=== PATIENT | male | born 1940 | race Caucasian/White ===

== ENCOUNTER → 2017-06-16 | Outpatient (CLI) | payer MEDICARE ==
[~2017-06-16] MED LIST: CODE-54 PO; OMEP20CA6 PO
--- NOTE | 2017-06-16 17:31 | Diagnostic Imaging Report ---
INDICATION: Cough x1 month. PA and lateral chest obtained at 5:26 p.m. and compared to 12/13/15. FINDINGS: Heart and mediastinal silhouette are normal in appearance. The lungs are clear. There is no pneumothorax or pleural fluid. There is some linear scarring or atelectasis in the right midlung, best seen on the lateral view. IMPRESSION: There is some linear scarring versus atelectasis in right midlung anteriorly, best seen on the lateral view. There is no definitive consolidation or pneumothorax or pleural fluid. Dictated by: Dictated on workstation # [id number]
== END ==
LOC: RAD 16:49
PROVIDERS: ATTEND Family Medicine
DX: R91.8 Other nonspecific abnormal finding of lung field (principal); R05 Cough
CPT/HCPCS: 71020

== ENCOUNTER → 2017-07-14 | Outpatient (CLI) | payer MEDICARE ==
--- NOTE | 2017-07-14 11:10 | Diagnostic Imaging Report ---
PROCEDURE: CT chest without contrast. TECHNIQUE: Multiple contiguous axial images were obtained through the chest without the use of intravenous contrast. INDICATION: Cough and shortness of breath. FINDINGS: The lungs demonstrate no significant consolidation, mass or suspicious nodule. There is very minimal atelectasis or scarring in the lung bases. Calcified granulomas are seen in the left hilum. There are no mediastinal masses or significantly enlarged lymph nodes. No significantly enlarged axillary lymph nodes are seen. The heart size is normal. No pericardial or pleural effusion is seen. The thoracic aorta is normal in caliber. Cholecystectomy clips are seen. The osseous structures demonstrate degenerative changes in the mid thoracic spine. IMPRESSION: There are minimal atelectatic changes or scarring seen in the bases. Dictated by: Dictated on workstation # [id number]
== END ==
LOC: RAD 10:02
PROVIDERS: ATTEND Family Medicine
DX: R91.8 Other nonspecific abnormal finding of lung field (principal)
CPT/HCPCS: 71250

== ENCOUNTER 2017-11-03 15:30 | Outpatient (RCR) | payer MEDICARE ==
[~2017-11-03] VITALS: Ht 172.7 cm; Wt 101.2 kg
[2017-11-03] MEDS ORDERED: PANT40TA3 PO (15:45)
[2017-11-03] MEDS ORDERED: MELO15TA39 PO (15:45)
[2017-11-03 15:48] VITALS: BP 146/76
[2017-11-03 16:10] LABS: BASOPHILS # (AUTO) 0.1 10^3/uL (0.0-0.1); BASOPHILS % (AUTO) 1 % (0-10); EOSINOPHILS # (AUTO) 0.9 10^3/uL (0.0-0.3); EOSINOPHILS % (AUTO) 10 % (0-10); HEMATOCRIT 43 % (40-54); HEMOGLOBIN 15.3 G/DL (13.3-17.7); LYMPHOCYTES # (AUTO) 2.7 X 10^3 (1.0-4.0); LYMPHOCYTES % (AUTO) 30 % (12-44); MEAN CORPUSCULAR HEMOGLOBIN 30 PG (25-34); MEAN CORPUSCULAR HGB CONC 35 G/DL (32-36); MEAN CORPUSCULAR VOLUME 84 FL (80-99); MEAN PLATELET VOLUME 9.7 FL (7.4-10.4); MONOCYTES # (AUTO) 1.1 X 10^3 (0.0-1.0); MONOCYTES % (AUTO) 13 % (0-12); NEUTROPHILS # (AUTO) 4.2 X 10^3 (1.8-7.8); NEUTROPHILS % (AUTO) 47 % (42-75); PLATELET COUNT 418 10^3/uL (130-400); RED BLOOD COUNT 5.17 10^6/uL (4.35-5.85); RED CELL DISTRIBUTION WIDTH 14.1 % (10.0-14.5)
[2017-11-03 16:29] LABS: BUN/CREATININE RATIO 14; CALCIUM 9.1 MG/DL (8.5-10.1); CARBON DIOXIDE 22 MMOL/L (21-32); CHLORIDE 107 MMOL/L (98-107); CREATININE SERUM 0.99 MG/DL (0.60-1.30); GFR ESTIMATED > 60; GLUCOSE 90 MG/DL (70-105); POTASSIUM 4.2 MMOL/L (3.6-5.0); SODIUM 140 MMOL/L (135-145)
[2017-11-03] MEDS ORDERED: RT-ALBUTEROL SULF 2.5 MG/3 ML PRE-MIX VIAL INH ONE (17:15)
[2017-11-06] MEDS ORDERED: HYDR-3812 PO (09:37)
== END 2018-02-01 | disposition home or self-care (01) ==
LOC: PREOP 15:30
PROVIDERS: ATTEND Otolaryngology Otolaryngology/Facial Plastic Surgery
DX: Z01.810 Encounter for preprocedural cardiovascular examination (principal); Z01.812 Encounter for preprocedural laboratory examination; Z11.2 Encounter for screening for other bacterial diseases; J38.3 Other diseases of vocal cords; R06.00 Dyspnea, unspecified; R06.2 Wheezing; R05 Cough
CPT/HCPCS: 36415; 80048; 85025; 87070; 87081; 87205; 93005; 94060; 94726; 94729

== ENCOUNTER 2017-11-06 06:10 | Day surgery (SDC) | payer MEDICARE ==
[~2017-11-06] VITALS: Ht 172.7 cm; Wt 101.2 kg
[~2017-11-06 06:10] MED LIST changes: +MELO15TA39 PO; +PANT40TA3 PO
[2017-11-06 06:20] VITALS: BP 130/74
[2017-11-06] MEDS ORDERED: LACTATED RINGERS 1,000 ML IV PRN (06:36)
[2017-11-06] MEDS ORDERED: FAMOTIDINE 20MG/2ML IV (PEPCID) IV ONE (06:45)
--- NOTE | 2017-11-06 06:46 | Progress Note-Pre Operative ---
Pre-Operative Progress Note H&P Reviewed The H&P was reviewed, patient examined and no changes noted. Date Seen by Provider: Nov 06, 2017 Time Seen by Provider: 06:30 Date H&P Reviewed: Nov 06, 2017 Time H&P Reviewed: 06:30 Pre-Operative Diagnosis: laryngeal Lesion-vocal cord ERIN ALVES MD Nov 06, 2017 6:46 am
[2017-11-06] MEDS ORDERED: LIDOCAINE PF 2% 5 ML (XYLOCAINE) VIAL ONE (06:56)
[2017-11-06] MEDS ORDERED: proPOfol 200 MG/20 ML (DIPRIVAN) VIAL IV ONE (06:56)
[2017-11-06] MEDS ORDERED: SEVOFLURANE (ULTANE) 15 ML INHAL SOLN ONE ×3 (06:56→08:20)
[2017-11-06] MEDS ORDERED: fentaNYL INJECTION 100 MCG/2 ML AMP ONE (06:57)
[2017-11-06] MEDS ORDERED: LIDOCAINE/EPI 1%-1:200,000 (XYLOCAINE) 10 ML VIAL ONE (07:03)
--- NOTE | 2017-11-06 08:14 | Progress Note-Post Operative ---
Post-Operative Progess Note Surgeon (s)/Optical Element Coater (s) Surgeon ERIN ALVES MD [employer] Element [employer] n/a Pre-Operative Diagnosis laryngeal Lesion-vocal cord Post-Operative Diagnosis same Post-Op Procedure Note Date of Procedure: Nov 06, 2017 Name of Procedure Performed: Direct Laryngoscoy with Removal of Right Vocal Cord Lesion Description & Findings Description and Findings: n/a Anesthesia Type get Estimated Blood Loss minimal Packing none. Specimen(s) collected/removed right vocal cord lesion ERIN ALVES MD Nov 06, 2017 8:14 am
[2017-11-06] MEDS ORDERED: ACETAMINOPHEN 325 MG TABLET/CAPLET (TYLENOL) PO PRN (08:15)
[2017-11-06] MEDS ORDERED: HYDROcodone/APAP 5 MG/325 MG (LORTAB) TAB PO PRN (08:15)
[2017-11-06] MEDS ORDERED: PROMETHAZINE INJ 25 MG/ML (PHENERGAN) AMP IV PRN (08:15)
[2017-11-06] MEDS ORDERED: ROCURONIUM 50 MG/5 ML (ZEMURON) VIAL IV ONE (08:20)
[2017-11-06] MEDS ORDERED: ONDANSETRON 4 MG/2 ML (SDV) Z0FRAN ONE (08:20)
[2017-11-06] MEDS ORDERED: NEOSTIGMINE (BLOXIVERZ ) 1 MG/1ML 10 ML VIAL ONE (08:20)
[2017-11-06] MEDS ORDERED: DEXAMETHASONE 10 MG/ML (DECADRON) 1 ML VIAL ONE (08:20)
[2017-11-06] MEDS ORDERED: GLYCOPYRROLATE 0.2 MG/ML (ROBINUL) 2 ML VIAL ONE (08:20)
[2017-11-06 09:05] VITALS: BP 123/64
[2017-11-06 09:35] VITALS: BP 125/61
[2017-11-06] MEDS ORDERED: HYDR-3812 PO ×2 (09:37)
[2017-11-06 10:05] VITALS: BP 132/65
== END 2017-11-06 10:25 | disposition home or self-care (01) ==
LOC: SDC 06:10
PROVIDERS: ATTEND Otolaryngology Otolaryngology/Facial Plastic Surgery
DX: J38.3 Other diseases of vocal cords (principal); K21.9 Gastro-esophageal reflux disease without esophagitis; E66.9 Obesity, unspecified; Z68.33 Body mass index [BMI] 33.0-33.9, adult

== ENCOUNTER 2017-11-06 13:00 | Outpatient (CLI) | payer MEDICARE ==
[~2017-11-06 13:00] MED LIST changes: +HYDR-3812 PO
== END 2017-11-06 13:30 | disposition home or self-care (01) ==
LOC: SLEEP 13:00
PROVIDERS: ATTEND Otolaryngology Otolaryngology/Facial Plastic Surgery
DX: G47.33 Obstructive sleep apnea (adult) (pediatric) (principal); R06.83 Snoring

== ENCOUNTER → 2019-03-04 | Outpatient (CLI) | payer MEDICARE ==
--- NOTE | 2019-03-04 15:44 | Diagnostic Imaging Report ---
INDICATION: Right knee pain. Time of exam 12:08 p.m. FINDINGS: Three views of the right knee were obtained. Joint spaces are fairly well-maintained. There is mild degenerative changes with marginal spurring present in all three compartments. There is spurring of the tibial spines. No fracture, dislocation or effusion is seen. IMPRESSION: Mild degenerative changes. No acute bony abnormality is detected. Dictated by: Dictated on workstation # [id number]
== END ==
LOC: RAD FS 12:03
PROVIDERS: ATTEND Emergency Medicine
DX: S89.91XA Unspecified injury of right lower leg, initial encounter (principal); M17.11 Unilateral primary osteoarthritis, right knee
CPT/HCPCS: 73562

== ENCOUNTER → 2019-03-27 | Outpatient (CLI) | payer MEDICARE ==
--- NOTE | 2019-03-27 17:26 | Diagnostic Imaging Report ---
INDICATION: Cough x 1 month. COMPARISON: 06/16/2017. EXAMINATION: Two views of the chest were obtained. FINDINGS: The lungs are well-aerated. There is concern of developing mass in the right lung base, measuring 2.5 cm, noted on the PA view. Lateral view shows no evidence of pleural effusion or air trapping. Heart is not enlarged. No pulmonary edema. No pneumothorax. No hilar adenopathy. IMPRESSION: Concern is raised of possible developing mass in the right lung base since previous examination. With patient's symptoms, would consider a followup chest x-ray or repeat CT scan. Dictated by: Dictated on workstation # [id number]
[2019-03-27 17:50] LABS: HEMATOCRIT 40 % (40-54); HEMOGLOBIN 13.7 G/DL (13.3-17.7); WHITE BLOOD COUNT 16.2 10^3/uL (4.3-11.0)
[2019-03-27 17:51] LABS: BASOPHILS % (AUTO) 0 % (0-10); EOSINOPHILS # (AUTO) 0.4 10^3/uL (0.0-0.3); EOSINOPHILS % (AUTO) 3 % (0-10); LYMPHOCYTES # (AUTO) 2.1 X 10^3 (1.0-4.0); LYMPHOCYTES % (AUTO) 13 % (12-44); MEAN CORPUSCULAR HEMOGLOBIN 29 PG (25-34); MEAN CORPUSCULAR HGB CONC 34 G/DL (32-36); MEAN CORPUSCULAR VOLUME 86 FL (80-99); MEAN PLATELET VOLUME 9.6 FL (7.4-10.4); MONOCYTES # (AUTO) 1.9 X 10^3 (0.0-1.0); MONOCYTES % (AUTO) 11 % (0-12); NEUTROPHILS # (AUTO) 11.8 X 10^3 (1.8-7.8); NEUTROPHILS % (AUTO) 73 % (42-75); PLATELET COUNT 534 10^3/uL (130-400); RED CELL DISTRIBUTION WIDTH 15.7 % (10.0-14.5)
[2019-03-27 18:05] LABS: ALANINE AMINOTRANSFERASE 31 U/L (0-55); ALBUMIN 3.5 GM/DL (3.2-4.5); ALKALINE PHOSPHATASE 70 U/L (40-136); BILIRUBIN,TOTAL 0.3 MG/DL (0.1-1.0); BUN/CREATININE RATIO 20; CALCIUM 8.8 MG/DL (8.5-10.1); CARBON DIOXIDE 20 MMOL/L (21-32); CHLORIDE 108 MMOL/L (98-107); CREATININE SERUM 0.91 MG/DL (0.60-1.30); GFR ESTIMATED > 60; GLUCOSE 133 MG/DL (70-105); SODIUM 139 MMOL/L (135-145)
[2019-03-27 18:07] LABS: BAND NEUTROPHILS 0 %; BASOPHILS % (MANUAL) 0 %; EOSINOPHILS % (MANUAL) 2 %; LYMPHOCYTES % (MANUAL) 16 %; MONOCYTES % (MANUAL) 8 %; NEUTROPHILS % (MANUAL) 74 %; RBC MORPH NORMAL
== END ==
LOC: RAD 16:31
PROVIDERS: ATTEND Emergency Medicine
DX: R05 Cough (principal); R07.89 Other chest pain
CPT/HCPCS: 36415; 71046; 80053; 84484; 85007; 85027; 86141

== ENCOUNTER → 2019-03-29 | Outpatient (CLI) | payer MEDICARE ==
--- NOTE | 2019-03-29 12:32 | Diagnostic Imaging Report ---
PROCEDURE: CT chest without contrast. TECHNIQUE: Multiple contiguous axial images were obtained through the chest without the use of intravenous contrast. Auto Exposure Controls were utilized during the CT exam to meet ALARA standards for radiation dose reduction. INDICATION: Abnormal chest x-ray demonstrating density in the right base. Study is performed for followup. COMPARISON: Correlation is made with chest radiograph from 03/27/2019. FINDINGS: No axillary lymphadenopathy is seen. Hilar and mediastinal evaluation is limited without intravenous contrast but no significant abnormality is seen. No pericardial or pleural fluid is identified. Parenchymal evaluation does show some airspace consolidation in the medial aspect of the right lower lobe in the infrahilar location, most suggestive of pneumonia. Ill-defined opacity more inferiorly and laterally in the right base is also seen measuring 19 mm. This likely accounts for density noted on recent chest x-ray. This may represent an area of infection as well. There appears to be some mild tree in bud opacities in the right lower lobe. Left lung is clear. Upper abdomen is unremarkable. IMPRESSION: Right lower lobe airspace densities, likely on the basis of an infectious/inflammatory process. A discrete mass is not seen but followup chest CT in short interval after course of therapy is recommended to confirm clearing. Dictated by: Dictated on workstation # [id number]
== END ==
LOC: RAD FS 11:56
PROVIDERS: ATTEND Emergency Medicine
DX: J98.4 Other disorders of lung (principal); R91.8 Other nonspecific abnormal finding of lung field
CPT/HCPCS: 71250

== ENCOUNTER → 2019-04-18 | Outpatient (CLI) | payer MEDICARE ==
--- NOTE | 2019-04-18 11:35 | Diagnostic Imaging Report ---
EXAMINATION: CHEST (PA AND LATERAL) CLINICAL INDICATION: 79-year-old male, followup right lower lobe pneumonia. COMPARISON: March 27, 2019. FINDINGS: Stable overall appearance of the cardiomediastinal silhouette. There is no identified pneumothorax. There is no pleural effusion. The streaky opacities in the right lower lobe appear essentially unchanged since comparison exam. IMPRESSION: 1. Mild streaky opacities in the right lower lobe appear essentially unchanged since comparison exam and may relate to infiltrate and/or atelectasis. Dictated by: Dictated on workstation # [id number]
== END ==
LOC: RAD FS 10:50
PROVIDERS: ATTEND Emergency Medicine
DX: J18.1 Lobar pneumonia, unspecified organism (principal)
CPT/HCPCS: 71046

== ENCOUNTER → 2019-06-02 | Outpatient (CLI) | payer MEDICARE ==
--- NOTE | 2019-06-02 12:24 | Diagnostic Imaging Report ---
PROCEDURE: CT chest without contrast. TECHNIQUE: Multiple contiguous axial images were obtained through the chest without the use of intravenous contrast. Auto Exposure Controls were utilized during the CT exam to meet ALARA standards for radiation dose reduction. INDICATION: Right lower lobe infiltrate and productive cough. Correlation is made with prior CT chest from 03/29/2019. No axillary lymphadenopathy is seen. No definite hilar or mediastinal lymphadenopathy is detected. No pericardial or pleural fluid is identified. The areas of airspace infiltrate in the right lower lobe on prior study have resolved consistent with resolving pneumonia. No new infiltrate is seen. No parenchymal mass or nodule is identified. Upper abdomen is unremarkable. IMPRESSION: Resolution of right lower lobe pneumonia when compared with prior CT from 03/29/2019. Dictated by: Dictated on workstation # [id number]
== END ==
LOC: RAD 10:08
PROVIDERS: ATTEND Emergency Medicine
DX: J18.1 Lobar pneumonia, unspecified organism (principal)
CPT/HCPCS: 71250

== ENCOUNTER 2020-04-06 07:00 | Emergency (ER) | payer MEDICARE ==
[~2020-04-06] VITALS: Ht 175 cm; Wt 95.2 kg
[~2020-04-06 07:00] MED LIST changes: +ACHD5005 PO; -HYDR-3812 PO
--- OUTSIDE RECORDS SUMMARY | 2020-04-06 07:08 | XMS REPORT | CCD ---
Author Author Deon Laureano D.O. Organization BK LAUREANO DO [facility] Address [address] [place] [address] Phone Care Team Providers Care Manpower Development Specialist Manager Name Role Phone Bk Laureano D.O. PP Unavailable CCM Unavailable Summary Purpose Interface Exchange Insurance Providers Payer name Policy type / Coverage type Covered democrat ID Effective Begin Date Effective End Date [employer] MEDIC[place] Medicare Part B [id number] Unknown [facility] [place] Medicare Part B [id number] Un known Family history Father Diagnosis Age At Onset Lung Cancer Unknown Mother Diagnosis Age At Onset Cerebrovascular disease Unknown Hypertension Unknown Social History Social History Element Codes Description Effective Dates Marital status Unknown 12/13/2014 Number of children Unknown 3 12/13/2014 Employment Unknown Currently employed 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 12/13/[address]: 764817 Currently drinks alcohol 12/13 Frequency of drinks SNOMED CT: 937641447 Drinks rarely 015 Allergies, Adverse Reactions, Alerts Substance Reaction Codes Entered Date Inactivated Date Status * NO KNOWN DRUG ALLERGIES Unknown 12/13/2014 No Inactiv e Date Active * NO KNOWN ENVIRONMENTAL ALLERGIES Unknown 12/13/2014 N o Inactive Date Active * NO KNOWN FOOD ALLERGIES Unknown 12/13/2014 No Inactiv e Date Active Problems Condition Codes Effective Dates Condition Status Acute bronchitis, unspecified ICD-9: 490 ICD-10: J20.9 09/23/2017 Active Allergic rhinitis due to pollen ICD-9: 477.9 ICD-10: J30.1 06/16/2017 Active COUGH ICD-9: 786.2 ICD-10: R05 06/16/2017 Active Wheezing ICD-9: 786.07 ICD-10: R06.2 06/16/2017 Active Acute bronchitis, unspecified ICD-9: 466.0 ICD-10: J20.9 03/16/2019 Active Acute recurrent sinusitis, unspecified ICD-9: 461.9 ICD-10: J01.91 01/13/2019 Active Encounter for general adult medical examination withou t abnormal findings ICD-9: V70.9 ICD-10: Z00.00 07/21/2018 Active Gastro-esophageal reflux disease without esophagitis I CD-9: 530.81 ICD-10: K21.9 12/13/2014 Active Personal history of malignant neoplasm of prostate ICD -9: V10.46 ICD-10: Z85.46 12/13/2014 Active Corns and callosities ICD-9: 700 ICD-10: L84 06/16/2017 Active Other seasonal allergic rhinitis ICD-9: 477.9 ICD-10: J30.2 02/19/2017 Active Encounter for screening for cardiovascular disorders I CD-9: V81.0 ICD-10: Z13.6 02/28/2016 Active Unspecified osteoarthritis, unspecified site ICD-9: 71 5.90 ICD-10: M19.90 02/28/2016 Active CHEST PAIN NOS ICD-9: 786.50 12/13/2014 Active GERD ICD-9: 530.81 12/13/2014 Active History of prostate cancer ICD-9: V10.46 12/13/2014 Activ e Knee pain ICD-9: 719.46 12/13/2014 Active Medications Medication Codes Instructions Start Date Stop Date Status Fill Instructions meloxicam 15 mg tablet RxNorm: 184580 1 Tablet(s) Oral QD for pain 03/22/2020 06/19/2020 Active Ventolin HFA 90 mcg/actuation aerosol inhaler RxNorm: 926547 2 Puff(s) Inhalation four times a day 02/14/2020 03/14/2020 Inactive doxycycline hyclate 100 mg capsule RxNorm: 5719652 1 Cap fadi(s) Oral two times a day 02/14/2020 02/21/2020 Inactive prednisone 20 mg tablet RxNorm: 836893 1 Tablet(s) Oral two denise es a day 02/14/2020 02/21/2020 Inactive doxycycline hyclate 100 mg capsule RxNorm: 9138729 1 Cap fadi(s) Oral two times a day 12/02/2019 12/12/2019 Inactive prednisone 20 mg tablet RxNorm: 554229 1 Tablet(s) Oral two denise es a day 12/02/2019 12/09/2019 Inactive Ventolin HFA 90 mcg/actuation aerosol inhaler RxNorm: 375825 2 Puff(s) Inhalation four times a day 12/02/2019 02/13/2020 Inactive meloxicam 15 mg tablet RxNorm: 647401 1 Tablet(s) Oral QD for pain 08/20/2019 02/16/2020 Inactive pantoprazole 40 mg tablet,delayed release RxNorm: 801539 1 TABL ET(S) PO QD 08/09/2019 05/04/2020 Active meloxicam 15 mg tablet RxNorm: 655303 1 Tablet(s) PO QD for pain 08/19/2019 Inactive doxycycline hyclate 100 mg tablet RxNorm: 1859916 1 Tablet(s) PO BI D 03/16/2019 03/25/2019 Inactive prednisone 20 mg tablet RxNorm: 267724 1 Tablet(s) PO BID 03/16/2019 03/22/2019 Inactive cefdinir 300 mg capsule RxNorm: 696562 1 Capsule(s) PO BID 01/14/2001/26/2019 Inactive prednisone 20 mg tablet RxNorm: 928248 1 Tablet(s) PO BID 01/13/2019 01/19/2019 Inactive meloxicam 15 mg tablet RxNorm: 232109 1 Tablet(s) PO QD for pain 01/16/2019 Inactive pantoprazole 40 mg tablet,delayed release RxNorm: 650260 1 Tabl et(s) PO QD 07/21/2018 07/15/2019 Inactive meloxicam 15 mg tablet RxNorm: 680148 1 Tablet(s) PO QD 06/22/2018 Inactive pantoprazole 40 mg tablet,delayed release RxNorm: 448748 1 Tabl et(s) PO QD 06/18/2018 07/20/2018 Inactive pantoprazole 40 mg tablet,delayed release RxNorm: 718558 1 Tabl et(s) PO QD 04/16/2018 06/17/2018 Inactive pantoprazole 40 mg tablet,delayed release RxNorm: 808530 1 Tabl et(s) PO QD 02/04/2018 06/18/2018 Inactive pantoprazole 40 mg tablet,delayed release RxNorm: 060548 1 Tabl et(s) PO QD 09/23/2017 02/04/2018 Inactive prednisone 20 mg tablet RxNorm: 085366 2 Tablet(s) PO QD 09/23/2017 1 11/25/2016 Inactive Singulair 10 mg tablet RxNorm: 606306 1 Tablet(s) PO QHS for co ugh/allergies 07/03/2017 07/20/2018 Inactive loratadine 10 mg tablet RxNorm: 926584 1 Tablet(s) PO QAM for a llergies 02/19/2017 07/20/2018 Inactive omeprazole 20 mg capsule,delayed release RxNorm: 020983 1 Capsu le(s) PO QD 02/19/2017 07/20/2018 Inactive [AttnRPh: Saving shiv ly/adjudicate RxGRP:SG20 RxBIN:[id number] RxPCN: ID#:[id number]] meloxicam 15 mg tablet RxNorm: 043821 1 Tablet(s) PO QD 02/19/2017 Inactive omeprazole 20 mg capsule,delayed release RxNorm: 568689 1 Capsu le(s) PO QD 02/29/2016 02/18/2017 Inactive [AttnRPh: Saving shiv ly/adjudicate RxGRP:SG20 RxBIN:[id number] RxPCN: ID#:[id number]] meloxicam 15 mg tablet RxNorm: 519737 1 Tablet(s) PO QD 02/29/2016 Inactive omeprazole 20 mg capsule,delayed release RxNorm: 161074 1 CAPSULE(S) PO QD DUE FOR ROUTINE APPOINTMENT 02/01/2016 02/28/2016 Inactive [AttnRPh : Saving apply/adjudicate RxGRP:SG20 RxBIN:[id number] RxPCN:HT ID#:[id number]] meloxicam 15 mg tablet RxNorm: 196297 1 Tablet(s) PO QD TABLET( S) PO QD 12/27/2015 01/25/2016 Inactive omeprazole 20 mg capsule,delayed release RxNorm: 480481 1 Capsule(s) PO QD Due for routine appointment 11/28/2015 12/27/2015 Inactive [AttnRPh : Saving apply/adjudicate RxGRP:SG20 RxBIN:[id number] RxPCN:HT ID#:[id number]] meloxicam 15 mg tablet RxNorm: 568673 2 Tablet(s) PO QD 09/26/2015 Inactive omeprazole 20 mg capsule,delayed release RxNorm: 305359 1 Capsu le(s) PO QD 12/13/2014 11/28/2015 Inactive [AttnRPh: Saving shiv ly/adjudicate RxGRP:SG20 RxBIN:[id number] RxPCN: ID#:[id number]] Multivitamin & Mineral Formula oral RxNorm: oral No Start Date Active Nasacort AQ 55 mcg nasal spray aerosol RxNorm: 5251790 1 [place] NASAL QD to each nostril No Start Date Active Breo Ellipta 100 mcg-25 mcg/dose powder for inhalation RxNorm: 1 060060 1 INH QD No Start Date 01/12/2019 Inactive Vitamin C 500 mg tablet RxNorm: 678194 1 Tablet(s) PO QD No Start D ate 12/01/2019 Inactive meloxicam 15 mg tablet RxNorm: 118721 1 Tablet(s) PO QD No Start Da te 02/28/2016 Inactive meloxicam 15 mg tablet RxNorm: 723619 2 Tablet(s) PO QD No Start Da te 09/25/2015 Inactive meloxicam 15 mg tablet RxNorm: 694936 1 Tablet(s) PO QD No Start Da te 07/20/2018 Inactive Medication Administered No Medication Administered data Immunizations No Immunization data Results Observation Observation Code Item Item Code Result Date S vic Location ERYTHROCYTE SEDIMENTATION RATE 71839 Sed Rate 1 mm/hr 07/04/2017 Unknown GFR CALC 6853617 GFR Afr Amr >60 mL/min 07/03/2017 Unknow n GFR CALC 4659837 GFR Non Afr Amr >60 mL/min 07/03/2017 Un known COMPLETE BLOOD COUNT [id number] WBC 9.2 10e9/L 07/03/20 17 Unknown COMPLETE BLOOD COUNT [id number] RBC 4.73 10e12/L 2016 Unknown COMPLETE BLOOD COUNT [id number] HEMOGLOBIN 14.0 g/dL 07/03/20 17 Unknown COMPLETE BLOOD COUNT [id number] HEMATOCRIT 42.3 % 07/03/20 17 Unknown COMPLETE BLOOD COUNT 6661314 MCV 89.4 fL 7 Unknown COMPLETE BLOOD COUNT 2700149 MCH 29.6 pg 7 Unknown COMPLETE BLOOD COUNT 8949571 MCHC 33.1 g/dL 7 Unknown COMPLETE BLOOD COUNT [id number] PLATELET COUNT 375 10e9/L 04/2017 Unknown COMPLETE BLOOD COUNT 1264963 Mean Plt Volume 9.7 fL 04/2017 Unknown COMPLETE BLOOD COUNT 9391743 Neut Auto 61.0 % 7 Unknown COMPLETE BLOOD COUNT 5322734 Lymph Auto 25.8 % 07/03/20 17 Unknown COMPLETE BLOOD COUNT 4489329 Cloud Auto 10.2 % 7 Unknown COMPLETE BLOOD COUNT 4357555 RDW 15.0 % 7 Unknown COMPLETE BLOOD COUNT 7932706 Eos Auto 2.9 % 7 Unknown COMPLETE BLOOD COUNT 1716254 Baso Auto 0.1 % 7 Unknown COMPLETE BLOOD COUNT 4072960 Neutrophil Abs 5.61 10e9/L Unknown COMPLETE BLOOD COUNT 0545784 Lymphocyte Abs 2.37 10e9/L Unknown COMPLETE BLOOD COUNT 5001716 Monocyte Abs 0.94 10e9/L 04/2017 Unknown COMPLETE BLOOD COUNT 2200826 Eosinophil Abs 0.27 10e9/L Unknown COMPLETE BLOOD COUNT 0619007 RDW-SD 48.6 fL 7 Unknown COMPLETE BLOOD COUNT 2758412 Basophil Abs 0.01 10e9/L 04/2017 Unknown COMPREHENSIVE METABOLIC 30720 AST 17 U/L 2016 Unknown COMPREHENSIVE METABOLIC 94700 ALT 18 U/L 2016 Unknown COMPREHENSIVE METABOLIC 19568 BUN 22 mg/dL 2016 Unknown COMPREHENSIVE METABOLIC 81501 ALBUMIN 3.6 g/dL 2016 Unknown COMPREHENSIVE METABOLIC 11207 CHLORIDE 106 mmol/L 07/03 Unknown COMPREHENSIVE METABOLIC 25510 Bili Total 0.3 mg/dL 07/03 Unknown COMPREHENSIVE METABOLIC 47352 ALK PHOS 51 U/L 2016 Unknown COMPREHENSIVE METABOLIC 04684 SODIUM 137 mmol/L 07/03 Unknown COMPREHENSIVE METABOLIC 74698 CREATININE 0.99 mg/dL 04/2017 Unknown COMPREHENSIVE METABOLIC 62933 CALCIUM 8.7 mg/dL 2016 Unknown COMPREHENSIVE METABOLIC 28769 POTASSIUM 4.6 mmol/L 07/03 Unknown COMPREHENSIVE METABOLIC 26012 Total Protein 6.0 g/dL Unknown COMPREHENSIVE METABOLIC 47471 Glucose 105 mg/dL 2016 Unknown COMPREHENSIVE METABOLIC 06374 Bicarbonate 24 mmol/L 04/2017 Unknown COMPREHENSIVE METABOLIC 30658 AGAP 7 mmol/L 2016 Unknown THYROID STIMULATING HORMONE 67012 TSH 1.054 uIU/mL 07/03/2017 Unknown GFR CALC 3607758 GFR Afr Amr >60 mL/min 02/29/2016 Unknow n GFR CALC 4869206 GFR Non Afr Amr >60 mL/min 02/29/2016 Un known PSA EQUIMOLAR VERONICA 60897 PSA Total 0.14 ng/mL 6 Unknown COMPREHENSIVE METABOLIC 42880 AST 18 U/L 2015 Unknown COMPREHENSIVE METABOLIC 43304 ALT 19 U/L 2015 Unknown COMPREHENSIVE METABOLIC 67429 BUN 19 mg/dL 2015 Unknown COMPREHENSIVE METABOLIC 09120 ALBUMIN 4.0 g/dL 2015 Unknown COMPREHENSIVE METABOLIC 29210 CHLORIDE 107 mmol/L 02/28 Unknown COMPREHENSIVE METABOLIC 17989 Bili Total 0.5 mg/dL 02/28 Unknown COMPREHENSIVE METABOLIC 21447 ALK PHOS 52 U/L 2015 Unknown COMPREHENSIVE METABOLIC 90755 SODIUM 135 mmol/L 02/28 Unknown COMPREHENSIVE METABOLIC 42310 CREATININE 0.93 mg/dL 02/2016 Unknown COMPREHENSIVE METABOLIC 60406 CALCIUM 9.1 mg/dL 2015 Unknown COMPREHENSIVE METABOLIC 94515 POTASSIUM 4.5 mmol/L 02/28 Unknown COMPREHENSIVE METABOLIC 97212 Total Protein 6.3 g/dL Unknown COMPREHENSIVE METABOLIC 42243 Glucose 97 mg/dL 2015 Unknown COMPREHENSIVE METABOLIC 27624 Bicarbonate 21 mmol/L 02/2016 Unknown COMPREHENSIVE METABOLIC 46356 AGAP 7 mmol/L 2015 Unknown COMPLETE BLOOD COUNT 7548465 WBC 7.0 10e9/L 02/29/20 16 Unknown COMPLETE BLOOD COUNT 3262191 RBC 4.94 10e12/L 2015 Unknown COMPLETE BLOOD COUNT 7749452 HEMOGLOBIN 14.5 g/dL 02/29/20 16 Unknown COMPLETE BLOOD COUNT 3502258 HEMATOCRIT 43.1 % 02/29/20 16 Unknown COMPLETE BLOOD COUNT 2674490 MCV 87.2 fL 6 Unknown COMPLETE BLOOD COUNT 7622185 MCH 29.4 pg 6 Unknown COMPLETE BLOOD COUNT 9297000 MCHC 33.6 g/dL 6 Unknown COMPLETE BLOOD COUNT 2014982 PLATELET COUNT 339 10e9/L 02/2016 Unknown COMPLETE BLOOD COUNT 8262662 Mean Plt Volume 10.6 fL 02/2016 Unknown COMPLETE BLOOD COUNT 9257301 Neut Auto 52.5 % 6 Unknown COMPLETE BLOOD COUNT 4201209 Lymph Auto 32.7 % 02/29/20 16 Unknown COMPLETE BLOOD COUNT 4135236 Cloud Auto 12.9 % 6 Unknown COMPLETE BLOOD COUNT 6400485 Eos Auto 1.6 % 6 Unknown COMPLETE BLOOD COUNT 9846719 RDW 14.6 % 6 Unknown COMPLETE BLOOD COUNT 3400123 Baso Auto 0.3 % 6 Unknown COMPLETE BLOOD COUNT 9211688 Neutrophil Abs 3.68 10e9/L Unknown COMPLETE BLOOD COUNT 1542417 Lymphoctye Abs 2.29 10e9/L Unknown COMPLETE BLOOD COUNT 1866804 Monocyte Abs 0.90 10e9/L 02/2016 Unknown COMPLETE BLOOD COUNT 2562809 Eosinophil Abs 0.11 10e9/L Unknown COMPLETE BLOOD COUNT 6530855 Basophil Abs 0.02 10e9/L 02/2016 Unknown COMPLETE BLOOD COUNT 9172045 RDW-SD 46.3 fL 6 Unknown LIPID GROUP 98294 Cholesterol 161 mg/dL 02/29/2016 Unkno wn LIPID GROUP 81113 Triglyceride 57 mg/dL 02/29/2016 Unkn own LIPID GROUP 22657 HDL CHOLESTEROL 50 mg/dL 02/29/2016 U nknown LIPID GROUP 85435 Chol/HDL Ratio 3.22 ratio 02/29/2016 U nknown LIPID GROUP 25360 NON-HDL Chol 111 mg/dL 02/29/2016 Unkn own LIPID GROUP 60964 LDL Cholesterol 100 mg/dL 02/29/2016 U nknown Procedures Procedure Codes Date DEXAMETHASONE SODIUM PHOS CPT-4: J1100 12/02/2019 THER/PROPH/DIAG INJ SC/IM CPT-4: 36352 12/02/2019 TRIAMCINOLONE ACET INJ NOS CPT-4: J3301 12/02/2019 THER/PROPH/DIAG INJ SC/IM CPT-4: 25525 03/16/2019 TRIAMCINOLONE ACET INJ NOS CPT-4: J3301 03/16/2019 CEFTRIAXONE SODIUM INJECTION CPT-4: J0696 03/16/2019 THER/PROPH/DIAG INJ SC/IM CPT-4: 36455 03/16/2019 DEXAMETHASONE SODIUM PHOS CPT-4: J1100 03/16/2019 THER/PROPH/DIAG INJ SC/IM CPT-4: 99606 01/13/2019 TRIAMCINOLONE ACET INJ NOS CPT-4: J3301 01/13/2019 PPPS, subseq visit CPT-4: G0439 07/21/2018 PRESCRIP TRANSMIT VIA ERX SY CPT-4: G8553 09/23/2017 ROUTINE VENIPUNCTURE CPT-4: 23364 07/03/2017 ASSAY THYROID STIM HORMONE CPT-4: 35557 07/03/2017 COMPREHEN METABOLIC PANEL CPT-4: 55989 07/03/2017 COMPLETE CBC W/AUTO DIFF WBC CPT-4: 41810 07/03/2017 RBC SED RATE AUTOMATED CPT-4: 44875 07/03/2017 PRESCRIP TRANSMIT VIA ERX SY CPT-4: G8553 07/03/2017 THER/PROPH/DIAG INJ SC/IM CPT-4: 48317 06/16/2017 TRIAMCINOLONE ACET INJ NOS CPT-4: J3301 06/16/2017 PRESCRIP TRANSMIT VIA ERX SY CPT-4: G8553 02/19/2017 ROUTINE VENIPUNCTURE CPT-4: 16585 02/29/2016 COMPREHEN METABOLIC PANEL CPT-4: 01956 02/29/2016 COMPLETE CBC W/AUTO DIFF WBC CPT-4: 90858 02/29/2016 LIPID PANEL CPT-4: 09796 02/29/2016 ASSAY OF PSA TOTAL CPT-4: 58434 02/29/2016 PRESCRIP TRANSMIT VIA ERX SY CPT-4: G8553 02/29/2016 PRESCRIP TRANSMIT VIA ERX SY CPT-4: G8553 12/13/2014 Vital Signs Date Vital 12/02/2019 Blood Pressure 1: 126/62 Code: 8480-6 BMI: 31.3 Code: 68087-5 Heart Rate 1: 76 bpm Height: 5'9" Respiratory Rate: 22 bpm SpO2: 92% Tempera ture: 36.8 (C) / 98.2 (F) Weight: 212 lbs 03/16/2019 Blood Pressure 1: 122/74 Code: 8480-6 Heart Rate 1: 82 bpm Respiratory Rate: 18 bpm SpO2: 95% Temperature: 36.5 (C) / 97.7 (F) We ight: 213 lbs 01/13/2019 Blood Pressure 1: 114/62 Code: 8480-6 BMI: 31.9 Code: 92762-1 Heart Rate 1: 68 bpm Height: 5'9" Respiratory Rate: 20 bpm SpO2: 94% Tempera ture: 36.6 (C) / 97.9 (F) Weight: 216 lbs 07/21/2018 Blood Pressure 1: 136/78 Code: 8480-6 BMI: 32.0 Code: 50932-0 Heart Rate 1: 72 bpm Height: 5'9" Respiratory Rate: 20 bpm SpO2: 95% Tempera ture: 36.5 (C) / 97.7 (F) Weight: 217 lbs 09/23/2017 Blood Pressure 1: 118/68 Code: 8480-6 BMI: 32.6 Code: 88387-7 Heart Rate 1: 76 bpm Height: 5'9" Respiratory Rate: 20 bpm SpO2: 94% Tempera ture: 36.2 (C) / 97.1 (F) Weight: 221 lbs 07/03/2017 Blood Pressure 1: 126/64 Code: 8480-6 Heart Rate 1: 78 bpm Height: Respiratory Rate: 18 bpm SpO2: 97% Temperature: 36.4 (C) / 97.6 (F) We ight: 221 lbs 06/16/2017 Blood Pressure 1: 128/76 Code: 8480-6 BMI: 33.1 Code: 21521-6 Heart Rate 1: 78 bpm Height: 5'9" Respiratory Rate: 20 bpm SpO2: 96% Tempera ture: 36.4 (C) / 97.6 (F) Weight: 224 lbs 02/19/2017 Blood Pressure 1: 126/78 Code: 8480-6 Heart Rate 1: 74 bpm Respiratory Rate: 20 bpm SpO2: 96% Temperature: 36.3 (C) / 97.3 (F) We ight: 224 lbs 02/29/2016 Blood Pressure 1: 124/78 Code: 8480-6 BMI: 33.7 Code: 70854-6 Heart Rate 1: 72 bpm Height: 5'9" Respiratory Rate: 20 bpm SpO2: 96% Tempera ture: 36.2 (C) / 97.2 (F) Weight: 228 lbs 12/13/2014 Blood Pressure 1: 132/78 Code: 8480-6 BMI: 33.1 Code: 51787-3 Heart Rate 1: 72 bpm Height: 5'9" Respiratory Rate: 20 bpm Temperature: 36 .8 (C) / 98.2 (F) Weight: 224 lbs Functional Status No Functional Status data Reason For Visit Reason For Visit Effective Dates Notes cough 02/14/2020 cough 12/02/2019 cough 03/16/2019 nonproductive cough 01/13/2019 well man exam (65+ years) 07/21/2018 follow up 09/23/2017 follow up 07/03/2017 2 week- Patient star brianna on Breo follow up 06/16/2017 postnasal drip 02/19/2017 joint complaint 02/29/2016 needs refill of magallon xicam ~generic 12/13/2014 New Patient Encounters Encounter Performer Location Codes Date ([id number]) OFFICE/OUTPATIENT VISIT EST Diagnosis: Acute bronchitis, unspecified[ICD10: J20.9] Diagnosis: Allergic rhinitis due to pollen[ICD10: J30.1] [facility] 89459 02/14/2020 ([id number]) OFFICE/OUTPATIENT VISIT EST Diagnosis: COUGH[ICD10: R05] Diagnosis: Wheezing[ICD10: R06.2] Bk Hood [facility] CPT-4: 69904 12/02/2019 ([id number]) OFFICE/OUTPATIENT VISIT EST Diagnosis: Cough[ICD10: R05] Diagnosis: Acute bronchitis, unspecified[ICD10: J20.9] Alice LAUREANO [facility] CPT-4: 53185 03/16/2019 ([id number]) OFFICE/OUTPATIENT VISIT EST Diagnosis: Acute recurrent sinusitis, unspecified[ICD10: J01.91] Diagnosis: Allergic rhinitis due to pollen[ICD10: J30.1] Diagnosis: COUGH[ICD10: R05] Bk LAUREANO Liquid5 CPT-4: 39164 01/13/2019 OFFICE/OUTPATIENT VISIT EST Diagnosis: Acute bronchitis, unspecified[ICD10: J20.9] Diagnosis: Gastro-esophageal reflux disease without esophagitis[ICD10: K21.9] Mayra LAUREANO [facility] CPT-4: 15584 09/23/2017 ([id number]) OFFICE/OUTPATIENT VISIT EST Diagnosis: COUGH[ICD10: R05] Diagnosis: Allergic rhinitis due to pollen[ICD10: J30.1] Diagnosis: Personal history of malignant neoplasm of prostate[ICD10: Z85.46] Bk LAUREANO [facility] CPT-4: 82988 07/03/2017 ([id number]) OFFICE/OUTPATIENT VISIT EST Diagnosis: COUGH[ICD10: R05] Diagnosis: Wheezing[ICD10: R06.2] Diagnosis: Allergic rhinitis due to pollen[ICD10: J30.1] Diagnosis: Corns and callosities[ICD10: L84] Bk RODRIGUEZ [facility] CPT-4: 53520 06/16/2017 ([id number]) OFFICE/OUTPATIENT VISIT EST Diagnosis: Other seasonal allergic rhinitis[ICD10: J30.2] Faye MCBRIDELINE Velasquez RODRIGUEZ [facility] CPT-4: 18666 02/19/2017 OFFICE/OUTPATIENT VISIT EST Diagnosis: Gastro-esophageal reflux disease without esophagitis[ICD10: K21.9] Diagnosis: Unspecified osteoarthritis, unspecified site[ICD10: M19.90] Diagnosis: Personal history of malignant neoplasm of prostate[ICD10: Z85.46] Diagnosis: Encounter for screening for cardiovascular disorders[ICD10: Z13.6] Faye MCBRIDELINE Velasquez LAUREANO [facility] CPT-4: 70748 02/29/2016 ([id number]) OFFICE/OUTPATIENT VISIT NEW Diagnosis: CHEST PAIN NOS[ICD9: 786.50] Diagnosis: GERD[ICD9: 530.81] Diagnosis: History of prostate cancer[ICD9: V10.46] Diagnosis: Knee pain[ICD9: 719.46] Bk RODRIGUEZ [facility] CPT-4: 94404 12/13/2014 Plan of Care Planned Activity Notes Codes Status Date Visit Diagnosis Plan: Acute bronchitis, unspecified Di scussion: Doxycycline Continue Proair Notify if worsening or persists ICD-9 : 490 ICD-10 : J20.9 02/14/2020 Visit Diagnosis Plan: Allergic rhinitis due to pollen Discussion: Prednisone ICD-9 : 477.9 ICD-10 : J30.1 02/14/2020 Appointment: Bk Laureano WPtel: [address] [place] [address] TELEMEDICINE 02/14/2020 Patient Education: doxycycline hyclate- [employer] Cou adrienne [phone] https://www.waygum/Infobright/resources/getResource/61/[email or web address] Completed 02/14/2020 Patient Education: prednisone- [employer] Coupon [phone] https://www.waygum/Infobright/resources/getResource/61/245ffw69-1pv7-052z-po Completed 02/14/2020 Visit Diagnosis Plan: Wheezing Discussion: Kenalog/Dex amethasone Prednisone Doxycycline Notify if persists/worsens ICD-9 : 786.07 ICD-10 : R06.2 12/02/2019 Visit Diagnosis Plan: COUGH Discussion: Had CT scan do ne in May 2019 ICD-9 : 786.2 ICD-10 : R05 12/02/2019 Appointment: Bk Laureano WPtel: [address] [place] [address] ACUTE ILLNESS 12/02/2019 Patient Education: doxycycline hyclate- [employer] Cou adrienne [phone] https://www.waygum/SideStepmd/resources/getResource/61/mrgj9s3a-w594-3365-3r Completed 12/02/2019 Patient Education: prednisone- [employer] Coupon [phone] https://www.waygum/SideStepmd/resources/getResource/61/zb41f6nk-h4j3-178y-03 Completed 12/02/2019 Visit Diagnosis Plan: Acute bronchitis, unspecified Di scussion: Rocephin 1 gram administered in clinic along with Dex and kenalog (4&40). Patient tolerated well. He is to start prednisone and doxycycline tomorrow. ICD-9 : 466.0 ICD-10 : J20.9 03/16/2019 Visit Diagnosis Plan: Cough Discussion: moist air advi sed ICD-9 : 786.2 ICD-10 : R05 03/16/2019 [facility] [address] [facility] [facility] 03/16/2019 Patient Education: prednisone- [employer] Coupon [phone] Completed 03/16/2019 Patient Education: doxycycline hyclate- [employer] Coupon [phone] Completed 03/16/2019 Visit Plan: Saline nasal flushes prn. Ty lenol/Motrin prn headache. Notify if persists/symptoms worsening. 01/13/2019 Visit NOS Plan: Plan Notes: Saline nasal flu shes prn. Tyle... 01/13/2019 Visit Diagnosis Plan: Acute recurrent sinusitis, unspe cified Discussion: Cefdinir for 2 weeks plus Prednisone Kenalog 40mg IM today ICD-9 : 461.9 ICD-10 : J01.91 01/13/2019 Visit Diagnosis Plan: COUGH Discussion: Has seen lung specialist recently and had labwork done Notify if persist ICD-9 : 786.2 ICD-10 : R05 01/13/2019 Visit Diagnosis Plan: Allergic rhinitis due to pollen Discussion: Kenalog 40mg IM x1 ICD-9 : 477.9 ICD-10 : J30.1 01/13/2019 Appointment: Bk Laureano WPtel[facility] [facility] 01/13/2019 Patient Education: cefdinir- [employer] Coupon [id number] Completed 01/13/2019 Patient Education: prednisone- [employer] Coupon [phone] Completed 01/13/2019 Visit Diagnosis Plan: Gastro-esophageal reflux disease without esophagitis Discussion: Continue protonix ICD-9 : 530.81 ICD-10 : K21.9 07/21/2018 Visit Diagnosis Plan: Personal history of malignant ne oplasm of prostate Discussion: Follows routinely with Dr. Giron ICD-9 : V10.46 ICD-10 : Z85.46 07/21/2018 Visit Diagnosis Plan: Encounter for gene ral adult medical examination without abnormal findings Discussion: Obtain most recent lab resul ts Defers flu, pneumonia, and shingles shot ICD-9 : V70.9 ICD-10 : Z00.00 07/21/2018 Appointment: Bk Laureano WPtel: [facility] Annual Well Visit 07/21/2018 Patient Education: Patient Medication Summary Completed 07/21/2018 Visit Diagnosis Plan: Gastro-esophageal reflux disease without esophagitis Discussion: because of symptoms of throat trouble and abdominal pain, appears more like GERD, dc omeprazole and start protonix daily. take at night to reduce night time symptoms. follow up in 1-2 months for symptom management. ICD-9 : 530.81 ICD-10 : K21.9 09/23/2017 Visit Diagnosis Plan: Acute bronchitis, unspecified Di scussion: prednisone prescribed to be taken daily for 3 days. call or RTC on friday if no improvement or worsening symptoms. ICD-9 : 490 ICD-10 : J20.9 09/23/2017 Appointment: Mayra Saenz [address] [place] [address] ACUTE ILLNESS 09/23/2017 Patient Education: Patient Medication Summary Completed 09/23/2017 Visit Diagnosis Plan: Allergic rhinitis due to pollen Discussion: Add rosinaulair ICD-9 : 477.9 ICD-10 : J30.1 07/03/2017 Visit Diagnosis Plan: COUGH Discussion: Check CT scan of chest Continue Breo Check CBC, CMP, TSH, ESR now ICD-9 : 786.2 ICD-10 : R05 07/03/2017 Appointment: Bk Laureano WPtel: [id number] FOLLOW UP 07/03/2017 Patient Education: Patient Medication Summary Completed 07/03/2017 Visit Diagnosis Plan: Corns and callosities Discussion : See podiatry ICD-9 : 700 ICD-10 : L84 06/16/2017 Visit Diagnosis Plan: COUGH Discussion: Check CXR now ICD-9 : 786.2 ICD-10 : R05 06/16/2017 Visit Diagnosis Plan: Allergic rhinitis due to pollen Discussion: Kenalog 40mg IM x1 ICD-9 : 477.9 ICD-10 : J30.1 06/16/2017 Visit Diagnosis Plan: Wheezing Discussion: Start Breo 100/25 1 p daily Follow Up: 2 weeks ICD-9 : 786.07 ICD-10 : R06.2 06/16/2017 Appointment: Bk Laureano WPtel: [address] [place], [place] [phone] US WORK IN 06/16/2017 Patient Education: Patient Medication Summary Completed 06/16/2017 Care Plan: CHEST X-RAY 2VW FRONTAL&LATL LOINC : 03518-3 Pending 06/16/2017 Appointment: Helene Garcia WPtel: [facility] US CANCELED 06/09/2017 Visit Diagnosis Plan: Other seasonal allergic rhinitis Discussion: Start claritin as above Can add nasal rinses, flonase, etc if not helping Monitor for signs of sinus infections, ear infections Refills of daily meds given as well per his request ICD-9 : 477.9 ICD-10 : J30.2 02/19/2017 Appointment: Faye Spivey [address] [place], [place] [phone] 02/17 confirmed ~sl ACUTE ILLNESS 02/19/2017 Patient Education: Patient Medication Summary Completed 02/19/2017 Referral: Edmundo Giron WPtel: [facility] Referral Completed 03/11/2016 Visit Plan: Refills given Labs to be upd ated - CBC, CMP, lipids, PSA Needs consult with Urology for routine monitoring Consent to be signed for medical records to see when his last colo was - will update if needed 02/29/2016 Appointment: Faye Spivey [address] [place], [place] [phone] FOLLOW UP 02/29/2016 Patient Education: Patient Medication Summary Completed 02/29/2016 Care Plan: Referral Order SNOMED-CT : [id number] Pending 02/29/2016 Appointment: Faye Spivey [address] [place], [place] [phone] Taking patient to ER ACUTE ILLNESS 12/13/2015 Visit Plan: Check fasting lab and EKG Ad d daily omeprazole If lab and EKG normal and pain persists despite omeprazole then will proceed with stress test Following with ortho on knee pain 12/13/2014 Appointment: Bk Laureano WPtel: [phone] [facility] NEW PATIENT 12/13/2014 Patient Education: Patient Medication Summary Completed 12/13/2014 Patient Education: [facility] - Saving [employer] - 18+ - Dynamic Portal ID Completed 12/13/2014 Referral: Edmundo Giron WPtel: [phone] [id number] Referral Appointment Requested Instructions Comment . Saline nasal flushes prn. Tylenol/Motr in prn headache. Notify if persists/symptoms worsening. . Refills given Labs to be updated - CBC, CMP, lipids, PSA Needs consult with Urology for routine monitoring Consent to be signed for medical records to see when his last colo was - will update if needed . Check fasting lab and EKG Add daily omeprazole If lab and EKG normal and pain persists despite omeprazole then will proceed with stress test Following with ortho on knee pain Medical Equipment No Medical Equipment data Health Concerns Section Health Concerns data not found Goals Section Goals data not found Interventions Section Interventions data not found Health Status Evaluations/Outcomes Section Health Status Evaluations/Outcomes data not found Advance Directives No Advance Directive data
--- OUTSIDE RECORDS SUMMARY | 2020-04-06 07:08 | XMS REPORT | CCD ---
Author Author Deon Laureano D.O. Organization BK LAUREANO DO [facility] Address [address] [place] [address] Phone Care Team Providers Care End Matcher Name Role Phone Bk Laureano D.O. PP Unavailable CCM Unavailable Summary Purpose Interface Exchange Insurance Providers Payer name Policy type / Coverage type Covered constitution party ID Effective Begin Date Effective End Date WPS MEDICARE PART B [place] Medicare Part B [id number] Unknown [facility] Medicare Part B [id number] Un known Family history Father Diagnosis Age At Onset Lung Cancer Unknown Mother Diagnosis Age At Onset Cerebrovascular disease Unknown Hypertension Unknown Social History Social History Element Codes Description Effective Dates Marital status Unknown 12/13/2014 Number of children Unknown 3 12/13/2014 Employment Unknown Currently employed 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 12/13/[address]: 454954 Currently drinks alcohol 12/13 Frequency of drinks SNOMED CT: 647959485 Drinks rarely 015 Allergies, Adverse Reactions, Alerts [...] Start Date Stop Date Status Fill Instructions doxycycline hyclate 100 mg capsule RxNorm: 3985262 1 Cap fadi(s) Oral two times a day 02/14/2020 02/21/2020 Active prednisone 20 mg tablet RxNorm: 551964 1 Tablet(s) Oral two denise es a day 02/14/2020 02/21/2020 Active Ventolin HFA 90 mcg/actuation aerosol inhaler RxNorm: 585654 2 Puff(s) Inhalation four times a day 02/14/2020 03/14/2020 Active doxycycline hyclate 100 mg capsule RxNorm: 1043242 1 Cap fadi(s) Oral two times a day 12/02/2019 12/12/2019 Inactive prednisone 20 mg tablet RxNorm: 998419 1 Tablet(s) Oral two denise es a day 12/02/2019 12/09/2019 Inactive Ventolin HFA 90 mcg/actuation aerosol inhaler RxNorm: 471689 2 Puff(s) Inhalation four times a day 12/02/2019 02/13/2020 Inactive meloxicam 15 mg tablet RxNorm: 885574 1 Tablet(s) Oral QD for pain 08/20/2019 02/16/2020 Active pantoprazole 40 mg tablet,delayed release RxNorm: 241349 1 TABL ET(S) PO QD 08/09/2019 05/04/2020 Active meloxicam 15 mg tablet RxNorm: 194355 1 Tablet(s) PO QD for pain 08/19/2019 Inactive doxycycline hyclate 100 mg tablet RxNorm: 4013728 1 Tablet(s) PO BI D 03/16/2019 03/25/2019 Inactive prednisone 20 mg tablet RxNorm: 886293 1 Tablet(s) PO BID 03/16/2019 03/22/2019 Inactive cefdinir 300 mg capsule RxNorm: 888761 1 Capsule(s) PO BID 01/14/2001/26/2019 Inactive prednisone 20 mg tablet RxNorm: 371176 1 Tablet(s) PO BID 01/13/2019 01/19/2019 Inactive meloxicam 15 mg tablet RxNorm: 484693 1 Tablet(s) PO QD for pain 01/16/2019 Inactive pantoprazole 40 mg tablet,delayed release RxNorm: 544957 1 Tabl et(s) PO QD 07/21/2018 07/15/2019 Inactive meloxicam 15 mg tablet RxNorm: 880380 1 Tablet(s) PO QD 06/22/2018 Inactive pantoprazole 40 mg tablet,delayed release RxNorm: 208226 1 Tabl et(s) PO QD 06/18/2018 07/20/2018 Inactive pantoprazole 40 mg tablet,delayed release RxNorm: 189188 1 Tabl et(s) PO QD 04/16/2018 06/17/2018 Inactive pantoprazole 40 mg tablet,delayed release RxNorm: 683456 1 Tabl et(s) PO QD 02/04/2018 06/18/2018 Inactive pantoprazole 40 mg tablet,delayed release RxNorm: 194753 1 Tabl et(s) PO QD 09/23/2017 02/04/2018 Inactive prednisone 20 mg tablet RxNorm: 628767 2 Tablet(s) PO QD 09/23/2017 1 11/25/2016 Inactive Singulair 10 mg tablet RxNorm: 230342 1 Tablet(s) PO QHS for co ugh/allergies 07/03/2017 07/20/2018 Inactive loratadine 10 mg tablet RxNorm: 575488 1 Tablet(s) PO QAM for a llergies 02/19/2017 07/20/2018 Inactive omeprazole 20 mg capsule,delayed release RxNorm: 208864 1 Capsu le(s) PO QD 02/19/2017 07/20/2018 Inactive [AttnRPh: Saving shiv ly/adjudicate RxGRP:SG20 RxBIN:[id number] RxPCN: ID#:[id number]] meloxicam 15 mg tablet RxNorm: 106861 1 Tablet(s) PO QD 02/19/2017 Inactive omeprazole 20 mg capsule,delayed release RxNorm: 610575 1 Capsu le(s) PO QD 02/29/2016 02/18/2017 Inactive [AttnRPh: Saving shiv ly/adjudicate RxGRP:SG20 RxBIN:[id number] RxPCN: ID#:[id number]] meloxicam 15 mg tablet RxNorm: 349432 1 Tablet(s) PO QD 02/29/2016 Inactive omeprazole 20 mg capsule,delayed release RxNorm: 278853 1 CAPSULE(S) PO QD DUE FOR ROUTINE APPOINTMENT 02/01/2016 02/28/2016 Inactive [AttnRPh : Saving apply/adjudicate RxGRP:SG20 RxBIN:[id number] RxPCN:HT ID#:[id number]] meloxicam 15 mg tablet RxNorm: 092377 1 Tablet(s) PO QD TABLET( S) PO QD 12/27/2015 01/25/2016 Inactive omeprazole 20 mg capsule,delayed release RxNorm: 432708 1 Capsule(s) PO QD Due for routine appointment 11/28/2015 12/27/2015 Inactive [AttnRPh : Saving apply/adjudicate RxGRP:SG20 RxBIN:[id number] RxPCN:HT ID#:[id number]] meloxicam 15 mg tablet RxNorm: 051553 2 Tablet(s) PO QD 09/26/2015 Inactive omeprazole 20 mg capsule,delayed release RxNorm: 138844 1 Capsu le(s) PO QD 12/13/2014 11/28/2015 Inactive [AttnRPh: Saving shiv ly/adjudicate RxGRP:SG20 RxBIN:[id number] RxPCN: ID#:[id number]] Multivitamin & Mineral Formula oral RxNorm: oral No Start Date Active Nasacort AQ 55 mcg nasal spray aerosol RxNorm: 4906639 1 [place] NASAL QD to each nostril No Start Date Active Breo Ellipta 100 mcg-25 mcg/dose powder for inhalation RxNorm: 1 601689 1 INH QD No Start Date 01/12/2019 Inactive Vitamin C 500 mg tablet RxNorm: 588941 1 Tablet(s) PO QD No Start D ate 12/01/2019 Inactive meloxicam 15 mg tablet RxNorm: 756232 1 Tablet(s) PO QD No Start Da te 02/28/2016 Inactive meloxicam 15 mg tablet RxNorm: 512291 2 Tablet(s) PO QD No Start Da te 09/25/2015 Inactive meloxicam 15 mg tablet RxNorm: 913893 1 Tablet(s) PO QD No Start Da te 07/20/2018 Inactive Medication Administered No Medication Administered data Immunizations No Immunization data Results Observation Observation Code Item Item Code Result Date [facility] ERYTHROCYTE SEDIMENTATION RATE 97728 Sed Rate 1 mm/hr 07/04/2017 Unknown GFR CALC [id number] GFR Non Afr Amr >60 mL/min 07/03/2017 Un known GFR CALC [id number] GFR Afr Amr >60 mL/min 07/03/2017 Unknow n COMPLETE BLOOD COUNT [id number] WBC 9.2 10e9/L 07/03/20 17 Unknown COMPLETE BLOOD COUNT [id number] RBC 4.73 10e12/L 2016 Unknown COMPLETE BLOOD COUNT [id number] HEMOGLOBIN 14.0 g/dL 07/03/20 17 Unknown COMPLETE BLOOD COUNT [id number] HEMATOCRIT 42.3 % 07/03/20 17 Unknown COMPLETE BLOOD COUNT [id number] MCV 89.4 fL 7 Unknown COMPLETE BLOOD COUNT 8086714 MCH 29.6 pg 7 Unknown COMPLETE BLOOD COUNT 7400767 MCHC 33.1 g/dL 7 Unknown COMPLETE BLOOD COUNT [id number] PLATELET COUNT 375 10e9/L 04/2017 Unknown COMPLETE BLOOD COUNT [id number] Mean Plt Volume 9.7 fL 04/2017 Unknown COMPLETE BLOOD COUNT 4635005 Neut Auto 61.0 % 7 Unknown COMPLETE BLOOD COUNT 5181006 Lymph Auto 25.8 % 07/03/20 17 Unknown COMPLETE BLOOD COUNT 1219571 Dare Auto 10.2 % 7 Unknown COMPLETE BLOOD COUNT 3149884 RDW 15.0 % 7 Unknown COMPLETE BLOOD COUNT 9624745 Eos Auto 2.9 % 7 Unknown COMPLETE BLOOD COUNT 5595223 Baso Auto 0.1 % 7 Unknown COMPLETE BLOOD COUNT 2198063 Neutrophil Abs 5.61 10e9/L Unknown COMPLETE BLOOD COUNT 6916569 Lymphocyte Abs 2.37 10e9/L Unknown COMPLETE BLOOD COUNT [id number] Monocyte Abs 0.94 10e9/L 04/2017 Unknown COMPLETE BLOOD COUNT 4489376 Eosinophil Abs 0.27 10e9/L Unknown COMPLETE BLOOD COUNT 1582333 RDW-SD 48.6 fL 7 Unknown COMPLETE BLOOD COUNT 2201796 Basophil Abs 0.01 10e9/L 04/2017 Unknown COMPREHENSIVE METABOLIC 14835 AST 17 U/L 2016 Unknown COMPREHENSIVE METABOLIC 91875 ALT 18 U/L 2016 Unknown COMPREHENSIVE METABOLIC 05515 BUN 22 mg/dL 2016 Unknown COMPREHENSIVE METABOLIC 83624 ALBUMIN 3.6 g/dL 2016 Unknown COMPREHENSIVE METABOLIC 74116 CHLORIDE 106 mmol/L 07/03 Unknown COMPREHENSIVE METABOLIC 18035 Bili Total 0.3 mg/dL 07/03 Unknown COMPREHENSIVE METABOLIC 84504 ALK PHOS 51 U/L 2016 Unknown COMPREHENSIVE METABOLIC 00622 SODIUM 137 mmol/L 07/03 Unknown COMPREHENSIVE METABOLIC 24321 CREATININE 0.99 mg/dL 04/2017 Unknown COMPREHENSIVE METABOLIC 14548 CALCIUM 8.7 mg/dL 2016 Unknown COMPREHENSIVE METABOLIC 33611 POTASSIUM 4.6 mmol/L 07/03 Unknown COMPREHENSIVE METABOLIC 83864 Total Protein 6.0 g/dL Unknown COMPREHENSIVE METABOLIC 17616 Glucose 105 mg/dL 2016 Unknown COMPREHENSIVE METABOLIC 27286 Bicarbonate 24 mmol/L 04/2017 Unknown COMPREHENSIVE METABOLIC 30514 AGAP 7 mmol/L 2016 Unknown THYROID STIMULATING HORMONE 90918 TSH 1.054 uIU/mL 07/03/2017 Unknown GFR CALC [id number] GFR Non Afr Amr >60 mL/min 02/29/2016 Un known GFR CALC 2548100 GFR Afr Amr >60 mL/min 02/29/2016 Unknow n PSA EQUIMOLAR VERONICA 46216 PSA Total 0.14 ng/mL 6 Unknown COMPREHENSIVE METABOLIC 96148 AST 18 U/L 2015 Unknown COMPREHENSIVE METABOLIC 37789 ALT 19 U/L 2015 Unknown COMPREHENSIVE METABOLIC 34344 BUN 19 mg/dL 2015 Unknown COMPREHENSIVE METABOLIC 14505 ALBUMIN 4.0 g/dL 2015 Unknown COMPREHENSIVE METABOLIC 36936 CHLORIDE 107 mmol/L 02/28 Unknown COMPREHENSIVE METABOLIC 90652 Bili Total 0.5 mg/dL 02/28 Unknown COMPREHENSIVE METABOLIC 77841 ALK PHOS 52 U/L 2015 Unknown COMPREHENSIVE METABOLIC 22325 SODIUM 135 mmol/L 02/28 Unknown COMPREHENSIVE METABOLIC 25759 CREATININE 0.93 mg/dL 02/2016 Unknown COMPREHENSIVE METABOLIC 51990 CALCIUM 9.1 mg/dL 2015 Unknown COMPREHENSIVE METABOLIC 18849 POTASSIUM 4.5 mmol/L 02/28 Unknown COMPREHENSIVE METABOLIC 68481 Total Protein 6.3 g/dL Unknown COMPREHENSIVE METABOLIC 59856 Glucose 97 mg/dL 2015 Unknown COMPREHENSIVE METABOLIC 47719 Bicarbonate 21 mmol/L 02/2016 Unknown COMPREHENSIVE METABOLIC 59744 AGAP 7 mmol/L 2015 Unknown COMPLETE BLOOD COUNT 1797146 WBC 7.0 10e9/L 02/29/20 16 Unknown COMPLETE BLOOD COUNT [id number] RBC 4.94 10e12/L 2015 Unknown COMPLETE BLOOD COUNT 5611758 HEMOGLOBIN 14.5 g/dL 02/29/20 16 Unknown COMPLETE BLOOD COUNT 2390944 HEMATOCRIT 43.1 % 02/29/20 16 Unknown COMPLETE BLOOD COUNT 5910369 MCV 87.2 fL 6 Unknown COMPLETE BLOOD COUNT 1770521 MCH 29.4 pg 6 Unknown COMPLETE BLOOD COUNT 4600893 MCHC 33.6 g/dL 6 Unknown COMPLETE BLOOD COUNT 8186340 PLATELET COUNT 339 10e9/L 02/2016 Unknown COMPLETE BLOOD COUNT 1883994 Mean Plt Volume 10.6 fL 02/2016 Unknown COMPLETE BLOOD COUNT 6261144 Neut Auto 52.5 % 6 Unknown COMPLETE BLOOD COUNT 8205884 Lymph Auto 32.7 % 02/29/20 16 Unknown COMPLETE BLOOD COUNT 7918093 Dare Auto 12.9 % 6 Unknown COMPLETE BLOOD COUNT 6690311 RDW 14.6 % 6 Unknown COMPLETE BLOOD COUNT 5272205 Eos Auto 1.6 % 6 Unknown COMPLETE BLOOD COUNT 6461458 Baso Auto 0.3 % 6 Unknown COMPLETE BLOOD COUNT 7888588 Neutrophil Abs 3.68 10e9/L Unknown COMPLETE BLOOD COUNT 2256728 Lymphoctye Abs 2.29 10e9/L Unknown COMPLETE BLOOD COUNT 8070889 Monocyte Abs 0.90 10e9/L 02/2016 Unknown COMPLETE BLOOD COUNT 7211769 Eosinophil Abs 0.11 10e9/L Unknown COMPLETE BLOOD COUNT 3550868 RDW-SD 46.3 fL 6 Unknown COMPLETE BLOOD COUNT 3328914 Basophil Abs 0.02 10e9/L 02/2016 Unknown LIPID GROUP 88940 Cholesterol 161 mg/dL 02/29/2016 Unkno wn LIPID GROUP 83275 Triglyceride 57 mg/dL 02/29/2016 Unkn own LIPID GROUP 01486 HDL CHOLESTEROL 50 mg/dL 02/29/2016 U nknown LIPID GROUP 45326 Chol/HDL Ratio 3.22 ratio 02/29/2016 U nknown LIPID GROUP 96557 NON-HDL Chol 111 mg/dL 02/29/2016 Unkn own LIPID GROUP 67954 LDL Cholesterol 100 mg/dL 02/29/2016 U nknown Procedures Procedure Codes Date DEXAMETHASONE SODIUM PHOS CPT-4: J1100 12/02/2019 THER/PROPH/DIAG INJ SC/IM CPT-4: 67526 12/02/2019 TRIAMCINOLONE ACET INJ NOS CPT-4: J3301 12/02/2019 THER/PROPH/DIAG INJ SC/IM CPT-4: 83442 03/16/2019 TRIAMCINOLONE ACET INJ NOS CPT-4: J3301 03/16/2019 CEFTRIAXONE SODIUM INJECTION CPT-4: J0696 03/16/2019 THER/PROPH/DIAG INJ SC/IM CPT-4: 60313 03/16/2019 DEXAMETHASONE SODIUM PHOS CPT-4: J1100 03/16/2019 THER/PROPH/DIAG INJ SC/IM CPT-4: 13592 01/13/2019 TRIAMCINOLONE ACET INJ NOS CPT-4: J3301 01/13/2019 PPPS, subseq visit CPT-4: G0439 07/21/2018 PRESCRIP TRANSMIT VIA ERX SY CPT-4: G8553 09/23/2017 ROUTINE VENIPUNCTURE CPT-4: 74210 07/03/2017 ASSAY THYROID STIM HORMONE CPT-4: 70152 07/03/2017 COMPREHEN METABOLIC PANEL CPT-4: 69728 07/03/2017 COMPLETE CBC W/AUTO DIFF WBC CPT-4: 65811 07/03/2017 RBC SED RATE AUTOMATED CPT-4: 42149 07/03/2017 PRESCRIP TRANSMIT VIA ERX SY CPT-4: G8553 07/03/2017 THER/PROPH/DIAG INJ SC/IM CPT-4: 24503 06/16/2017 TRIAMCINOLONE ACET INJ NOS CPT-4: J3301 06/16/2017 PRESCRIP TRANSMIT VIA ERX SY CPT-4: G8553 02/19/2017 ROUTINE VENIPUNCTURE CPT-4: 62570 02/29/2016 COMPREHEN METABOLIC PANEL CPT-4: 70568 02/29/2016 COMPLETE CBC W/AUTO DIFF WBC CPT-4: 52130 02/29/2016 LIPID PANEL CPT-4: 45410 02/29/2016 ASSAY OF PSA TOTAL CPT-4: 74715 02/29/2016 PRESCRIP TRANSMIT VIA ERX SY CPT-4: G8553 02/29/2016 PRESCRIP TRANSMIT VIA ERX SY CPT-4: G8553 12/13/2014 Vital Signs Date Vital 12/02/2019 Blood Pressure 1: 126/62 Code: 8480-6 BMI: 31.3 Code: 95581-0 Heart Rate 1: 76 bpm Height: 5'9" Respiratory Rate: 22 bpm SpO2: 92% Tempera ture: 36.8 (C) / 98.2 (F) Weight: 212 lbs 03/16/2019 Blood Pressure 1: 122/74 Code: 8480-6 Heart Rate 1: 82 bpm Respiratory Rate: 18 bpm SpO2: 95% Temperature: 36.5 (C) / 97.7 (F) We ight: 213 lbs 01/13/2019 Blood Pressure 1: 114/62 Code: 8480-6 BMI: 31.9 Code: 26563-0 Heart Rate 1: 68 bpm Height: 5'9" Respiratory Rate: 20 bpm SpO2: 94% Tempera ture: 36.6 (C) / 97.9 (F) Weight: 216 lbs 07/21/2018 Blood Pressure 1: 136/78 Code: 8480-6 BMI: 32.0 Code: 38917-7 Heart Rate 1: 72 bpm Height: 5'9" Respiratory Rate: 20 bpm SpO2: 95% Tempera ture: 36.5 (C) / 97.7 (F) Weight: 217 lbs 09/23/2017 Blood Pressure 1: 118/68 Code: 8480-6 BMI: 32.6 Code: 80055-2 Heart Rate 1: 76 bpm Height: 5'9" Respiratory Rate: 20 bpm SpO2: 94% Tempera ture: 36.2 (C) / 97.1 (F) Weight: 221 lbs 07/03/2017 Blood Pressure 1: 126/64 Code: 8480-6 Heart Rate 1: 78 bpm Height: Respiratory Rate: 18 bpm SpO2: 97% Temperature: 36.4 (C) / 97.6 (F) We ight: 221 lbs 06/16/2017 Blood Pressure 1: 128/76 Code: 8480-6 BMI: 33.1 Code: 55817-0 Heart Rate 1: 78 bpm Height: 5'9" Respiratory Rate: 20 bpm SpO2: 96% Tempera ture: 36.4 (C) / 97.6 (F) Weight: 224 lbs 02/19/2017 Blood Pressure 1: 126/78 Code: 8480-6 Heart Rate 1: 74 bpm Respiratory Rate: 20 bpm SpO2: 96% Temperature: 36.3 (C) / 97.3 (F) We ight: 224 lbs 02/29/2016 Blood Pressure 1: 124/78 Code: 8480-6 BMI: 33.7 Code: 10530-8 Heart Rate 1: 72 bpm Height: 5'9" Respiratory Rate: 20 bpm SpO2: 96% Tempera ture: 36.2 (C) / 97.2 (F) Weight: 228 lbs 12/13/2014 Blood Pressure 1: 132/78 Code: 8480-6 BMI: 33.1 Code: 80062-4 Heart Rate 1: 72 bpm Height: 5'9" [...] Patient Encounters Encounter Performer Location Codes Date ([id number]) OFFICE/OUTPATIENT VISIT EST Diagnosis: Acute bronchitis, unspecified[ICD10: J20.9] Diagnosis: Allergic rhinitis due to pollen[ICD10: J30.1] Bk Laureano [facility] CPT-4: 07377 02/14/2020 ([id number]) OFFICE/OUTPATIENT VISIT EST Diagnosis: COUGH[ICD10: R05] Diagnosis: Wheezing[ICD10: R06.2] Bk PUENTES [facility] CPT-4: 79751 12/02/2019 ([id number]) OFFICE/OUTPATIENT VISIT EST Diagnosis: Cough[ICD10: R05] Diagnosis: Acute bronchitis, unspecified[ICD10: J20.9] Alice LAUREANO [facility] CPT-4: 02907 03/16/2019 ([id number]) OFFICE/OUTPATIENT VISIT EST Diagnosis: Acute recurrent sinusitis, unspecified[ICD10: J01.91] Diagnosis: Allergic rhinitis due to pollen[ICD10: J30.1] Diagnosis: COUGH[ICD10: R05] Bk LAUREANO [facility] CPT-4: 21724 01/13/2019 OFFICE/OUTPATIENT VISIT EST Diagnosis: Acute bronchitis, unspecified[ICD10: J20.9] Diagnosis: Gastro-esophageal reflux disease without esophagitis[ICD10: K21.9] Mayra RODRIGUEZ [employer] CPT-4: 05425 09/23/2017 ([id number]) OFFICE/OUTPATIENT VISIT EST Diagnosis: COUGH[ICD10: R05] Diagnosis: Allergic rhinitis due to pollen[ICD10: J30.1] Diagnosis: Personal history of malignant neoplasm of prostate[ICD10: Z85.46] [facility] 45922 07/03/2017 ([id number]) OFFICE/OUTPATIENT VISIT EST Diagnosis: COUGH[ICD10: R05] Diagnosis: Wheezing[ICD10: R06.2] Diagnosis: Allergic rhinitis due to pollen[ICD10: J30.1] Diagnosis: Corns and callosities[ICD10: L84] [facility]: 62324 06/16/2017 ([id number]) OFFICE/OUTPATIENT VISIT EST Diagnosis: Other seasonal allergic rhinitis[ICD10: J30.2] [facility]: 51197 02/19/2017 OFFICE/OUTPATIENT VISIT EST Diagnosis: Gastro-esophageal reflux disease without esophagitis[ICD10: K21.9] Diagnosis: Unspecified osteoarthritis, unspecified site[ICD10: M19.90] Diagnosis: Personal history of malignant neoplasm of prostate[ICD10: Z85.46] Diagnosis: Encounter for screening for cardiovascular disorders[ICD10: Z13.6] [facility]: 99165 02/29/2016 ([id number]) OFFICE/OUTPATIENT VISIT NEW Diagnosis: CHEST PAIN NOS[ICD9: 786.50] Diagnosis: GERD[ICD9: 530.81] Diagnosis: History of prostate cancer[ICD9: V10.46] Diagnosis: Knee pain[ICD9: 719.46] Bk RODRIGUEZ [facility] CPT-4: 12277 12/13/2014 Plan of Care Planned Activity Notes Codes Status Date Visit Diagnosis Plan: Allergic rhinitis due to pollen Discussion: Prednisone ICD-9 : 477.9 ICD-10 : J30.1 02/14/2020 Visit Diagnosis Plan: Acute bronchitis, unspecified Di scussion: Doxycycline Continue Proair Notify if worsening or persists ICD-9 : 490 ICD-10 : J20.9 02/14/2020 Patient Education: doxycycline hyclate- [employer] Cou adrienne [id number] https://www.[employer]aked/resources/getResource/61/37944240-6479-3787-5v Completed 02/14/2020 Patient Education: prednisone- [employer] Coupon [phone] https://www.[employer]/resources/getResource/61/992wpw43-0rb1-996n-fi Completed 02/14/2020 Visit Diagnosis Plan: Wheezing Discussion: Kenalog/Dex amethasone Prednisone Doxycycline Notify if persists/worsens ICD-9 : 786.07 ICD-10 : R06.2 12/02/2019 Visit Diagnosis Plan: COUGH Discussion: Had CT scan do ne in May 2019 ICD-9 : 786.2 ICD-10 : R05 12/02/2019 Appointment: Bk Laureano WPtel: [phone] [facility] ACUTE ILLNESS 12/02/2019 Patient Education: doxycycline hyclate- [employer] Cou adrienne [phone] https://www.[employer]/resources/getResource/61/oejr3m8p-t778-0574-7z Completed 12/02/2019 Patient Education: prednisone- [employer] Coupon [phone] https://www.[employer]/resources/getResource/61/ry44r9lr-n1m8-837y-96 Completed 12/02/2019 Visit Diagnosis Plan: Cough Discussion: moist air advi sed ICD-9 : 786.2 ICD-10 : R05 03/16/2019 Visit Diagnosis Plan: Acute bronchitis, unspecified Di scussion: Rocephin 1 gram administered in clinic along with Dex and kenalog (4&40). Patient tolerated well. He is to start prednisone and doxycycline tomorrow. ICD-9 : 466.0 ICD-10 : J20.9 03/16/2019 Appointment: Alice Peralta [address] [place], [place] [id number] ACUTE ILLNESS 03/16/2019 Patient Education: prednisone- [employer] Coupon [id number] Completed 03/16/2019 Patient Education: doxycycline hyclate- [employer] Coupon [phone] [id number] Completed 03/16/2019 Visit Plan: Saline nasal flushes prn. Ty lenol/Motrin prn headache. Notify if persists/symptoms worsening. 01/13/2019 Visit Diagnosis Plan: Allergic rhinitis due to pollen Discussion: Kenalog 40mg IM x1 ICD-9 : 477.9 ICD-10 : J30.1 01/13/2019 Visit NOS Plan: Plan Notes: Saline nasal flu shes prn. Tyle... 01/13/2019 Visit Diagnosis Plan: Acute recurrent sinusitis, unspe cified Discussion: Cefdinir for 2 weeks plus Prednisone Kenalog 40mg IM today ICD-9 : 461.9 ICD-10 : J01.91 01/13/2019 Visit Diagnosis Plan: COUGH Discussion: Has seen lung specialist recently and had labwork done Notify if persist ICD-9 : 786.2 ICD-10 : R05 01/13/2019 Appointment: Bk Laureano WPtel: [address] [place] [address] ACUTE ILLNESS 01/13/2019 Patient Education: cefdinir- [employer] Coupon [id number] Completed 01/13/2019 Patient Education: prednisone- [employer] Coupon [id number] Completed 01/13/2019 Visit Diagnosis Plan: [facility] without abnormal findings Discussion: Obtain most recent lab resul ts Defers flu, pneumonia, and shingles shot ICD-9 : V70.9 ICD-10 : Z00.00 07/21/2018 Visit Diagnosis Plan: Personal history of malignant ne oplasm of prostate Discussion: Follows routinely with Dr. Giron ICD-9 : V10.46 ICD-10 : Z85.46 07/21/2018 Visit Diagnosis Plan: Gastro-esophageal reflux disease without esophagitis Discussion: Continue protonix ICD-9 : 530.81 ICD-10 : K21.9 07/21/2018 Appointment: Bk Laureano WPtel: [address] [place] [address] Annual Well Visit 07/21/2018 Patient Education: Patient Medication Summary Completed 07/21/2018 Visit Diagnosis Plan: Acute bronchitis, unspecified Di scussion: prednisone prescribed to be taken daily for 3 days. call or RTC on friday if no improvement or worsening symptoms. ICD-9 : 490 ICD-10 : J20.9 09/23/2017 Visit Diagnosis Plan: Gastro-esophageal reflux disease without esophagitis Discussion: because of symptoms of throat trouble and abdominal pain, appears more like GERD, dc omeprazole and start protonix daily. take at night to reduce night time symptoms. follow up in 1-2 months for symptom management. ICD-9 : 530.81 ICD-10 : K21.9 09/23/2017 Appointment: Mayra Saenz [address] [place] [address] ACUTE ILLNESS 09/23/2017 Patient Education: Patient Medication Summary Completed 09/23/2017 Visit Diagnosis Plan: COUGH Discussion: Check CT scan of chest Continue Breo Check CBC, CMP, TSH, ESR now ICD-9 : 786.2 ICD-10 : R05 07/03/2017 Visit Diagnosis Plan: Allergic rhinitis due to pollen Discussion: Add rosinaulair ICD-9 : 477.9 ICD-10 : J30.1 07/03/2017 Appointment: Bk Laureano WPtel: [address] [place] [address] FOLLOW UP 07/03/2017 Patient Education: Patient Medication Summary Completed 07/03/2017 Visit Diagnosis Plan: Wheezing Discussion: Start Breo 100/25 1 p daily Follow Up: 2 weeks ICD-9 : 786.07 ICD-10 : R06.2 06/16/2017 Visit Diagnosis Plan: Allergic rhinitis due to pollen Discussion: Kenalog 40mg IM x1 ICD-9 : 477.9 ICD-10 : J30.1 06/16/2017 Visit Diagnosis Plan: Corns and callosities Discussion : See podiatry ICD-9 : 700 ICD-10 : L84 06/16/2017 Visit Diagnosis Plan: COUGH Discussion: Check CXR now ICD-9 : 786.2 ICD-10 : R05 06/16/2017 Appointment: Bk Laureano WPtel: [address] [place], [place] [phone] WORK IN 06/16/2017 Patient Education: Patient Medication Summary Completed 06/16/2017 Care Plan: CHEST X-RAY 2VW FRONTAL&LATL LOINC : 36355-1 Pending 06/16/2017 Appointment: Helene Garcia WPtel: [address] [place], [place] [phone] CANCELED 06/09/2017 Visit Diagnosis Plan: Other seasonal allergic rhinitis Discussion: Start claritin as above Can add nasal rinses, flonase, etc if not helping Monitor for signs of sinus infections, ear infections Refills of daily meds given as well per his request ICD-9 : 477.9 ICD-10 : J30.2 02/19/2017 Appointment: Faye Spivey [address] [place], [place] [phone] 02/17 confirmed ~sl ACUTE ILLNESS 02/19/2017 Patient Education: Patient Medication Summary Completed 02/19/2017 Referral: Edmundo Giron WPtel: [address] [place] [address] Referral Completed 03/11/2016 Visit Plan: Refills given Labs to be upd ated - CBC, CMP, lipids, PSA Needs consult with Urology for routine monitoring Consent to be signed for medical records to see when his last colo was - will update if needed 02/29/2016 Appointment: Faye Spivey [address] [place], [place] [phone] FOLLOW UP 02/29/2016 Patient Education: Patient Medication Summary Completed 02/29/2016 Care Plan: Referral Order SNOMED-CT : 30 [id number] Pending 02/29/2016 Appointment: Faye Spivey [address] [place], [place] [phone] Taking patient to ER ACUTE ILLNESS 12/13/2015 Visit Plan: Check fasting lab and EKG Ad d daily omeprazole If lab and EKG normal and pain persists despite omeprazole then will proceed with stress test Following with ortho on knee pain 12/13/2014 Appointment: Bk Laureano WPtel: [address] [place], [place] [phone] NEW PATIENT 12/13/2014 Patient Education: Patient Medication Summary Completed 12/13/2014 [facility] Education: [facility] Saving AutoInj - 18+ - Dynamic Portal ID Completed 12/13/2014 Referral: Edmundo Giron WPtel: [id number] [id number] [place] Referral Appointment Requested Instructions Comment . Saline [...]
--- OUTSIDE RECORDS SUMMARY | 2020-04-06 07:08 | XMS REPORT | CCD ---
Author Author Deon Laureano D.O. 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 PP Unavailable CCM Unavailable Summary Purpose Interface Exchange Insurance Providers Payer name Policy type / Coverage type Covered democrat ID Effective Begin Date Effective End Date WPS MEDICARE PART B [place] Medicare Part B [id number] Unknown [facility] Medicare Part B [id number] Un known Family history Father Diagnosis Age At Onset Lung Cancer Unknown Mother Diagnosis Age At Onset Cerebrovascular disease Unknown Hypertension Unknown Social History Social History Element Codes Description Effective Dates Marital status Unknown 12/13/2014 Number of children Unknown 3 12/13/2014 Employment Unknown Currently employed 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 12/13/[address]: 815911 Currently drinks alcohol 12/13 Frequency of drinks SNOMED CT: 750649962 Drinks rarely 015 Allergies, Adverse Reactions, Alerts [...] Instructions doxycycline hyclate 100 mg capsule RxNorm: 3017846 1 Cap fadi(s) Oral two times a day 02/14/2020 02/21/2020 Active prednisone 20 mg tablet RxNorm: 805463 1 Tablet(s) Oral two denise es a day 02/14/2020 02/21/2020 Active Ventolin HFA 90 mcg/actuation aerosol inhaler RxNorm: 620637 2 Puff(s) Inhalation four times a day 02/14/2020 03/14/2020 Active doxycycline hyclate 100 mg capsule RxNorm: 9760658 1 Cap fadi(s) Oral two times a day 12/02/2019 12/12/2019 Inactive prednisone 20 mg tablet RxNorm: 577784 1 Tablet(s) Oral two denise es a day 12/02/2019 12/09/2019 Inactive Ventolin HFA 90 mcg/actuation aerosol inhaler RxNorm: 127866 2 Puff(s) Inhalation four times a day 12/02/2019 02/13/2020 Inactive meloxicam 15 mg tablet RxNorm: 516673 1 Tablet(s) Oral QD for pain 08/20/2019 02/16/2020 Active pantoprazole 40 mg tablet,delayed release RxNorm: 496157 1 TABL ET(S) PO QD 08/09/2019 05/04/2020 Active meloxicam 15 mg tablet RxNorm: 341341 1 Tablet(s) PO QD for pain 08/19/2019 Inactive doxycycline hyclate 100 mg tablet RxNorm: 5759584 1 Tablet(s) PO BI D 03/16/2019 03/25/2019 Inactive prednisone 20 mg tablet RxNorm: 516818 1 Tablet(s) PO BID 03/16/2019 03/22/2019 Inactive cefdinir 300 mg capsule RxNorm: 623581 1 Capsule(s) PO BID 01/14/2001/26/2019 Inactive prednisone 20 mg tablet RxNorm: 594111 1 Tablet(s) PO BID 01/13/2019 01/19/2019 Inactive meloxicam 15 mg tablet RxNorm: 438969 1 Tablet(s) PO QD for pain 01/16/2019 Inactive pantoprazole 40 mg tablet,delayed release RxNorm: 285633 1 Tabl et(s) PO QD 07/21/2018 07/15/2019 Inactive meloxicam 15 mg tablet RxNorm: 374256 1 Tablet(s) PO QD 06/22/2018 Inactive pantoprazole 40 mg tablet,delayed release RxNorm: 000681 1 Tabl et(s) PO QD 06/18/2018 07/20/2018 Inactive pantoprazole 40 mg tablet,delayed release RxNorm: 040027 1 Tabl et(s) PO QD 04/16/2018 06/17/2018 Inactive pantoprazole 40 mg tablet,delayed release RxNorm: 795254 1 Tabl et(s) PO QD 02/04/2018 06/18/2018 Inactive pantoprazole 40 mg tablet,delayed release RxNorm: 291924 1 Tabl et(s) PO QD 09/23/2017 02/04/2018 Inactive prednisone 20 mg tablet RxNorm: 401348 2 Tablet(s) PO QD 09/23/2017 1 11/25/2016 Inactive Singulair 10 mg tablet RxNorm: 342970 1 Tablet(s) PO QHS for co ugh/allergies 07/03/2017 07/20/2018 Inactive loratadine 10 mg tablet RxNorm: 793539 1 Tablet(s) PO QAM for a llergies 02/19/2017 07/20/2018 Inactive omeprazole 20 mg capsule,delayed release RxNorm: 654881 1 Capsu le(s) PO QD 02/19/2017 07/20/2018 Inactive [AttnRPh: Saving shiv ly/adjudicate RxGRP:SG20 RxBIN:[id number] RxPCN: ID#:[id number]] meloxicam 15 mg tablet RxNorm: 558041 1 Tablet(s) PO QD 02/19/2017 Inactive omeprazole 20 mg capsule,delayed release RxNorm: 466750 1 Capsu le(s) PO QD 02/29/2016 02/18/2017 Inactive [AttnRPh: Saving shiv ly/adjudicate RxGRP:SG20 RxBIN:[id number] RxPCN: ID#:[id number]] meloxicam 15 mg tablet RxNorm: 111641 1 Tablet(s) PO QD 02/29/2016 Inactive omeprazole 20 mg capsule,delayed release RxNorm: 552452 1 CAPSULE(S) PO QD DUE FOR ROUTINE APPOINTMENT 02/01/2016 02/28/2016 Inactive [AttnRPh : Saving apply/adjudicate RxGRP:SG20 RxBIN:[id number] RxPCN:HT ID#:[id number]] meloxicam 15 mg tablet RxNorm: 133999 1 Tablet(s) PO QD TABLET( S) PO QD 12/27/2015 01/25/2016 Inactive omeprazole 20 mg capsule,delayed release RxNorm: 858141 1 Capsule(s) PO QD Due for routine appointment 11/28/2015 12/27/2015 Inactive [AttnRPh : Saving apply/adjudicate RxGRP:SG20 RxBIN:[id number] RxPCN:HT ID#:[id number]] meloxicam 15 mg tablet RxNorm: 692121 2 Tablet(s) PO QD 09/26/2015 Inactive omeprazole 20 mg capsule,delayed release RxNorm: 773845 1 Capsu le(s) PO QD 12/13/2014 11/28/2015 Inactive [AttnRPh: Saving shiv ly/adjudicate RxGRP:SG20 RxBIN:[id number] RxPCN: ID#:[id number]] Multivitamin & Mineral Formula oral RxNorm: oral No Start Date Active Nasacort AQ 55 mcg nasal spray aerosol RxNorm: 9550627 1 [place] NASAL QD to each nostril No Start Date Active Breo Ellipta 100 mcg-25 mcg/dose powder for inhalation RxNorm: 1 426880 1 INH QD No Start Date 01/12/2019 Inactive Vitamin C 500 mg tablet RxNorm: 813885 1 Tablet(s) PO QD No Start D ate 12/01/2019 Inactive meloxicam 15 mg tablet RxNorm: 815513 1 Tablet(s) PO QD No Start Da te 02/28/2016 Inactive meloxicam 15 mg tablet RxNorm: 448092 2 Tablet(s) PO QD No Start Da te 09/25/2015 Inactive meloxicam 15 mg tablet RxNorm: 021274 1 Tablet(s) PO QD No Start Da te 07/20/2018 Inactive Medication Administered No Medication Administered data Immunizations No Immunization data Results Observation Observation Code Item Item Code Result Date S [facility] Location ERYTHROCYTE SEDIMENTATION RATE 12226 Sed Rate 1 mm/hr 07/04/2017 Unknown GFR CALC 2031121 GFR Non Afr Amr >60 mL/min 07/03/2017 Un known GFR CALC [id number] GFR Afr Amr >60 mL/min 07/03/2017 Unknow n COMPLETE BLOOD COUNT [id number] WBC 9.2 10e9/L 07/03/20 17 Unknown COMPLETE BLOOD COUNT 3574026 RBC 4.73 10e12/L 2016 Unknown COMPLETE BLOOD COUNT 5871175 HEMOGLOBIN 14.0 g/dL 07/03/20 17 Unknown COMPLETE BLOOD COUNT [id number] HEMATOCRIT 42.3 % 07/03/20 17 Unknown COMPLETE BLOOD COUNT [id number] MCV 89.4 fL 7 Unknown COMPLETE BLOOD COUNT 2527503 MCH 29.6 pg 7 Unknown COMPLETE BLOOD COUNT 8869379 MCHC 33.1 g/dL 7 Unknown COMPLETE BLOOD COUNT 0591027 PLATELET COUNT 375 10e9/L 04/2017 Unknown COMPLETE BLOOD COUNT [id number] Mean Plt Volume 9.7 fL 04/2017 Unknown COMPLETE BLOOD COUNT 5376703 Neut Auto 61.0 % 7 Unknown COMPLETE BLOOD COUNT 7061184 Lymph Auto 25.8 % 07/03/20 17 Unknown COMPLETE BLOOD COUNT 9303672 [place] Auto 10.2 % 7 Unknown COMPLETE BLOOD COUNT 3823263 RDW 15.0 % 7 Unknown COMPLETE BLOOD COUNT 9609063 Eos Auto 2.9 % 7 Unknown COMPLETE BLOOD COUNT 9207118 Baso Auto 0.1 % 7 Unknown COMPLETE BLOOD COUNT 6040483 Neutrophil Abs 5.61 10e9/L Unknown COMPLETE BLOOD COUNT 3231332 Lymphocyte Abs 2.37 10e9/L Unknown COMPLETE BLOOD COUNT 8905480 Monocyte Abs 0.94 10e9/L 04/2017 Unknown COMPLETE BLOOD COUNT 8283914 Eosinophil Abs 0.27 10e9/L Unknown COMPLETE BLOOD COUNT 8327626 RDW-SD 48.6 fL 7 Unknown COMPLETE BLOOD COUNT [id number] Basophil Abs 0.01 10e9/L 04/2017 Unknown COMPREHENSIVE METABOLIC 22808 AST 17 U/L 2016 Unknown COMPREHENSIVE METABOLIC 76089 ALT 18 U/L 2016 Unknown COMPREHENSIVE METABOLIC 14634 BUN 22 mg/dL 2016 Unknown COMPREHENSIVE METABOLIC 47641 ALBUMIN 3.6 g/dL 2016 Unknown COMPREHENSIVE METABOLIC 01136 CHLORIDE 106 mmol/L 07/03 Unknown COMPREHENSIVE METABOLIC 83767 Bili Total 0.3 mg/dL 07/03 Unknown COMPREHENSIVE METABOLIC 50392 ALK PHOS 51 U/L 2016 Unknown COMPREHENSIVE METABOLIC 09923 SODIUM 137 mmol/L 07/03 Unknown COMPREHENSIVE METABOLIC 95338 CREATININE 0.99 mg/dL 04/2017 Unknown COMPREHENSIVE METABOLIC 75645 CALCIUM 8.7 mg/dL 2016 Unknown COMPREHENSIVE METABOLIC 13883 POTASSIUM 4.6 mmol/L 07/03 Unknown COMPREHENSIVE METABOLIC 64050 Total Protein 6.0 g/dL Unknown COMPREHENSIVE METABOLIC 07935 Glucose 105 mg/dL 2016 Unknown COMPREHENSIVE METABOLIC 95514 Bicarbonate 24 mmol/L 04/2017 Unknown COMPREHENSIVE METABOLIC 02687 AGAP 7 mmol/L 2016 Unknown THYROID STIMULATING HORMONE 32541 TSH 1.054 uIU/mL 07/03/2017 Unknown GFR CALC 6533301 GFR Non Afr Amr >60 mL/min 02/29/2016 Un known GFR CALC 9197801 GFR Afr Amr >60 mL/min 02/29/2016 Unknow n PSA EQUIMOLAR VERONICA 43162 PSA Total 0.14 ng/mL 6 Unknown COMPREHENSIVE METABOLIC 90855 AST 18 U/L 2015 Unknown COMPREHENSIVE METABOLIC 48933 ALT 19 U/L 2015 Unknown COMPREHENSIVE METABOLIC 84236 BUN 19 mg/dL 2015 Unknown COMPREHENSIVE METABOLIC 78592 ALBUMIN 4.0 g/dL 2015 Unknown COMPREHENSIVE METABOLIC 71877 CHLORIDE 107 mmol/L 02/28 Unknown COMPREHENSIVE METABOLIC 35970 Bili Total 0.5 mg/dL 02/28 Unknown COMPREHENSIVE METABOLIC 16254 ALK PHOS 52 U/L 2015 Unknown COMPREHENSIVE METABOLIC 59315 SODIUM 135 mmol/L 02/28 Unknown COMPREHENSIVE METABOLIC 43267 CREATININE 0.93 mg/dL 02/2016 Unknown COMPREHENSIVE METABOLIC 86246 CALCIUM 9.1 mg/dL 2015 Unknown COMPREHENSIVE METABOLIC 71791 POTASSIUM 4.5 mmol/L 02/28 Unknown COMPREHENSIVE METABOLIC 21245 Total Protein 6.3 g/dL Unknown COMPREHENSIVE METABOLIC 78494 Glucose 97 mg/dL 2015 Unknown COMPREHENSIVE METABOLIC 80329 Bicarbonate 21 mmol/L 02/2016 Unknown COMPREHENSIVE METABOLIC 74940 AGAP 7 mmol/L 2015 Unknown COMPLETE BLOOD COUNT 3481798 WBC 7.0 10e9/L 02/29/20 16 Unknown COMPLETE BLOOD COUNT 2536417 RBC 4.94 10e12/L 2015 Unknown COMPLETE BLOOD COUNT 0442194 HEMOGLOBIN 14.5 g/dL 02/29/20 16 Unknown COMPLETE BLOOD COUNT 9035232 HEMATOCRIT 43.1 % 02/29/20 16 Unknown COMPLETE BLOOD COUNT 2814348 MCV 87.2 fL 6 Unknown COMPLETE BLOOD COUNT 7769097 MCH 29.4 pg 6 Unknown COMPLETE BLOOD COUNT 5450348 MCHC 33.6 g/dL 6 Unknown COMPLETE BLOOD COUNT 3375005 PLATELET COUNT 339 10e9/L 02/2016 Unknown COMPLETE BLOOD COUNT 3030303 Mean Plt Volume 10.6 fL 02/2016 Unknown COMPLETE BLOOD COUNT 8388971 Neut Auto 52.5 % 6 Unknown COMPLETE BLOOD COUNT 3993036 Lymph Auto 32.7 % 02/29/20 16 Unknown COMPLETE BLOOD COUNT 9016586 [place] Auto 12.9 % 6 Unknown COMPLETE BLOOD COUNT 3305867 RDW 14.6 % 6 Unknown COMPLETE BLOOD COUNT 0951234 Eos Auto 1.6 % 6 Unknown COMPLETE BLOOD COUNT 8979245 Baso Auto 0.3 % 6 Unknown COMPLETE BLOOD COUNT 0480560 Neutrophil Abs 3.68 10e9/L Unknown COMPLETE BLOOD COUNT 3056465 Lymphoctye Abs 2.29 10e9/L Unknown COMPLETE BLOOD COUNT 6881467 Monocyte Abs 0.90 10e9/L 02/2016 Unknown COMPLETE BLOOD COUNT 1689537 Eosinophil Abs 0.11 10e9/L Unknown COMPLETE BLOOD COUNT 4975129 RDW-SD 46.3 fL 6 Unknown COMPLETE BLOOD COUNT 6347289 Basophil Abs 0.02 10e9/L 02/2016 Unknown LIPID GROUP 62813 Cholesterol 161 mg/dL 02/29/2016 Unkno wn LIPID GROUP 14070 Triglyceride 57 mg/dL 02/29/2016 Unkn own LIPID GROUP 22686 HDL CHOLESTEROL 50 mg/dL 02/29/2016 U nknown LIPID GROUP 73819 Chol/HDL Ratio 3.22 ratio 02/29/2016 U nknown LIPID GROUP 17522 NON-HDL Chol 111 mg/dL 02/29/2016 Unkn own LIPID GROUP 93934 LDL Cholesterol 100 mg/dL 02/29/2016 U nknown Procedures Procedure Codes Date DEXAMETHASONE SODIUM PHOS CPT-4: J1100 12/02/2019 THER/PROPH/DIAG INJ SC/IM CPT-4: 61977 12/02/2019 TRIAMCINOLONE ACET INJ NOS CPT-4: J3301 12/02/2019 THER/PROPH/DIAG INJ SC/IM CPT-4: 25217 03/16/2019 TRIAMCINOLONE ACET INJ NOS CPT-4: J3301 03/16/2019 CEFTRIAXONE SODIUM INJECTION CPT-4: J0696 03/16/2019 THER/PROPH/DIAG INJ SC/IM CPT-4: 21025 03/16/2019 DEXAMETHASONE SODIUM PHOS CPT-4: J1100 03/16/2019 THER/PROPH/DIAG INJ SC/IM CPT-4: 26392 01/13/2019 TRIAMCINOLONE ACET INJ NOS CPT-4: J3301 01/13/2019 PPPS, subseq visit CPT-4: G0439 07/21/2018 PRESCRIP TRANSMIT VIA ERX SY CPT-4: G8553 09/23/2017 ROUTINE VENIPUNCTURE CPT-4: 57182 07/03/2017 ASSAY THYROID STIM HORMONE CPT-4: 43021 07/03/2017 COMPREHEN METABOLIC PANEL CPT-4: 82651 07/03/2017 COMPLETE CBC W/AUTO DIFF WBC CPT-4: 43513 07/03/2017 RBC SED RATE AUTOMATED CPT-4: 25737 07/03/2017 PRESCRIP TRANSMIT VIA ERX SY CPT-4: G8553 07/03/2017 THER/PROPH/DIAG INJ SC/IM CPT-4: 87273 06/16/2017 TRIAMCINOLONE ACET INJ NOS CPT-4: J3301 06/16/2017 PRESCRIP TRANSMIT VIA ERX SY CPT-4: G8553 02/19/2017 ROUTINE VENIPUNCTURE CPT-4: 66925 02/29/2016 COMPREHEN METABOLIC PANEL CPT-4: 06527 02/29/2016 COMPLETE CBC W/AUTO DIFF WBC CPT-4: 11462 02/29/2016 LIPID PANEL CPT-4: 49226 02/29/2016 ASSAY OF PSA TOTAL CPT-4: 19482 02/29/2016 PRESCRIP TRANSMIT VIA ERX SY CPT-4: G8553 02/29/2016 PRESCRIP TRANSMIT VIA ERX SY CPT-4: G8553 12/13/2014 Vital Signs Date Vital 12/02/2019 Blood Pressure 1: 126/62 Code: 8480-6 BMI: 31.3 Code: 79996-5 Heart Rate 1: 76 bpm Height: 5'9" Respiratory Rate: 22 bpm SpO2: 92% Tempera ture: 36.8 (C) / 98.2 (F) Weight: 212 lbs 03/16/2019 Blood Pressure 1: 122/74 Code: 8480-6 Heart Rate 1: 82 bpm Respiratory Rate: 18 bpm SpO2: 95% Temperature: 36.5 (C) / 97.7 (F) We ight: 213 lbs 01/13/2019 Blood Pressure 1: 114/62 Code: 8480-6 BMI: 31.9 Code: 89391-3 Heart Rate 1: 68 bpm Height: 5'9" Respiratory Rate: 20 bpm SpO2: 94% Tempera ture: 36.6 (C) / 97.9 (F) Weight: 216 lbs 07/21/2018 Blood Pressure 1: 136/78 Code: 8480-6 BMI: 32.0 Code: 59654-2 Heart Rate 1: 72 bpm Height: 5'9" Respiratory Rate: 20 bpm SpO2: 95% Tempera ture: 36.5 (C) / 97.7 (F) Weight: 217 lbs 09/23/2017 Blood Pressure 1: 118/68 Code: 8480-6 BMI: 32.6 Code: 26499-6 Heart Rate 1: 76 bpm Height: 5'9" Respiratory Rate: 20 bpm SpO2: 94% Tempera ture: 36.2 (C) / 97.1 (F) Weight: 221 lbs 07/03/2017 Blood Pressure 1: 126/64 Code: 8480-6 Heart Rate 1: 78 bpm Height: Respiratory Rate: 18 bpm SpO2: 97% Temperature: 36.4 (C) / 97.6 (F) We ight: 221 lbs 06/16/2017 Blood Pressure 1: 128/76 Code: 8480-6 BMI: 33.1 Code: 24945-7 Heart Rate 1: 78 bpm Height: 5'9" Respiratory Rate: 20 bpm SpO2: 96% Tempera ture: 36.4 (C) / 97.6 (F) Weight: 224 lbs 02/19/2017 Blood Pressure 1: 126/78 Code: 8480-6 Heart Rate 1: 74 bpm Respiratory Rate: 20 bpm SpO2: 96% Temperature: 36.3 (C) / 97.3 (F) We ight: 224 lbs 02/29/2016 Blood Pressure 1: 124/78 Code: 8480-6 BMI: 33.7 Code: 24131-6 Heart Rate 1: 72 bpm Height: 5'9" Respiratory Rate: 20 bpm SpO2: 96% Tempera ture: 36.2 (C) / 97.2 (F) Weight: 228 lbs 12/13/2014 Blood Pressure 1: 132/78 Code: 8480-6 BMI: 33.1 Code: 06150-5 Heart Rate 1: 72 bpm Height: 5'9" [...] Patient Encounters Encounter Performer Location Codes Date ([id number]) OFFICE/OUTPATIENT VISIT EST Diagnosis: Acute bronchitis, unspecified[ICD10: J20.9] Diagnosis: Allergic rhinitis due to pollen[ICD10: J30.1] Bk Laureano [facility] CPT-4: 63085 02/14/2020 ([id number]) OFFICE/OUTPATIENT VISIT EST Diagnosis: COUGH[ICD10: R05] Diagnosis: Wheezing[ICD10: R06.2] Bk PUENTES Fancy CPT-4: 33249 12/02/2019 ([id number]) OFFICE/OUTPATIENT VISIT EST Diagnosis: Cough[ICD10: R05] Diagnosis: Acute bronchitis, unspecified[ICD10: J20.9] Alice LAUREANO Fancy CPT-4: 18691 03/16/2019 ([id number]) OFFICE/OUTPATIENT VISIT EST Diagnosis: Acute recurrent sinusitis, unspecified[ICD10: J01.91] Diagnosis: Allergic rhinitis due to pollen[ICD10: J30.1] Diagnosis: COUGH[ICD10: R05] Bk LAUREANO Fancy CPT-4: 49548 01/13/2019 OFFICE/OUTPATIENT VISIT EST Diagnosis: Acute bronchitis, unspecified[ICD10: J20.9] Diagnosis: Gastro-esophageal reflux disease without esophagitis[ICD10: K21.9] [facility] 89595 09/23/2017 ([id number]) OFFICE/OUTPATIENT VISIT EST Diagnosis: COUGH[ICD10: R05] Diagnosis: Allergic rhinitis due to pollen[ICD10: J30.1] Diagnosis: Personal history of malignant neoplasm of prostate[ICD10: Z85.46] [facility]: 22513 07/03/2017 ([id number]) OFFICE/OUTPATIENT VISIT EST Diagnosis: COUGH[ICD10: R05] Diagnosis: Wheezing[ICD10: R06.2] Diagnosis: Allergic rhinitis due to pollen[ICD10: J30.1] Diagnosis: Corns and callosities[ICD10: L84] [facility]: 34458 06/16/2017 ([id number]) OFFICE/OUTPATIENT VISIT EST Diagnosis: Other seasonal allergic rhinitis[ICD10: J30.2] [facility]: 76927 02/19/2017 OFFICE/OUTPATIENT VISIT EST Diagnosis: Gastro-esophageal reflux disease without esophagitis[ICD10: K21.9] Diagnosis: Unspecified osteoarthritis, unspecified site[ICD10: M19.90] Diagnosis: Personal history of malignant neoplasm of prostate[ICD10: Z85.46] Diagnosis: Encounter for screening for cardiovascular disorders[ICD10: Z13.6] Faye MCBRIDELINE Velasquez [facility] CPT-[facility]: 20736 02/29/2016 ([id number]) OFFICE/OUTPATIENT VISIT NEW Diagnosis: CHEST PAIN NOS[ICD9: 786.50] Diagnosis: GERD[ICD9: 530.81] Diagnosis: History of prostate cancer[ICD9: V10.46] Diagnosis: Knee pain[ICD9: 719.46] Bk [facility] CPT-4: 72559 12/13/2014 Plan of Care Planned Activity Notes Codes Status Date Visit Diagnosis Plan: Acute bronchitis, unspecified Di scussion: Doxycycline Continue Proair Notify if worsening or persists ICD-9 : 490 ICD-10 : J20.9 02/14/2020 Visit Diagnosis Plan: Allergic rhinitis due to pollen Discussion: Prednisone ICD-9 : 477.9 ICD-10 : J30.1 02/14/2020 Patient Education: doxycycline hyclate- [employer] Cou adrienne [phone] [email or web address]/resources/getResource/[email or web address] Completed 02/14/2020 Patient Education: prednisone- [employer] Coupon [id number] https://www.[email or web address]/resources/getResource/61/[email or web address] Completed 02/14/2020 Visit Diagnosis Plan: Wheezing Discussion: Kenalog/Dex amethasone Prednisone Doxycycline Notify if persists/worsens ICD-9 : 786.07 ICD-10 : R06.2 12/02/2019 Visit Diagnosis Plan: COUGH Discussion: Had CT scan do ne in May 2019 ICD-9 : 786.2 ICD-10 : R05 12/02/2019 Appointment: Bk aLureano WPtel: [facility] ACUTE ILLNESS 12/02/2019 Patient Education: doxycycline hyclate- [employer] Cou adrienne [phone] https://[email or web address].[email or web address]/resources/getResource/[email or web address] Completed 12/02/2019 Patient Education: prednisone- [employer] Coupon [phone] https://www.[email or web address]/resources/getResource/[email or web address] Completed 12/02/2019 Visit Diagnosis Plan: Acute bronchitis, unspecified Di scussion: Rocephin 1 gram administered in clinic along with Dex and kenalog (4&40). Patient tolerated well. He is to start prednisone and doxycycline tomorrow. ICD-9 : 466.0 ICD-10 : J20.9 03/16/2019 Visit Diagnosis Plan: Cough Discussion: moist air advi sed ICD-9 : 786.2 ICD-10 : R05 03/16/2019 Appointment: Alice Peralta [address] [place], [place] [id number] ACUTE ILLNESS 03/16/2019 Patient Education: prednisone- [employer] Coupon [phone] Completed 03/16/2019 Patient Education: doxycycline hyclate- [employer] Coupon [phone] [id number] Completed 03/16/2019 Visit Plan: Saline nasal [...] : J30.1 01/13/2019 Appointment: Bk Laureano WPtel: [address] [place] [address] ACUTE ILLNESS 01/13/2019 Patient Education: cefdinir- [employer] Coupon [phone] Completed 01/13/2019 Patient Education: prednisone- [employer] Coupon [id number] Completed 01/13/2019 Visit Diagnosis Plan: Personal history of malignant ne oplasm of prostate Discussion: Follows routinely with Dr. Giron ICD-9 : V10.46 ICD-10 : Z85.46 07/21/2018 Visit Diagnosis Plan: Gastro-esophageal reflux disease without esophagitis Discussion: Continue protonix ICD-9 : 530.81 ICD-10 : K21.9 07/21/2018 Visit Diagnosis Plan: Encounter for gene [facility] adult medical examination without abnormal findings Discussion: Obtain most recent lab resul ts Defers flu, pneumonia, and shingles shot ICD-9 : V70.9 ICD-10 : Z00.00 07/21/2018 Appointment: Bk Laureano WPtel: [address] [place] [address] Annual Well Visit 07/21/2018 Patient Education: Patient [...] ICD-10 : J20.9 09/23/2017 Appointment: Mayra Saenz [address] [place] [address] ACUTE ILLNESS 09/23/2017 Patient Education: Patient Medication Summary Completed 09/23/2017 Visit Diagnosis Plan: Allergic rhinitis due to pollen Discussion: Add pelonir ICD-9 : 477.9 ICD-10 : J30.1 07/03/2017 Visit Diagnosis Plan: COUGH Discussion: Check CT scan of chest Continue Breo Check CBC, CMP, TSH, ESR now ICD-9 : 786.2 ICD-10 : R05 07/03/2017 Appointment: Bk Laureano WPtel: [address] [place] [address] FOLLOW UP 07/03/2017 Patient Education: Patient Medication Summary Completed 07/03/2017 Visit Diagnosis Plan: Wheezing Discussion: Start Breo 100/25 1 p daily Follow Up: 2 weeks ICD-9 : 786.07 ICD-10 : R06.2 06/16/2017 Visit Diagnosis Plan: Corns and callosities Discussion : See podiatry ICD-9 : 700 ICD-10 : L84 06/16/2017 Visit Diagnosis Plan: COUGH Discussion: Check CXR now ICD-9 : 786.2 ICD-10 : R05 06/16/2017 Visit Diagnosis Plan: Allergic rhinitis due to pollen Discussion: Kenalog 40mg IM x1 ICD-9 : 477.9 ICD-10 : J30.1 06/16/2017 Appointment: Bk Laureano WPtel: [address] [place], [place] [phone] WORK IN 06/16/2017 Patient Education: Patient Medication Summary Completed 06/16/2017 Care Plan: CHEST X-RAY 2VW FRONTAL&LATL LOINC : 42916-6 Pending 06/16/2017 Appointment: Helene Garcia WPtel: [address] [place], [place] [phone] CANCELED 06/09/2017 Visit Diagnosis Plan: Other seasonal allergic rhinitis Discussion: Start claritin as above Can add nasal rinses, flonase, etc if not helping Monitor for signs of sinus infections, ear infections Refills of daily meds given as well per his request ICD-9 : 477.9 ICD-10 : J30.2 02/19/2017 Appointment: Faye Spivey [address] [place], [place] [phone] 02/17 confirmed ~sl ACUTE ILLNESS 02/19/2017 Patient Education: Patient Medication Summary Completed 02/19/2017 Referral: Edmundo Giron WPtel: [address] [place] [address] Referral Completed 03/11/2016 Visit Plan: Refills given Labs to be upd ated - CBC, CMP, lipids, PSA Needs consult with Urology for routine monitoring Consent to be signed for medical records to see when his last colo was - will update if needed 02/29/2016 Appointment: Faye Spviey [address] [place], [place] [phone] FOLLOW UP 02/29/2016 Patient Education: Patient Medication Summary Completed 02/29/2016 Care Plan: Referral Order SNOMED-CT : [id number] Pending 02/29/2016 Appointment: Faye Spivey [address] [place], [place] [phone] Taking patient to ER ACUTE ILLNESS 12/13/2015 Visit Plan: Check fasting lab and EKG Ad d daily omeprazole If lab and EKG normal and pain persists despite omeprazole then will proceed with stress test Following with ortho on knee pain 12/13/2014 Appointment: Bk Laureano WPtel: [address] [place], [place] [phone] NEW PATIENT 12/13/2014 Patient Education: Patient Medication Summary Completed 12/13/2014 Patient Education: [facility] Saving AutoInj - 18+ - Dynamic Portal ID Completed 12/13/2014 Referral: Edmundo Giron WPtel: [address] [id number] [place] Referral Appointment Requested Instructions Comment . [...]
--- OUTSIDE RECORDS SUMMARY | 2020-04-06 07:09 | XMS REPORT | CCD ---
Author Author Deon Laureano D.O. Organization [facility] Address [address] [place] [address] Phone Care Team Providers Care Powerhouse Oiler Name Role Phone Bk Laureano D.O. PP Unavailable CCM Unavailable Summary Purpose Interface Exchange Insurance Providers Payer name Policy type / Coverage type Covered democrat ID Effective Begin Date Effective End Date WPS MEDICARE PART B [place] Medicare Part B [id number] Unknown [facility] Medicare Part B [id number] Un known Family history Father Diagnosis Age At Onset Lung Cancer Unknown Mother Diagnosis Age At Onset Cerebrovascular disease Unknown Hypertension Unknown Social History Social History Element Codes Description Effective Dates Marital status Unknown 12/13/2014 Number of children Unknown 3 12/13/2014 Employment Unknown Currently employed 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 12/13/[address]: 619561 Currently drinks alcohol 12/13 Frequency of drinks SNOMED CT: 910934907 Drinks rarely 015 Allergies, Adverse Reactions, Alerts [...] Instructions doxycycline hyclate 100 mg capsule RxNorm: 7359379 1 Cap fadi(s) Oral two times a day 02/14/2020 02/21/2020 Active prednisone 20 mg tablet RxNorm: 647292 1 Tablet(s) Oral two denise es a day 02/14/2020 02/21/2020 Active Ventolin HFA 90 mcg/actuation aerosol inhaler RxNorm: 621953 2 Puff(s) Inhalation four times a day 02/14/2020 03/14/2020 Active doxycycline hyclate 100 mg capsule RxNorm: 3097079 1 Cap fadi(s) Oral two times a day 12/02/2019 12/12/2019 Inactive prednisone 20 mg tablet RxNorm: 555612 1 Tablet(s) Oral two denise es a day 12/02/2019 12/09/2019 Inactive Ventolin HFA 90 mcg/actuation aerosol inhaler RxNorm: 666235 2 Puff(s) Inhalation four times a day 12/02/2019 02/13/2020 Inactive meloxicam 15 mg tablet RxNorm: 366827 1 Tablet(s) Oral QD for pain 08/20/2019 02/16/2020 Active pantoprazole 40 mg tablet,delayed release RxNorm: 438306 1 TABL ET(S) PO QD 08/09/2019 05/04/2020 Active meloxicam 15 mg tablet RxNorm: 872798 1 Tablet(s) PO QD for pain 08/19/2019 Inactive doxycycline hyclate 100 mg tablet RxNorm: 8145990 1 Tablet(s) PO BI D 03/16/2019 03/25/2019 Inactive prednisone 20 mg tablet RxNorm: 297494 1 Tablet(s) PO BID 03/16/2019 03/22/2019 Inactive cefdinir 300 mg capsule RxNorm: 009460 1 Capsule(s) PO BID 01/14/2001/26/2019 Inactive prednisone 20 mg tablet RxNorm: 734741 1 Tablet(s) PO BID 01/13/2019 01/19/2019 Inactive meloxicam 15 mg tablet RxNorm: 720420 1 Tablet(s) PO QD for pain 01/16/2019 Inactive pantoprazole 40 mg tablet,delayed release RxNorm: 474343 1 Tabl et(s) PO QD 07/21/2018 07/15/2019 Inactive meloxicam 15 mg tablet RxNorm: 250670 1 Tablet(s) PO QD 06/22/2018 Inactive pantoprazole 40 mg tablet,delayed release RxNorm: 263219 1 Tabl et(s) PO QD 06/18/2018 07/20/2018 Inactive pantoprazole 40 mg tablet,delayed release RxNorm: 622519 1 Tabl et(s) PO QD 04/16/2018 06/17/2018 Inactive pantoprazole 40 mg tablet,delayed release RxNorm: 334701 1 Tabl et(s) PO QD 02/04/2018 06/18/2018 Inactive pantoprazole 40 mg tablet,delayed release RxNorm: 110979 1 Tabl et(s) PO QD 09/23/2017 02/04/2018 Inactive prednisone 20 mg tablet RxNorm: 368142 2 Tablet(s) PO QD 09/23/2017 1 11/25/2016 Inactive Singulair 10 mg tablet RxNorm: 773711 1 Tablet(s) PO QHS for co ugh/allergies 07/03/2017 07/20/2018 Inactive loratadine 10 mg tablet RxNorm: 095719 1 Tablet(s) PO QAM for a llergies 02/19/2017 07/20/2018 Inactive omeprazole 20 mg capsule,delayed release RxNorm: 556797 1 Capsu le(s) PO QD 02/19/2017 07/20/2018 Inactive [AttnRPh: Saving shiv ly/adjudicate RxGRP:SG20 RxBIN:[id number] RxPCN: ID#:[id number]] meloxicam 15 mg tablet RxNorm: 339311 1 Tablet(s) PO QD 02/19/2017 Inactive omeprazole 20 mg capsule,delayed release RxNorm: 598889 1 Capsu le(s) PO QD 02/29/2016 02/18/2017 Inactive [AttnRPh: Saving shiv ly/adjudicate RxGRP:SG20 RxBIN:[id number] RxPCN: ID#:[id number]] meloxicam 15 mg tablet RxNorm: 141608 1 Tablet(s) PO QD 02/29/2016 Inactive omeprazole 20 mg capsule,delayed release RxNorm: 487944 1 CAPSULE(S) PO QD DUE FOR ROUTINE APPOINTMENT 02/01/2016 02/28/2016 Inactive [AttnRPh : Saving apply/adjudicate RxGRP:SG20 RxBIN:[id number] RxPCN:HT ID#:[id number]] meloxicam 15 mg tablet RxNorm: 901960 1 Tablet(s) PO QD TABLET( S) PO QD 12/27/2015 01/25/2016 Inactive omeprazole 20 mg capsule,delayed release RxNorm: 272998 1 Capsule(s) PO QD Due for routine appointment 11/28/2015 12/27/2015 Inactive [AttnRPh : Saving apply/adjudicate RxGRP:SG20 RxBIN:[id number] RxPCN:HT ID#:[id number]] meloxicam 15 mg tablet RxNorm: 150868 2 Tablet(s) PO QD 09/26/2015 Inactive omeprazole 20 mg capsule,delayed release RxNorm: 844899 1 Capsu le(s) PO QD 12/13/2014 11/28/2015 Inactive [AttnRPh: Saving shiv ly/adjudicate RxGRP:SG20 RxBIN:[id number] RxPCN: ID#:[id number]] Multivitamin & Mineral Formula oral RxNorm: oral No Start Date Active Nasacort AQ 55 mcg nasal spray aerosol RxNorm: 6628253 1 [place] NASAL QD to each nostril No Start Date Active Breo Ellipta 100 mcg-25 mcg/dose powder for inhalation RxNorm: 1 880956 1 INH QD No Start Date 01/12/2019 Inactive Vitamin C 500 mg tablet RxNorm: 696222 1 Tablet(s) PO QD No Start D ate 12/01/2019 Inactive meloxicam 15 mg tablet RxNorm: 682460 1 Tablet(s) PO QD No Start Da te 02/28/2016 Inactive meloxicam 15 mg tablet RxNorm: 801502 2 Tablet(s) PO QD No Start Da te 09/25/2015 Inactive meloxicam 15 mg tablet RxNorm: 547796 1 Tablet(s) PO QD No Start Da te 07/20/2018 Inactive Medication Administered No Medication Administered data Immunizations No Immunization data Results Observation Observation Code Item Item Code Result Date S smallpox hospital Location ERYTHROCYTE SEDIMENTATION RATE 33181 Sed Rate 1 mm/hr 07/04/2017 Unknown GFR CALC [id number] GFR Non Afr Amr >60 mL/min 07/03/2017 Un known GFR CALC [id number] GFR Afr Amr >60 mL/min 07/03/2017 Unknow n COMPLETE BLOOD COUNT [id number] WBC 9.2 10e9/L 07/03/20 17 Unknown COMPLETE BLOOD COUNT 0253119 RBC 4.73 10e12/L 2016 Unknown COMPLETE BLOOD COUNT 1080633 HEMOGLOBIN 14.0 g/dL 07/03/20 17 Unknown COMPLETE BLOOD COUNT 0309346 HEMATOCRIT 42.3 % 07/03/20 17 Unknown COMPLETE BLOOD COUNT 0137857 MCV 89.4 fL 7 Unknown COMPLETE BLOOD COUNT 8773141 MCH 29.6 pg 7 Unknown COMPLETE BLOOD COUNT 0020418 MCHC 33.1 g/dL 7 Unknown COMPLETE BLOOD COUNT 9579607 PLATELET COUNT 375 10e9/L 04/2017 Unknown COMPLETE BLOOD COUNT 0179053 Mean Plt Volume 9.7 fL 04/2017 Unknown COMPLETE BLOOD COUNT 3968853 Neut Auto 61.0 % 7 Unknown COMPLETE BLOOD COUNT 3632352 Lymph Auto 25.8 % 07/03/20 17 Unknown COMPLETE BLOOD COUNT 6476244 [place] Auto 10.2 % 7 Unknown COMPLETE BLOOD COUNT 2084561 RDW 15.0 % 7 Unknown COMPLETE BLOOD COUNT 9045266 Eos Auto 2.9 % 7 Unknown COMPLETE BLOOD COUNT 8085208 Baso Auto 0.1 % 7 Unknown COMPLETE BLOOD COUNT 6574226 Neutrophil Abs 5.61 10e9/L Unknown COMPLETE BLOOD COUNT 6735010 Lymphocyte Abs 2.37 10e9/L Unknown COMPLETE BLOOD COUNT 8590864 Monocyte Abs 0.94 10e9/L 04/2017 Unknown COMPLETE BLOOD COUNT 1317529 Eosinophil Abs 0.27 10e9/L Unknown COMPLETE BLOOD COUNT 2023471 RDW-SD 48.6 fL 7 Unknown COMPLETE BLOOD COUNT 8768645 Basophil Abs 0.01 10e9/L 04/2017 Unknown COMPREHENSIVE METABOLIC 40169 AST 17 U/L 2016 Unknown COMPREHENSIVE METABOLIC 71458 ALT 18 U/L 2016 Unknown COMPREHENSIVE METABOLIC 46133 BUN 22 mg/dL 2016 Unknown COMPREHENSIVE METABOLIC 00390 ALBUMIN 3.6 g/dL 2016 Unknown COMPREHENSIVE METABOLIC 15702 CHLORIDE 106 mmol/L 07/03 Unknown COMPREHENSIVE METABOLIC 33197 Bili Total 0.3 mg/dL 07/03 Unknown COMPREHENSIVE METABOLIC 93009 ALK PHOS 51 U/L 2016 Unknown COMPREHENSIVE METABOLIC 40916 SODIUM 137 mmol/L 07/03 Unknown COMPREHENSIVE METABOLIC 81414 CREATININE 0.99 mg/dL 04/2017 Unknown COMPREHENSIVE METABOLIC 78660 CALCIUM 8.7 mg/dL 2016 Unknown COMPREHENSIVE METABOLIC 91488 POTASSIUM 4.6 mmol/L 07/03 Unknown COMPREHENSIVE METABOLIC 14933 Total Protein 6.0 g/dL Unknown COMPREHENSIVE METABOLIC 11975 Glucose 105 mg/dL 2016 Unknown COMPREHENSIVE METABOLIC 14821 Bicarbonate 24 mmol/L 04/2017 Unknown COMPREHENSIVE METABOLIC 47673 AGAP 7 mmol/L 2016 Unknown THYROID STIMULATING HORMONE 54315 TSH 1.054 uIU/mL 07/03/2017 Unknown GFR CALC 6595007 GFR Non Afr Amr >60 mL/min 02/29/2016 Un known GFR CALC 7219852 GFR Afr Amr >60 mL/min 02/29/2016 Unknow n PSA EQUIMOLAR VERONICA 28102 PSA Total 0.14 ng/mL 6 Unknown COMPREHENSIVE METABOLIC 95026 AST 18 U/L 2015 Unknown COMPREHENSIVE METABOLIC 79738 ALT 19 U/L 2015 Unknown COMPREHENSIVE METABOLIC 56966 BUN 19 mg/dL 2015 Unknown COMPREHENSIVE METABOLIC 86819 ALBUMIN 4.0 g/dL 2015 Unknown COMPREHENSIVE METABOLIC 31933 CHLORIDE 107 mmol/L 02/28 Unknown COMPREHENSIVE METABOLIC 50637 Bili Total 0.5 mg/dL 02/28 Unknown COMPREHENSIVE METABOLIC 32322 ALK PHOS 52 U/L 2015 Unknown COMPREHENSIVE METABOLIC 02914 SODIUM 135 mmol/L 02/28 Unknown COMPREHENSIVE METABOLIC 75196 CREATININE 0.93 mg/dL 02/2016 Unknown COMPREHENSIVE METABOLIC 36299 CALCIUM 9.1 mg/dL 2015 Unknown COMPREHENSIVE METABOLIC 90912 POTASSIUM 4.5 mmol/L 02/28 Unknown COMPREHENSIVE METABOLIC 49571 Total Protein 6.3 g/dL Unknown COMPREHENSIVE METABOLIC 05993 Glucose 97 mg/dL 2015 Unknown COMPREHENSIVE METABOLIC 79118 Bicarbonate 21 mmol/L 02/2016 Unknown COMPREHENSIVE METABOLIC 15864 AGAP 7 mmol/L 2015 Unknown COMPLETE BLOOD COUNT 3508585 WBC 7.0 10e9/L 02/29/20 16 Unknown COMPLETE BLOOD COUNT 2351023 RBC 4.94 10e12/L 2015 Unknown COMPLETE BLOOD COUNT 9968015 HEMOGLOBIN 14.5 g/dL 02/29/20 16 Unknown COMPLETE BLOOD COUNT 4418070 HEMATOCRIT 43.1 % 02/29/20 16 Unknown COMPLETE BLOOD COUNT 5497567 MCV 87.2 fL 6 Unknown COMPLETE BLOOD COUNT 4469427 MCH 29.4 pg 6 Unknown COMPLETE BLOOD COUNT 6748896 MCHC 33.6 g/dL 6 Unknown COMPLETE BLOOD COUNT 9189582 PLATELET COUNT 339 10e9/L 02/2016 Unknown COMPLETE BLOOD COUNT 8665657 Mean Plt Volume 10.6 fL 02/2016 Unknown COMPLETE BLOOD COUNT 3400614 Neut Auto 52.5 % 6 Unknown COMPLETE BLOOD COUNT 5607103 Lymph Auto 32.7 % 02/29/20 16 Unknown COMPLETE BLOOD COUNT 3475613 [place] Auto 12.9 % 6 Unknown COMPLETE BLOOD COUNT 1547659 RDW 14.6 % 6 Unknown COMPLETE BLOOD COUNT 9076216 Eos Auto 1.6 % 6 Unknown COMPLETE BLOOD COUNT 7074328 Baso Auto 0.3 % 6 Unknown COMPLETE BLOOD COUNT 7269460 Neutrophil Abs 3.68 10e9/L Unknown COMPLETE BLOOD COUNT 9839631 Lymphoctye Abs 2.29 10e9/L Unknown COMPLETE BLOOD COUNT 6167160 Monocyte Abs 0.90 10e9/L 02/2016 Unknown COMPLETE BLOOD COUNT 5427841 Eosinophil Abs 0.11 10e9/L Unknown COMPLETE BLOOD COUNT 5982867 RDW-SD 46.3 fL 6 Unknown COMPLETE BLOOD COUNT 7307643 Basophil Abs 0.02 10e9/L 02/2016 Unknown LIPID GROUP 15990 Cholesterol 161 mg/dL 02/29/2016 Unkno wn LIPID GROUP 24641 Triglyceride 57 mg/dL 02/29/2016 Unkn own LIPID GROUP 63435 HDL CHOLESTEROL 50 mg/dL 02/29/2016 U nknown LIPID GROUP 51876 Chol/HDL Ratio 3.22 ratio 02/29/2016 U nknown LIPID GROUP 31722 NON-HDL Chol 111 mg/dL 02/29/2016 Unkn own LIPID GROUP 18406 LDL Cholesterol 100 mg/dL 02/29/2016 U nknown Procedures Procedure Codes Date DEXAMETHASONE SODIUM PHOS CPT-4: J1100 12/02/2019 THER/PROPH/DIAG INJ SC/IM CPT-4: 08265 12/02/2019 TRIAMCINOLONE ACET INJ NOS CPT-4: J3301 12/02/2019 THER/PROPH/DIAG INJ SC/IM CPT-4: 49317 03/16/2019 TRIAMCINOLONE ACET INJ NOS CPT-4: J3301 03/16/2019 CEFTRIAXONE SODIUM INJECTION CPT-4: J0696 03/16/2019 THER/PROPH/DIAG INJ SC/IM CPT-4: 14244 03/16/2019 DEXAMETHASONE SODIUM PHOS CPT-4: J1100 03/16/2019 THER/PROPH/DIAG INJ SC/IM CPT-4: 85844 01/13/2019 TRIAMCINOLONE ACET INJ NOS CPT-4: J3301 01/13/2019 PPPS, subseq visit CPT-4: G0439 07/21/2018 PRESCRIP TRANSMIT VIA ERX SY CPT-4: G8553 09/23/2017 ROUTINE VENIPUNCTURE CPT-4: 50836 07/03/2017 ASSAY THYROID STIM HORMONE CPT-4: 16081 07/03/2017 COMPREHEN METABOLIC PANEL CPT-4: 51941 07/03/2017 COMPLETE CBC W/AUTO DIFF WBC CPT-4: 19428 07/03/2017 RBC SED RATE AUTOMATED CPT-4: 13300 07/03/2017 PRESCRIP TRANSMIT VIA ERX SY CPT-4: G8553 07/03/2017 THER/PROPH/DIAG INJ SC/IM CPT-4: 62686 06/16/2017 TRIAMCINOLONE ACET INJ NOS CPT-4: J3301 06/16/2017 PRESCRIP TRANSMIT VIA ERX SY CPT-4: G8553 02/19/2017 ROUTINE VENIPUNCTURE CPT-4: 51163 02/29/2016 COMPREHEN METABOLIC PANEL CPT-4: 51128 02/29/2016 COMPLETE CBC W/AUTO DIFF WBC CPT-4: 64537 02/29/2016 LIPID PANEL CPT-4: 05703 02/29/2016 ASSAY OF PSA TOTAL CPT-4: 83708 02/29/2016 PRESCRIP TRANSMIT VIA ERX SY CPT-4: G8553 02/29/2016 PRESCRIP TRANSMIT VIA ERX SY CPT-4: G8553 12/13/2014 Vital Signs Date Vital 12/02/2019 Blood Pressure 1: 126/62 Code: 8480-6 BMI: 31.3 Code: 70882-0 Heart Rate 1: 76 bpm Height: 5'9" Respiratory Rate: 22 bpm SpO2: 92% Tempera ture: 36.8 (C) / 98.2 (F) Weight: 212 lbs 03/16/2019 Blood Pressure 1: 122/74 Code: 8480-6 Heart Rate 1: 82 bpm Respiratory Rate: 18 bpm SpO2: 95% Temperature: 36.5 (C) / 97.7 (F) We ight: 213 lbs 01/13/2019 Blood Pressure 1: 114/62 Code: 8480-6 BMI: 31.9 Code: 85412-2 Heart Rate 1: 68 bpm Height: 5'9" Respiratory Rate: 20 bpm SpO2: 94% Tempera ture: 36.6 (C) / 97.9 (F) Weight: 216 lbs 07/21/2018 Blood Pressure 1: 136/78 Code: 8480-6 BMI: 32.0 Code: 31869-0 Heart Rate 1: 72 bpm Height: 5'9" Respiratory Rate: 20 bpm SpO2: 95% Tempera ture: 36.5 (C) / 97.7 (F) Weight: 217 lbs 09/23/2017 Blood Pressure 1: 118/68 Code: 8480-6 BMI: 32.6 Code: 94766-3 Heart Rate 1: 76 bpm Height: 5'9" Respiratory Rate: 20 bpm SpO2: 94% Tempera ture: 36.2 (C) / 97.1 (F) Weight: 221 lbs 07/03/2017 Blood Pressure 1: 126/64 Code: 8480-6 Heart Rate 1: 78 bpm Height: Respiratory Rate: 18 bpm SpO2: 97% Temperature: 36.4 (C) / 97.6 (F) We ight: 221 lbs 06/16/2017 Blood Pressure 1: 128/76 Code: 8480-6 BMI: 33.1 Code: 36589-7 Heart Rate 1: 78 bpm Height: 5'9" Respiratory Rate: 20 bpm SpO2: 96% Tempera ture: 36.4 (C) / 97.6 (F) Weight: 224 lbs 02/19/2017 Blood Pressure 1: 126/78 Code: 8480-6 Heart Rate 1: 74 bpm Respiratory Rate: 20 bpm SpO2: 96% Temperature: 36.3 (C) / 97.3 (F) We ight: 224 lbs 02/29/2016 Blood Pressure 1: 124/78 Code: 8480-6 BMI: 33.7 Code: 25235-2 Heart Rate 1: 72 bpm Height: 5'9" Respiratory Rate: 20 bpm SpO2: 96% Tempera ture: 36.2 (C) / 97.2 (F) Weight: 228 lbs 12/13/2014 Blood Pressure 1: 132/78 Code: 8480-6 BMI: 33.1 Code: 50932-1 Heart Rate 1: 72 bpm Height: 5'9" [...] Patient Encounters Encounter Performer Location Codes Date ([id number]) OFFICE/OUTPATIENT VISIT EST Diagnosis: Acute bronchitis, unspecified[ICD10: J20.9] Diagnosis: Allergic rhinitis due to pollen[ICD10: J30.1] Bk Laureano [facility] CPT-4: 97832 02/14/2020 ([id number]) OFFICE/OUTPATIENT VISIT EST Diagnosis: COUGH[ICD10: R05] Diagnosis: Wheezing[ICD10: R06.2] Bk PUENTES [employer] CPT-4: 45795 12/02/2019 ([id number]) OFFICE/OUTPATIENT VISIT EST Diagnosis: Cough[ICD10: R05] Diagnosis: Acute bronchitis, unspecified[ICD10: J20.9] Alice LAUREANO [employer] CPT-4: 52179 03/16/2019 ([id number]) OFFICE/OUTPATIENT VISIT EST Diagnosis: Acute recurrent sinusitis, unspecified[ICD10: J01.91] Diagnosis: Allergic rhinitis due to pollen[ICD10: J30.1] Diagnosis: COUGH[ICD10: R05] Bk LAUREANO [employer] CPT-4: 42526 01/13/2019 OFFICE/OUTPATIENT VISIT EST Diagnosis: Acute bronchitis, unspecified[ICD10: J20.9] Diagnosis: Gastro-esophageal reflux disease without esophagitis[ICD10: K21.9] Mayra [facility] CPT-4: 68601 09/23/2017 ([id number]) OFFICE/OUTPATIENT VISIT EST Diagnosis: COUGH[ICD10: R05] Diagnosis: Allergic rhinitis due to pollen[ICD10: J30.1] Diagnosis: Personal history of malignant neoplasm of prostate[ICD10: Z85.46] Bk [facility] CPT-4: 32764 07/03/2017 ([id number]) OFFICE/OUTPATIENT VISIT EST Diagnosis: COUGH[ICD10: R05] Diagnosis: Wheezing[ICD10: R06.2] Diagnosis: Allergic rhinitis due to pollen[ICD10: J30.1] Diagnosis: Corns and callosities[ICD10: L84] Bk [facility] CPT-4: 45137 06/16/2017 ([id number]) OFFICE/OUTPATIENT VISIT EST Diagnosis: Other seasonal allergic rhinitis[ICD10: J30.2] Faye [facility] CPT-4: 52643 02/19/2017 OFFICE/OUTPATIENT VISIT EST Diagnosis: Gastro-esophageal reflux disease without esophagitis[ICD10: K21.9] Diagnosis: Unspecified osteoarthritis, unspecified site[ICD10: M19.90] Diagnosis: Personal history of malignant neoplasm of prostate[ICD10: Z85.46] Diagnosis: Encounter for screening for cardiovascular disorders[ICD10: Z13.6] Faye MCBRIDELINE Velasquez [facility] CPT-4: 50293 02/29/2016 ([id number]) OFFICE/OUTPATIENT VISIT NEW Diagnosis: CHEST PAIN NOS[ICD9: 786.50] Diagnosis: GERD[ICD9: 530.81] Diagnosis: History of prostate cancer[ICD9: V10.46] Diagnosis: Knee pain[ICD9: 719.46] Bk [facility] CPT-4: 47924 12/13/2014 Plan of Care Planned Activity Notes Codes Status Date Visit Diagnosis Plan: Acute bronchitis, unspecified Di scussion: Doxycycline Continue Proair Notify if worsening or persists ICD-9 : 490 ICD-10 : J20.9 02/14/2020 Visit Diagnosis Plan: Allergic rhinitis due to pollen Discussion: Prednisone ICD-9 : 477.9 ICD-10 : J30.1 02/14/2020 Patient Education: doxycycline hyclate- [employer] Cou adrienne [id number] https://www.[employer]/resources/getResource/61/14248023-3639-0896-4z Completed 02/14/2020 Patient Education: prednisone- [employer] Coupon [id number] https://www.[employer]/resources/getResource/61/382qpz93-2sm9-862h-zy Completed 02/14/2020 Visit Diagnosis Plan: Wheezing Discussion: Kenalog/Dex amethasone Prednisone Doxycycline Notify if persists/worsens ICD-9 : 786.07 ICD-10 : R06.2 12/02/2019 Visit Diagnosis Plan: COUGH Discussion: Had CT scan do ne in May 2019 ICD-9 : 786.2 ICD-10 : R05 12/02/2019 Appointment: Bk Laureano WPtel: [facility]8 [facility] ACUTE ILLNESS 12/02/2019 Patient Education: doxycycline hyclate- [employer] Cou adrienne [id number] https://www.[employer]/resources/getResource/61/aftw3i9w-y122-1242-3z Completed 12/02/2019 Patient Education: prednisone- [employer] Coupon [id number] https://www.[employer]/resources/getResource/61/jm96a9gy-a8y4-505t-70 Completed 12/02/2019 Visit Diagnosis Plan: Acute bronchitis, unspecified Di scussion: Rocephin 1 gram administered in clinic along with Dex and kenalog (4&40). Patient tolerated well. He is to start prednisone and doxycycline tomorrow. ICD-9 : 466.0 ICD-10 : J20.9 03/16/2019 Visit Diagnosis Plan: Cough Discussion: moist air advi sed ICD-9 : 786.2 ICD-10 : R05 03/16/2019 Appointment: Alice Peralta [address] [place], [place] [phone] ACUTE ILLNESS 03/16/2019 Patient Education: prednisone- [employer] Coupon [id number] Completed 03/16/2019 Patient Education: doxycycline hyclate- [employer] Coupon 051537 02 Completed 03/16/2019 Visit Plan: Saline nasal [...] : J30.1 01/13/2019 Appointment: Bk Laureano WPtel: [address] [place] [address] ACUTE ILLNESS 01/13/2019 Patient Education: cefdinir- [employer] Coupon [id number] Completed 01/13/2019 Patient Education: prednisone- [employer] Coupon [id number] Completed 01/13/2019 Visit Diagnosis Plan: Personal history of malignant ne oplasm of prostate Discussion: Follows routinely with Dr. Giron ICD-9 : V10.46 ICD-10 : Z85.46 07/21/2018 Visit Diagnosis Plan: Gastro-esophageal reflux disease without esophagitis Discussion: Continue protonix ICD-9 : 530.81 ICD-10 : K21.9 07/21/2018 Visit Diagnosis Plan: Encounter for [facility] adult medical examination without abnormal findings Discussion: Obtain most recent lab resul ts Defers flu, pneumonia, and shingles shot ICD-9 : V70.9 ICD-10 : Z00.00 07/21/2018 Appointment: Bk Laureano WPtel: [address] [place] [address] Annual Well Visit 07/21/2018 Patient Education: Patient [...] ICD-10 : J20.9 09/23/2017 Appointment: Mayra Saenz [address] [place] [address] ACUTE ILLNESS 09/23/2017 Patient Education: Patient Medication Summary Completed 09/23/2017 Visit Diagnosis Plan: Allergic rhinitis due to pollen Discussion: Add pelonir ICD-9 : 477.9 ICD-10 : J30.1 07/03/2017 Visit Diagnosis Plan: COUGH Discussion: Check CT scan of chest Continue Breo Check CBC, CMP, TSH, ESR now ICD-9 : 786.2 ICD-10 : R05 07/03/2017 Appointment: Bk Laureano WPtel: [address] [place] [address] FOLLOW UP 07/03/2017 Patient Education: Patient Medication [...] : J30.1 06/16/2017 Appointment: Bk Laureano WPtel: [address] [place], [place] [phone] WORK IN 06/16/2017 Patient Education: Patient Medication Summary Completed 06/16/2017 Care Plan: CHEST X-RAY 2VW FRONTAL&LATL LOINC : 15492-0 Pending 06/16/2017 Appointment: Helene Garcia WPtel: [address] [place], [place] [phone] CANCELED 06/09/2017 Visit Diagnosis Plan: Other seasonal allergic rhinitis Discussion: Start claritin as above Can add nasal rinses, flonase, etc if not helping Monitor for signs of sinus infections, ear infections Refills of daily meds given as well per his request ICD-9 : 477.9 ICD-10 : J30.2 02/19/2017 Appointment: Faye Spivey [address] [place], [place] [id number] 02/17 confirmed ~sl ACUTE ILLNESS 02/19/2017 Patient Education: Patient Medication Summary Completed 02/19/2017 Referral: Edmundo Giron WPtel: [address] [place] [address] Referral Completed 03/11/2016 Visit Plan: Refills given Labs to be upd ated - CBC, CMP, lipids, PSA Needs consult with Urology for routine monitoring Consent to be signed for medical records to see when his last colo was - will update if needed 02/29/2016 Appointment: Faye Spivey [address] [place], [place] [phone] FOLLOW UP 02/29/2016 Patient Education: Patient Medication Summary Completed 02/29/2016 Care Plan: Referral Order SNOMED-CT : [phone] [phone] Pending 02/29/2016 Appointment: Faye Spivey [address] [place], [place] [phone] Taking patient to ER ACUTE ILLNESS 12/13/2015 Visit Plan: Check fasting lab and EKG Ad d daily omeprazole If lab and EKG normal and pain persists despite omeprazole then will proceed with stress test Following with ortho on knee pain 12/13/2014 Appointment: Bk Laureano WPtel: [address] [place], [place] [phone] NEW PATIENT 12/13/2014 Patient Education: Patient Medication Summary Completed 12/13/2014 Patient Education: [facility] - Saving Auto[employer]j - 18+ - Dynamic Portal ID Completed 12/13/2014 Referral: Edmundo Giron WPtel: [phone] [id number] [place] Referral Appointment Requested Instructions Comment . [...]
--- OUTSIDE RECORDS SUMMARY | 2020-04-06 07:09 | XMS REPORT | CCD ---
Author Author Deon Laureano D.O. Organization [facility] Address [address] [place] [address] Phone Care Team Providers Care Box Finisher Name Role Phone Bk Laureano D.O. PP Unavailable CCM Unavailable Summary Purpose Interface Exchange Insurance Providers Payer name Policy type / Coverage type Covered democrat ID Effective Begin Date Effective End Date WPS MEDICARE PART B [place] Medicare Part B [id number] Unknown [facility]m [facility] Medicare Part B [id number] Un known Family history Father Diagnosis Age At Onset Lung Cancer Unknown Mother Diagnosis Age At Onset Cerebrovascular disease Unknown Hypertension Unknown Social History Social History Element Codes Description Effective Dates Marital status Unknown 12/13/2014 Number of children Unknown 3 12/13/2014 Employment Unknown Currently employed 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 12/13/[address]: 786202 Currently drinks alcohol 12/13 Frequency of drinks SNOMED CT: 296733656 Drinks rarely 015 Allergies, Adverse Reactions, Alerts Substance Reaction Codes Entered Date Inactivated Date Status * NO KNOWN DRUG ALLERGIES Unknown 12/13/2014 No Inactiv e Date Active * NO KNOWN ENVIRONMENTAL ALLERGIES Unknown 12/13/2014 N o Inactive Date Active * NO KNOWN FOOD ALLERGIES Unknown 12/13/2014 No Inactiv e Date Active Problems Condition Codes Effective Dates Condition Status COUGH ICD-9: 786.2 ICD-10: R05 06/16/2017 Active Wheezing ICD-9: 786.07 ICD-10: R06.2 06/16/2017 Active Acute bronchitis, unspecified ICD-9: 466.0 ICD-10: J20.9 03/16/2019 Active Acute recurrent sinusitis, unspecified ICD-9: 461.9 ICD-10: J01.91 01/13/2019 Active Allergic rhinitis due to pollen ICD-9: 477.9 ICD-10: J30.1 06/16/2017 Active Encounter for general adult medical examination withou t abnormal findings ICD-9: V70.9 ICD-10: Z00.00 07/21/2018 Active Gastro-esophageal reflux disease without esophagitis I CD-9: 530.81 ICD-10: K21.9 12/13/2014 Active Personal history of malignant neoplasm of prostate ICD -9: V10.46 ICD-10: Z85.46 12/13/2014 Active Acute bronchitis, unspecified ICD-9: 490 ICD-10: J20.9 09/23/2017 Active Corns and callosities ICD-9: 700 ICD-10: [...] Instructions doxycycline hyclate 100 mg capsule RxNorm: 0548685 1 Cap fadi(s) Oral two times a day 12/02/2019 12/12/2019 Active prednisone 20 mg tablet RxNorm: 804087 1 Tablet(s) Oral two denise es a day 12/02/2019 12/09/2019 Active Ventolin HFA 90 mcg/actuation aerosol inhaler RxNorm: 826287 2 Puff(s) Inhalation four times a day 12/02/2019 01/01/2020 Active meloxicam 15 mg tablet RxNorm: 245279 1 Tablet(s) Oral QD for pain 08/20/2019 02/16/2020 Active pantoprazole 40 mg tablet,delayed release RxNorm: 152586 1 TABL ET(S) PO QD 08/09/2019 05/04/2020 Active meloxicam 15 mg tablet RxNorm: 452899 1 Tablet(s) PO QD for pain 08/19/2019 Inactive doxycycline hyclate 100 mg tablet RxNorm: 4740419 1 Tablet(s) PO BI D 03/16/2019 03/25/2019 Inactive prednisone 20 mg tablet RxNorm: 581558 1 Tablet(s) PO BID 03/16/2019 03/22/2019 Inactive cefdinir 300 mg capsule RxNorm: 445419 1 Capsule(s) PO BID 01/14/2001/26/2019 Inactive prednisone 20 mg tablet RxNorm: 236637 1 Tablet(s) PO BID 01/13/2019 01/19/2019 Inactive meloxicam 15 mg tablet RxNorm: 679901 1 Tablet(s) PO QD for pain 01/16/2019 Inactive pantoprazole 40 mg tablet,delayed release RxNorm: 479378 1 Tabl et(s) PO QD 07/21/2018 07/15/2019 Inactive meloxicam 15 mg tablet RxNorm: 052605 1 Tablet(s) PO QD 06/22/2018 Inactive pantoprazole 40 mg tablet,delayed release RxNorm: 240978 1 Tabl et(s) PO QD 06/18/2018 07/20/2018 Inactive pantoprazole 40 mg tablet,delayed release RxNorm: 002970 1 Tabl et(s) PO QD 04/16/2018 06/17/2018 Inactive pantoprazole 40 mg tablet,delayed release RxNorm: 743467 1 Tabl et(s) PO QD 02/04/2018 06/18/2018 Inactive pantoprazole 40 mg tablet,delayed release RxNorm: 854379 1 Tabl et(s) PO QD 09/23/2017 02/04/2018 Inactive prednisone 20 mg tablet RxNorm: 817163 2 Tablet(s) PO QD 09/23/2017 1 11/25/2016 Inactive Singulair 10 mg tablet RxNorm: 756906 1 Tablet(s) PO QHS for co ugh/allergies 07/03/2017 07/20/2018 Inactive loratadine 10 mg tablet RxNorm: 325756 1 Tablet(s) PO QAM for a llergies 02/19/2017 07/20/2018 Inactive omeprazole 20 mg capsule,delayed release RxNorm: 495901 1 Capsu le(s) PO QD 02/19/2017 07/20/2018 Inactive [AttnRPh: Saving shiv ly/adjudicate RxGRP:SG20 RxBIN:[id number] RxPCN:HT ID#:[id number]] meloxicam 15 mg tablet RxNorm: 294483 1 Tablet(s) PO QD 02/19/2017 Inactive omeprazole 20 mg capsule,delayed release RxNorm: 145273 1 Capsu le(s) PO QD 02/29/2016 02/18/2017 Inactive [AttnRPh: Saving shiv ly/adjudicate RxGRP:SG20 RxBIN:[id number] RxPCN:HT ID#:[id number]] meloxicam 15 mg tablet RxNorm: 016731 1 Tablet(s) PO QD 02/29/2016 Inactive omeprazole 20 mg capsule,delayed release RxNorm: 167173 1 CAPSULE(S) PO QD DUE FOR ROUTINE APPOINTMENT 02/01/2016 02/28/2016 Inactive [AttnRPh : Saving apply/adjudicate RxGRP:SG20 RxBIN:[id number] RxPCN: ID#:[id number]] meloxicam 15 mg tablet RxNorm: 328095 1 Tablet(s) PO QD TABLET( S) PO QD 12/27/2015 01/25/2016 Inactive omeprazole 20 mg capsule,delayed release RxNorm: 139315 1 Capsule(s) PO QD Due for routine appointment 11/28/2015 12/27/2015 Inactive [AttnRPh : Saving apply/adjudicate RxGRP:SG20 RxBIN:[id number] RxPCN:HT ID#:[id number]] meloxicam 15 mg tablet RxNorm: 990479 2 Tablet(s) PO QD 09/26/2015 Inactive omeprazole 20 mg capsule,delayed release RxNorm: 984799 1 Capsu le(s) PO QD 12/13/2014 11/28/2015 Inactive [AttnRPh: Saving shiv ly/adjudicate RxGRP:SG20 RxBIN:[id number] RxPCN:HT ID#:[id number]] Multivitamin & Mineral Formula oral RxNorm: oral No Start Date Active Nasacort AQ 55 mcg nasal spray aerosol RxNorm: 9362953 1 [place] NASAL QD to each nostril No Start Date Active Breo Ellipta 100 mcg-25 mcg/dose powder for inhalation RxNorm: 1 962353 1 INH QD No Start Date 01/12/2019 Inactive Vitamin C 500 mg tablet RxNorm: 419274 1 Tablet(s) PO QD No Start D ate 12/01/2019 Inactive meloxicam 15 mg tablet RxNorm: 829263 1 Tablet(s) PO QD No Start Da te 02/28/2016 Inactive meloxicam 15 mg tablet RxNorm: 665400 2 Tablet(s) PO QD No Start Da te 09/25/2015 Inactive meloxicam 15 mg tablet RxNorm: 436416 1 Tablet(s) PO QD No Start Da te 07/20/2018 Inactive Medication Administered No Medication Administered data Immunizations No Immunization data Results Observation Observation Code Item Item Code Result Date S vice Location ERYTHROCYTE SEDIMENTATION RATE 71112 Sed Rate 1 mm/hr 07/04/2017 Unknown GFR CALC 6763003 GFR Non Afr Amr >60 mL/min 07/03/2017 Un known GFR CALC 2434811 GFR Afr Amr >60 mL/min 07/03/2017 Unknow n COMPLETE BLOOD COUNT 5346674 WBC 9.2 10e9/L 07/03/20 17 Unknown COMPLETE BLOOD COUNT [id number] RBC 4.73 10e12/L 2016 Unknown COMPLETE BLOOD COUNT 9771878 HEMOGLOBIN 14.0 g/dL 07/03/20 17 Unknown COMPLETE BLOOD COUNT 9154365 HEMATOCRIT 42.3 % 07/03/20 17 Unknown COMPLETE BLOOD COUNT 8924514 MCV 89.4 fL 7 Unknown COMPLETE BLOOD COUNT 4805958 MCH 29.6 pg 7 Unknown COMPLETE BLOOD COUNT 2982263 MCHC 33.1 g/dL 7 Unknown COMPLETE BLOOD COUNT 9593793 PLATELET COUNT 375 10e9/L 04/2017 Unknown COMPLETE BLOOD COUNT 5499827 Mean Plt Volume 9.7 fL 04/2017 Unknown COMPLETE BLOOD COUNT 2209324 Neut Auto 61.0 % 7 Unknown COMPLETE BLOOD COUNT 0931337 Lymph Auto 25.8 % 07/03/20 17 Unknown COMPLETE BLOOD COUNT 9491753 [place] Auto 10.2 % 7 Unknown COMPLETE BLOOD COUNT 0366220 RDW 15.0 % 7 Unknown COMPLETE BLOOD COUNT 8677148 Eos Auto 2.9 % 7 Unknown COMPLETE BLOOD COUNT 7566687 Baso Auto 0.1 % 7 Unknown COMPLETE BLOOD COUNT 0069478 Neutrophil Abs 5.61 10e9/L Unknown COMPLETE BLOOD COUNT 0703113 Lymphocyte Abs 2.37 10e9/L Unknown COMPLETE BLOOD COUNT 5273438 Monocyte Abs 0.94 10e9/L 04/2017 Unknown COMPLETE BLOOD COUNT 0608418 Eosinophil Abs 0.27 10e9/L Unknown COMPLETE BLOOD COUNT 8503267 RDW-SD 48.6 fL 7 Unknown COMPLETE BLOOD COUNT 2560535 Basophil Abs 0.01 10e9/L 04/2017 Unknown COMPREHENSIVE METABOLIC 66736 AST 17 U/L 2016 Unknown COMPREHENSIVE METABOLIC 55497 ALT 18 U/L 2016 Unknown COMPREHENSIVE METABOLIC 14895 BUN 22 mg/dL 2016 Unknown COMPREHENSIVE METABOLIC 03819 ALBUMIN 3.6 g/dL 2016 Unknown COMPREHENSIVE METABOLIC 56129 CHLORIDE 106 mmol/L 07/03 Unknown COMPREHENSIVE METABOLIC 50737 Bili Total 0.3 mg/dL 07/03 Unknown COMPREHENSIVE METABOLIC 11863 ALK PHOS 51 U/L 2016 Unknown COMPREHENSIVE METABOLIC 97881 SODIUM 137 mmol/L 07/03 Unknown COMPREHENSIVE METABOLIC 07667 CREATININE 0.99 mg/dL 04/2017 Unknown COMPREHENSIVE METABOLIC 77177 CALCIUM 8.7 mg/dL 2016 Unknown COMPREHENSIVE METABOLIC 83228 POTASSIUM 4.6 mmol/L 07/03 Unknown COMPREHENSIVE METABOLIC 99448 Total Protein 6.0 g/dL Unknown COMPREHENSIVE METABOLIC 34564 Glucose 105 mg/dL 2016 Unknown COMPREHENSIVE METABOLIC 80951 Bicarbonate 24 mmol/L 04/2017 Unknown COMPREHENSIVE METABOLIC 45086 AGAP 7 mmol/L 2016 Unknown THYROID STIMULATING HORMONE 24261 TSH 1.054 uIU/mL 07/03/2017 Unknown GFR CALC 8237430 GFR Non Afr Amr >60 mL/min 02/29/2016 Un known GFR CALC 9683646 GFR Afr Amr >60 mL/min 02/29/2016 Unknow n PSA EQUIMOLAR VERONICA 33014 PSA Total 0.14 ng/mL 05/05/201 6 Unknown COMPREHENSIVE METABOLIC 26633 AST 18 U/L 2015 Unknown COMPREHENSIVE METABOLIC 43628 ALT 19 U/L 2015 Unknown COMPREHENSIVE METABOLIC 11756 BUN 19 mg/dL 2015 Unknown COMPREHENSIVE METABOLIC 22735 ALBUMIN 4.0 g/dL 2015 Unknown COMPREHENSIVE METABOLIC 92879 CHLORIDE 107 mmol/L 02/28 Unknown COMPREHENSIVE METABOLIC 60459 Bili Total 0.5 mg/dL 02/28 Unknown COMPREHENSIVE METABOLIC 76501 ALK PHOS 52 U/L 2015 Unknown COMPREHENSIVE METABOLIC 63700 SODIUM 135 mmol/L 02/28 Unknown COMPREHENSIVE METABOLIC 03511 CREATININE 0.93 mg/dL 02/2016 Unknown COMPREHENSIVE METABOLIC 24317 CALCIUM 9.1 mg/dL 2015 Unknown COMPREHENSIVE METABOLIC 83695 POTASSIUM 4.5 mmol/L 02/28 Unknown COMPREHENSIVE METABOLIC 25971 Total Protein 6.3 g/dL Unknown COMPREHENSIVE METABOLIC 49858 Glucose 97 mg/dL 2015 Unknown COMPREHENSIVE METABOLIC 96350 Bicarbonate 21 mmol/L 02/2016 Unknown COMPREHENSIVE METABOLIC 46481 AGAP 7 mmol/L 2015 Unknown COMPLETE BLOOD COUNT 8735146 WBC 7.0 10e9/L 02/29/20 16 Unknown COMPLETE BLOOD COUNT 1392410 RBC 4.94 10e12/L 2015 Unknown COMPLETE BLOOD COUNT 8934446 HEMOGLOBIN 14.5 g/dL 02/29/20 16 Unknown COMPLETE BLOOD COUNT 7100282 HEMATOCRIT 43.1 % 02/29/20 16 Unknown COMPLETE BLOOD COUNT 9092600 MCV 87.2 fL 6 Unknown COMPLETE BLOOD COUNT 6150842 MCH 29.4 pg 6 Unknown COMPLETE BLOOD COUNT 8697544 MCHC 33.6 g/dL 6 Unknown COMPLETE BLOOD COUNT 6904390 PLATELET COUNT 339 10e9/L 02/2016 Unknown COMPLETE BLOOD COUNT 3475053 Mean Plt Volume 10.6 fL 02/2016 Unknown COMPLETE BLOOD COUNT 2270296 Neut Auto 52.5 % 6 Unknown COMPLETE BLOOD COUNT 2235386 Lymph Auto 32.7 % 02/29/20 16 Unknown COMPLETE BLOOD COUNT 7040792 [place] Auto 12.9 % 6 Unknown COMPLETE BLOOD COUNT 3838707 RDW 14.6 % 6 Unknown COMPLETE BLOOD COUNT 4147823 Eos Auto 1.6 % 6 Unknown COMPLETE BLOOD COUNT 2548817 Baso Auto 0.3 % 6 Unknown COMPLETE BLOOD COUNT 6830697 Neutrophil Abs 3.68 10e9/L Unknown COMPLETE BLOOD COUNT 1270604 Lymphoctye Abs 2.29 10e9/L Unknown COMPLETE BLOOD COUNT 7045941 Monocyte Abs 0.90 10e9/L 02/2016 Unknown COMPLETE BLOOD COUNT 1892368 Eosinophil Abs 0.11 10e9/L Unknown COMPLETE BLOOD COUNT 8534990 RDW-SD 46.3 fL 6 Unknown COMPLETE BLOOD COUNT 2263979 Basophil Abs 0.02 10e9/L 02/2016 Unknown LIPID GROUP 87020 Cholesterol 161 mg/dL 02/29/2016 Unkno wn LIPID GROUP 46493 Triglyceride 57 mg/dL 02/29/2016 Unkn own LIPID GROUP 55188 HDL CHOLESTEROL 50 mg/dL 02/29/2016 U nknown LIPID GROUP 71680 Chol/HDL Ratio 3.22 ratio 02/29/2016 U nknown LIPID GROUP 92723 NON-HDL Chol 111 mg/dL 02/29/2016 Unkn own LIPID GROUP 15594 LDL Cholesterol 100 mg/dL 02/29/2016 U nknown Procedures Procedure Codes Date DEXAMETHASONE SODIUM PHOS CPT-4: J1100 12/02/2019 THER/PROPH/DIAG INJ SC/IM CPT-4: 44815 12/02/2019 TRIAMCINOLONE ACET INJ NOS CPT-4: J3301 12/02/2019 THER/PROPH/DIAG INJ SC/IM CPT-4: 10979 03/16/2019 TRIAMCINOLONE ACET INJ NOS CPT-4: J3301 03/16/2019 CEFTRIAXONE SODIUM INJECTION CPT-4: J0696 03/16/2019 THER/PROPH/DIAG INJ SC/IM CPT-4: 19556 03/16/2019 DEXAMETHASONE SODIUM PHOS CPT-4: J1100 03/16/2019 THER/PROPH/DIAG INJ SC/IM CPT-4: 34296 01/13/2019 TRIAMCINOLONE ACET INJ NOS CPT-4: J3301 01/13/2019 PPPS, subseq visit CPT-4: G0439 07/21/2018 PRESCRIP TRANSMIT VIA ERX SY CPT-4: G8553 09/23/2017 ROUTINE VENIPUNCTURE CPT-4: 94515 07/03/2017 ASSAY THYROID STIM HORMONE CPT-4: 09179 07/03/2017 COMPREHEN METABOLIC PANEL CPT-4: 38588 07/03/2017 COMPLETE CBC W/AUTO DIFF WBC CPT-4: 22813 07/03/2017 RBC SED RATE AUTOMATED CPT-4: 73029 07/03/2017 PRESCRIP TRANSMIT VIA ERX SY CPT-4: G8553 07/03/2017 THER/PROPH/DIAG INJ SC/IM CPT-4: 88143 06/16/2017 TRIAMCINOLONE ACET INJ NOS CPT-4: J3301 06/16/2017 PRESCRIP TRANSMIT VIA ERX SY CPT-4: G8553 02/19/2017 ROUTINE VENIPUNCTURE CPT-4: 56970 02/29/2016 COMPREHEN METABOLIC PANEL CPT-4: 32357 02/29/2016 COMPLETE CBC W/AUTO DIFF WBC CPT-4: 81454 02/29/2016 LIPID PANEL CPT-4: 87948 02/29/2016 ASSAY OF PSA TOTAL CPT-4: 76468 02/29/2016 PRESCRIP TRANSMIT VIA ERX SY CPT-4: G8553 02/29/2016 PRESCRIP TRANSMIT VIA ERX SY CPT-4: G8553 12/13/2014 Vital Signs Date Vital 12/02/2019 Blood Pressure 1: 126/62 Code: 8480-6 BMI: 31.3 Code: 83037-4 Heart Rate 1: 76 bpm Height: 5'9" Respiratory Rate: 22 bpm SpO2: 92% Tempera ture: 36.8 (C) / 98.2 (F) Weight: 212 lbs 03/16/2019 Blood Pressure 1: 122/74 Code: 8480-6 Heart Rate 1: 82 bpm Respiratory Rate: 18 bpm SpO2: 95% Temperature: 36.5 (C) / 97.7 (F) We ight: 213 lbs 01/13/2019 Blood Pressure 1: 114/62 Code: 8480-6 BMI: 31.9 Code: 94500-2 Heart Rate 1: 68 bpm Height: 5'9" Respiratory Rate: 20 bpm SpO2: 94% Tempera ture: 36.6 (C) / 97.9 (F) Weight: 216 lbs 07/21/2018 Blood Pressure 1: 136/78 Code: 8480-6 BMI: 32.0 Code: 96995-1 Heart Rate 1: 72 bpm Height: 5'9" Respiratory Rate: 20 bpm SpO2: 95% Tempera ture: 36.5 (C) / 97.7 (F) Weight: 217 lbs 09/23/2017 Blood Pressure 1: 118/68 Code: 8480-6 BMI: 32.6 Code: 90760-2 Heart Rate 1: 76 bpm Height: 5'9" Respiratory Rate: 20 bpm SpO2: 94% Tempera ture: 36.2 (C) / 97.1 (F) Weight: 221 lbs 07/03/2017 Blood Pressure 1: 126/64 Code: 8480-6 Heart Rate 1: 78 bpm Height: Respiratory Rate: 18 bpm SpO2: 97% Temperature: 36.4 (C) / 97.6 (F) We ight: 221 lbs 06/16/2017 Blood Pressure 1: 128/76 Code: 8480-6 BMI: 33.1 Code: 43636-7 Heart Rate 1: 78 bpm Height: 5'9" Respiratory Rate: 20 bpm SpO2: 96% Tempera ture: 36.4 (C) / 97.6 (F) Weight: 224 lbs 02/19/2017 Blood Pressure 1: 126/78 Code: 8480-6 Heart Rate 1: 74 bpm Respiratory Rate: 20 bpm SpO2: 96% Temperature: 36.3 (C) / 97.3 (F) We ight: 224 lbs 02/29/2016 Blood Pressure 1: 124/78 Code: 8480-6 BMI: 33.7 Code: 77511-3 Heart Rate 1: 72 bpm Height: 5'9" Respiratory Rate: 20 bpm SpO2: 96% Tempera ture: 36.2 (C) / 97.2 (F) Weight: 228 lbs 12/13/2014 Blood Pressure 1: 132/78 Code: 8480-6 BMI: 33.1 Code: 83703-0 Heart Rate 1: 72 bpm Height: 5'9" Respiratory Rate: 20 bpm Temperature: 36 .8 (C) / 98.2 (F) Weight: 224 lbs Functional Status No Functional Status data Reason For Visit Reason For Visit Effective Dates Notes cough 12/02/2019 cough 03/16/2019 nonproductive cough 01/13/2019 well man exam (65+ years) 07/21/2018 follow up 09/23/2017 follow up 07/03/2017 2 week- Patient star brianna on Breo follow up 06/16/2017 postnasal drip 02/19/2017 joint complaint 02/29/2016 needs refill of magallon xicam ~generic 12/13/2014 New Patient Encounters Encounter Performer Location Codes Date ([id number]) OFFICE/OUTPATIENT VISIT EST Diagnosis: COUGH[ICD10: R05] Diagnosis: Wheezing[ICD10: R06.2] Bk Eng AASHISHJAYCE [facility] CPT-4: 28880 12/02/2019 ([id number]) OFFICE/OUTPATIENT VISIT EST Diagnosis: Cough[ICD10: R05] Diagnosis: Acute bronchitis, unspecified[ICD10: J20.9] [facility] [employer] [facility] CPT-4: 32302 03/16/2019 ([id number]) OFFICE/OUTPATIENT VISIT EST Diagnosis: Acute recurrent sinusitis, unspecified[ICD10: J01.91] Diagnosis: Allergic rhinitis due to pollen[ICD10: J30.1] Diagnosis: COUGH[ICD10: R05] [facility]k [facility] [employer] [facility] [employer] [facility] CPT-4: 46850 01/13/2019 OFFICE/OUTPATIENT VISIT EST Diagnosis: Acute bronchitis, unspecified[ICD10: J20.9] Diagnosis: Gastro-esophageal reflux disease without esophagitis[ICD10: K21.9] Mayra Saenz BK Eng [facility] [facility] [employer] [facility] CPT-4: 24318 09/23/2017 ([id number]) OFFICE/OUTPATIENT VISIT EST Diagnosis: COUGH[ICD10: R05] Diagnosis: Allergic rhinitis due to pollen[ICD10: J30.1] Diagnosis: Personal history of malignant neoplasm of prostate[ICD10: Z85.46] Bk Eng [employer] [facility] [employer] [facility] CPT-4: 43075 07/03/2017 ([id number]) OFFICE/OUTPATIENT VISIT EST Diagnosis: COUGH[ICD10: R05] Diagnosis: Wheezing[ICD10: R06.2] Diagnosis: Allergic rhinitis due to pollen[ICD10: J30.1] Diagnosis: Corns and callosities[ICD10: L84] Bk LAUREANO [employer] [facility] CPT-4: 29881 06/16/2017 ([id number]) OFFICE/OUTPATIENT VISIT EST Diagnosis: Other seasonal allergic rhinitis[ICD10: J30.2] Faye LAUREANO [facility] CPT-4: 64982 02/19/2017 OFFICE/OUTPATIENT VISIT EST Diagnosis: Gastro-esophageal reflux disease without esophagitis[ICD10: K21.9] Diagnosis: Unspecified osteoarthritis, unspecified site[ICD10: M19.90] Diagnosis: Personal history of malignant neoplasm of prostate[ICD10: Z85.46] Diagnosis: Encounter for screening for cardiovascular disorders[ICD10: Z13.6] Faye LAUREANO [employer] [facility] CPT-4: 72033 02/29/2016 ([id number]) OFFICE/OUTPATIENT VISIT NEW Diagnosis: CHEST PAIN NOS[ICD9: 786.50] Diagnosis: GERD[ICD9: 530.81] Diagnosis: History of prostate cancer[ICD9: V10.46] Diagnosis: Knee pain[ICD9: 719.46] Bk [facility]IG[facility]Z [facility] CPT-4: 68763 12/13/2014 Plan of Care Planned Activity Notes Codes Status Date Visit Diagnosis Plan: COUGH Discussion: Had CT scan do ne in May 2019 ICD-9 : 786.2 ICD-10 : R05 12/02/2019 Visit Diagnosis Plan: Wheezing Discussion: Kenalog/Dex amethasone Prednisone Doxycycline Notify if persists/worsens ICD-9 : 786.07 ICD-10 : R06.2 12/02/2019 Patient Education: doxycycline hyclate- [employer] Cou adrienne [id number] [email or web address]samplemd/resources/getResource/61/[email or web address] Completed 12/02/2019 Patient Education: prednisone- [employer] Coupon [phone] https://www.[employer]samplemd/resources/getResource/61/[email or web address] Completed 12/02/2019 Visit Diagnosis Plan: Acute bronchitis, unspecified Di scussion: Rocephin 1 gram administered in clinic along with Dex and kenalog (4&40). Patient tolerated well. He is to start prednisone and doxycycline tomorrow. ICD-9 : 466.0 ICD-10 : J20.9 03/16/2019 Visit Diagnosis Plan: Cough Discussion: moist air advi sed ICD-9 : 786.2 ICD-10 : R05 03/16/2019 [facility] [facility] [facility] 03/16/2019 Patient Education: prednisone- [employer] Coupon [id number] Completed 03/16/2019 Patient Education: doxycycline hyclate- [employer] Coupon [id number] Completed 03/16/2019 Visit Plan: Saline nasal [...] : J30.1 01/13/2019 Appointment: Bk Laureano WPtel: [facility] [facility] 01/13/2019 Patient Education: cefdinir- [employer] Coupon [id number] Completed 01/13/2019 Patient Education: prednisone- [employer] Coupon [id number] Completed 01/13/2019 Visit Diagnosis Plan: Personal history [...] : Z00.00 07/21/2018 Appointment: Bk Laureano WPtel[facility] [phone] [facility] [facility] Well Visit 07/21/2018 Patient Education: Patient [...] ICD-10 : J20.9 09/23/2017 Appointment: Mayra Saenz [address] [place], [place] [address] ACUTE ILLNESS 09/23/2017 Patient Education: Patient Medication Summary Completed 09/23/2017 Visit Diagnosis Plan: Allergic rhinitis due to pollen Discussion: Add pelonir ICD-9 : 477.9 ICD-10 : J30.1 07/03/2017 Visit Diagnosis Plan: COUGH Discussion: Check CT scan of chest Continue Breo Check CBC, CMP, TSH, ESR now ICD-9 : 786.2 ICD-10 : R05 07/03/2017 Appointment: Bk Laureano WPtel[facility] [phone] [facility] FOLLOW UP 07/03/2017 Patient Education: Patient Medication [...] : J30.1 06/16/2017 Appointment: Bk Laureano WPtel: [address] [place], [place] [phone] WORK IN 06/16/2017 Patient Education: Patient Medication Summary Completed 06/16/2017 Care Plan: CHEST X-RAY 2VW FRONTAL&LATL LOINC : 48736-5 Pending 06/16/2017 Appointment: Helene Garcia WPtel: [address] [place], [place] [phone] CANCELED 06/09/2017 Visit Diagnosis Plan: Other seasonal allergic rhinitis Discussion: Start claritin as above Can add nasal rinses, flonase, etc if not helping Monitor for signs of sinus infections, ear infections Refills of daily meds given as well per his request ICD-9 : 477.9 ICD-10 : J30.2 02/19/2017 Appointment: Faye Spivey [address] [place], [place] [phone] 02/17 confirmed ~sl ACUTE ILLNESS 02/19/2017 Patient Education: Patient Medication Summary Completed 02/19/2017 Referral: Edmundo Giron WPtel: [address] [place], [place] [phone] Referral Completed 03/11/2016 Visit Plan: Refills given Labs to be upd ated - CBC, CMP, lipids, PSA Needs consult with Urology for routine monitoring Consent to be signed for medical records to see when his last colo was - will update if needed 02/29/2016 Appointment: Faye Spivey [address] [place], [place] [phone] FOLLOW UP 02/29/2016 Patient Education: Patient Medication Summary Completed 02/29/2016 Care Plan: Referral Order SNOMED-CT : 30 [id number] Pending 02/29/2016 Appointment: Faye Spivey [address] [place], [place] [phone] Taking patient to ER ACUTE ILLNESS 12/13/2015 Visit Plan: Check fasting lab and EKG Ad d daily omeprazole If lab and EKG normal and pain persists despite omeprazole then will proceed with stress test Following with ortho on knee pain 12/13/2014 Appointment: Bk Laureano WPtel: [phone] [facility] NEW PATIENT 12/13/2014 Patient Education: Patient Medication Summary Completed 12/13/2014 Patient Education: [facility] - Saving Auto[employer] - 18+ - Dynamic Portal ID Completed 12/13/2014 Referral: Edmundo Giron WPtel: [phone] Referral Appointment Requested Instructions Comment . Saline [...]
--- OUTSIDE RECORDS SUMMARY | 2020-04-06 07:09 | XMS REPORT | CCD ---
Author Author Deon Laureano D.O. Organization [facility] Address [address] [place] [address] Phone Care Team Providers Care Osteologist Name Role Phone Bk Laureano D.O. PP Unavailable CCM Unavailable Summary Purpose Interface Exchange Insurance Providers Payer name Policy type / Coverage type Covered green party ID Effective Begin Date Effective End Date WPS MEDICARE PART B [place] Medicare Part B [id number] Unknown [facility] Medicare Part B [id number] Un known Family history Father Diagnosis Age At Onset Lung Cancer Unknown Mother Diagnosis Age At Onset Cerebrovascular disease Unknown Hypertension Unknown Social History Social History Element Codes Description Effective Dates Marital status Unknown 12/13/2014 Number of children Unknown 3 12/13/2014 Employment Unknown Currently employed 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 12/13/[address]: 889298 Currently drinks alcohol 12/13 Frequency of drinks SNOMED CT: 645407084 Drinks rarely 015 Allergies, Adverse Reactions, Alerts [...] Instructions doxycycline hyclate 100 mg capsule RxNorm: 3635808 1 Cap fadi(s) Oral two times a day 02/14/2020 02/21/2020 Active prednisone 20 mg tablet RxNorm: 900087 1 Tablet(s) Oral two denise es a day 02/14/2020 02/21/2020 Active Ventolin HFA 90 mcg/actuation aerosol inhaler RxNorm: 616503 2 Puff(s) Inhalation four times a day 02/14/2020 03/14/2020 Active doxycycline hyclate 100 mg capsule RxNorm: 1654948 1 Cap fadi(s) Oral two times a day 12/02/2019 12/12/2019 Inactive prednisone 20 mg tablet RxNorm: 060547 1 Tablet(s) Oral two denise es a day 12/02/2019 12/09/2019 Inactive Ventolin HFA 90 mcg/actuation aerosol inhaler RxNorm: 389657 2 Puff(s) Inhalation four times a day 12/02/2019 02/13/2020 Inactive meloxicam 15 mg tablet RxNorm: 879415 1 Tablet(s) Oral QD for pain 08/20/2019 02/16/2020 Active pantoprazole 40 mg tablet,delayed release RxNorm: 167288 1 TABL ET(S) PO QD 08/09/2019 05/04/2020 Active meloxicam 15 mg tablet RxNorm: 485372 1 Tablet(s) PO QD for pain 08/19/2019 Inactive doxycycline hyclate 100 mg tablet RxNorm: 8348019 1 Tablet(s) PO BI D 03/16/2019 03/25/2019 Inactive prednisone 20 mg tablet RxNorm: 794833 1 Tablet(s) PO BID 03/16/2019 03/22/2019 Inactive cefdinir 300 mg capsule RxNorm: 365126 1 Capsule(s) PO BID 01/14/2001/26/2019 Inactive prednisone 20 mg tablet RxNorm: 919652 1 Tablet(s) PO BID 01/13/2019 01/19/2019 Inactive meloxicam 15 mg tablet RxNorm: 931132 1 Tablet(s) PO QD for pain 01/16/2019 Inactive pantoprazole 40 mg tablet,delayed release RxNorm: 465322 1 Tabl et(s) PO QD 07/21/2018 07/15/2019 Inactive meloxicam 15 mg tablet RxNorm: 437147 1 Tablet(s) PO QD 06/22/2018 Inactive pantoprazole 40 mg tablet,delayed release RxNorm: 942503 1 Tabl et(s) PO QD 06/18/2018 07/20/2018 Inactive pantoprazole 40 mg tablet,delayed release RxNorm: 330600 1 Tabl et(s) PO QD 04/16/2018 06/17/2018 Inactive pantoprazole 40 mg tablet,delayed release RxNorm: 086657 1 Tabl et(s) PO QD 02/04/2018 06/18/2018 Inactive pantoprazole 40 mg tablet,delayed release RxNorm: 818359 1 Tabl et(s) PO QD 09/23/2017 02/04/2018 Inactive prednisone 20 mg tablet RxNorm: 010012 2 Tablet(s) PO QD 09/23/2017 1 11/25/2016 Inactive Singulair 10 mg tablet RxNorm: 979380 1 Tablet(s) PO QHS for co ugh/allergies 07/03/2017 07/20/2018 Inactive loratadine 10 mg tablet RxNorm: 200077 1 Tablet(s) PO QAM for a llergies 02/19/2017 07/20/2018 Inactive omeprazole 20 mg capsule,delayed release RxNorm: 592058 1 Capsu le(s) PO QD 02/19/2017 07/20/2018 Inactive [AttnRPh: Saving shiv ly/adjudicate RxGRP:SG20 RxBIN:[id number] RxPCN: ID#:[id number]] meloxicam 15 mg tablet RxNorm: 881319 1 Tablet(s) PO QD 02/19/2017 Inactive omeprazole 20 mg capsule,delayed release RxNorm: 583194 1 Capsu le(s) PO QD 02/29/2016 02/18/2017 Inactive [AttnRPh: Saving shiv ly/adjudicate RxGRP:SG20 RxBIN:[id number] RxPCN: ID#:[id number]] meloxicam 15 mg tablet RxNorm: 568432 1 Tablet(s) PO QD 02/29/2016 Inactive omeprazole 20 mg capsule,delayed release RxNorm: 795047 1 CAPSULE(S) PO QD DUE FOR ROUTINE APPOINTMENT 02/01/2016 02/28/2016 Inactive [AttnRPh : Saving apply/adjudicate RxGRP:SG20 RxBIN:[id number] RxPCN:HT ID#:[id number]] meloxicam 15 mg tablet RxNorm: 506573 1 Tablet(s) PO QD TABLET( S) PO QD 12/27/2015 01/25/2016 Inactive omeprazole 20 mg capsule,delayed release RxNorm: 505242 1 Capsule(s) PO QD Due for routine appointment 11/28/2015 12/27/2015 Inactive [AttnRPh : Saving apply/adjudicate RxGRP:SG20 RxBIN:[id number] RxPCN:HT ID#:[id number]] meloxicam 15 mg tablet RxNorm: 979345 2 Tablet(s) PO QD 09/26/2015 Inactive omeprazole 20 mg capsule,delayed release RxNorm: 222200 1 Capsu le(s) PO QD 12/13/2014 11/28/2015 Inactive [AttnRPh: Saving shiv ly/adjudicate RxGRP:SG20 RxBIN:[id number] RxPCN: ID#:[id number]] Multivitamin & Mineral Formula oral RxNorm: oral No Start Date Active Nasacort AQ 55 mcg nasal spray aerosol RxNorm: 1875376 1 C[place]una NASAL QD to each nostril No Start Date Active Breo Ellipta 100 mcg-25 mcg/dose powder for inhalation RxNorm: 1 143291 1 INH QD No Start Date 01/12/2019 Inactive Vitamin C 500 mg tablet RxNorm: 228023 1 Tablet(s) PO QD No Start D ate 12/01/2019 Inactive meloxicam 15 mg tablet RxNorm: 739979 1 Tablet(s) PO QD No Start Da te 02/28/2016 Inactive meloxicam 15 mg tablet RxNorm: 706442 2 Tablet(s) PO QD No Start Da te 09/25/2015 Inactive meloxicam 15 mg tablet RxNorm: 739579 1 Tablet(s) PO QD No Start Da te 07/20/2018 Inactive Medication Administered No Medication Administered data Immunizations No Immunization data Results Observation Observation Code Item Item Code Result Date S [facility] Location ERYTHROCYTE SEDIMENTATION RATE 79500 Sed Rate 1 mm/hr 07/04/2017 Unknown GFR CALC 1583944 GFR Non Afr Amr >60 mL/min 07/03/2017 Un known GFR CALC [id number] GFR Afr Amr >60 mL/min 07/03/2017 Unknow n COMPLETE BLOOD COUNT 3074543 WBC 9.2 10e9/L 07/03/20 17 Unknown COMPLETE BLOOD COUNT 5548849 RBC 4.73 10e12/L 2016 Unknown COMPLETE BLOOD COUNT 8888315 HEMOGLOBIN 14.0 g/dL 07/03/20 17 Unknown COMPLETE BLOOD COUNT [id number] HEMATOCRIT 42.3 % 07/03/20 17 Unknown COMPLETE BLOOD COUNT [id number] MCV 89.4 fL 7 Unknown COMPLETE BLOOD COUNT 8187518 MCH 29.6 pg 7 Unknown COMPLETE BLOOD COUNT 9800580 MCHC 33.1 g/dL 7 Unknown COMPLETE BLOOD COUNT [id number] PLATELET COUNT 375 10e9/L 04/2017 Unknown COMPLETE BLOOD COUNT 8550538 Mean Plt Volume 9.7 fL 04/2017 Unknown COMPLETE BLOOD COUNT 4900031 Neut Auto 61.0 % 7 Unknown COMPLETE BLOOD COUNT 0792529 Lymph Auto 25.8 % 07/03/20 17 Unknown COMPLETE BLOOD COUNT 9370066 [place] Auto 10.2 % 7 Unknown COMPLETE BLOOD COUNT 2724025 RDW 15.0 % 7 Unknown COMPLETE BLOOD COUNT 2782720 Eos Auto 2.9 % 7 Unknown COMPLETE BLOOD COUNT 7441922 Baso Auto 0.1 % 7 Unknown COMPLETE BLOOD COUNT 9968007 Neutrophil Abs 5.61 10e9/L Unknown COMPLETE BLOOD COUNT 8293226 Lymphocyte Abs 2.37 10e9/L Unknown COMPLETE BLOOD COUNT [id number] Monocyte Abs 0.94 10e9/L 04/2017 Unknown COMPLETE BLOOD COUNT 2889437 Eosinophil Abs 0.27 10e9/L Unknown COMPLETE BLOOD COUNT 3479749 RDW-SD 48.6 fL 7 Unknown COMPLETE BLOOD COUNT [id number] Basophil Abs 0.01 10e9/L 04/2017 Unknown COMPREHENSIVE METABOLIC 61136 AST 17 U/L 2016 Unknown COMPREHENSIVE METABOLIC 11822 ALT 18 U/L 2016 Unknown COMPREHENSIVE METABOLIC 20072 BUN 22 mg/dL 2016 Unknown COMPREHENSIVE METABOLIC 75637 ALBUMIN 3.6 g/dL 2016 Unknown COMPREHENSIVE METABOLIC 33804 CHLORIDE 106 mmol/L 07/03 Unknown COMPREHENSIVE METABOLIC 33702 Bili Total 0.3 mg/dL 07/03 Unknown COMPREHENSIVE METABOLIC 63515 ALK PHOS 51 U/L 2016 Unknown COMPREHENSIVE METABOLIC 06155 SODIUM 137 mmol/L 07/03 Unknown COMPREHENSIVE METABOLIC 39851 CREATININE 0.99 mg/dL 04/2017 Unknown COMPREHENSIVE METABOLIC 68821 CALCIUM 8.7 mg/dL 2016 Unknown COMPREHENSIVE METABOLIC 07090 POTASSIUM 4.6 mmol/L 07/03 Unknown COMPREHENSIVE METABOLIC 70902 Total Protein 6.0 g/dL Unknown COMPREHENSIVE METABOLIC 31261 Glucose 105 mg/dL 2016 Unknown COMPREHENSIVE METABOLIC 23547 Bicarbonate 24 mmol/L 04/2017 Unknown COMPREHENSIVE METABOLIC 84054 AGAP 7 mmol/L 2016 Unknown THYROID STIMULATING HORMONE 72740 TSH 1.054 uIU/mL 07/03/2017 Unknown GFR CALC 7306597 GFR Non Afr Amr >60 mL/min 02/29/2016 Un known GFR CALC 2566608 GFR Afr Amr >60 mL/min 02/29/2016 Unknow n PSA EQUIMOLAR VERONICA 42617 PSA Total 0.14 ng/mL 6 Unknown COMPREHENSIVE METABOLIC 79816 AST 18 U/L 2015 Unknown COMPREHENSIVE METABOLIC 25929 ALT 19 U/L 2015 Unknown COMPREHENSIVE METABOLIC 37471 BUN 19 mg/dL 2015 Unknown COMPREHENSIVE METABOLIC 26132 ALBUMIN 4.0 g/dL 2015 Unknown COMPREHENSIVE METABOLIC 17747 CHLORIDE 107 mmol/L 02/28 Unknown COMPREHENSIVE METABOLIC 03757 Bili Total 0.5 mg/dL 02/28 Unknown COMPREHENSIVE METABOLIC 79643 ALK PHOS 52 U/L 2015 Unknown COMPREHENSIVE METABOLIC 25378 SODIUM 135 mmol/L 02/28 Unknown COMPREHENSIVE METABOLIC 18718 CREATININE 0.93 mg/dL 02/2016 Unknown COMPREHENSIVE METABOLIC 48178 CALCIUM 9.1 mg/dL 2015 Unknown COMPREHENSIVE METABOLIC 88908 POTASSIUM 4.5 mmol/L 02/28 Unknown COMPREHENSIVE METABOLIC 75937 Total Protein 6.3 g/dL Unknown COMPREHENSIVE METABOLIC 91507 Glucose 97 mg/dL 2015 Unknown COMPREHENSIVE METABOLIC 58925 Bicarbonate 21 mmol/L 02/2016 Unknown COMPREHENSIVE METABOLIC 41822 AGAP 7 mmol/L 2015 Unknown COMPLETE BLOOD COUNT 1921127 WBC 7.0 10e9/L 02/29/20 16 Unknown COMPLETE BLOOD COUNT 2435802 RBC 4.94 10e12/L 2015 Unknown COMPLETE BLOOD COUNT 5046546 HEMOGLOBIN 14.5 g/dL 02/29/20 16 Unknown COMPLETE BLOOD COUNT 5127749 HEMATOCRIT 43.1 % 02/29/20 16 Unknown COMPLETE BLOOD COUNT 2856418 MCV 87.2 fL 6 Unknown COMPLETE BLOOD COUNT 7929588 MCH 29.4 pg 6 Unknown COMPLETE BLOOD COUNT 9065075 MCHC 33.6 g/dL 6 Unknown COMPLETE BLOOD COUNT 0669294 PLATELET COUNT 339 10e9/L 02/2016 Unknown COMPLETE BLOOD COUNT 2408683 Mean Plt Volume 10.6 fL 02/2016 Unknown COMPLETE BLOOD COUNT 6381226 Neut Auto 52.5 % 6 Unknown COMPLETE BLOOD COUNT 5153643 Lymph Auto 32.7 % 02/29/20 16 Unknown COMPLETE BLOOD COUNT 6864453 [place] Auto 12.9 % 6 Unknown COMPLETE BLOOD COUNT 5297556 RDW 14.6 % 6 Unknown COMPLETE BLOOD COUNT 0833436 Eos Auto 1.6 % 6 Unknown COMPLETE BLOOD COUNT 0245306 Baso Auto 0.3 % 6 Unknown COMPLETE BLOOD COUNT 4113007 Neutrophil Abs 3.68 10e9/L Unknown COMPLETE BLOOD COUNT 8091225 Lymphoctye Abs 2.29 10e9/L Unknown COMPLETE BLOOD COUNT 2322812 Monocyte Abs 0.90 10e9/L 02/2016 Unknown COMPLETE BLOOD COUNT 8121626 Eosinophil Abs 0.11 10e9/L Unknown COMPLETE BLOOD COUNT 5272941 RDW-SD 46.3 fL 6 Unknown COMPLETE BLOOD COUNT 2519926 Basophil Abs 0.02 10e9/L 02/2016 Unknown LIPID GROUP 81501 Cholesterol 161 mg/dL 02/29/2016 Unkno wn LIPID GROUP 80236 Triglyceride 57 mg/dL 02/29/2016 Unkn own LIPID GROUP 25814 HDL CHOLESTEROL 50 mg/dL 02/29/2016 U nknown LIPID GROUP 82614 Chol/HDL Ratio 3.22 ratio 02/29/2016 U nknown LIPID GROUP 90230 NON-HDL Chol 111 mg/dL 02/29/2016 Unkn own LIPID GROUP 73288 LDL Cholesterol 100 mg/dL 02/29/2016 U nknown Procedures Procedure Codes Date DEXAMETHASONE SODIUM PHOS CPT-4: J1100 12/02/2019 THER/PROPH/DIAG INJ SC/IM CPT-4: 24902 12/02/2019 TRIAMCINOLONE ACET INJ NOS CPT-4: J3301 12/02/2019 THER/PROPH/DIAG INJ SC/IM CPT-4: 54490 03/16/2019 TRIAMCINOLONE ACET INJ NOS CPT-4: J3301 03/16/2019 CEFTRIAXONE SODIUM INJECTION CPT-4: J0696 03/16/2019 THER/PROPH/DIAG INJ SC/IM CPT-4: 29138 03/16/2019 DEXAMETHASONE SODIUM PHOS CPT-4: J1100 03/16/2019 THER/PROPH/DIAG INJ SC/IM CPT-4: 71073 01/13/2019 TRIAMCINOLONE ACET INJ NOS CPT-4: J3301 01/13/2019 PPPS, subseq visit CPT-4: G0439 07/21/2018 PRESCRIP TRANSMIT VIA ERX SY CPT-4: G8553 09/23/2017 ROUTINE VENIPUNCTURE CPT-4: 95001 07/03/2017 ASSAY THYROID STIM HORMONE CPT-4: 83943 07/03/2017 COMPREHEN METABOLIC PANEL CPT-4: 82629 07/03/2017 COMPLETE CBC W/AUTO DIFF WBC CPT-4: 10838 07/03/2017 RBC SED RATE AUTOMATED CPT-4: 44474 07/03/2017 PRESCRIP TRANSMIT VIA ERX SY CPT-4: G8553 07/03/2017 THER/PROPH/DIAG INJ SC/IM CPT-4: 10255 06/16/2017 TRIAMCINOLONE ACET INJ NOS CPT-4: J3301 06/16/2017 PRESCRIP TRANSMIT VIA ERX SY CPT-4: G8553 02/19/2017 ROUTINE VENIPUNCTURE CPT-4: 91471 02/29/2016 COMPREHEN METABOLIC PANEL CPT-4: 93043 02/29/2016 COMPLETE CBC W/AUTO DIFF WBC CPT-4: 53134 02/29/2016 LIPID PANEL CPT-4: 14914 02/29/2016 ASSAY OF PSA TOTAL CPT-4: 55230 02/29/2016 PRESCRIP TRANSMIT VIA ERX SY CPT-4: G8553 02/29/2016 PRESCRIP TRANSMIT VIA ERX SY CPT-4: G8553 12/13/2014 Vital Signs Date Vital 12/02/2019 Blood Pressure 1: 126/62 Code: 8480-6 BMI: 31.3 Code: 64375-8 Heart Rate 1: 76 bpm Height: 5'9" Respiratory Rate: 22 bpm SpO2: 92% Tempera ture: 36.8 (C) / 98.2 (F) Weight: 212 lbs 03/16/2019 Blood Pressure 1: 122/74 Code: 8480-6 Heart Rate 1: 82 bpm Respiratory Rate: 18 bpm SpO2: 95% Temperature: 36.5 (C) / 97.7 (F) We ight: 213 lbs 01/13/2019 Blood Pressure 1: 114/62 Code: 8480-6 BMI: 31.9 Code: 77774-2 Heart Rate 1: 68 bpm Height: 5'9" Respiratory Rate: 20 bpm SpO2: 94% Tempera ture: 36.6 (C) / 97.9 (F) Weight: 216 lbs 07/21/2018 Blood Pressure 1: 136/78 Code: 8480-6 BMI: 32.0 Code: 64838-8 Heart Rate 1: 72 bpm Height: 5'9" Respiratory Rate: 20 bpm SpO2: 95% Tempera ture: 36.5 (C) / 97.7 (F) Weight: 217 lbs 09/23/2017 Blood Pressure 1: 118/68 Code: 8480-6 BMI: 32.6 Code: 23528-0 Heart Rate 1: 76 bpm Height: 5'9" Respiratory Rate: 20 bpm SpO2: 94% Tempera ture: 36.2 (C) / 97.1 (F) Weight: 221 lbs 07/03/2017 Blood Pressure 1: 126/64 Code: 8480-6 Heart Rate 1: 78 bpm Height: Respiratory Rate: 18 bpm SpO2: 97% Temperature: 36.4 (C) / 97.6 (F) We ight: 221 lbs 06/16/2017 Blood Pressure 1: 128/76 Code: 8480-6 BMI: 33.1 Code: 16353-1 Heart Rate 1: 78 bpm Height: 5'9" Respiratory Rate: 20 bpm SpO2: 96% Tempera ture: 36.4 (C) / 97.6 (F) Weight: 224 lbs 02/19/2017 Blood Pressure 1: 126/78 Code: 8480-6 Heart Rate 1: 74 bpm Respiratory Rate: 20 bpm SpO2: 96% Temperature: 36.3 (C) / 97.3 (F) We ight: 224 lbs 02/29/2016 Blood Pressure 1: 124/78 Code: 8480-6 BMI: 33.7 Code: 88315-8 Heart Rate 1: 72 bpm Height: 5'9" Respiratory Rate: 20 bpm SpO2: 96% Tempera ture: 36.2 (C) / 97.2 (F) Weight: 228 lbs 12/13/2014 Blood Pressure 1: 132/78 Code: 8480-6 BMI: 33.1 Code: 10534-3 Heart Rate 1: 72 bpm Height: 5'9" [...] Patient Encounters Encounter Performer Location Codes Date ([id number]) OFFICE/OUTPATIENT VISIT EST Diagnosis: Acute bronchitis, unspecified[ICD10: J20.9] Diagnosis: Allergic rhinitis due to pollen[ICD10: J30.1] Bk Laureano [facility] CPT-4: 31263 02/14/2020 ([id number]) OFFICE/OUTPATIENT VISIT EST Diagnosis: COUGH[ICD10: R05] Diagnosis: Wheezing[ICD10: R06.2] Bk PUENTES [facility] CPT-4: 65259 12/02/2019 ([id number]) OFFICE/OUTPATIENT VISIT EST Diagnosis: Cough[ICD10: R05] Diagnosis: Acute bronchitis, unspecified[ICD10: J20.9] Alice LAUREANO [facility] CPT-4: 81059 03/16/2019 ([id number]) OFFICE/OUTPATIENT VISIT EST Diagnosis: Acute recurrent sinusitis, unspecified[ICD10: J01.91] Diagnosis: Allergic rhinitis due to pollen[ICD10: J30.1] Diagnosis: COUGH[ICD10: R05] Bk LAUREANO [facility] CPT-4: 51737 01/13/2019 OFFICE/OUTPATIENT VISIT EST Diagnosis: Acute bronchitis, unspecified[ICD10: J20.9] Diagnosis: Gastro-esophageal reflux disease without esophagitis[ICD10: K21.9] [facility] CPT-4: 05766 09/23/2017 ([id number]) OFFICE/OUTPATIENT VISIT EST Diagnosis: COUGH[ICD10: R05] Diagnosis: Allergic rhinitis due to pollen[ICD10: J30.1] Diagnosis: Personal history of malignant neoplasm of prostate[ICD10: Z85.46] [facility] CPT-4: 69774 07/03/2017 ([id number]) OFFICE/OUTPATIENT VISIT EST Diagnosis: COUGH[ICD10: R05] Diagnosis: Wheezing[ICD10: R06.2] Diagnosis: Allergic rhinitis due to pollen[ICD10: J30.1] Diagnosis: Corns and callosities[ICD10: L84] [facility] CPT-4: 96319 06/16/2017 ([id number]) OFFICE/OUTPATIENT VISIT EST Diagnosis: Other seasonal allergic rhinitis[ICD10: J30.2] Faye [facility] CPT-4: 00191 02/19/2017 OFFICE/OUTPATIENT VISIT EST Diagnosis: Gastro-esophageal reflux disease without esophagitis[ICD10: K21.9] Diagnosis: Unspecified osteoarthritis, unspecified site[ICD10: M19.90] Diagnosis: Personal history of malignant neoplasm of prostate[ICD10: Z85.46] Diagnosis: Encounter for screening for cardiovascular disorders[ICD10: Z13.6] Faye MCBRIDELINE Velasquez [facility] CPT-4: 15267 02/29/2016 ([id number]) OFFICE/OUTPATIENT VISIT NEW Diagnosis: CHEST PAIN NOS[ICD9: 786.50] Diagnosis: GERD[ICD9: 530.81] Diagnosis: History of prostate cancer[ICD9: V10.46] Diagnosis: Knee pain[ICD9: 719.46] [facility] CPT-4: 56331 12/13/2014 Plan of Care Planned Activity Notes Codes Status Date Visit Diagnosis Plan: Acute bronchitis, unspecified Di scussion: Doxycycline Continue Proair Notify if worsening or persists ICD-9 : 490 ICD-10 : J20.9 02/14/2020 Visit Diagnosis Plan: Allergic rhinitis due to pollen Discussion: Prednisone ICD-9 : 477.9 ICD-10 : J30.1 02/14/2020 Patient Education: doxycycline hyclate- Opt[employer] Cou adrienne [id number] https://www.[employer]/Viss/resources/getResource/61/[email or web address] Completed 02/14/2020 Patient Education: prednisone- [employer] Coupon [id number] https://www.[employer]/Viss/resources/getResource/61/[email or web address]-vd Completed 02/14/2020 Visit Diagnosis Plan: Wheezing Discussion: Kenalog/Dex amethasone Prednisone Doxycycline Notify if persists/worsens ICD-9 : 786.07 ICD-10 : R06.2 12/02/2019 Visit Diagnosis Plan: COUGH Discussion: Had CT scan do ne in May 2019 ICD-9 : 786.2 ICD-10 : R05 12/02/2019 Appointment: Bk Laureano WPtel: [facility] ACUTE ILLNESS 12/02/2019 Patient Education: doxycycline hyclate- [employer] Cou adrienne [id number] https://www.[employer]/Viss/resources/getResource/61/csuc8h1p-h997-0259-0f Completed 12/02/2019 Patient Education: prednisone- [employer] Coupon [id number] https://www.[employer]/Viss/resources/getResource/61/[email or web address]-[email or web address]-80 Completed 12/02/2019 Visit Diagnosis Plan: Acute bronchitis, unspecified Di scussion: Rocephin 1 gram administered in clinic along with Dex and kenalog (4&40). Patient tolerated well. He is to start prednisone and doxycycline tomorrow. ICD-9 : 466.0 ICD-10 : J20.9 03/16/2019 Visit Diagnosis Plan: Cough Discussion: moist air advi sed ICD-9 : 786.2 ICD-10 : R05 03/16/2019 Appointment: Alice Peralta [address] [place], [place] [id number] ACUTE ILLNESS 03/16/2019 Patient Education: prednisone- [employer] Coupon [id number] Completed 03/16/2019 Patient Education: doxycycline hyclate- [employer] Coupon [id number] 02 Completed 03/16/2019 Visit Plan: Saline nasal [...] : J30.1 01/13/2019 Appointment: Bk Laureano WPtel: [address] [place] [address] ACUTE ILLNESS 01/13/2019 Patient Education: cefdinir- [employer] Coupon [id number] Completed 01/13/2019 Patient Education: prednisone- [employer] Coupon [id number] Completed 01/13/2019 Visit Diagnosis Plan: Personal history of malignant ne oplasm of prostate Discussion: Follows routinely with Dr. Giron ICD-9 : V10.46 ICD-10 : Z85.46 07/21/2018 Visit Diagnosis Plan: Gastro-esophageal reflux disease without esophagitis Discussion: Continue protonix ICD-9 : 530.81 ICD-10 : K21.9 07/21/2018 Visit Diagnosis Plan: Encounter for gene [facility] adult medical examination without abnormal findings Discussion: Obtain most recent lab resul ts Defers flu, pneumonia, and shingles shot ICD-9 : V70.9 ICD-10 : Z00.00 07/21/2018 Appointment: Bk Laureano WPtel: [address] [place] [address] Annual Well Visit 07/21/2018 Patient Education: Patient [...] ICD-10 : J20.9 09/23/2017 Appointment: Mayra Saenz [address] [place] [address] ACUTE ILLNESS 09/23/2017 Patient Education: Patient Medication Summary Completed 09/23/2017 Visit Diagnosis Plan: Allergic rhinitis due to pollen Discussion: Add pelonir ICD-9 : 477.9 ICD-10 : J30.1 07/03/2017 Visit Diagnosis Plan: COUGH Discussion: Check CT scan of chest Continue Breo Check CBC, CMP, TSH, ESR now ICD-9 : 786.2 ICD-10 : R05 07/03/2017 Appointment: Bk Laureano WPtel: [address] [place] [address] FOLLOW UP 07/03/2017 Patient Education: Patient Medication [...] : J30.1 06/16/2017 Appointment: Bk Laureano WPtel: [address] [place], [place] [phone] WORK IN 06/16/2017 Patient Education: Patient Medication Summary Completed 06/16/2017 Care Plan: CHEST X-RAY 2VW FRONTAL&LATL LOINC : 93970-2 Pending 06/16/2017 Appointment: Helene Garcia WPtel: [address] [place], [place] [phone] CANCELED 06/09/2017 Visit Diagnosis Plan: Other seasonal allergic rhinitis Discussion: Start claritin as above Can add nasal rinses, flonase, etc if not helping Monitor for signs of sinus infections, ear infections Refills of daily meds given as well per his request ICD-9 : 477.9 ICD-10 : J30.2 02/19/2017 Appointment: Faye Spivey [address] [place], [place] [phone] 02/17 confirmed ~sl ACUTE ILLNESS 02/19/2017 Patient Education: Patient Medication Summary Completed 02/19/2017 Referral: Edmundo Giron WPtel: [address] [place] [address] Referral Completed 03/11/2016 Visit Plan: Refills given Labs to be upd ated - CBC, CMP, lipids, PSA Needs consult with Urology for routine monitoring Consent to be signed for medical records to see when his last colo was - will update if needed 02/29/2016 Appointment: Faye Spivey [address] [place], [place] [phone] FOLLOW UP 02/29/2016 Patient Education: Patient Medication Summary Completed 02/29/2016 Care Plan: Referral Order SNOMED-CT : [id number] Pending 02/29/2016 Appointment: Faye Spivey [address] [place], [place] [phone] Taking patient to ER ACUTE ILLNESS 12/13/2015 Visit Plan: Check fasting lab and EKG Ad d daily omeprazole If lab and EKG normal and pain persists despite omeprazole then will proceed with stress test Following with ortho on knee pain 12/13/2014 Appointment: Bk Laureano WPtel: [address] [place], [place] [phone] NEW PATIENT 12/13/2014 Patient Education: Patient Medication Summary Completed 12/13/2014 Patient Education: [facility] Saving AutoInj - 18+ - Dynamic Portal ID Completed 12/13/2014 Referral: Edmundo Giron WPtel: [address] [id number] [place] Referral Appointment Requested Instructions Comment . [...]
--- OUTSIDE RECORDS SUMMARY | 2020-04-06 07:09 | XMS REPORT | CCD ---
Author Author Deon Laureano D.O. 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 PP Unavailable CCM Unavailable Summary Purpose Interface Exchange Insurance Providers Payer name Policy type / Coverage type Covered alliance party ID Effective Begin Date Effective End Date WPS MEDICARE PART B [place] Medicare Part B [id number] Unknown [facility] Medicare Part B [id number] Un known Family history Father Diagnosis Age At Onset Lung Cancer Unknown Mother Diagnosis Age At Onset Cerebrovascular disease Unknown Hypertension Unknown Social History Social History Element Codes Description Effective Dates Marital status Unknown 12/13/2014 Number of children Unknown 3 12/13/2014 Employment Unknown Currently employed 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 12/13/[address]: 170630 Currently drinks alcohol 12/13 Frequency of drinks SNOMED CT: 743832421 Drinks rarely 015 Allergies, Adverse Reactions, Alerts [...] Instructions doxycycline hyclate 100 mg capsule RxNorm: 3114696 1 Cap fadi(s) Oral two times a day 12/02/2019 12/12/2019 Active prednisone 20 mg tablet RxNorm: 796152 1 Tablet(s) Oral two denise es a day 12/02/2019 12/09/2019 Active Ventolin HFA 90 mcg/actuation aerosol inhaler RxNorm: 233076 2 Puff(s) Inhalation four times a day 12/02/2019 01/01/2020 Active meloxicam 15 mg tablet RxNorm: 633437 1 Tablet(s) Oral QD for pain 08/20/2019 02/16/2020 Active pantoprazole 40 mg tablet,delayed release RxNorm: 152221 1 TABL ET(S) PO QD 08/09/2019 05/04/2020 Active meloxicam 15 mg tablet RxNorm: 610615 1 Tablet(s) PO QD for pain 08/19/2019 Inactive doxycycline hyclate 100 mg tablet RxNorm: 1763652 1 Tablet(s) PO BI D 03/16/2019 03/25/2019 Inactive prednisone 20 mg tablet RxNorm: 770029 1 Tablet(s) PO BID 03/16/2019 03/22/2019 Inactive cefdinir 300 mg capsule RxNorm: 000991 1 Capsule(s) PO BID 01/14/2001/26/2019 Inactive prednisone 20 mg tablet RxNorm: 513474 1 Tablet(s) PO BID 01/13/2019 01/19/2019 Inactive meloxicam 15 mg tablet RxNorm: 050150 1 Tablet(s) PO QD for pain 01/16/2019 Inactive pantoprazole 40 mg tablet,delayed release RxNorm: 380160 1 Tabl et(s) PO QD 07/21/2018 07/15/2019 Inactive meloxicam 15 mg tablet RxNorm: 809874 1 Tablet(s) PO QD 06/22/2018 Inactive pantoprazole 40 mg tablet,delayed release RxNorm: 932008 1 Tabl et(s) PO QD 06/18/2018 07/20/2018 Inactive pantoprazole 40 mg tablet,delayed release RxNorm: 575618 1 Tabl et(s) PO QD 04/16/2018 06/17/2018 Inactive pantoprazole 40 mg tablet,delayed release RxNorm: 947852 1 Tabl et(s) PO QD 02/04/2018 06/18/2018 Inactive pantoprazole 40 mg tablet,delayed release RxNorm: 870197 1 Tabl et(s) PO QD 09/23/2017 02/04/2018 Inactive prednisone 20 mg tablet RxNorm: 442338 2 Tablet(s) PO QD 09/23/2017 1 11/25/2016 Inactive Singulair 10 mg tablet RxNorm: 924561 1 Tablet(s) PO QHS for co ugh/allergies 07/03/2017 07/20/2018 Inactive loratadine 10 mg tablet RxNorm: 565479 1 Tablet(s) PO QAM for a llergies 02/19/2017 07/20/2018 Inactive omeprazole 20 mg capsule,delayed release RxNorm: 131572 1 Capsu le(s) PO QD 02/19/2017 07/20/2018 Inactive [AttnRPh: Saving shiv ly/adjudicate RxGRP:SG20 RxBIN:[id number] RxPCN:HT ID#:[id number]] meloxicam 15 mg tablet RxNorm: 446255 1 Tablet(s) PO QD 02/19/2017 Inactive omeprazole 20 mg capsule,delayed release RxNorm: 975126 1 Capsu le(s) PO QD 02/29/2016 02/18/2017 Inactive [AttnRPh: Saving shiv ly/adjudicate RxGRP:SG20 RxBIN:[id number] RxPCN:HT ID#:[id number]] meloxicam 15 mg tablet RxNorm: 687248 1 Tablet(s) PO QD 02/29/2016 Inactive omeprazole 20 mg capsule,delayed release RxNorm: 187328 1 CAPSULE(S) PO QD DUE FOR ROUTINE APPOINTMENT 02/01/2016 02/28/2016 Inactive [AttnRPh : Saving apply/adjudicate RxGRP:SG20 RxBIN:[id number] RxPCN: ID#:[id number]] meloxicam 15 mg tablet RxNorm: 269887 1 Tablet(s) PO QD TABLET( S) PO QD 12/27/2015 01/25/2016 Inactive omeprazole 20 mg capsule,delayed release RxNorm: 981476 1 Capsule(s) PO QD Due for routine appointment 11/28/2015 12/27/2015 Inactive [AttnRPh : Saving apply/adjudicate RxGRP:SG20 RxBIN:[id number] RxPCN:HT ID#:[id number]] meloxicam 15 mg tablet RxNorm: 075939 2 Tablet(s) PO QD 09/26/2015 Inactive omeprazole 20 mg capsule,delayed release RxNorm: 894895 1 Capsu le(s) PO QD 12/13/2014 11/28/2015 Inactive [AttnRPh: Saving shiv ly/adjudicate RxGRP:SG20 RxBIN:[id number] RxPCN:HT ID#:[id number]] Multivitamin & Mineral Formula oral RxNorm: oral No Start Date Active Nasacort AQ 55 mcg nasal spray aerosol RxNorm: 7650176 1 [place] NASAL QD to each nostril No Start Date Active Breo Ellipta 100 mcg-25 mcg/dose powder for inhalation RxNorm: 1 797711 1 INH QD No Start Date 01/12/2019 Inactive Vitamin C 500 mg tablet RxNorm: 992017 1 Tablet(s) PO QD No Start D ate 12/01/2019 Inactive meloxicam 15 mg tablet RxNorm: 225140 1 Tablet(s) PO QD No Start Da te 02/28/2016 Inactive meloxicam 15 mg tablet RxNorm: 487700 2 Tablet(s) PO QD No Start Da te 09/25/2015 Inactive meloxicam 15 mg tablet RxNorm: 186216 1 Tablet(s) PO QD No Start Da te 07/20/2018 Inactive Medication Administered No Medication Administered data Immunizations No Immunization data Results Observation Observation Code Item Item Code Result Date S vice Location ERYTHROCYTE SEDIMENTATION RATE 82790 Sed Rate 1 mm/hr 07/04/2017 Unknown GFR CALC 0750020 GFR Non Afr Amr >60 mL/min 07/03/2017 Un known GFR CALC 7662290 GFR Afr Amr >60 mL/min 07/03/2017 Unknow n COMPLETE BLOOD COUNT 2981936 WBC 9.2 10e9/L 07/03/20 17 Unknown COMPLETE BLOOD COUNT 1273902 RBC 4.73 10e12/L 2016 Unknown COMPLETE BLOOD COUNT 5887586 HEMOGLOBIN 14.0 g/dL 07/03/20 17 Unknown COMPLETE BLOOD COUNT 5842368 HEMATOCRIT 42.3 % 07/03/20 17 Unknown COMPLETE BLOOD COUNT 0995986 MCV 89.4 fL 7 Unknown COMPLETE BLOOD COUNT 3642255 MCH 29.6 pg 7 Unknown COMPLETE BLOOD COUNT 2167967 MCHC 33.1 g/dL 7 Unknown COMPLETE BLOOD COUNT 7785547 PLATELET COUNT 375 10e9/L 04/2017 Unknown COMPLETE BLOOD COUNT 5892504 Mean Plt Volume 9.7 fL 04/2017 Unknown COMPLETE BLOOD COUNT 4611298 Neut Auto 61.0 % 7 Unknown COMPLETE BLOOD COUNT 3879733 Lymph Auto 25.8 % 07/03/20 17 Unknown COMPLETE BLOOD COUNT 5337136 [place] Auto 10.2 % 7 Unknown COMPLETE BLOOD COUNT 9490254 RDW 15.0 % 7 Unknown COMPLETE BLOOD COUNT 4456195 Eos Auto 2.9 % 7 Unknown COMPLETE BLOOD COUNT 9951986 Baso Auto 0.1 % 7 Unknown COMPLETE BLOOD COUNT 8498519 Neutrophil Abs 5.61 10e9/L Unknown COMPLETE BLOOD COUNT 2034999 Lymphocyte Abs 2.37 10e9/L Unknown COMPLETE BLOOD COUNT 7699522 Monocyte Abs 0.94 10e9/L 04/2017 Unknown COMPLETE BLOOD COUNT 3567928 Eosinophil Abs 0.27 10e9/L Unknown COMPLETE BLOOD COUNT 9764211 RDW-SD 48.6 fL 7 Unknown COMPLETE BLOOD COUNT 6987974 Basophil Abs 0.01 10e9/L 04/2017 Unknown COMPREHENSIVE METABOLIC 90715 AST 17 U/L 2016 Unknown COMPREHENSIVE METABOLIC 53392 ALT 18 U/L 2016 Unknown COMPREHENSIVE METABOLIC 73163 BUN 22 mg/dL 2016 Unknown COMPREHENSIVE METABOLIC 12840 ALBUMIN 3.6 g/dL 2016 Unknown COMPREHENSIVE METABOLIC 19685 CHLORIDE 106 mmol/L 07/03 Unknown COMPREHENSIVE METABOLIC 19132 Bili Total 0.3 mg/dL 07/03 Unknown COMPREHENSIVE METABOLIC 25666 ALK PHOS 51 U/L 2016 Unknown COMPREHENSIVE METABOLIC 68092 SODIUM 137 mmol/L 07/03 Unknown COMPREHENSIVE METABOLIC 48469 CREATININE 0.99 mg/dL 04/2017 Unknown COMPREHENSIVE METABOLIC 74188 CALCIUM 8.7 mg/dL 2016 Unknown COMPREHENSIVE METABOLIC 51499 POTASSIUM 4.6 mmol/L 07/03 Unknown COMPREHENSIVE METABOLIC 33431 Total Protein 6.0 g/dL Unknown COMPREHENSIVE METABOLIC 77630 Glucose 105 mg/dL 2016 Unknown COMPREHENSIVE METABOLIC 96108 Bicarbonate 24 mmol/L 04/2017 Unknown COMPREHENSIVE METABOLIC 11663 AGAP 7 mmol/L 2016 Unknown THYROID STIMULATING HORMONE 89649 TSH 1.054 uIU/mL 07/03/2017 Unknown GFR CALC 9545818 GFR Non Afr Amr >60 mL/min 02/29/2016 Un known GFR CALC 3290592 GFR Afr Amr >60 mL/min 02/29/2016 Unknow n PSA EQUIMOLAR VERONICA 63446 PSA Total 0.14 ng/mL 05/05/201 6 Unknown COMPREHENSIVE METABOLIC 95667 AST 18 U/L 2015 Unknown COMPREHENSIVE METABOLIC 29863 ALT 19 U/L 2015 Unknown COMPREHENSIVE METABOLIC 16775 BUN 19 mg/dL 2015 Unknown COMPREHENSIVE METABOLIC 37357 ALBUMIN 4.0 g/dL 2015 Unknown COMPREHENSIVE METABOLIC 44458 CHLORIDE 107 mmol/L 02/28 Unknown COMPREHENSIVE METABOLIC 32137 Bili Total 0.5 mg/dL 02/28 Unknown COMPREHENSIVE METABOLIC 83063 ALK PHOS 52 U/L 2015 Unknown COMPREHENSIVE METABOLIC 29387 SODIUM 135 mmol/L 02/28 Unknown COMPREHENSIVE METABOLIC 01068 CREATININE 0.93 mg/dL 02/2016 Unknown COMPREHENSIVE METABOLIC 44767 CALCIUM 9.1 mg/dL 2015 Unknown COMPREHENSIVE METABOLIC 54142 POTASSIUM 4.5 mmol/L 02/28 Unknown COMPREHENSIVE METABOLIC 23266 Total Protein 6.3 g/dL Unknown COMPREHENSIVE METABOLIC 32676 Glucose 97 mg/dL 2015 Unknown COMPREHENSIVE METABOLIC 59636 Bicarbonate 21 mmol/L 02/2016 Unknown COMPREHENSIVE METABOLIC 72475 AGAP 7 mmol/L 2015 Unknown COMPLETE BLOOD COUNT 6857384 WBC 7.0 10e9/L 02/29/20 16 Unknown COMPLETE BLOOD COUNT 1119228 RBC 4.94 10e12/L 2015 Unknown COMPLETE BLOOD COUNT 3567073 HEMOGLOBIN 14.5 g/dL 02/29/20 16 Unknown COMPLETE BLOOD COUNT 3508259 HEMATOCRIT 43.1 % 02/29/20 16 Unknown COMPLETE BLOOD COUNT 1799083 MCV 87.2 fL 6 Unknown COMPLETE BLOOD COUNT 6143972 MCH 29.4 pg 6 Unknown COMPLETE BLOOD COUNT 8910087 MCHC 33.6 g/dL 6 Unknown COMPLETE BLOOD COUNT 2500297 PLATELET COUNT 339 10e9/L 02/2016 Unknown COMPLETE BLOOD COUNT 6601795 Mean Plt Volume 10.6 fL 02/2016 Unknown COMPLETE BLOOD COUNT 0338296 Neut Auto 52.5 % 6 Unknown COMPLETE BLOOD COUNT 4879979 Lymph Auto 32.7 % 02/29/20 16 Unknown COMPLETE BLOOD COUNT 7729742 [place] Auto 12.9 % 6 Unknown COMPLETE BLOOD COUNT 1595726 RDW 14.6 % 6 Unknown COMPLETE BLOOD COUNT 7175616 Eos Auto 1.6 % 6 Unknown COMPLETE BLOOD COUNT 6421005 Baso Auto 0.3 % 6 Unknown COMPLETE BLOOD COUNT 8923756 Neutrophil Abs 3.68 10e9/L Unknown COMPLETE BLOOD COUNT 9412406 Lymphoctye Abs 2.29 10e9/L Unknown COMPLETE BLOOD COUNT 9728288 Monocyte Abs 0.90 10e9/L 02/2016 Unknown COMPLETE BLOOD COUNT 9920204 Eosinophil Abs 0.11 10e9/L Unknown COMPLETE BLOOD COUNT 0822670 RDW-SD 46.3 fL 6 Unknown COMPLETE BLOOD COUNT 7233036 Basophil Abs 0.02 10e9/L 02/2016 Unknown LIPID GROUP 40426 Cholesterol 161 mg/dL 02/29/2016 Unkno wn LIPID GROUP 52054 Triglyceride 57 mg/dL 02/29/2016 Unkn own LIPID GROUP 50942 HDL CHOLESTEROL 50 mg/dL 02/29/2016 U nknown LIPID GROUP 98683 Chol/HDL Ratio 3.22 ratio 02/29/2016 U nknown LIPID GROUP 86669 NON-HDL Chol 111 mg/dL 02/29/2016 Unkn own LIPID GROUP 57491 LDL Cholesterol 100 mg/dL 02/29/2016 U nknown Procedures Procedure Codes Date DEXAMETHASONE SODIUM PHOS CPT-4: J1100 12/02/2019 THER/PROPH/DIAG INJ SC/IM CPT-4: 72189 12/02/2019 TRIAMCINOLONE ACET INJ NOS CPT-4: J3301 12/02/2019 THER/PROPH/DIAG INJ SC/IM CPT-4: 11109 03/16/2019 TRIAMCINOLONE ACET INJ NOS CPT-4: J3301 03/16/2019 CEFTRIAXONE SODIUM INJECTION CPT-4: J0696 03/16/2019 THER/PROPH/DIAG INJ SC/IM CPT-4: 65344 03/16/2019 DEXAMETHASONE SODIUM PHOS CPT-4: J1100 03/16/2019 THER/PROPH/DIAG INJ SC/IM CPT-4: 82393 01/13/2019 TRIAMCINOLONE ACET INJ NOS CPT-4: J3301 01/13/2019 PPPS, subseq visit CPT-4: G0439 07/21/2018 PRESCRIP TRANSMIT VIA ERX SY CPT-4: G8553 09/23/2017 ROUTINE VENIPUNCTURE CPT-4: 74798 07/03/2017 ASSAY THYROID STIM HORMONE CPT-4: 92348 07/03/2017 COMPREHEN METABOLIC PANEL CPT-4: 98743 07/03/2017 COMPLETE CBC W/AUTO DIFF WBC CPT-4: 26142 07/03/2017 RBC SED RATE AUTOMATED CPT-4: 48167 07/03/2017 PRESCRIP TRANSMIT VIA ERX SY CPT-4: G8553 07/03/2017 THER/PROPH/DIAG INJ SC/IM CPT-4: 85142 06/16/2017 TRIAMCINOLONE ACET INJ NOS CPT-4: J3301 06/16/2017 PRESCRIP TRANSMIT VIA ERX SY CPT-4: G8553 02/19/2017 ROUTINE VENIPUNCTURE CPT-4: 28410 02/29/2016 COMPREHEN METABOLIC PANEL CPT-4: 98072 02/29/2016 COMPLETE CBC W/AUTO DIFF WBC CPT-4: 36245 02/29/2016 LIPID PANEL CPT-4: 00799 02/29/2016 ASSAY OF PSA TOTAL CPT-4: 50439 02/29/2016 PRESCRIP TRANSMIT VIA ERX SY CPT-4: G8553 02/29/2016 PRESCRIP TRANSMIT VIA ERX SY CPT-4: G8553 12/13/2014 Vital Signs Date Vital 12/02/2019 Blood Pressure 1: 126/62 Code: 8480-6 BMI: 31.3 Code: 23244-9 Heart Rate 1: 76 bpm Height: 5'9" Respiratory Rate: 22 bpm SpO2: 92% Tempera ture: 36.8 (C) / 98.2 (F) Weight: 212 lbs 03/16/2019 Blood Pressure 1: 122/74 Code: 8480-6 Heart Rate 1: 82 bpm Respiratory Rate: 18 bpm SpO2: 95% Temperature: 36.5 (C) / 97.7 (F) We ight: 213 lbs 01/13/2019 Blood Pressure 1: 114/62 Code: 8480-6 BMI: 31.9 Code: 90660-9 Heart Rate 1: 68 bpm Height: 5'9" Respiratory Rate: 20 bpm SpO2: 94% Tempera ture: 36.6 (C) / 97.9 (F) Weight: 216 lbs 07/21/2018 Blood Pressure 1: 136/78 Code: 8480-6 BMI: 32.0 Code: 34744-4 Heart Rate 1: 72 bpm Height: 5'9" Respiratory Rate: 20 bpm SpO2: 95% Tempera ture: 36.5 (C) / 97.7 (F) Weight: 217 lbs 09/23/2017 Blood Pressure 1: 118/68 Code: 8480-6 BMI: 32.6 Code: 99452-1 Heart Rate 1: 76 bpm Height: 5'9" Respiratory Rate: 20 bpm SpO2: 94% Tempera ture: 36.2 (C) / 97.1 (F) Weight: 221 lbs 07/03/2017 Blood Pressure 1: 126/64 Code: 8480-6 Heart Rate 1: 78 bpm Height: Respiratory Rate: 18 bpm SpO2: 97% Temperature: 36.4 (C) / 97.6 (F) We ight: 221 lbs 06/16/2017 Blood Pressure 1: 128/76 Code: 8480-6 BMI: 33.1 Code: 48915-5 Heart Rate 1: 78 bpm Height: 5'9" Respiratory Rate: 20 bpm SpO2: 96% Tempera ture: 36.4 (C) / 97.6 (F) Weight: 224 lbs 02/19/2017 Blood Pressure 1: 126/78 Code: 8480-6 Heart Rate 1: 74 bpm Respiratory Rate: 20 bpm SpO2: 96% Temperature: 36.3 (C) / 97.3 (F) We ight: 224 lbs 02/29/2016 Blood Pressure 1: 124/78 Code: 8480-6 BMI: 33.7 Code: 95015-8 Heart Rate 1: 72 bpm Height: 5'9" Respiratory Rate: 20 bpm SpO2: 96% Tempera ture: 36.2 (C) / 97.2 (F) Weight: 228 lbs 12/13/2014 Blood Pressure 1: 132/78 Code: 8480-6 BMI: 33.1 Code: 40559-7 Heart Rate 1: 72 bpm Height: 5'9" [...] Patient Encounters Encounter Performer Location Codes Date ([id number]) OFFICE/OUTPATIENT VISIT EST Diagnosis: COUGH[ICD10: R05] Diagnosis: Wheezing[ICD10: R06.2] Bk Eng AASHISHJAYCE PPT [facility] CPT-4: 61530 12/02/2019 ([id number]) OFFICE/OUTPATIENT VISIT EST Diagnosis: Cough[ICD10: R05] Diagnosis: Acute bronchitis, unspecified[ICD10: J20.9] [facility] [employer] [facility] CPT-4: 60187 03/16/2019 ([id number]) OFFICE/OUTPATIENT VISIT EST Diagnosis: Acute recurrent sinusitis, unspecified[ICD10: J01.91] Diagnosis: Allergic rhinitis due to pollen[ICD10: J30.1] Diagnosis: COUGH[ICD10: R05] Bk Eng [employer] [employer] [facility] CPT-4: 81427 01/13/2019 OFFICE/OUTPATIENT VISIT EST Diagnosis: Acute bronchitis, unspecified[ICD10: J20.9] Diagnosis: Gastro-esophageal reflux disease without esophagitis[ICD10: K21.9] Mayra Saenz BK [facility] [employer] [employer] [facility] CPT-4: 49288 09/23/2017 ([id number]) OFFICE/OUTPATIENT VISIT EST Diagnosis: COUGH[ICD10: R05] Diagnosis: Allergic rhinitis due to pollen[ICD10: J30.1] Diagnosis: Personal history of malignant neoplasm of prostate[ICD10: Z85.46] Bk Eng [employer] [facility] CPT-4: 28866 07/03/2017 ([id number]) OFFICE/OUTPATIENT VISIT EST Diagnosis: COUGH[ICD10: R05] Diagnosis: Wheezing[ICD10: R06.2] Diagnosis: Allergic rhinitis due to pollen[ICD10: J30.1] Diagnosis: Corns and callosities[ICD10: L84] Bk LAUREANO [employer] [facility] CPT-4: 19438 06/16/2017 ([id number]) OFFICE/OUTPATIENT VISIT EST Diagnosis: Other seasonal allergic rhinitis[ICD10: J30.2] Faye [facility]ANO [facility] CPT-4: 90054 02/19/2017 OFFICE/OUTPATIENT VISIT EST Diagnosis: Gastro-esophageal reflux disease without esophagitis[ICD10: K21.9] Diagnosis: Unspecified osteoarthritis, unspecified site[ICD10: M19.90] Diagnosis: Personal history of malignant neoplasm of prostate[ICD10: Z85.46] Diagnosis: Encounter for screening for cardiovascular disorders[ICD10: Z13.6] Faye LA[facility]ANO [employer] [facility] CPT-4: 65781 02/29/2016 ([id number]) OFFICE/OUTPATIENT VISIT NEW Diagnosis: CHEST PAIN NOS[ICD9: 786.50] Diagnosis: GERD[ICD9: 530.81] Diagnosis: History of prostate cancer[ICD9: V10.46] Diagnosis: Knee pain[ICD9: 719.46] [facility] 71933 12/13/2014 Plan of Care Planned Activity Notes Codes Status Date Visit Diagnosis Plan: COUGH Discussion: Had CT scan do ne in May 2019 ICD-9 : 786.2 ICD-10 : R05 12/02/2019 Visit Diagnosis Plan: Wheezing Discussion: Kenalog/Dex amethasone Prednisone Doxycycline Notify if persists/worsens ICD-9 : 786.07 ICD-10 : R06.2 12/02/2019 Patient Education: doxycycline hyclate- [employer] Cou adrienne [id number] [email or web address]/[email or web address]/[email or web address] Completed 12/02/2019 Patient Education: prednisone- [employer] Coupon [id number] [email or web address]/[email or web address]/[email or web address] Completed 12/02/2019 Visit Diagnosis Plan: Acute bronchitis, unspecified Di scussion: Rocephin 1 gram administered in clinic along with Dex and kenalog (4&40). Patient tolerated well. He is to start prednisone and doxycycline tomorrow. ICD-9 : 466.0 ICD-10 : J20.9 03/16/2019 Visit Diagnosis Plan: Cough Discussion: moist air advi sed ICD-9 : 786.2 ICD-10 : R05 03/16/2019 [facility] [address] [id number] [facility] 03/16/2019 Patient Education: prednisone- [employer] Coupon [id number] Completed 03/16/2019 Patient Education: doxycycline hyclate- [employer] Coupon 637418 02 Completed 03/16/2019 Visit Plan: Saline nasal [...] : J30.1 01/13/2019 Appointment: Bk Laureano [facility]el[facility] [facility] 01/13/2019 Patient Education: cefdinir- [employer] Coupon [id number] Completed 01/13/2019 Patient Education: prednisone- [employer] Coupon [id number] Completed 01/13/2019 Visit Diagnosis Plan: Personal history [...] Z00.00 07/21/2018 Appointment: Bk Laureano [facility]Ptel[facility] [phone] [facility] [facility] 07/21/2018 Patient Education: [...] ICD-10 : J20.9 09/23/2017 Appointment: Mayra Saenz [address] [place], [place] [id number] ACUTE ILLNESS 09/23/2017 Patient Education: Patient Medication Summary Completed 09/23/2017 Visit Diagnosis Plan: Allergic rhinitis due to pollen Discussion: Add pelonir ICD-9 : 477.9 ICD-10 : J30.1 07/03/2017 Visit Diagnosis Plan: COUGH Discussion: Check CT scan of chest Continue Breo Check CBC, CMP, TSH, ESR now ICD-9 : 786.2 ICD-10 : R05 07/03/2017 Appointment: Bk Laureano WPtel[facility] [phone] [facility] [facility] 07/03/2017 Patient Education: Patient [...] : J30.1 06/16/2017 Appointment: Bk Laureano WPtel: [address] [place], [place] [phone] WORK IN 06/16/2017 Patient Education: Patient Medication Summary Completed 06/16/2017 Care Plan: CHEST X-RAY 2VW FRONTAL&LATL LOINC : 73552-6 Pending 06/16/2017 Appointment: Helene Garcia WPtel: [address] [place], [place] [phone] CANCELED 06/09/2017 Visit Diagnosis Plan: Other seasonal allergic rhinitis Discussion: Start claritin as above Can add nasal rinses, flonase, etc if not helping Monitor for signs of sinus infections, ear infections Refills of daily meds given as well per his request ICD-9 : 477.9 ICD-10 : J30.2 02/19/2017 Appointment: Faye Spivey [address] [place], [place] [phone] 02/17 confirmed ~sl ACUTE ILLNESS 02/19/2017 Patient Education: Patient Medication Summary Completed 02/19/2017 Referral: Edmundo Giron WPtel: [address] [place], [place] [phone] Referral Completed 03/11/2016 Visit Plan: Refills given Labs to be upd ated - CBC, CMP, lipids, PSA Needs consult with Urology for routine monitoring Consent to be signed for medical records to see when his last colo was - will update if needed 02/29/2016 Appointment: Faye Spivey [address] [place], [place] [phone] FOLLOW UP 02/29/2016 Patient Education: Patient Medication Summary Completed 02/29/2016 Care Plan: Referral Order SNOMED-CT : [id number] Pending 02/29/2016 Appointment: Faye Spivey [address] [place], [place] [phone] Taking patient to ER ACUTE ILLNESS 12/13/2015 Visit Plan: Check fasting lab and EKG Ad d daily omeprazole If lab and EKG normal and pain persists despite omeprazole then will proceed with stress test Following with ortho on knee pain 12/13/2014 Appointment: Bk Laureano WPtel: [phone] [facility] NEW PATIENT 12/13/2014 Patient Education: Patient Medication Summary Completed 12/13/2014 Patient Education: [facility] - Saving [employer] - 18+ - Dynamic Portal ID Completed 12/13/2014 Referral: Edmundo Giron WPtel: [phone] Referral Appointment Requested Instructions Comment . [...]
--- OUTSIDE RECORDS SUMMARY | 2020-04-06 07:10 | XMS REPORT | CCD ---
Author Author Deon Laureano D.O. Organization [facility] Address [address] [place] [address] Phone Care Team Providers Care Director Of Education Name Role Phone Bk Laureano D.O. PP Unavailable CCM Unavailable Summary Purpose Interface Exchange Insurance Providers Payer name Policy type / Coverage type Covered green party ID Effective Begin Date Effective End Date WPS MEDICARE PART B [place] Medicare Part B [id number] Unknown [facility] Medicare Part B [id number] Un known Family history Father Diagnosis Age At Onset Lung Cancer Unknown Mother Diagnosis Age At Onset Cerebrovascular disease Unknown Hypertension Unknown Social History Social History Element Codes Description Effective Dates Marital status Unknown 12/13/2014 Number of children Unknown 3 12/13/2014 Employment Unknown Currently employed 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 12/13/[address]: 079669 Currently drinks alcohol 12/13 Frequency of drinks SNOMED CT: 577988132 Drinks rarely 015 Allergies, Adverse Reactions, Alerts [...] Instructions doxycycline hyclate 100 mg capsule RxNorm: 1333759 1 Cap fadi(s) Oral two times a day 12/02/2019 12/12/2019 Active prednisone 20 mg tablet RxNorm: 777028 1 Tablet(s) Oral two denise es a day 12/02/2019 12/09/2019 Active Ventolin HFA 90 mcg/actuation aerosol inhaler RxNorm: 176281 2 Puff(s) Inhalation four times a day 12/02/2019 01/01/2020 Active meloxicam 15 mg tablet RxNorm: 704816 1 Tablet(s) Oral QD for pain 08/20/2019 02/16/2020 Active pantoprazole 40 mg tablet,delayed release RxNorm: 303170 1 TABL ET(S) PO QD 08/09/2019 05/04/2020 Active meloxicam 15 mg tablet RxNorm: 578896 1 Tablet(s) PO QD for pain 08/19/2019 Inactive doxycycline hyclate 100 mg tablet RxNorm: 0288773 1 Tablet(s) PO BI D 03/16/2019 03/25/2019 Inactive prednisone 20 mg tablet RxNorm: 258076 1 Tablet(s) PO BID 03/16/2019 03/22/2019 Inactive cefdinir 300 mg capsule RxNorm: 002752 1 Capsule(s) PO BID 01/14/2001/26/2019 Inactive prednisone 20 mg tablet RxNorm: 385215 1 Tablet(s) PO BID 01/13/2019 01/19/2019 Inactive meloxicam 15 mg tablet RxNorm: 494842 1 Tablet(s) PO QD for pain 01/16/2019 Inactive pantoprazole 40 mg tablet,delayed release RxNorm: 593746 1 Tabl et(s) PO QD 07/21/2018 07/15/2019 Inactive meloxicam 15 mg tablet RxNorm: 202544 1 Tablet(s) PO QD 06/22/2018 Inactive pantoprazole 40 mg tablet,delayed release RxNorm: 575234 1 Tabl et(s) PO QD 06/18/2018 07/20/2018 Inactive pantoprazole 40 mg tablet,delayed release RxNorm: 759926 1 Tabl et(s) PO QD 04/16/2018 06/17/2018 Inactive pantoprazole 40 mg tablet,delayed release RxNorm: 600031 1 Tabl et(s) PO QD 02/04/2018 06/18/2018 Inactive pantoprazole 40 mg tablet,delayed release RxNorm: 284713 1 Tabl et(s) PO QD 09/23/2017 02/04/2018 Inactive prednisone 20 mg tablet RxNorm: 046843 2 Tablet(s) PO QD 09/23/2017 1 11/25/2016 Inactive Singulair 10 mg tablet RxNorm: 819603 1 Tablet(s) PO QHS for co ugh/allergies 07/03/2017 07/20/2018 Inactive loratadine 10 mg tablet RxNorm: 493738 1 Tablet(s) PO QAM for a llergies 02/19/2017 07/20/2018 Inactive omeprazole 20 mg capsule,delayed release RxNorm: 977230 1 Capsu le(s) PO QD 02/19/2017 07/20/2018 Inactive [AttnRPh: Saving shiv ly/adjudicate RxGRP:SG20 RxBIN:[id number] RxPCN:HT ID#:[id number]] meloxicam 15 mg tablet RxNorm: 034258 1 Tablet(s) PO QD 02/19/2017 Inactive omeprazole 20 mg capsule,delayed release RxNorm: 736263 1 Capsu le(s) PO QD 02/29/2016 02/18/2017 Inactive [AttnRPh: Saving shiv ly/adjudicate RxGRP:SG20 RxBIN:[id number] RxPCN:HT ID#:[id number]] meloxicam 15 mg tablet RxNorm: 811899 1 Tablet(s) PO QD 02/29/2016 Inactive omeprazole 20 mg capsule,delayed release RxNorm: 644124 1 CAPSULE(S) PO QD DUE FOR ROUTINE APPOINTMENT 02/01/2016 02/28/2016 Inactive [AttnRPh : Saving apply/adjudicate RxGRP:SG20 RxBIN:[id number] RxPCN: ID#:[id number]] meloxicam 15 mg tablet RxNorm: 361478 1 Tablet(s) PO QD TABLET( S) PO QD 12/27/2015 01/25/2016 Inactive omeprazole 20 mg capsule,delayed release RxNorm: 962628 1 Capsule(s) PO QD Due for routine appointment 11/28/2015 12/27/2015 Inactive [AttnRPh : Saving apply/adjudicate RxGRP:SG20 RxBIN:[id number] RxPCN:HT ID#:[id number]] meloxicam 15 mg tablet RxNorm: 660021 2 Tablet(s) PO QD 09/26/2015 Inactive omeprazole 20 mg capsule,delayed release RxNorm: 008216 1 Capsu le(s) PO QD 12/13/2014 11/28/2015 Inactive [AttnRPh: Saving shiv ly/adjudicate RxGRP:SG20 RxBIN:[id number] RxPCN:HT ID#:[id number]] Multivitamin & Mineral Formula oral RxNorm: oral No Start Date Active Nas[place] AQ 55 mcg nasal spray aerosol RxNorm: 3286389 1 [place] NASAL QD to each nostril No Start Date Active Breo Ellipta 100 mcg-25 mcg/dose powder for inhalation RxNorm: 1 933010 1 INH QD No Start Date 01/12/2019 Inactive Vitamin C 500 mg tablet RxNorm: 551400 1 Tablet(s) PO QD No Start D ate 12/01/2019 Inactive meloxicam 15 mg tablet RxNorm: 882736 1 Tablet(s) PO QD No Start Da te 02/28/2016 Inactive meloxicam 15 mg tablet RxNorm: 034256 2 Tablet(s) PO QD No Start Da te 09/25/2015 Inactive meloxicam 15 mg tablet RxNorm: 681406 1 Tablet(s) PO QD No Start Da te 07/20/2018 Inactive Medication Administered No Medication Administered data Immunizations No Immunization data Results Observation Observation Code Item Item Code Result Date S vice Location ERYTHROCYTE SEDIMENTATION RATE 68935 Sed Rate 1 mm/hr 07/04/2017 Unknown GFR CALC 2713640 GFR Non Afr Amr >60 mL/min 07/03/2017 Un known GFR CALC [id number] GFR Afr Amr >60 mL/min 07/03/2017 Unknow n COMPLETE BLOOD COUNT 4487615 WBC 9.2 10e9/L 07/03/20 17 Unknown COMPLETE BLOOD COUNT 1990088 RBC 4.73 10e12/L 2016 Unknown COMPLETE BLOOD COUNT 8874274 HEMOGLOBIN 14.0 g/dL 07/03/20 17 Unknown COMPLETE BLOOD COUNT 8945062 HEMATOCRIT 42.3 % 07/03/20 17 Unknown COMPLETE BLOOD COUNT 5296147 MCV 89.4 fL 7 Unknown COMPLETE BLOOD COUNT 2153995 MCH 29.6 pg 7 Unknown COMPLETE BLOOD COUNT 0326856 MCHC 33.1 g/dL 7 Unknown COMPLETE BLOOD COUNT 4689378 PLATELET COUNT 375 10e9/L 04/2017 Unknown COMPLETE BLOOD COUNT 9798294 Mean Plt Volume 9.7 fL 04/2017 Unknown COMPLETE BLOOD COUNT 7121037 Neut Auto 61.0 % 7 Unknown COMPLETE BLOOD COUNT 1408087 Lymph Auto 25.8 % 07/03/20 17 Unknown COMPLETE BLOOD COUNT 2996556 [place] Auto 10.2 % 7 Unknown COMPLETE BLOOD COUNT 7086268 RDW 15.0 % 7 Unknown COMPLETE BLOOD COUNT 1893299 Eos Auto 2.9 % 7 Unknown COMPLETE BLOOD COUNT 0226676 Baso Auto 0.1 % 7 Unknown COMPLETE BLOOD COUNT 8908580 Neutrophil Abs 5.61 10e9/L Unknown COMPLETE BLOOD COUNT 0862918 Lymphocyte Abs 2.37 10e9/L Unknown COMPLETE BLOOD COUNT 5746422 Monocyte Abs 0.94 10e9/L 04/2017 Unknown COMPLETE BLOOD COUNT 8307705 Eosinophil Abs 0.27 10e9/L Unknown COMPLETE BLOOD COUNT 6719683 RDW-SD 48.6 fL 7 Unknown COMPLETE BLOOD COUNT 3725409 Basophil Abs 0.01 10e9/L 04/2017 Unknown COMPREHENSIVE METABOLIC 13405 AST 17 U/L 2016 Unknown COMPREHENSIVE METABOLIC 38527 ALT 18 U/L 2016 Unknown COMPREHENSIVE METABOLIC 56905 BUN 22 mg/dL 2016 Unknown COMPREHENSIVE METABOLIC 39135 ALBUMIN 3.6 g/dL 2016 Unknown COMPREHENSIVE METABOLIC 11930 CHLORIDE 106 mmol/L 07/03 Unknown COMPREHENSIVE METABOLIC 46985 Bili Total 0.3 mg/dL 07/03 Unknown COMPREHENSIVE METABOLIC 16851 ALK PHOS 51 U/L 2016 Unknown COMPREHENSIVE METABOLIC 00698 SODIUM 137 mmol/L 07/03 Unknown COMPREHENSIVE METABOLIC 47957 CREATININE 0.99 mg/dL 04/2017 Unknown COMPREHENSIVE METABOLIC 77867 CALCIUM 8.7 mg/dL 2016 Unknown COMPREHENSIVE METABOLIC 13486 POTASSIUM 4.6 mmol/L 07/03 Unknown COMPREHENSIVE METABOLIC 51868 Total Protein 6.0 g/dL Unknown COMPREHENSIVE METABOLIC 85969 Glucose 105 mg/dL 2016 Unknown COMPREHENSIVE METABOLIC 48288 Bicarbonate 24 mmol/L 04/2017 Unknown COMPREHENSIVE METABOLIC 04303 AGAP 7 mmol/L 2016 Unknown THYROID STIMULATING HORMONE 97991 TSH 1.054 uIU/mL 07/03/2017 Unknown GFR CALC 7278901 GFR Non Afr Amr >60 mL/min 02/29/2016 Un known GFR CALC 4855915 GFR Afr Amr >60 mL/min 02/29/2016 Unknow n PSA EQUIMOLAR VERONICA 53624 PSA Total 0.14 ng/mL 05/05/201 6 Unknown COMPREHENSIVE METABOLIC 89026 AST 18 U/L 2015 Unknown COMPREHENSIVE METABOLIC 72952 ALT 19 U/L 2015 Unknown COMPREHENSIVE METABOLIC 74318 BUN 19 mg/dL 2015 Unknown COMPREHENSIVE METABOLIC 23048 ALBUMIN 4.0 g/dL 2015 Unknown COMPREHENSIVE METABOLIC 35524 CHLORIDE 107 mmol/L 02/28 Unknown COMPREHENSIVE METABOLIC 75618 Bili Total 0.5 mg/dL 02/28 Unknown COMPREHENSIVE METABOLIC 76351 ALK PHOS 52 U/L 2015 Unknown COMPREHENSIVE METABOLIC 90189 SODIUM 135 mmol/L 02/28 Unknown COMPREHENSIVE METABOLIC 58843 CREATININE 0.93 mg/dL 02/2016 Unknown COMPREHENSIVE METABOLIC 64419 CALCIUM 9.1 mg/dL 2015 Unknown COMPREHENSIVE METABOLIC 09118 POTASSIUM 4.5 mmol/L 02/28 Unknown COMPREHENSIVE METABOLIC 84282 Total Protein 6.3 g/dL Unknown COMPREHENSIVE METABOLIC 68296 Glucose 97 mg/dL 2015 Unknown COMPREHENSIVE METABOLIC 97419 Bicarbonate 21 mmol/L 02/2016 Unknown COMPREHENSIVE METABOLIC 20908 AGAP 7 mmol/L 2015 Unknown COMPLETE BLOOD COUNT 9612936 WBC 7.0 10e9/L 02/29/20 16 Unknown COMPLETE BLOOD COUNT 3951971 RBC 4.94 10e12/L 2015 Unknown COMPLETE BLOOD COUNT 8473960 HEMOGLOBIN 14.5 g/dL 02/29/20 16 Unknown COMPLETE BLOOD COUNT 2165920 HEMATOCRIT 43.1 % 02/29/20 16 Unknown COMPLETE BLOOD COUNT 8994531 MCV 87.2 fL 6 Unknown COMPLETE BLOOD COUNT 4722376 MCH 29.4 pg 6 Unknown COMPLETE BLOOD COUNT 1161133 MCHC 33.6 g/dL 6 Unknown COMPLETE BLOOD COUNT 0378835 PLATELET COUNT 339 10e9/L 02/2016 Unknown COMPLETE BLOOD COUNT 5347908 Mean Plt Volume 10.6 fL 02/2016 Unknown COMPLETE BLOOD COUNT 2258766 Neut Auto 52.5 % 6 Unknown COMPLETE BLOOD COUNT 8157335 Lymph Auto 32.7 % 02/29/20 16 Unknown COMPLETE BLOOD COUNT 1355027 [place] Auto 12.9 % 6 Unknown COMPLETE BLOOD COUNT 3918610 RDW 14.6 % 6 Unknown COMPLETE BLOOD COUNT 3743188 Eos Auto 1.6 % 6 Unknown COMPLETE BLOOD COUNT 0170607 Baso Auto 0.3 % 6 Unknown COMPLETE BLOOD COUNT 8526569 Neutrophil Abs 3.68 10e9/L Unknown COMPLETE BLOOD COUNT 5558224 Lymphoctye Abs 2.29 10e9/L Unknown COMPLETE BLOOD COUNT 9797001 Monocyte Abs 0.90 10e9/L 02/2016 Unknown COMPLETE BLOOD COUNT 4987867 Eosinophil Abs 0.11 10e9/L Unknown COMPLETE BLOOD COUNT 1279423 RDW-SD 46.3 fL 6 Unknown COMPLETE BLOOD COUNT 4502106 Basophil Abs 0.02 10e9/L 02/2016 Unknown LIPID GROUP 45151 Cholesterol 161 mg/dL 02/29/2016 Unkno wn LIPID GROUP 18310 Triglyceride 57 mg/dL 02/29/2016 Unkn own LIPID GROUP 46684 HDL CHOLESTEROL 50 mg/dL 02/29/2016 U nknown LIPID GROUP 19434 Chol/HDL Ratio 3.22 ratio 02/29/2016 U nknown LIPID GROUP 86131 NON-HDL Chol 111 mg/dL 02/29/2016 Unkn own LIPID GROUP 75463 LDL Cholesterol 100 mg/dL 02/29/2016 U nknown Procedures Procedure Codes Date DEXAMETHASONE SODIUM PHOS CPT-4: J1100 12/02/2019 THER/PROPH/DIAG INJ SC/IM CPT-4: 99207 12/02/2019 TRIAMCINOLONE ACET INJ NOS CPT-4: J3301 12/02/2019 THER/PROPH/DIAG INJ SC/IM CPT-4: 08426 03/16/2019 TRIAMCINOLONE ACET INJ NOS CPT-4: J3301 03/16/2019 CEFTRIAXONE SODIUM INJECTION CPT-4: J0696 03/16/2019 THER/PROPH/DIAG INJ SC/IM CPT-4: 79469 03/16/2019 DEXAMETHASONE SODIUM PHOS CPT-4: J1100 03/16/2019 THER/PROPH/DIAG INJ SC/IM CPT-4: 42571 01/13/2019 TRIAMCINOLONE ACET INJ NOS CPT-4: J3301 01/13/2019 PPPS, subseq visit CPT-4: G0439 07/21/2018 PRESCRIP TRANSMIT VIA ERX SY CPT-4: G8553 09/23/2017 ROUTINE VENIPUNCTURE CPT-4: 99946 07/03/2017 ASSAY THYROID STIM HORMONE CPT-4: 96542 07/03/2017 COMPREHEN METABOLIC PANEL CPT-4: 91348 07/03/2017 COMPLETE CBC W/AUTO DIFF WBC CPT-4: 76678 07/03/2017 RBC SED RATE AUTOMATED CPT-4: 94572 07/03/2017 PRESCRIP TRANSMIT VIA ERX SY CPT-4: G8553 07/03/2017 THER/PROPH/DIAG INJ SC/IM CPT-4: 79710 06/16/2017 TRIAMCINOLONE ACET INJ NOS CPT-4: J3301 06/16/2017 PRESCRIP TRANSMIT VIA ERX SY CPT-4: G8553 02/19/2017 ROUTINE VENIPUNCTURE CPT-4: 82164 02/29/2016 COMPREHEN METABOLIC PANEL CPT-4: 14540 02/29/2016 COMPLETE CBC W/AUTO DIFF WBC CPT-4: 07181 02/29/2016 LIPID PANEL CPT-4: 35162 02/29/2016 ASSAY OF PSA TOTAL CPT-4: 91978 02/29/2016 PRESCRIP TRANSMIT VIA ERX SY CPT-4: G8553 02/29/2016 PRESCRIP TRANSMIT VIA ERX SY CPT-4: G8553 12/13/2014 Vital Signs Date Vital 12/02/2019 Blood Pressure 1: 126/62 Code: 8480-6 BMI: 31.3 Code: 44604-1 Heart Rate 1: 76 bpm Height: 5'9" Respiratory Rate: 22 bpm SpO2: 92% Tempera ture: 36.8 (C) / 98.2 (F) Weight: 212 lbs 03/16/2019 Blood Pressure 1: 122/74 Code: 8480-6 Heart Rate 1: 82 bpm Respiratory Rate: 18 bpm SpO2: 95% Temperature: 36.5 (C) / 97.7 (F) We ight: 213 lbs 01/13/2019 Blood Pressure 1: 114/62 Code: 8480-6 BMI: 31.9 Code: 68955-6 Heart Rate 1: 68 bpm Height: 5'9" Respiratory Rate: 20 bpm SpO2: 94% Tempera ture: 36.6 (C) / 97.9 (F) Weight: 216 lbs 07/21/2018 Blood Pressure 1: 136/78 Code: 8480-6 BMI: 32.0 Code: 90739-5 Heart Rate 1: 72 bpm Height: 5'9" Respiratory Rate: 20 bpm SpO2: 95% Tempera ture: 36.5 (C) / 97.7 (F) Weight: 217 lbs 09/23/2017 Blood Pressure 1: 118/68 Code: 8480-6 BMI: 32.6 Code: 01340-0 Heart Rate 1: 76 bpm Height: 5'9" Respiratory Rate: 20 bpm SpO2: 94% Tempera ture: 36.2 (C) / 97.1 (F) Weight: 221 lbs 07/03/2017 Blood Pressure 1: 126/64 Code: 8480-6 Heart Rate 1: 78 bpm Height: Respiratory Rate: 18 bpm SpO2: 97% Temperature: 36.4 (C) / 97.6 (F) We ight: 221 lbs 06/16/2017 Blood Pressure 1: 128/76 Code: 8480-6 BMI: 33.1 Code: 64717-3 Heart Rate 1: 78 bpm Height: 5'9" Respiratory Rate: 20 bpm SpO2: 96% Tempera ture: 36.4 (C) / 97.6 (F) Weight: 224 lbs 02/19/2017 Blood Pressure 1: 126/78 Code: 8480-6 Heart Rate 1: 74 bpm Respiratory Rate: 20 bpm SpO2: 96% Temperature: 36.3 (C) / 97.3 (F) We ight: 224 lbs 02/29/2016 Blood Pressure 1: 124/78 Code: 8480-6 BMI: 33.7 Code: 74125-6 Heart Rate 1: 72 bpm Height: 5'9" Respiratory Rate: 20 bpm SpO2: 96% Tempera ture: 36.2 (C) / 97.2 (F) Weight: 228 lbs 12/13/2014 Blood Pressure 1: 132/78 Code: 8480-6 BMI: 33.1 Code: 01387-1 Heart Rate 1: 72 bpm Height: 5'9" [...] Patient Encounters Encounter Performer Location Codes Date ([id number]) OFFICE/OUTPATIENT VISIT EST Diagnosis: COUGH[ICD10: R05] Diagnosis: Wheezing[ICD10: R06.2] Bk Eng AASHISHJAYCE Sparrow CPT-4: 28131 12/02/2019 ([id number]) OFFICE/OUTPATIENT VISIT EST Diagnosis: Cough[ICD10: R05] Diagnosis: Acute bronchitis, unspecified[ICD10: J20.9] [facility] CPT-4: 51280 03/16/2019 ([id number]) OFFICE/OUTPATIENT VISIT EST Diagnosis: Acute recurrent sinusitis, unspecified[ICD10: J01.91] Diagnosis: Allergic rhinitis due to pollen[ICD10: J30.1] Diagnosis: COUGH[ICD10: R05] Bk Eng [employer] [facility] CPT-4: 35636 01/13/2019 OFFICE/OUTPATIENT VISIT EST Diagnosis: Acute bronchitis, unspecified[ICD10: J20.9] Diagnosis: Gastro-esophageal reflux disease without esophagitis[ICD10: K21.9] Mayra Saenz BK Eng [employer] [facility] CPT-4: 31643 09/23/2017 ([id number]) OFFICE/OUTPATIENT VISIT EST Diagnosis: COUGH[ICD10: R05] Diagnosis: Allergic rhinitis due to pollen[ICD10: J30.1] Diagnosis: Personal history of malignant neoplasm of prostate[ICD10: Z85.46] Bk Eng [employer] CPT-4: 43378 07/03/2017 ([id number]) OFFICE/OUTPATIENT VISIT EST Diagnosis: COUGH[ICD10: R05] Diagnosis: Wheezing[ICD10: R06.2] Diagnosis: Allergic rhinitis due to pollen[ICD10: J30.1] Diagnosis: Corns and callosities[ICD10: L84] Bk LAUREANO [facility] CPT-4: 41085 06/16/2017 ([id number]) OFFICE/OUTPATIENT VISIT EST Diagnosis: Other seasonal allergic rhinitis[ICD10: J30.2] Faye LAUREANO [facility] CPT-4: 23888 02/19/2017 OFFICE/OUTPATIENT VISIT EST Diagnosis: Gastro-esophageal reflux disease without esophagitis[ICD10: K21.9] Diagnosis: Unspecified osteoarthritis, unspecified site[ICD10: M19.90] Diagnosis: Personal history of malignant neoplasm of prostate[ICD10: Z85.46] Diagnosis: Encounter for screening for cardiovascular disorders[ICD10: Z13.6] Faye LAUREANO [facility] CPT-4: 63730 02/29/2016 ([id number]) OFFICE/OUTPATIENT VISIT NEW Diagnosis: CHEST PAIN NOS[ICD9: 786.50] Diagnosis: GERD[ICD9: 530.81] Diagnosis: History of prostate cancer[ICD9: V10.46] Diagnosis: Knee pain[ICD9: 719.46] Bk RODRIGUEZ [facility] CPT-4: 96408 12/13/2014 Plan of Care Planned Activity Notes Codes Status Date Visit Diagnosis Plan: COUGH Discussion: Had CT scan do ne in May 2019 ICD-9 : 786.2 ICD-10 : R05 12/02/2019 Visit Diagnosis Plan: Wheezing Discussion: Kenalog/Dex amethasone Prednisone Doxycycline Notify if persists/worsens ICD-9 : 786.07 ICD-10 : R06.2 12/02/2019 Patient Education: doxycycline hyclate- [employer] Cou adrienne [id number] [email or web address]://[email or web address]/samplemd/resources/getResource/61/[email or web address]-[email or web address] Completed 12/02/2019 Patient Education: prednisone- [employer] Coupon [id number] https://www.[email or web address]/samplemd/resources/getResource/61/uq57r1wv-[email or web address]-11 Completed 12/02/2019 Visit Diagnosis Plan: Acute bronchitis, unspecified Di scussion: Rocephin 1 gram administered in clinic along with Dex and kenalog (4&40). Patient tolerated well. He is to start prednisone and doxycycline tomorrow. ICD-9 : 466.0 ICD-10 : J20.9 03/16/2019 Visit Diagnosis Plan: Cough Discussion: moist air advi sed ICD-9 : 786.2 ICD-10 : R05 03/16/2019 [facility]ment[facility] [address] [facility] [facility] 03/16/2019 Patient Education: prednisone- [employer] Coupon [id number] Completed 03/16/2019 Patient Education: doxycycline hyclate- [employer] Coupon 509351 02 Completed 03/16/2019 Visit Plan: Saline nasal [...] : J30.1 01/13/2019 Appointment: Bk Laureano WPtel: [facility] [facility] 01/13/2019 Patient Education: cefdinir- [employer] Coupon [id number] Completed 01/13/2019 Patient Education: prednisone- [employer] Coupon [id number] Completed 01/13/2019 Visit Diagnosis Plan: Personal history [...] Z00.00 07/21/2018 Appointment: Bk Laureano WPtel: [phone] [facility] [facility] Well Visit 07/21/2018 Patient Education: Patient [...] ICD-10 : J20.9 09/23/2017 Appointment: Mayra Saenz [address] [place], [place] [id number] ACUTE ILLNESS 09/23/2017 Patient Education: Patient Medication Summary Completed 09/23/2017 Visit Diagnosis Plan: Allergic rhinitis due to pollen Discussion: Add pelonir ICD-9 : 477.9 ICD-10 : J30.1 07/03/2017 Visit Diagnosis Plan: COUGH Discussion: Check CT scan of chest Continue Breo Check CBC, CMP, TSH, ESR now ICD-9 : 786.2 ICD-10 : R05 07/03/2017 Appointment: Bk Laureano WPtel: [phone] [facility] FOLLOW UP 07/03/2017 Patient Education: Patient Medication [...] : J30.1 06/16/2017 Appointment: Bk Laureano WPtel: [address] [place], [place] [phone] WORK IN 06/16/2017 Patient Education: Patient Medication Summary Completed 06/16/2017 Care Plan: CHEST X-RAY 2VW FRONTAL&LATL LOINC : 36427-4 Pending 06/16/2017 Appointment: Helene Garcia WPtel: [address] [place], [place] [phone] CANCELED 06/09/2017 Visit Diagnosis Plan: Other seasonal allergic rhinitis Discussion: Start claritin as above Can add nasal rinses, flonase, etc if not helping Monitor for signs of sinus infections, ear infections Refills of daily meds given as well per his request ICD-9 : 477.9 ICD-10 : J30.2 02/19/2017 Appointment: Faye Spivey [address] [place], [place] [phone] 02/17 confirmed ~sl ACUTE ILLNESS 02/19/2017 Patient Education: Patient Medication Summary Completed 02/19/2017 Referral: Edmundo Giron WPtel: [address] [place], [place] [phone] Referral Completed 03/11/2016 Visit Plan: Refills given Labs to be upd ated - CBC, CMP, lipids, PSA Needs consult with Urology for routine monitoring Consent to be signed for medical records to see when his last colo was - will update if needed 02/29/2016 Appointment: Faye Spivey [address] [place], [place] [phone] FOLLOW UP 02/29/2016 Patient Education: Patient Medication Summary Completed 02/29/2016 Care Plan: Referral Order SNOMED-CT : 30 [id number] Pending 02/29/2016 Appointment: Faye Spivey [address] [place], [place] [phone] Taking patient to ER ACUTE ILLNESS 12/13/2015 Visit Plan: Check fasting lab and EKG Ad d daily omeprazole If lab and EKG normal and pain persists despite omeprazole then will proceed with stress test Following with ortho on knee pain 12/13/2014 Appointment: Bk Laureano WPtel: [phone] [facility] NEW PATIENT 12/13/2014 Patient Education: Patient Medication Summary Completed 12/13/2014 Patient Education: [facility] - Saving AutoInj - 18+ - Dynamic Portal ID Completed 12/13/2014 Referral: Edmundo Giron WPtel: [phone] Referral Appointment Requested Instructions Comment . [...]
--- OUTSIDE RECORDS SUMMARY | 2020-04-06 07:10 | XMS REPORT | CCD ---
Author Author Deon Laureano D.O. Organization [facility]K [facility]UREANO DO [facility] Address [address] [place] [address] Phone Care Team Providers Care Banquet Steward Name Role Phone Bk Laureano D.O. PP Unavailable CCM Unavailable Summary Purpose Interface Exchange Insurance Providers Payer name Policy type / Coverage type Covered alliance party ID Effective Begin Date Effective End Date WPS MEDICARE PART B [place] Medicare Part B [id number] Unknown [facility] Medicare Part B [id number] Un known Family history Father Diagnosis Age At Onset Lung Cancer Unknown Mother Diagnosis Age At Onset Cerebrovascular disease Unknown Hypertension Unknown Social History Social History Element Codes Description Effective Dates Marital status Unknown 12/13/2014 Number of children Unknown 3 12/13/2014 Employment Unknown Currently employed 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 12/13/[address]: 507314 Currently drinks alcohol 12/13 Frequency of drinks SNOMED CT: 260569223 Drinks rarely 015 Allergies, Adverse Reactions, Alerts [...] Instructions doxycycline hyclate 100 mg capsule RxNorm: 8833386 1 Cap fadi(s) Oral two times a day 12/02/2019 12/12/2019 Active prednisone 20 mg tablet RxNorm: 797647 1 Tablet(s) Oral two denise es a day 12/02/2019 12/09/2019 Active Ventolin HFA 90 mcg/actuation aerosol inhaler RxNorm: 994702 2 Puff(s) Inhalation four times a day 12/02/2019 01/01/2020 Active meloxicam 15 mg tablet RxNorm: 093382 1 Tablet(s) Oral QD for pain 08/20/2019 02/16/2020 Active pantoprazole 40 mg tablet,delayed release RxNorm: 095595 1 TABL ET(S) PO QD 08/09/2019 05/04/2020 Active meloxicam 15 mg tablet RxNorm: 256079 1 Tablet(s) PO QD for pain 08/19/2019 Inactive doxycycline hyclate 100 mg tablet RxNorm: 9370764 1 Tablet(s) PO BI D 03/16/2019 03/25/2019 Inactive prednisone 20 mg tablet RxNorm: 048469 1 Tablet(s) PO BID 03/16/2019 03/22/2019 Inactive cefdinir 300 mg capsule RxNorm: 642186 1 Capsule(s) PO BID 01/14/2001/26/2019 Inactive prednisone 20 mg tablet RxNorm: 404714 1 Tablet(s) PO BID 01/13/2019 01/19/2019 Inactive meloxicam 15 mg tablet RxNorm: 424817 1 Tablet(s) PO QD for pain 01/16/2019 Inactive pantoprazole 40 mg tablet,delayed release RxNorm: 609332 1 Tabl et(s) PO QD 07/21/2018 07/15/2019 Inactive meloxicam 15 mg tablet RxNorm: 572993 1 Tablet(s) PO QD 06/22/2018 Inactive pantoprazole 40 mg tablet,delayed release RxNorm: 608375 1 Tabl et(s) PO QD 06/18/2018 07/20/2018 Inactive pantoprazole 40 mg tablet,delayed release RxNorm: 785740 1 Tabl et(s) PO QD 04/16/2018 06/17/2018 Inactive pantoprazole 40 mg tablet,delayed release RxNorm: 132094 1 Tabl et(s) PO QD 02/04/2018 06/18/2018 Inactive pantoprazole 40 mg tablet,delayed release RxNorm: 086920 1 Tabl et(s) PO QD 09/23/2017 02/04/2018 Inactive prednisone 20 mg tablet RxNorm: 343987 2 Tablet(s) PO QD 09/23/2017 1 11/25/2016 Inactive Singulair 10 mg tablet RxNorm: 533762 1 Tablet(s) PO QHS for co ugh/allergies 07/03/2017 07/20/2018 Inactive loratadine 10 mg tablet RxNorm: 296915 1 Tablet(s) PO QAM for a llergies 02/19/2017 07/20/2018 Inactive omeprazole 20 mg capsule,delayed release RxNorm: 052065 1 Capsu le(s) PO QD 02/19/2017 07/20/2018 Inactive [AttnRPh: Saving shiv ly/adjudicate RxGRP:SG20 RxBIN:[id number] RxPCN:HT ID#:[id number]] meloxicam 15 mg tablet RxNorm: 236653 1 Tablet(s) PO QD 02/19/2017 Inactive omeprazole 20 mg capsule,delayed release RxNorm: 586278 1 Capsu le(s) PO QD 02/29/2016 02/18/2017 Inactive [AttnRPh: Saving shiv ly/adjudicate RxGRP:SG20 RxBIN:[id number] RxPCN:HT ID#:[id number]] meloxicam 15 mg tablet RxNorm: 236546 1 Tablet(s) PO QD 02/29/2016 Inactive omeprazole 20 mg capsule,delayed release RxNorm: 375141 1 CAPSULE(S) PO QD DUE FOR ROUTINE APPOINTMENT 02/01/2016 02/28/2016 Inactive [AttnRPh : Saving apply/adjudicate RxGRP:SG20 RxBIN:[id number] RxPCN: ID#:[id number]] meloxicam 15 mg tablet RxNorm: 636786 1 Tablet(s) PO QD TABLET( S) PO QD 12/27/2015 01/25/2016 Inactive omeprazole 20 mg capsule,delayed release RxNorm: 789009 1 Capsule(s) PO QD Due for routine appointment 11/28/2015 12/27/2015 Inactive [AttnRPh : Saving apply/adjudicate RxGRP:SG20 RxBIN:[id number] RxPCN:HT ID#:[id number]] meloxicam 15 mg tablet RxNorm: 043959 2 Tablet(s) PO QD 09/26/2015 Inactive omeprazole 20 mg capsule,delayed release RxNorm: 205557 1 Capsu le(s) PO QD 12/13/2014 11/28/2015 Inactive [AttnRPh: Saving shiv ly/adjudicate RxGRP:SG20 RxBIN:[id number] RxPCN:HT ID#:[id number]] Multivitamin & Mineral Formula oral RxNorm: oral No Start Date Active Nasacort AQ 55 mcg nasal spray aerosol RxNorm: 8264202 1 [place] NASAL QD to each nostril No Start Date Active Breo Ellipta 100 mcg-25 mcg/dose powder for inhalation RxNorm: 1 553379 1 INH QD No Start Date 01/12/2019 Inactive Vitamin C 500 mg tablet RxNorm: 778032 1 Tablet(s) PO QD No Start D ate 12/01/2019 Inactive meloxicam 15 mg tablet RxNorm: 129494 1 Tablet(s) PO QD No Start Da te 02/28/2016 Inactive meloxicam 15 mg tablet RxNorm: 467046 2 Tablet(s) PO QD No Start Da te 09/25/2015 Inactive meloxicam 15 mg tablet RxNorm: 469105 1 Tablet(s) PO QD No Start Da te 07/20/2018 Inactive Medication Administered No Medication Administered data Immunizations No Immunization data Results Observation Observation Code Item Item Code Result Date S vice Location ERYTHROCYTE SEDIMENTATION RATE 38064 Sed Rate 1 mm/hr 07/04/2017 Unknown GFR CALC 9402891 GFR Non Afr Amr >60 mL/min 07/03/2017 Un known GFR CALC 5875538 GFR Afr Amr >60 mL/min 07/03/2017 Unknow n COMPLETE BLOOD COUNT [id number] WBC 9.2 10e9/L 07/03/20 17 Unknown COMPLETE BLOOD COUNT [id number] RBC 4.73 10e12/L 2016 Unknown COMPLETE BLOOD COUNT [id number] HEMOGLOBIN 14.0 g/dL 07/03/20 17 Unknown COMPLETE BLOOD COUNT 6413254 HEMATOCRIT 42.3 % 07/03/20 17 Unknown COMPLETE BLOOD COUNT 6046591 MCV 89.4 fL 7 Unknown COMPLETE BLOOD COUNT 1546611 MCH 29.6 pg 7 Unknown COMPLETE BLOOD COUNT 0347620 MCHC 33.1 g/dL 7 Unknown COMPLETE BLOOD COUNT 2903043 PLATELET COUNT 375 10e9/L 04/2017 Unknown COMPLETE BLOOD COUNT 1297158 Mean Plt Volume 9.7 fL 04/2017 Unknown COMPLETE BLOOD COUNT 1696663 Neut Auto 61.0 % 7 Unknown COMPLETE BLOOD COUNT 1387656 Lymph Auto 25.8 % 07/03/20 17 Unknown COMPLETE BLOOD COUNT 5122042 [place] Auto 10.2 % 7 Unknown COMPLETE BLOOD COUNT 5738383 RDW 15.0 % 7 Unknown COMPLETE BLOOD COUNT 4637240 Eos Auto 2.9 % 7 Unknown COMPLETE BLOOD COUNT 7986208 Baso Auto 0.1 % 7 Unknown COMPLETE BLOOD COUNT 0067544 Neutrophil Abs 5.61 10e9/L Unknown COMPLETE BLOOD COUNT 9712398 Lymphocyte Abs 2.37 10e9/L Unknown COMPLETE BLOOD COUNT 8735944 Monocyte Abs 0.94 10e9/L 04/2017 Unknown COMPLETE BLOOD COUNT 1598904 Eosinophil Abs 0.27 10e9/L Unknown COMPLETE BLOOD COUNT 4843463 RDW-SD 48.6 fL 7 Unknown COMPLETE BLOOD COUNT 0599313 Basophil Abs 0.01 10e9/L 04/2017 Unknown COMPREHENSIVE METABOLIC 14140 AST 17 U/L 2016 Unknown COMPREHENSIVE METABOLIC 38613 ALT 18 U/L 2016 Unknown COMPREHENSIVE METABOLIC 64255 BUN 22 mg/dL 2016 Unknown COMPREHENSIVE METABOLIC 55321 ALBUMIN 3.6 g/dL 2016 Unknown COMPREHENSIVE METABOLIC 34814 CHLORIDE 106 mmol/L 07/03 Unknown COMPREHENSIVE METABOLIC 56340 Bili Total 0.3 mg/dL 07/03 Unknown COMPREHENSIVE METABOLIC 66789 ALK PHOS 51 U/L 2016 Unknown COMPREHENSIVE METABOLIC 28883 SODIUM 137 mmol/L 07/03 Unknown COMPREHENSIVE METABOLIC 77470 CREATININE 0.99 mg/dL 04/2017 Unknown COMPREHENSIVE METABOLIC 66230 CALCIUM 8.7 mg/dL 2016 Unknown COMPREHENSIVE METABOLIC 07933 POTASSIUM 4.6 mmol/L 07/03 Unknown COMPREHENSIVE METABOLIC 30898 Total Protein 6.0 g/dL Unknown COMPREHENSIVE METABOLIC 46854 Glucose 105 mg/dL 2016 Unknown COMPREHENSIVE METABOLIC 70113 Bicarbonate 24 mmol/L 04/2017 Unknown COMPREHENSIVE METABOLIC 40840 AGAP 7 mmol/L 2016 Unknown THYROID STIMULATING HORMONE 65438 TSH 1.054 uIU/mL 07/03/2017 Unknown GFR CALC 4244961 GFR Non Afr Amr >60 mL/min 02/29/2016 Un known GFR CALC 5751939 GFR Afr Amr >60 mL/min 02/29/2016 Unknow n PSA EQUIMOLAR VERONICA 00312 PSA Total 0.14 ng/mL 05/05/201 6 Unknown COMPREHENSIVE METABOLIC 37189 AST 18 U/L 2015 Unknown COMPREHENSIVE METABOLIC 06460 ALT 19 U/L 2015 Unknown COMPREHENSIVE METABOLIC 00935 BUN 19 mg/dL 2015 Unknown COMPREHENSIVE METABOLIC 42225 ALBUMIN 4.0 g/dL 2015 Unknown COMPREHENSIVE METABOLIC 84261 CHLORIDE 107 mmol/L 02/28 Unknown COMPREHENSIVE METABOLIC 36173 Bili Total 0.5 mg/dL 02/28 Unknown COMPREHENSIVE METABOLIC 29863 ALK PHOS 52 U/L 2015 Unknown COMPREHENSIVE METABOLIC 12249 SODIUM 135 mmol/L 02/28 Unknown COMPREHENSIVE METABOLIC 13090 CREATININE 0.93 mg/dL 02/2016 Unknown COMPREHENSIVE METABOLIC 44638 CALCIUM 9.1 mg/dL 2015 Unknown COMPREHENSIVE METABOLIC 52396 POTASSIUM 4.5 mmol/L 02/28 Unknown COMPREHENSIVE METABOLIC 49631 Total Protein 6.3 g/dL Unknown COMPREHENSIVE METABOLIC 29098 Glucose 97 mg/dL 2015 Unknown COMPREHENSIVE METABOLIC 56323 Bicarbonate 21 mmol/L 02/2016 Unknown COMPREHENSIVE METABOLIC 14565 AGAP 7 mmol/L 2015 Unknown COMPLETE BLOOD COUNT 4183035 WBC 7.0 10e9/L 02/29/20 16 Unknown COMPLETE BLOOD COUNT 1875123 RBC 4.94 10e12/L 2015 Unknown COMPLETE BLOOD COUNT 8548871 HEMOGLOBIN 14.5 g/dL 02/29/20 16 Unknown COMPLETE BLOOD COUNT 6907337 HEMATOCRIT 43.1 % 02/29/20 16 Unknown COMPLETE BLOOD COUNT 6517640 MCV 87.2 fL 6 Unknown COMPLETE BLOOD COUNT 3257756 MCH 29.4 pg 6 Unknown COMPLETE BLOOD COUNT 0285274 MCHC 33.6 g/dL 6 Unknown COMPLETE BLOOD COUNT 0989185 PLATELET COUNT 339 10e9/L 02/2016 Unknown COMPLETE BLOOD COUNT 0168466 Mean Plt Volume 10.6 fL 02/2016 Unknown COMPLETE BLOOD COUNT 5929691 Neut Auto 52.5 % 6 Unknown COMPLETE BLOOD COUNT 2873296 Lymph Auto 32.7 % 02/29/20 16 Unknown COMPLETE BLOOD COUNT 2954862 [place] Auto 12.9 % 6 Unknown COMPLETE BLOOD COUNT 1115944 RDW 14.6 % 6 Unknown COMPLETE BLOOD COUNT 2950290 Eos Auto 1.6 % 6 Unknown COMPLETE BLOOD COUNT 5223619 Baso Auto 0.3 % 6 Unknown COMPLETE BLOOD COUNT 0191851 Neutrophil Abs 3.68 10e9/L Unknown COMPLETE BLOOD COUNT 5044668 Lymphoctye Abs 2.29 10e9/L Unknown COMPLETE BLOOD COUNT 2708678 Monocyte Abs 0.90 10e9/L 02/2016 Unknown COMPLETE BLOOD COUNT 3568463 Eosinophil Abs 0.11 10e9/L Unknown COMPLETE BLOOD COUNT 4984302 RDW-SD 46.3 fL 6 Unknown COMPLETE BLOOD COUNT 6463580 Basophil Abs 0.02 10e9/L 02/2016 Unknown LIPID GROUP 77084 Cholesterol 161 mg/dL 02/29/2016 Unkno wn LIPID GROUP 11020 Triglyceride 57 mg/dL 02/29/2016 Unkn own LIPID GROUP 31155 HDL CHOLESTEROL 50 mg/dL 02/29/2016 U nknown LIPID GROUP 78599 Chol/HDL Ratio 3.22 ratio 02/29/2016 U nknown LIPID GROUP 94549 NON-HDL Chol 111 mg/dL 02/29/2016 Unkn own LIPID GROUP 73299 LDL Cholesterol 100 mg/dL 02/29/2016 U nknown Procedures Procedure Codes Date DEXAMETHASONE SODIUM PHOS CPT-4: J1100 12/02/2019 THER/PROPH/DIAG INJ SC/IM CPT-4: 42672 12/02/2019 TRIAMCINOLONE ACET INJ NOS CPT-4: J3301 12/02/2019 THER/PROPH/DIAG INJ SC/IM CPT-4: 76748 03/16/2019 TRIAMCINOLONE ACET INJ NOS CPT-4: J3301 03/16/2019 CEFTRIAXONE SODIUM INJECTION CPT-4: J0696 03/16/2019 THER/PROPH/DIAG INJ SC/IM CPT-4: 94415 03/16/2019 DEXAMETHASONE SODIUM PHOS CPT-4: J1100 03/16/2019 THER/PROPH/DIAG INJ SC/IM CPT-4: 14850 01/13/2019 TRIAMCINOLONE ACET INJ NOS CPT-4: J3301 01/13/2019 PPPS, subseq visit CPT-4: G0439 07/21/2018 PRESCRIP TRANSMIT VIA ERX SY CPT-4: G8553 09/23/2017 ROUTINE VENIPUNCTURE CPT-4: 80185 07/03/2017 ASSAY THYROID STIM HORMONE CPT-4: 47800 07/03/2017 COMPREHEN METABOLIC PANEL CPT-4: 21888 07/03/2017 COMPLETE CBC W/AUTO DIFF WBC CPT-4: 68940 07/03/2017 RBC SED RATE AUTOMATED CPT-4: 22485 07/03/2017 PRESCRIP TRANSMIT VIA ERX SY CPT-4: G8553 07/03/2017 THER/PROPH/DIAG INJ SC/IM CPT-4: 24779 06/16/2017 TRIAMCINOLONE ACET INJ NOS CPT-4: J3301 06/16/2017 PRESCRIP TRANSMIT VIA ERX SY CPT-4: G8553 02/19/2017 ROUTINE VENIPUNCTURE CPT-4: 57572 02/29/2016 COMPREHEN METABOLIC PANEL CPT-4: 53665 02/29/2016 COMPLETE CBC W/AUTO DIFF WBC CPT-4: 43398 02/29/2016 LIPID PANEL CPT-4: 54998 02/29/2016 ASSAY OF PSA TOTAL CPT-4: 22249 02/29/2016 PRESCRIP TRANSMIT VIA ERX SY CPT-4: G8553 02/29/2016 PRESCRIP TRANSMIT VIA ERX SY CPT-4: G8553 12/13/2014 Vital Signs Date Vital 12/02/2019 Blood Pressure 1: 126/62 Code: 8480-6 BMI: 31.3 Code: 98594-8 Heart Rate 1: 76 bpm Height: 5'9" Respiratory Rate: 22 bpm SpO2: 92% Tempera ture: 36.8 (C) / 98.2 (F) Weight: 212 lbs 03/16/2019 Blood Pressure 1: 122/74 Code: 8480-6 Heart Rate 1: 82 bpm Respiratory Rate: 18 bpm SpO2: 95% Temperature: 36.5 (C) / 97.7 (F) We ight: 213 lbs 01/13/2019 Blood Pressure 1: 114/62 Code: 8480-6 BMI: 31.9 Code: 35356-5 Heart Rate 1: 68 bpm Height: 5'9" Respiratory Rate: 20 bpm SpO2: 94% Tempera ture: 36.6 (C) / 97.9 (F) Weight: 216 lbs 07/21/2018 Blood Pressure 1: 136/78 Code: 8480-6 BMI: 32.0 Code: 17677-7 Heart Rate 1: 72 bpm Height: 5'9" Respiratory Rate: 20 bpm SpO2: 95% Tempera ture: 36.5 (C) / 97.7 (F) Weight: 217 lbs 09/23/2017 Blood Pressure 1: 118/68 Code: 8480-6 BMI: 32.6 Code: 31288-3 Heart Rate 1: 76 bpm Height: 5'9" Respiratory Rate: 20 bpm SpO2: 94% Tempera ture: 36.2 (C) / 97.1 (F) Weight: 221 lbs 07/03/2017 Blood Pressure 1: 126/64 Code: 8480-6 Heart Rate 1: 78 bpm Height: Respiratory Rate: 18 bpm SpO2: 97% Temperature: 36.4 (C) / 97.6 (F) We ight: 221 lbs 06/16/2017 Blood Pressure 1: 128/76 Code: 8480-6 BMI: 33.1 Code: 68207-6 Heart Rate 1: 78 bpm Height: 5'9" Respiratory Rate: 20 bpm SpO2: 96% Tempera ture: 36.4 (C) / 97.6 (F) Weight: 224 lbs 02/19/2017 Blood Pressure 1: 126/78 Code: 8480-6 Heart Rate 1: 74 bpm Respiratory Rate: 20 bpm SpO2: 96% Temperature: 36.3 (C) / 97.3 (F) We ight: 224 lbs 02/29/2016 Blood Pressure 1: 124/78 Code: 8480-6 BMI: 33.7 Code: 57669-1 Heart Rate 1: 72 bpm Height: 5'9" Respiratory Rate: 20 bpm SpO2: 96% Tempera ture: 36.2 (C) / 97.2 (F) Weight: 228 lbs 12/13/2014 Blood Pressure 1: 132/78 Code: 8480-6 BMI: 33.1 Code: 07704-5 Heart Rate 1: 72 bpm Height: 5'9" [...] Patient Encounters Encounter Performer Location Codes Date ([id number]) OFFICE/OUTPATIENT VISIT EST Diagnosis: COUGH[ICD10: R05] Diagnosis: Wheezing[ICD10: R06.2] Bk Eng AASHISHJAYCE [employer] CPT-4: 18432 12/02/2019 ([id number]) OFFICE/OUTPATIENT VISIT EST Diagnosis: Cough[ICD10: R05] Diagnosis: Acute bronchitis, unspecified[ICD10: J20.9] [facility] CPT-4: 00716 03/16/2019 ([id number]) OFFICE/OUTPATIENT VISIT EST Diagnosis: Acute recurrent sinusitis, unspecified[ICD10: J01.91] Diagnosis: Allergic rhinitis due to pollen[ICD10: J30.1] Diagnosis: COUGH[ICD10: R05] Bk Eng [facility] CPT-4: 63348 01/13/2019 OFFICE/OUTPATIENT VISIT EST Diagnosis: Acute bronchitis, unspecified[ICD10: J20.9] Diagnosis: Gastro-esophageal reflux disease without esophagitis[ICD10: K21.9] Mayra Saenz BK Egn [facility] CPT-4: 56742 09/23/2017 ([id number]) OFFICE/OUTPATIENT VISIT EST Diagnosis: COUGH[ICD10: R05] Diagnosis: Allergic rhinitis due to pollen[ICD10: J30.1] Diagnosis: Personal history of malignant neoplasm of prostate[ICD10: Z85.46] Bk Eng [facility] CPT-4: 47716 07/03/2017 ([id number]) OFFICE/OUTPATIENT VISIT EST Diagnosis: COUGH[ICD10: R05] Diagnosis: Wheezing[ICD10: R06.2] Diagnosis: Allergic rhinitis due to pollen[ICD10: J30.1] Diagnosis: Corns and callosities[ICD10: L84] Bk LAUREANO [facility] CPT-4: 25225 06/16/2017 ([id number]) OFFICE/OUTPATIENT VISIT EST Diagnosis: Other seasonal allergic rhinitis[ICD10: J30.2] Faye LAUREANO [facility] CPT-4: 17724 02/19/2017 OFFICE/OUTPATIENT VISIT EST Diagnosis: Gastro-esophageal reflux disease without esophagitis[ICD10: K21.9] Diagnosis: Unspecified osteoarthritis, unspecified site[ICD10: M19.90] Diagnosis: Personal history of malignant neoplasm of prostate[ICD10: Z85.46] Diagnosis: Encounter for screening for cardiovascular disorders[ICD10: Z13.6] Faye LAUREANO [facility] CPT-4: 79093 02/29/2016 ([id number]) OFFICE/OUTPATIENT VISIT NEW Diagnosis: CHEST PAIN NOS[ICD9: 786.50] Diagnosis: GERD[ICD9: 530.81] Diagnosis: History of prostate cancer[ICD9: V10.46] Diagnosis: Knee pain[ICD9: 719.46] Bk RODRIGUEZ [facility] CPT-4: 66998 12/13/2014 Plan of Care Planned Activity Notes Codes Status Date Visit Diagnosis Plan: COUGH Discussion: Had CT scan do ne in May 2019 ICD-9 : 786.2 ICD-10 : R05 12/02/2019 Visit Diagnosis Plan: Wheezing Discussion: Kenalog/Dex amethasone Prednisone Doxycycline Notify if persists/worsens ICD-9 : 786.07 ICD-10 : R06.2 12/02/2019 Patient Education: doxycycline hyclate- [employer] Cou adrienne [id number] [email or web address] Completed 12/02/2019 Patient Education: prednisone- [employer] Coupon [id number] [email or web address]/[email or web address] Completed 12/02/2019 Visit Diagnosis Plan: Acute bronchitis, unspecified Di scussion: Rocephin 1 gram administered in clinic along with Dex and kenalog (4&40). Patient tolerated well. He is to start prednisone and doxycycline tomorrow. ICD-9 : 466.0 ICD-10 : J20.9 03/16/2019 Visit Diagnosis Plan: Cough Discussion: moist air advi sed ICD-9 : 786.2 ICD-10 : R05 03/16/2019 [facility] [facility] [facility] 03/16/2019 Patient Education: prednisone- [employer] Coupon [id number] Completed 03/16/2019 Patient Education: doxycycline hyclate- [employer] Coupon 065520 02 Completed 03/16/2019 Visit Plan: Saline nasal [...] : J30.1 01/13/2019 Appointment: Bk Laureano WPtel[facility] [facility] 01/13/2019 Patient Education: cefdinir- [employer] Coupon [id number] Completed 01/13/2019 Patient Education: prednisone- [employer] Coupon [id number] Completed 01/13/2019 Visit Diagnosis Plan: Personal history [...] Z00.00 07/21/2018 Appointment: Bk Laureano WPtel[facility] [phone] [facility] [facility] 07/21/2018 Patient Education: [...] : J20.9 09/23/2017 Appointment: Mayra Saenz [address] [place], [place] [address] 09/23/2017 Patient Education: Patient Medication Summary Completed 09/23/2017 Visit Diagnosis Plan: Allergic rhinitis due to pollen Discussion: Add pelonir ICD-9 : 477.9 ICD-10 : J30.1 07/03/2017 Visit Diagnosis Plan: COUGH Discussion: Check CT scan of chest Continue Breo Check CBC, CMP, TSH, ESR now ICD-9 : 786.2 ICD-10 : R05 07/03/2017 Appointment: Bk Laureano WPtel[facility] [phone] [facility] FO[facility] UP 07/03/2017 Patient Education: Patient [...] : J30.1 06/16/2017 Appointment: Bk Laureano WPtel: [address] [place], [place] [phone] WORK IN 06/16/2017 Patient Education: Patient Medication Summary Completed 06/16/2017 Care Plan: CHEST X-RAY 2VW FRONTAL&LATL LOINC : 74749-0 Pending 06/16/2017 Appointment: Helene Garcia WPtel: [address] [place], [place] [phone] CANCELED 06/09/2017 Visit Diagnosis Plan: Other seasonal allergic rhinitis Discussion: Start claritin as above Can add nasal rinses, flonase, etc if not helping Monitor for signs of sinus infections, ear infections Refills of daily meds given as well per his request ICD-9 : 477.9 ICD-10 : J30.2 02/19/2017 Appointment: Faye Spivey [address] [place], [place] [phone] 02/17 confirmed ~sl ACUTE ILLNESS 02/19/2017 Patient Education: Patient Medication Summary Completed 02/19/2017 Referral: Edmundo Giron WPtel: [address] [place], [place] [phone] Referral Completed 03/11/2016 Visit Plan: Refills given Labs to be upd ated - CBC, CMP, lipids, PSA Needs consult with Urology for routine monitoring Consent to be signed for medical records to see when his last colo was - will update if needed 02/29/2016 Appointment: Faye Spivey [address] [place], [place] [phone] FOLLOW UP 02/29/2016 Patient Education: Patient Medication Summary Completed 02/29/2016 Care Plan: Referral Order SNOMED-CT : 30 [id number] Pending 02/29/2016 Appointment: Faye Spivey [address] [place], [place] [phone] Taking patient to ER ACUTE ILLNESS 12/13/2015 Visit Plan: Check fasting lab and EKG Ad d daily omeprazole If lab and EKG normal and pain persists despite omeprazole then will proceed with stress test Following with ortho on knee pain 12/13/2014 Appointment: Bk Laureano WPtel: [phone] [facility] NEW PATIENT 12/13/2014 Patient Education: Patient Medication Summary Completed 12/13/2014 Patient Education: [facility] - Saving Auto[employer]j - 18+ - Dynamic Portal ID Completed 12/13/2014 Referral: Edmundo Giron WPtel: [phone] Referral Appointment Requested Instructions Comment . [...]
--- OUTSIDE RECORDS SUMMARY | 2020-04-06 07:10 | XMS REPORT | Continuity of Care Document ---
Author Organization Unknown Address Unknown Phone Unavailable Allergies Active Description Code Type Severity Reaction Onset Reported/Identified Relationship to Patient Clinical Status Yes No Known Drug Allergies [id number] Drug Allergy Unknown N/A 11/03/2017 Medications There is no data. Problems Date Dx Coded Attending Type Code Diagnosis Diagnosed By 10/22/2010 Ot 886.0 10/22/2010 Ot E000.8 10/22/2010 Ot E849.0 10/22/2010 Ot E918 10/22/2010 Ot V06.1 12/13/2015 MELINDA OLGUIN MD Ot I44.0 ATRIOVENTRICULAR BLOCK, FIRST DEGREE 12/13/2015 MELINDA OLGUIN MD Ot R42 DIZZINESS AND GIDDINESS 06/17/2017 ORENDER DO, BK S Ot R05 COUGH 06/17/2017 ORENDER DO, BK S Ot R91.8 OTHER NONSPECIFIC ABNORMAL FINDING OF BRET 07/08/2017 ORENDER DO, BK S Ot R05 COUGH 07/08/2017 ORENDER DO, BK S Ot R91.8 OTHER NONSPECIFIC ABNORMAL FINDING OF BRET 07/17/2017 ORENDER DO, BK S Ot R05 COUGH 07/17/2017 ORENDER DO, BK S Ot R91.8 OTHER NONSPECIFIC ABNORMAL FINDING OF BRET 08/07/2017 ORENDER DO, BK S Ot R91.8 OTHER NONSPECIFIC ABNORMAL FINDING OF BRET 08/13/2017 ORENDER DO, BK S Ot R91.8 OTHER NONSPECIFIC ABNORMAL FINDING OF BRET 11/04/2017 LONG WRAY, ERIN Saldana Ot 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 11/04/2017 LONG WRAY, ERIN Saldana Ot R05 COUGH 11/04/2017 ERIN ALVES MD Ot R06.00 DYSPNEA, UNSPECIFIED 11/04/2017 ERIN ALVES MD Ot R06 .2 WHEEZING 11/04/2017 ERIN ALVES MD Ot Z01.810 ENCOUNTER FOR PREPROCEDURAL CARDIOVASCUL 11/04/2017 ERIN ALVES MD Ot Z01.812 ENCOUNTER FOR PREPROCEDURAL LABORATORY E 11/04/2017 ERIN ALVES MD Ot Z11 .2 ENCOUNTER FOR SCREENING FOR OTHER BACTER 11/06/2017 ERIN ALVES MD Ot E66 .9 OBESITY, UNSPECIFIED 11/06/2017 ERIN ALVES MD Ot 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 11/06/2017 ERIN ALVES MD Ot K21 .9 GASTRO-ESOPHAGEAL REFLUX DISEASE WITHOUT 11/06/2017 ERIN ALVES MD Ot Z68.33 BODY MASS INDEX (BMI) 33.0-33.9, ADULT 11/06/2017 ERIN ALVES MD Ot G47.33 OBSTRUCTIVE SLEEP APNEA (ADULT) (PEDIATR 11/06/2017 ERIN ALVES MD Ot R06.83 SNORING 11/10/2017 ERIN ALVES MD Ot E66 .9 OBESITY, UNSPECIFIED 11/10/2017 ERIN ALVES MD Ot 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 11/10/2017 ERIN ALVES MD Ot K21 .9 GASTRO-ESOPHAGEAL REFLUX DISEASE WITHOUT 11/10/2017 ERIN ALVES MD Ot Z68.33 BODY MASS INDEX (BMI) 33.0-33.9, ADULT 11/10/2017 ERIN ALVES MD Ot G47.33 OBSTRUCTIVE SLEEP APNEA (ADULT) (PEDIATR 11/10/2017 ERIN ALVES MD Ot R06.83 SNORING 12/19/2017 ERIN ALVES MD Ot 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 12/19/2017 ERIN ALVES MD Ot R05 COUGH 12/19/2017 ERIN ALVES MD Ot R06.00 DYSPNEA, UNSPECIFIED 12/19/2017 ERIN ALVES MD Ot R06 .2 WHEEZING 12/19/2017 ERIN ALVES MD Ot Z01.810 ENCOUNTER FOR PREPROCEDURAL CARDIOVASCUL 12/19/2017 ERIN ALVES MD Ot Z01.812 ENCOUNTER FOR PREPROCEDURAL LABORATORY E 12/19/2017 ERIN ALVES MD Ot Z11 .2 ENCOUNTER FOR SCREENING FOR OTHER BACTER 02/01/2018 ERIN ALVES MD Ot 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 02/01/2018 ERIN ALVES MD Ot R05 COUGH 02/01/2018 ERIN ALVES MD Ot R06.00 DYSPNEA, UNSPECIFIED 02/01/2018 ERIN ALVES MD Ot R06 .2 WHEEZING 02/01/2018 ERIN ALVES MD Ot Z01.810 ENCOUNTER FOR PREPROCEDURAL CARDIOVASCUL 02/01/2018 ERIN ALVES MD Ot Z01.812 ENCOUNTER FOR PREPROCEDURAL LABORATORY E 02/01/2018 ERIN ALVES MD Ot Z11 .2 ENCOUNTER FOR SCREENING FOR OTHER BACTER 02/03/2018 ERIN ALVES MD Ot 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 02/03/2018 ERIN ALVES MD Ot R05 COUGH 02/03/2018 ERIN ALVES MD Ot R06.00 DYSPNEA, UNSPECIFIED 02/03/2018 ERIN ALVES MD Ot R06 .2 WHEEZING 02/03/2018 ERIN ALVES MD Ot Z01.810 ENCOUNTER FOR PREPROCEDURAL CARDIOVASCUL 02/03/2018 ERIN ALVES MD Ot Z01.812 ENCOUNTER FOR PREPROCEDURAL LABORATORY E 02/03/2018 ERIN ALVES MD Ot Z11 .2 ENCOUNTER FOR SCREENING FOR OTHER BACTER 03/04/2019 ORENDER DO, BK S Ot R05 COUGH 03/04/2019 ORENDER DO, BK S Ot R91.8 OTHER NONSPECIFIC ABNORMAL FINDING OF BRET 03/04/2019 ORENDER DO, BK S Ot R91.8 OTHER NONSPECIFIC ABNORMAL FINDING OF BRET 03/04/2019 ERIN ALVES MD Ot 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 03/04/2019 ERIN ALVES MD Ot R05 COUGH 03/04/2019 ERIN ALVES MD Ot R06.00 DYSPNEA, UNSPECIFIED 03/04/2019 ERIN ALVES MD Ot R06 .2 WHEEZING 03/04/2019 ERIN ALVES MD Ot Z01.810 ENCOUNTER FOR PREPROCEDURAL CARDIOVASCUL 03/04/2019 ERIN ALVES MD Ot Z01.812 ENCOUNTER FOR PREPROCEDURAL LABORATORY E 03/04/2019 ERIN ALVES MD Ot Z11 .2 ENCOUNTER FOR SCREENING FOR OTHER BACTER 03/05/2019 MELINDA OLGUIN MD Ot M17.11 UNILATERAL PRIMARY OSTEOARTHRITIS, RIGHT 03/05/2019 MELINDA OLGUIN MD Ot S89.91XA UNSPECIFIED INJURY OF RIGHT LOWER LEG, I 03/26/2019 MELINDA OLGUIN MD Ot M17.11 UNILATERAL PRIMARY OSTEOARTHRITIS, RIGHT 03/26/2019 MELINDA OLGUIN MD Ot S89.91XA UNSPECIFIED INJURY OF RIGHT LOWER LEG, I 03/28/2019 MELINDA OLGUIN MD Ot R05 COUGH 03/28/2019 MELINDA OLGUIN MD Ot R07.89 OTHER CHEST PAIN 04/01/2019 MELINDA OLGUIN MD Ot M17.11 UNILATERAL PRIMARY OSTEOARTHRITIS, RIGHT 04/01/2019 MELINDA OLGUIN MD Ot S89.91XA UNSPECIFIED INJURY OF RIGHT LOWER LEG, I 04/16/2019 MELINDA OLGUIN MD Ot R05 COUGH 04/16/2019 MELINDA OLGUIN MD Ot R07.89 OTHER CHEST PAIN 2019 MELINDA OLGUIN MD Ot J98.4 OTHER DISORDERS OF LUNG 2019 MELINDA OLGUIN MD Ot R91.8 OTHER NONSPECIFIC ABNORMAL FINDING OF BRET 04/19/2019 MELINDA OLGUIN MD Ot J18.1 LOBAR PNEUMONIA, UNSPECIFIED ORGANISM 04/20/2019 MELINDA OLGUIN MD Ot J98.4 OTHER DISORDERS OF LUNG 04/20/2019 MELINDA OLGUIN MD Ot R91.8 OTHER NONSPECIFIC ABNORMAL FINDING OF BRET 04/23/2019 MELINDA OLGUIN MD Ot R05 COUGH 04/23/2019 MELINDA OLGUIN MD Ot R07.89 OTHER CHEST PAIN 04/27/2019 MELINDA OLGUIN MD Ot J98.4 OTHER DISORDERS OF LUNG 04/27/2019 MELINDA OLGUIN MD Ot R91.8 OTHER NONSPECIFIC ABNORMAL FINDING OF BRET 05/11/2019 MELINDA OLGUIN MD Ot J18.1 LOBAR PNEUMONIA, UNSPECIFIED ORGANISM 05/13/2019 MELINDA OLGUIN MD Ot J18.1 LOBAR PNEUMONIA, UNSPECIFIED ORGANISM 06/07/2019 MELINDA OLGUIN MD Ot J18.1 LOBAR PNEUMONIA, UNSPECIFIED ORGANISM 07/01/2019 MELINDA OLGUIN MD Ot J18.1 LOBAR PNEUMONIA, UNSPECIFIED ORGANISM 12/24/2019 W R05 COUGH Sridevi Bk S. 12/24/2019 W R06.2 Wheezing Orender, Bk S. 02/14/2020 W J20.9 Acut e bronchitis, unspecified Orender, Bk S. 02/14/2020 W J30.1 Lino rgic rhinitis due to pollen Orender, Bk S. 02/14/2020 W J20.9 Acut e bronchitis, unspecified Orender, Bk S. 02/14/2020 W J30.1 Lino rgic rhinitis due to pollen Orender, Bk S. Procedures There is no data. Results Test Result Range Methicillin resistant Staphylococcus aur eus (MRSA) screening culture - 11/03/17 15:50 Methicillin resistant Staphylococcus aureus (MRSA) scr eening culture NEG NRG Complete blood count (CBC) with automate d white blood cell (WBC) differential - 11/03/17 16:00 Blood leukocytes automated count (number/volume) 9.0 10*3/uL 4.3-11.0 Blood erythrocytes automated count (number/volume) 5.17 10*6/uL 4.35-5.85 Venous blood hemoglobin measurement (mass/volume) 15.3 g/dL 13.3-17.7 Blood hematocrit (volume fraction) 43 % 40-54 Automated erythrocyte mean corpuscular volume 84 [ foz_us] 80-99 Automated erythrocyte mean corpuscular h emoglobin (mass per erythrocyte) 30 pg 25-34 Automated erythrocyte mean corpuscular h emoglobin concentration measurement (mass/volume) 35 g/dL 32-36 Automated erythrocyte distribution width ratio 14. 1 % 10.0- 14.5 Automated blood platelet count (count/volume) 418 10*3/uL 130-400 Automated blood platelet mean volume measurement 9.7 [foz_us] 7.4-10.4 Automated blood neutrophils/100 leukocytes 47 % 42-75 Automated blood lymphocytes/100 leukocytes 30 % 12-44 Blood monocytes/100 leukocytes 13 % 0-12 Automated blood eosinophils/100 leukocytes 10 % 0-10 Automated blood basophils/100 leukocytes 1 % 0-10 Blood neutrophils automated count (number/volume) 4.2 10*3 1.8-7.8 Blood lymphocytes automated count (number/volume) 2.7 10*3 1.0-4.0 Blood monocytes automated count (number/volume) 1. 1 10*3 0.0-1.0 Automated eosinophil count 0.9 10*3/uL 0 .0-0.3 Automated blood basophil count (count/volume) 0.1 10*3/uL 0.0-0.1 Whole blood basic metabolic panel - 06/13 16:00 Serum or plasma sodium measurement (moles/volume) 140 mmol/L 135-145 Serum or plasma potassium measurement (moles/volume) 4.2 mmol/L 3.6-5.0 Serum or plasma chloride measurement (moles/volume) 107 mmol/L 98-107 Carbon dioxide 22 mmol/L 21-32 Serum or plasma anion gap determination (moles/volume) 11 mmol/L 5-14 Serum or plasma urea nitrogen measurement (mass/volume ) 14 mg/dL 7-18 Serum or plasma creatinine measurement (mass/volume) 0.99 mg/dL 0.60-1.30 Serum or plasma urea nitrogen/creatinine mass ratio 14 NRG Serum or plasma creatinine measurement w ith calculation of estimated glomerular filtration rate > NRG Serum or plasma glucose measurement (mass/volume) 90 mg/dL 70-105 Serum or plasma calcium measurement (mass/volume) 9.1 mg/dL 8.5-10.1 Sputum Gram stain - 11/03/17 17:36 Sputum Gram stain Moderate to numerous WBC's , mixed bacterial charmaine NRG Bacterial sputum culture - 11/03/17 17:3 6 Bacterial sputum culture NORMAL NRG Complete blood count (CBC) with automate d white blood cell (WBC) differential - 03/27/19 16:35 Blood leukocytes automated count (number/volume) 16.2 10*3/uL 4.3-11.0 Blood erythrocytes automated count (number/volume) 4.72 10*6/uL 4.35-5.85 Venous blood hemoglobin measurement (mass/volume) 13.7 g/dL 13.3-17.7 Blood hematocrit (volume fraction) 40 % 40-54 Automated erythrocyte mean corpuscular volume 86 [ foz_us] 80-99 Automated erythrocyte mean corpuscular h emoglobin (mass per erythrocyte) 29 pg 25-34 Automated erythrocyte mean corpuscular h emoglobin concentration measurement (mass/volume) 34 g/dL 32-36 Automated erythrocyte distribution width ratio 15. 7 % 10.0- 14.5 Automated blood platelet count (count/volume) 534 10*3/uL 130-400 Automated blood platelet mean volume measurement 9.6 [foz_us] 7.4-10.4 Automated blood neutrophils/100 leukocytes 73 % 42-75 Automated blood lymphocytes/100 leukocytes 13 % 12-44 Blood monocytes/100 leukocytes 11 % 0-12 Automated blood eosinophils/100 leukocytes 3 % 0-10 Automated blood basophils/100 leukocytes 0 % 0-10 Blood neutrophils automated count (number/volume) 11.8 10*3 1.8-7.8 Blood lymphocytes automated count (number/volume) 2.1 10*3 1.0-4.0 Blood monocytes automated count (number/volume) 1. 9 10*3 0.0-1.0 Automated eosinophil count 0.4 10*3/uL 0 .0-0.3 Automated blood basophil count (count/volume) 0.0 10*3/uL 0.0-0.1 Comprehensive metabolic panel - 03/27/19 16:35 Serum or plasma sodium measurement (moles/volume) 139 mmol/L 135-145 Serum or plasma potassium measurement (moles/volume) 4.0 mmol/L 3.6-5.0 Serum or plasma chloride measurement (moles/volume) 108 mmol/L 98-107 Carbon dioxide 20 mmol/L 21-32 Serum or plasma anion gap determination (moles/volume) 11 mmol/L 5-14 Serum or plasma urea nitrogen measurement (mass/volume ) 18 mg/dL 7-18 Serum or plasma creatinine measurement (mass/volume) 0.91 mg/dL 0.60-1.30 Serum or plasma urea nitrogen/creatinine mass ratio 20 NRG Serum or plasma creatinine measurement w ith calculation of estimated glomerular filtration rate > NRG Serum or plasma glucose measurement (mass/volume) 133 mg/dL 70-105 Serum or plasma calcium measurement (mass/volume) 8.8 mg/dL 8.5-10.1 Serum or plasma total bilirubin measurement (mass/volu me) 0.3 mg/dL 0.1-1.0 Serum or plasma alkaline phosphatase yosef surement (enzymatic activity/volume) 70 U/L 40-136 Serum or plasma aspartate aminotransfera se measurement (enzymatic activity/volume) 22 U/L 5-34 Serum or plasma alanine aminotransferase measurement (enzymatic activity/volume) 31 U/L 0-55 Serum or plasma protein measurement (mass/volume) 6.0 g/dL 6.4-8.2 Serum or plasma albumin measurement (mass/volume) 3.5 g/dL 3.2-4.5 CALCIUM CORRECTED 9.2 mg/dL 8.5-10.1 Serum or plasma troponin i.cardiac measu rement (mass/volume) - 03/27/19 16:35 Serum or plasma troponin i.cardiac measurement (mass/v olume) < ng/mL <0.028 Blood manual differential performed dete ction - 03/27/19 16:35 Blood monocytes/100 leukocytes 8 % NRG Manual blood segmented neutrophils/100 leukocytes 74 % NRG Blood band neutrophils/100 leukocytes 0 % NRG Manual blood lymphocytes/100 leukocytes 16 % NRG Manual eosinophils/100 leukocytes in nose 2 % NRG Manual blood basophils/100 leukocytes 0 % NRG Blood erythrocyte morphology finding identification NORMAL NRG Serum or plasma C reactive protein measu rement (mass/volume) - 03/27/19 16:35 Serum or plasma C reactive protein measurement (mass/v olume) 0.50 mg/dL 0.00-0.50 Encounters ACCT No. Visit Date/Time Discharge Status Pt. Type Provider Facility Loc./Unit Complaint [id number] 03/09/2019 09:10:00 03/09/2019 23:59: 59 CLS Outpatient SAMANTHA SWANSON [facility] [id number] 06/02/2019 10:08:00 23:59:59 CLS Outpatient MELINDA OLGUIN MD [facility] RAD RT LOWER LOBE I NFILTRATE [id number] 04/18/2019 10:50:00 23:59:59 CLS Outpatient MELINDA OLGUIN MD [facility] RAD FS [id number] 03/29/2019 11:56:00 23:59:59 CLS Outpatient MELINDA OLGUIN MD [facility] RAD FS ABN CHEST XR,RL L MASS [id number] 03/27/2019 16:31:00 23:59:59 CLS Outpatient MELINDA OLGUIN MD [facility] RAD COUGH,CHEST DIS COMFORT [id number] 03/04/2019 12:03:00 05/09/2 019 23:59:59 CLS Outpatient SHARIF WRAY, MELINDA Rodriguez [facility] RAD FS RT KNEE INJURY [id number] 02/02/2018 15:00:00 018 23:59:59 CLS Preadmit LONG WRAY, ERIN Saldana [facility] PREOP RIGHT VOCAL CORD LESION [id number] 11/03/2017 15:30:00 018 00:01:00 DIS Outpatient ERIN ALVES MD [facility] PREOP RIGHT VOCAL CORD LESION [id number] 11/06/2017 13:00:00 018 13:30:00 DIS Outpatient ERIN ALVES MD [facility] SLEEP OBSERVED APNEA, SNORING [id number] 11/06/2017 06:10:00 018 10:25:00 DIS Outpatient ERIN ALVES MD [facility] SDC VOCAL LESION [id number] 10/30/2017 08:25:00 018 23:59:59 CLS Preadmit ERIN ALVES MD [facility] RT DYSPNEA AND WHEEZING [id number] 07/14/2017 10:02:00 017 23:59:59 CLS Outpatient BK LAUREANO DO [facility] RAD RT LUNG SCAR [id number] 06/16/2017 16:49:00 017 23:59:59 CLS Outpatient BK LAUREANO DO [facility] RAD COUGH,WHEEZING [id number] 12/13/2015 13:18:00 016 15:27:00 DIS Emergency SHARIF WRAY, MELINDA Rodriguez [facility] ER DIZZINESS [id number] 10/22/2010 16:48:00 Document Registration 01/201805/12/2019 12:22:14 05/12/2019 23:59 :59 CLS Outpatient Bk Laureano [id number] 12/02/2019 14:32:00 Document Registration
--- OUTSIDE RECORDS SUMMARY | 2020-04-06 07:10 | XMS REPORT | CCD ---
Author Author Deon Laureano D.O. 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 PP Unavailable CCM Unavailable Summary Purpose Interface Exchange Insurance Providers Payer name Policy type / Coverage type Covered democrat ID Effective Begin Date Effective End Date WPS MEDICARE PART B [place] Medicare Part B [id number] Unknown [facility] Medicare Part B [id number] Un known Family history Father Diagnosis Age At Onset Lung Cancer Unknown Mother Diagnosis Age At Onset Cerebrovascular disease Unknown Hypertension Unknown Social History Social History Element Codes Description Effective Dates Marital status Unknown 12/13/2014 Number of children Unknown 3 12/13/2014 Employment Unknown 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 employed 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 12/13/[address]: 416665 Currently drinks alcohol 12/13 Frequency of drinks SNOMED CT: 037255553 Drinks rarely 015 Allergies, Adverse Reactions, Alerts [...] Instructions doxycycline hyclate 100 mg capsule RxNorm: 0743850 1 Cap fadi(s) Oral two times a day 12/02/2019 12/12/2019 Active prednisone 20 mg tablet RxNorm: 796987 1 Tablet(s) Oral two denise es a day 12/02/2019 12/09/2019 Active Ventolin HFA 90 mcg/actuation aerosol inhaler RxNorm: 568207 2 Puff(s) Inhalation four times a day 12/02/2019 01/01/2020 Active meloxicam 15 mg tablet RxNorm: 816356 1 Tablet(s) Oral QD for pain 08/20/2019 02/16/2020 Active pantoprazole 40 mg tablet,delayed release RxNorm: 594280 1 TABL ET(S) PO QD 08/09/2019 05/04/2020 Active meloxicam 15 mg tablet RxNorm: 986436 1 Tablet(s) PO QD for pain 08/19/2019 Inactive doxycycline hyclate 100 mg tablet RxNorm: 7519459 1 Tablet(s) PO BI D 03/16/2019 03/25/2019 Inactive prednisone 20 mg tablet RxNorm: 200778 1 Tablet(s) PO BID 03/16/2019 03/22/2019 Inactive cefdinir 300 mg capsule RxNorm: 372052 1 Capsule(s) PO BID 01/14/2001/26/2019 Inactive prednisone 20 mg tablet RxNorm: 899953 1 Tablet(s) PO BID 01/13/2019 01/19/2019 Inactive meloxicam 15 mg tablet RxNorm: 441018 1 Tablet(s) PO QD for pain 01/16/2019 Inactive pantoprazole 40 mg tablet,delayed release RxNorm: 543101 1 Tabl et(s) PO QD 07/21/2018 07/15/2019 Inactive meloxicam 15 mg tablet RxNorm: 407763 1 Tablet(s) PO QD 06/22/2018 Inactive pantoprazole 40 mg tablet,delayed release RxNorm: 931141 1 Tabl et(s) PO QD 06/18/2018 07/20/2018 Inactive pantoprazole 40 mg tablet,delayed release RxNorm: 099006 1 Tabl et(s) PO QD 04/16/2018 06/17/2018 Inactive pantoprazole 40 mg tablet,delayed release RxNorm: 169672 1 Tabl et(s) PO QD 02/04/2018 06/18/2018 Inactive pantoprazole 40 mg tablet,delayed release RxNorm: 777836 1 Tabl et(s) PO QD 09/23/2017 02/04/2018 Inactive prednisone 20 mg tablet RxNorm: 575918 2 Tablet(s) PO QD 09/23/2017 1 11/25/2016 Inactive Singulair 10 mg tablet RxNorm: 225529 1 Tablet(s) PO QHS for co ugh/allergies 07/03/2017 07/20/2018 Inactive loratadine 10 mg tablet RxNorm: 567438 1 Tablet(s) PO QAM for a llergies 02/19/2017 07/20/2018 Inactive omeprazole 20 mg capsule,delayed release RxNorm: 720563 1 Capsu le(s) PO QD 02/19/2017 07/20/2018 Inactive [AttnRPh: Saving shiv ly/adjudicate RxGRP:SG20 RxBIN:[id number] RxPCN:HT ID#:[id number]] meloxicam 15 mg tablet RxNorm: 440646 1 Tablet(s) PO QD 02/19/2017 Inactive omeprazole 20 mg capsule,delayed release RxNorm: 207946 1 Capsu le(s) PO QD 02/29/2016 02/18/2017 Inactive [AttnRPh: Saving shiv ly/adjudicate RxGRP:SG20 RxBIN:[id number] RxPCN:HT ID#:[id number]] meloxicam 15 mg tablet RxNorm: 069574 1 Tablet(s) PO QD 02/29/2016 Inactive omeprazole 20 mg capsule,delayed release RxNorm: 893153 1 CAPSULE(S) PO QD DUE FOR ROUTINE APPOINTMENT 02/01/2016 02/28/2016 Inactive [AttnRPh : Saving apply/adjudicate RxGRP:SG20 RxBIN:[id number] RxPCN: ID#:[id number]] meloxicam 15 mg tablet RxNorm: 584575 1 Tablet(s) PO QD TABLET( S) PO QD 12/27/2015 01/25/2016 Inactive omeprazole 20 mg capsule,delayed release RxNorm: 684179 1 Capsule(s) PO QD Due for routine appointment 11/28/2015 12/27/2015 Inactive [AttnRPh : Saving apply/adjudicate RxGRP:SG20 RxBIN:[id number] RxPCN:HT ID#:[id number]] meloxicam 15 mg tablet RxNorm: 710402 2 Tablet(s) PO QD 09/26/2015 Inactive omeprazole 20 mg capsule,delayed release RxNorm: 374917 1 Capsu le(s) PO QD 12/13/2014 11/28/2015 Inactive [AttnRPh: Saving shiv ly/adjudicate RxGRP:SG20 RxBIN:[id number] RxPCN:HT ID#:[id number]] Multivitamin & Mineral Formula oral RxNorm: oral No Start Date Active Nasacort AQ 55 mcg nasal spray aerosol RxNorm: 8113211 1 Imperial NASAL QD to each nostril No Start Date Active Breo Ellipta 100 mcg-25 mcg/dose powder for inhalation RxNorm: 1 623148 1 INH QD No Start Date 01/12/2019 Inactive Vitamin C 500 mg tablet RxNorm: 873868 1 Tablet(s) PO QD No Start D ate 12/01/2019 Inactive meloxicam 15 mg tablet RxNorm: 122525 1 Tablet(s) PO QD No Start Da te 02/28/2016 Inactive meloxicam 15 mg tablet RxNorm: 381648 2 Tablet(s) PO QD No Start Da te 09/25/2015 Inactive meloxicam 15 mg tablet RxNorm: 456144 1 Tablet(s) PO QD No Start Da te 07/20/2018 Inactive Medication Administered No Medication Administered data Immunizations No Immunization data Results Observation Observation Code Item Item Code Result Date S vice Location ERYTHROCYTE SEDIMENTATION RATE 07717 Sed Rate 1 mm/hr 07/04/2017 Unknown GFR CALC 4541744 GFR Non Afr Amr >60 mL/min 07/03/2017 Un known GFR CALC [id number] GFR Afr Amr >60 mL/min 07/03/2017 Unknow n COMPLETE BLOOD COUNT 5258484 WBC 9.2 10e9/L 07/03/20 17 Unknown COMPLETE BLOOD COUNT [id number] RBC 4.73 10e12/L 2016 Unknown COMPLETE BLOOD COUNT 9962636 HEMOGLOBIN 14.0 g/dL 07/03/20 17 Unknown COMPLETE BLOOD COUNT [id number] HEMATOCRIT 42.3 % 07/03/20 17 Unknown COMPLETE BLOOD COUNT 5157360 MCV 89.4 fL 7 Unknown COMPLETE BLOOD COUNT 3234381 MCH 29.6 pg 7 Unknown COMPLETE BLOOD COUNT 2267832 MCHC 33.1 g/dL 7 Unknown COMPLETE BLOOD COUNT 6333044 PLATELET COUNT 375 10e9/L 04/2017 Unknown COMPLETE BLOOD COUNT 1755885 Mean Plt Volume 9.7 fL 04/2017 Unknown COMPLETE BLOOD COUNT 2375924 Neut Auto 61.0 % 7 Unknown COMPLETE BLOOD COUNT 2381222 Lymph Auto 25.8 % 07/03/20 17 Unknown COMPLETE BLOOD COUNT 1250651 [place] Auto 10.2 % 7 Unknown COMPLETE BLOOD COUNT 5828581 RDW 15.0 % 7 Unknown COMPLETE BLOOD COUNT 6590987 Eos Auto 2.9 % 7 Unknown COMPLETE BLOOD COUNT 0687034 Baso Auto 0.1 % 7 Unknown COMPLETE BLOOD COUNT 3843082 Neutrophil Abs 5.61 10e9/L Unknown COMPLETE BLOOD COUNT 1464365 Lymphocyte Abs 2.37 10e9/L Unknown COMPLETE BLOOD COUNT 4112202 Monocyte Abs 0.94 10e9/L 04/2017 Unknown COMPLETE BLOOD COUNT 4476731 Eosinophil Abs 0.27 10e9/L Unknown COMPLETE BLOOD COUNT 2326280 RDW-SD 48.6 fL 7 Unknown COMPLETE BLOOD COUNT 1537199 Basophil Abs 0.01 10e9/L 04/2017 Unknown COMPREHENSIVE METABOLIC 62006 AST 17 U/L 2016 Unknown COMPREHENSIVE METABOLIC 85788 ALT 18 U/L 2016 Unknown COMPREHENSIVE METABOLIC 88619 BUN 22 mg/dL 2016 Unknown COMPREHENSIVE METABOLIC 10516 ALBUMIN 3.6 g/dL 2016 Unknown COMPREHENSIVE METABOLIC 37034 CHLORIDE 106 mmol/L 07/03 Unknown COMPREHENSIVE METABOLIC 71255 Bili Total 0.3 mg/dL 07/03 Unknown COMPREHENSIVE METABOLIC 93190 ALK PHOS 51 U/L 2016 Unknown COMPREHENSIVE METABOLIC 75493 SODIUM 137 mmol/L 07/03 Unknown COMPREHENSIVE METABOLIC 09593 CREATININE 0.99 mg/dL 04/2017 Unknown COMPREHENSIVE METABOLIC 29265 CALCIUM 8.7 mg/dL 2016 Unknown COMPREHENSIVE METABOLIC 63974 POTASSIUM 4.6 mmol/L 07/03 Unknown COMPREHENSIVE METABOLIC 09644 Total Protein 6.0 g/dL Unknown COMPREHENSIVE METABOLIC 03877 Glucose 105 mg/dL 2016 Unknown COMPREHENSIVE METABOLIC 91866 Bicarbonate 24 mmol/L 04/2017 Unknown COMPREHENSIVE METABOLIC 58816 AGAP 7 mmol/L 2016 Unknown THYROID STIMULATING HORMONE 43872 TSH 1.054 uIU/mL 07/03/2017 Unknown GFR CALC 2459902 GFR Non Afr Amr >60 mL/min 02/29/2016 Un known GFR CALC 5941420 GFR Afr Amr >60 mL/min 02/29/2016 Unknow n PSA EQUIMOLAR VERONICA 59371 PSA Total 0.14 ng/mL 05/05/201 6 Unknown COMPREHENSIVE METABOLIC 95483 AST 18 U/L 2015 Unknown COMPREHENSIVE METABOLIC 16897 ALT 19 U/L 2015 Unknown COMPREHENSIVE METABOLIC 14521 BUN 19 mg/dL 2015 Unknown COMPREHENSIVE METABOLIC 32821 ALBUMIN 4.0 g/dL 2015 Unknown COMPREHENSIVE METABOLIC 67682 CHLORIDE 107 mmol/L 02/28 Unknown COMPREHENSIVE METABOLIC 29335 Bili Total 0.5 mg/dL 02/28 Unknown COMPREHENSIVE METABOLIC 71606 ALK PHOS 52 U/L 2015 Unknown COMPREHENSIVE METABOLIC 34217 SODIUM 135 mmol/L 02/28 Unknown COMPREHENSIVE METABOLIC 20267 CREATININE 0.93 mg/dL 02/2016 Unknown COMPREHENSIVE METABOLIC 63135 CALCIUM 9.1 mg/dL 2015 Unknown COMPREHENSIVE METABOLIC 78504 POTASSIUM 4.5 mmol/L 02/28 Unknown COMPREHENSIVE METABOLIC 21242 Total Protein 6.3 g/dL Unknown COMPREHENSIVE METABOLIC 72745 Glucose 97 mg/dL 2015 Unknown COMPREHENSIVE METABOLIC 84833 Bicarbonate 21 mmol/L 02/2016 Unknown COMPREHENSIVE METABOLIC 36689 AGAP 7 mmol/L 2015 Unknown COMPLETE BLOOD COUNT 2346394 WBC 7.0 10e9/L 02/29/20 16 Unknown COMPLETE BLOOD COUNT 8875885 RBC 4.94 10e12/L 2015 Unknown COMPLETE BLOOD COUNT 4589087 HEMOGLOBIN 14.5 g/dL 02/29/20 16 Unknown COMPLETE BLOOD COUNT 1398282 HEMATOCRIT 43.1 % 02/29/20 16 Unknown COMPLETE BLOOD COUNT 9604964 MCV 87.2 fL 6 Unknown COMPLETE BLOOD COUNT 8451689 MCH 29.4 pg 6 Unknown COMPLETE BLOOD COUNT 9886236 MCHC 33.6 g/dL 6 Unknown COMPLETE BLOOD COUNT 0434694 PLATELET COUNT 339 10e9/L 02/2016 Unknown COMPLETE BLOOD COUNT 0044251 Mean Plt Volume 10.6 fL 02/2016 Unknown COMPLETE BLOOD COUNT 4569457 Neut Auto 52.5 % 6 Unknown COMPLETE BLOOD COUNT 3616557 Lymph Auto 32.7 % 02/29/20 16 Unknown COMPLETE BLOOD COUNT 2888074 [place] Auto 12.9 % 6 Unknown COMPLETE BLOOD COUNT 8057477 RDW 14.6 % 6 Unknown COMPLETE BLOOD COUNT 8999315 Eos Auto 1.6 % 6 Unknown COMPLETE BLOOD COUNT 9277667 Baso Auto 0.3 % 6 Unknown COMPLETE BLOOD COUNT 0140332 Neutrophil Abs 3.68 10e9/L Unknown COMPLETE BLOOD COUNT 4888450 Lymphoctye Abs 2.29 10e9/L Unknown COMPLETE BLOOD COUNT 5812405 Monocyte Abs 0.90 10e9/L 02/2016 Unknown COMPLETE BLOOD COUNT 4480669 Eosinophil Abs 0.11 10e9/L Unknown COMPLETE BLOOD COUNT 2072190 RDW-SD 46.3 fL 6 Unknown COMPLETE BLOOD COUNT 8154350 Basophil Abs 0.02 10e9/L 02/2016 Unknown LIPID GROUP 65132 Cholesterol 161 mg/dL 02/29/2016 Unkno wn LIPID GROUP 34036 Triglyceride 57 mg/dL 02/29/2016 Unkn own LIPID GROUP 94305 HDL CHOLESTEROL 50 mg/dL 02/29/2016 U nknown LIPID GROUP 79178 Chol/HDL Ratio 3.22 ratio 02/29/2016 U nknown LIPID GROUP 96126 NON-HDL Chol 111 mg/dL 02/29/2016 Unkn own LIPID GROUP 54111 LDL Cholesterol 100 mg/dL 02/29/2016 U nknown Procedures Procedure Codes Date DEXAMETHASONE SODIUM PHOS CPT-4: J1100 12/02/2019 THER/PROPH/DIAG INJ SC/IM CPT-4: 31993 12/02/2019 TRIAMCINOLONE ACET INJ NOS CPT-4: J3301 12/02/2019 THER/PROPH/DIAG INJ SC/IM CPT-4: 77142 03/16/2019 TRIAMCINOLONE ACET INJ NOS CPT-4: J3301 03/16/2019 CEFTRIAXONE SODIUM INJECTION CPT-4: J0696 03/16/2019 THER/PROPH/DIAG INJ SC/IM CPT-4: 50571 03/16/2019 DEXAMETHASONE SODIUM PHOS CPT-4: J1100 03/16/2019 THER/PROPH/DIAG INJ SC/IM CPT-4: 19194 01/13/2019 TRIAMCINOLONE ACET INJ NOS CPT-4: J3301 01/13/2019 PPPS, subseq visit CPT-4: G0439 07/21/2018 PRESCRIP TRANSMIT VIA ERX SY CPT-4: G8553 09/23/2017 ROUTINE VENIPUNCTURE CPT-4: 91024 07/03/2017 ASSAY THYROID STIM HORMONE CPT-4: 07962 07/03/2017 COMPREHEN METABOLIC PANEL CPT-4: 94230 07/03/2017 COMPLETE CBC W/AUTO DIFF WBC CPT-4: 59750 07/03/2017 RBC SED RATE AUTOMATED CPT-4: 27149 07/03/2017 PRESCRIP TRANSMIT VIA ERX SY CPT-4: G8553 07/03/2017 THER/PROPH/DIAG INJ SC/IM CPT-4: 15164 06/16/2017 TRIAMCINOLONE ACET INJ NOS CPT-4: J3301 06/16/2017 PRESCRIP TRANSMIT VIA ERX SY CPT-4: G8553 02/19/2017 ROUTINE VENIPUNCTURE CPT-4: 70110 02/29/2016 COMPREHEN METABOLIC PANEL CPT-4: 33269 02/29/2016 COMPLETE CBC W/AUTO DIFF WBC CPT-4: 07470 02/29/2016 LIPID PANEL CPT-4: 37363 02/29/2016 ASSAY OF PSA TOTAL CPT-4: 09237 02/29/2016 PRESCRIP TRANSMIT VIA ERX SY CPT-4: G8553 02/29/2016 PRESCRIP TRANSMIT VIA ERX SY CPT-4: G8553 12/13/2014 Vital Signs Date Vital 12/02/2019 Blood Pressure 1: 126/62 Code: 8480-6 BMI: 31.3 Code: 08858-7 Heart Rate 1: 76 bpm Height: 5'9" Respiratory Rate: 22 bpm SpO2: 92% Tempera ture: 36.8 (C) / 98.2 (F) Weight: 212 lbs 03/16/2019 Blood Pressure 1: 122/74 Code: 8480-6 Heart Rate 1: 82 bpm Respiratory Rate: 18 bpm SpO2: 95% Temperature: 36.5 (C) / 97.7 (F) We ight: 213 lbs 01/13/2019 Blood Pressure 1: 114/62 Code: 8480-6 BMI: 31.9 Code: 86672-6 Heart Rate 1: 68 bpm Height: 5'9" Respiratory Rate: 20 bpm SpO2: 94% Tempera ture: 36.6 (C) / 97.9 (F) Weight: 216 lbs 07/21/2018 Blood Pressure 1: 136/78 Code: 8480-6 BMI: 32.0 Code: 44871-4 Heart Rate 1: 72 bpm Height: 5'9" Respiratory Rate: 20 bpm SpO2: 95% Tempera ture: 36.5 (C) / 97.7 (F) Weight: 217 lbs 09/23/2017 Blood Pressure 1: 118/68 Code: 8480-6 BMI: 32.6 Code: 07758-5 Heart Rate 1: 76 bpm Height: 5'9" Respiratory Rate: 20 bpm SpO2: 94% Tempera ture: 36.2 (C) / 97.1 (F) Weight: 221 lbs 07/03/2017 Blood Pressure 1: 126/64 Code: 8480-6 Heart Rate 1: 78 bpm Height: Respiratory Rate: 18 bpm SpO2: 97% Temperature: 36.4 (C) / 97.6 (F) We ight: 221 lbs 06/16/2017 Blood Pressure 1: 128/76 Code: 8480-6 BMI: 33.1 Code: 39119-3 Heart Rate 1: 78 bpm Height: 5'9" Respiratory Rate: 20 bpm SpO2: 96% Tempera ture: 36.4 (C) / 97.6 (F) Weight: 224 lbs 02/19/2017 Blood Pressure 1: 126/78 Code: 8480-6 Heart Rate 1: 74 bpm Respiratory Rate: 20 bpm SpO2: 96% Temperature: 36.3 (C) / 97.3 (F) We ight: 224 lbs 02/29/2016 Blood Pressure 1: 124/78 Code: 8480-6 BMI: 33.7 Code: 01313-7 Heart Rate 1: 72 bpm Height: 5'9" Respiratory Rate: 20 bpm SpO2: 96% Tempera ture: 36.2 (C) / 97.2 (F) Weight: 228 lbs 12/13/2014 Blood Pressure 1: 132/78 Code: 8480-6 BMI: 33.1 Code: 05172-2 Heart Rate 1: 72 bpm Height: 5'9" [...] Patient Encounters Encounter Performer Location Codes Date ([id number]) OFFICE/OUTPATIENT VISIT EST Diagnosis: COUGH[ICD10: R05] Diagnosis: Wheezing[ICD10: R06.2] Bk Eng AASHISHJAYCE [place] CPT-4: 54525 12/02/2019 ([id number]) OFFICE/OUTPATIENT VISIT EST Diagnosis: Cough[ICD10: R05] Diagnosis: Acute bronchitis, unspecified[ICD10: J20.9] [facility] CPT-4: 92099 03/16/2019 ([id number]) OFFICE/OUTPATIENT VISIT EST Diagnosis: Acute recurrent sinusitis, unspecified[ICD10: J01.91] Diagnosis: Allergic rhinitis due to pollen[ICD10: J30.1] Diagnosis: COUGH[ICD10: R05] Bk Eng [employer] [facility] CPT-4: 55429 01/13/2019 OFFICE/OUTPATIENT VISIT EST Diagnosis: Acute bronchitis, unspecified[ICD10: J20.9] Diagnosis: Gastro-esophageal reflux disease without esophagitis[ICD10: K21.9] Mayra Saenz BK Eng [employer] [facility] CPT-4: 36919 09/23/2017 ([id number]) OFFICE/OUTPATIENT VISIT EST Diagnosis: COUGH[ICD10: R05] Diagnosis: Allergic rhinitis due to pollen[ICD10: J30.1] Diagnosis: Personal history of malignant neoplasm of prostate[ICD10: Z85.46] Bk Eng [employer] [facility] CPT-4: 33233 07/03/2017 ([id number]) OFFICE/OUTPATIENT VISIT EST Diagnosis: COUGH[ICD10: R05] Diagnosis: Wheezing[ICD10: R06.2] Diagnosis: Allergic rhinitis due to pollen[ICD10: J30.1] Diagnosis: Corns and callosities[ICD10: L84] Bk LAUREANO Dispatch [facility] CPT-4: 75203 06/16/2017 ([id number]) OFFICE/OUTPATIENT VISIT EST Diagnosis: Other seasonal allergic rhinitis[ICD10: J30.2] Faye LAUREANO [facility] CPT-4: 35060 02/19/2017 OFFICE/OUTPATIENT VISIT EST Diagnosis: Gastro-esophageal reflux disease without esophagitis[ICD10: K21.9] Diagnosis: Unspecified osteoarthritis, unspecified site[ICD10: M19.90] Diagnosis: Personal history of malignant neoplasm of prostate[ICD10: Z85.46] Diagnosis: Encounter for screening for cardiovascular disorders[ICD10: Z13.6] Faye LAUREANO Dispatch [facility] CPT-4: 65512 02/29/2016 ([id number]) OFFICE/OUTPATIENT VISIT NEW Diagnosis: CHEST PAIN NOS[ICD9: 786.50] Diagnosis: GERD[ICD9: 530.81] Diagnosis: History of prostate cancer[ICD9: V10.46] Diagnosis: Knee pain[ICD9: 719.46] Bk RODRIGUEZ [facility] CPT-4: 12131 12/13/2014 Plan of Care Planned Activity Notes Codes Status Date Visit Diagnosis Plan: COUGH Discussion: Had CT scan do ne in May 2019 ICD-9 : 786.2 ICD-10 : R05 12/02/2019 Visit Diagnosis Plan: Wheezing Discussion: Kenalog/Dex amethasone Prednisone Doxycycline Notify if persists/worsens ICD-9 : 786.07 ICD-10 : R06.2 12/02/2019 Patient Education: doxycycline hyclate- OptimizeRX Cou adrienne [id number] https://www.[employer]/samplemd/resources/getResource/61/[email or web address] Completed 12/02/2019 Patient Education: prednisone- OptimizeRX Coupon [phone] https://www.[employer]/samplemd/resources/getResource/61/[email or web address] Completed 12/02/2019 Visit Diagnosis Plan: Acute bronchitis, unspecified Di scussion: Rocephin 1 gram administered in clinic along with Dex and kenalog (4&40). Patient tolerated well. He is to start prednisone and doxycycline tomorrow. ICD-9 : 466.0 ICD-10 : J20.9 03/16/2019 Visit Diagnosis Plan: Cough Discussion: moist air advi sed ICD-9 : 786.2 ICD-10 : R05 03/16/2019 [facility] [facility] [facility] 03/16/2019 Patient Education: prednisone- Optimize[employer] Coupon [id number] Completed 03/16/2019 Patient Education: doxycycline hyclate- [employer] Coupon [id number] Completed 03/16/2019 Visit Plan: Saline nasal [...] : J30.1 01/13/2019 Appointment: Bk Laureano WPtel[facility] [facility] 01/13/2019 Patient Education: cefdinir- Opt[employer] Coupon [id number] Completed 01/13/2019 Patient Education: prednisone- Optimize[employer] Coupon [id number] Completed 01/13/2019 Visit Diagnosis Plan: Personal history [...] Z00.00 07/21/2018 Appointment: Bk Laureano WPtel[facility] [phone] [facility] [facility] Visit 07/21/2018 Patient Education: Patient [...] ICD-10 : J20.9 09/23/2017 Appointment: Mayra Saenz [address] [place], [place] [id number] ACUTE ILLNESS 09/23/2017 Patient Education: Patient Medication Summary Completed 09/23/2017 Visit Diagnosis Plan: Allergic rhinitis due to pollen Discussion: Add pelonir ICD-9 : 477.9 ICD-10 : J30.1 07/03/2017 Visit Diagnosis Plan: COUGH Discussion: Check CT scan of chest Continue Breo Check CBC, CMP, TSH, ESR now ICD-9 : 786.2 ICD-10 : R05 07/03/2017 Appointment: Bk Laureano WPtel[facility] [phone] [facility] FOLLOW UP 07/03/2017 Patient Education: Patient Medication [...] J30.1 06/16/2017 Appointment: Bk Laureano WPtel: [address] [place], [place] [phone] WORK IN 06/16/2017 Patient Education: Patient Medication Summary Completed 06/16/2017 Care Plan: CHEST X-RAY 2VW FRONTAL&LATL LOINC : 39227-5 Pending 06/16/2017 Appointment: Helene Garcia WPtel: [address] [place], [place] [phone] CANCELED 06/09/2017 Visit Diagnosis Plan: Other seasonal allergic rhinitis Discussion: Start claritin as above Can add nasal rinses, flonase, etc if not helping Monitor for signs of sinus infections, ear infections Refills of daily meds given as well per his request ICD-9 : 477.9 ICD-10 : J30.2 02/19/2017 Appointment: Faye Spivey [address] [place], [place] [phone] 02/17 confirmed ~sl ACUTE ILLNESS 02/19/2017 Patient Education: Patient Medication Summary Completed 02/19/2017 Referral: Edmundo Giron WPtel: [address] [place], [place] [phone] Referral Completed 03/11/2016 Visit Plan: Refills given Labs to be upd ated - CBC, CMP, lipids, PSA Needs consult with Urology for routine monitoring Consent to be signed for medical records to see when his last colo was - will update if needed 02/29/2016 Appointment: Faye Spivey [address] [place], [place] [phone] FOLLOW UP 02/29/2016 Patient Education: Patient Medication Summary Completed 02/29/2016 Care Plan: Referral Order SNOMED-CT : 30 [id number] Pending 02/29/2016 Appointment: Faye Spivey [address] [place], [place] [phone] Taking patient to ER ACUTE ILLNESS 12/13/2015 Visit Plan: Check fasting lab and EKG Ad d daily omeprazole If lab and EKG normal and pain persists despite omeprazole then will proceed with stress test Following with ortho on knee pain 12/13/2014 Appointment: Bk Laureano WPtel: [phone] [facility] NEW PATIENT 12/13/2014 Patient Education: Patient Medication Summary Completed 12/13/2014 Patient Education: [facility] - Saving AutoInj - 18+ - Dynamic Portal ID Completed 12/13/2014 Referral: Edmundo Giron WPtel: [phone] Referral Appointment Requested Instructions Comment . [...]
[2020-04-06] MEDS ORDERED: RT-ALBUTEROL INHALER HFA (VENTOLIN HFA) 8 GM IH PRN (08:00)
[2020-04-06 08:03] LABS: BASOPHILS % (AUTO) 1 % (0-10); EOSINOPHILS % (AUTO) 17 % (0-10); HEMATOCRIT 45 % (40-54); HEMOGLOBIN 15.2 G/DL (13.3-17.7); LYMPHOCYTES # (AUTO) 1.9 X 10^3 (1.0-4.0); LYMPHOCYTES % (AUTO) 21 % (12-44); MEAN CORPUSCULAR HEMOGLOBIN 29 PG (25-34); MEAN CORPUSCULAR HGB CONC 34 G/DL (32-36); MEAN CORPUSCULAR VOLUME 85 FL (80-99); MEAN PLATELET VOLUME 9.7 FL (7.4-10.4); MONOCYTES % (AUTO) 8 % (0-12); NEUTROPHILS # (AUTO) 4.8 X 10^3 (1.8-7.8); NEUTROPHILS % (AUTO) 53 % (42-75); PLATELET COUNT 566 10^3/uL (130-400); RED CELL DISTRIBUTION WIDTH 14.7 % (10.0-14.5)
[2020-04-06 08:04] LABS: BASOPHILS # (AUTO) 0.1 10^3/uL (0.0-0.1); EOSINOPHILS # (AUTO) 1.5 10^3/uL (0.0-0.3); MONOCYTES # (AUTO) 0.8 X 10^3 (0.0-1.0)
[2020-04-06 08:10] LABS: ALBUMIN 3.9 GM/DL (3.2-4.5); CHLORIDE 107 MMOL/L (98-107); POTASSIUM 4.2 MMOL/L (3.6-5.0); SODIUM 139 MMOL/L (135-145)
[2020-04-06 08:11] LABS: CALCIUM 8.5 MG/DL (8.5-10.1)
[2020-04-06 08:12] LABS: GLUCOSE 140 MG/DL (70-105); TOTAL PROTEIN 6.4 GM/DL (6.4-8.2)
[2020-04-06 08:13] LABS: CARBON DIOXIDE 22 MMOL/L (21-32)
[2020-04-06 08:14] LABS: BILIRUBIN,TOTAL 0.5 MG/DL (0.1-1.0)
[2020-04-06 08:16] LABS: ALKALINE PHOSPHATASE 66 U/L (40-136); CREATININE SERUM 0.96 MG/DL (0.60-1.30); GFR ESTIMATED > 60
[2020-04-06 08:17] LABS: BUN/CREATININE RATIO 17
[2020-04-06 08:19] LABS: ALANINE AMINOTRANSFERASE 24 U/L (0-55)
--- NOTE | 2020-04-06 08:27 | Diagnostic Imaging Report ---
INDICATION: Productive cough and increasing shortness of air with exertion. Time of exam 8:12 AM Correlation is made with prior chest from 04/18/2019. Heart size is stable. Lungs appear to be clear of acute infiltrates. The pulmonary vascularity is normal. No effusion or pneumothorax is detected. IMPRESSION: No acute cardiopulmonary process is detected. Dictated by: Dictated on workstation # [id number]
[2020-04-06 08:51] LABS: BAND NEUTROPHILS 0 %; BASOPHILS % (MANUAL) 0 %; EOSINOPHILS % (MANUAL) 16 %; LYMPHOCYTES % (MANUAL) 19 %; MONOCYTES % (MANUAL) 11 %; NEUTROPHILS % (MANUAL) 54 %; RBC MORPH NORMAL
--- NOTE | 2020-04-06 09:12 | ED Respiratory ---
General Chief Complaint: Respiratory Problems Stated Complaint: CONGESTION,SOB,COUGH Nursing Triage Note: PT PRESEENTS TO ED WITH COMPLAINTS OF PRODUCTIVE COUGH AND INCREASING SOA WITH ANY EXERTION. PT REPORTS HE HAS DELT WITH SOME RESPIRATORY ISSUES THAT HIS DR HERNANDEZ HAS TREATED HIM FOR WITH ANTIBIOTICS. PT REPROTS HIS SOA THIS TIME STARTED ABOUT A WEEK AGO. PT DENIES ANY FEVER. Source: patient Exam Limitations: no limitations History of Present Illness Date Seen by Provider: Apr 06, 2020 Time Seen by Provider: 07:16 Initial Comments This 79-year-old gentleman presents to the emergency room with wheezing and shortness of breath. He has experienced a mild productive cough but no fever. He has some dyspnea with exertion. He has not used his inhaler with regularity. He was prescribed doxycycline and prednisone for a similar exacerbation in January. He denies any significant exposures to persons under investigation or infected with coronavirus. Allergies and Home Medications Allergies Coded Allergies: No Known Drug Allergies (Unverified , 11/03/17) Home Medications Hydrocodone Bit/Acetaminophen 1 Each Tablet, 1 EACH PO Q4H Prescribed by: KEV VAZQUEZ on 11/06/17 0937 Meloxicam 15 Mg Tablet, 15 MG PO DAILY, (Reported) Pantoprazole Sodium 40 Mg Tablet.dr, 40 MG PO DAILY, (Reported) Prednisone 20 Mg Tab, 40 MG PO DAILY Prescribed by: SHARDA CHAUDHARY on 04/06/20 0930 Patient Home Medication List Home Medication List Reviewed: Yes Review of Systems Review of Systems Constitutional: no symptoms reported EENTM: no symptoms reported Respiratory: see HPI Cardiovascular: no symptoms reported Gastrointestinal: no symptoms reported Genitourinary: no symptoms reported Musculoskeletal: no symptoms reported Skin: no symptoms reported Psychiatric/Neurological: No Symptoms Reported Hematologic/Lymphatic: No Symptoms Reported Immunological/Allergic: no symptoms reported Past Chndlzx-Dlfmdb-Ugljef Hx Past Med/Social Hx: Reviewed Nursing Past Med/Soc Hx Patient Social History Alcohol Use: Rarely Uses Recreational Drug Use: No Smoking Status: Former Smoker Former Smoker, Quit: Nov 03, 1968 Recent Foreign Travel: No Contact w/Someone Who Travel: No Recent Infectious Disease Expo: No Recent Hopitalizations: No Physical Abuse: No Sexual Abuse: No Mistreated: No Fear: No Seasonal Allergies Seasonal Allergies: No Past Medical History Surgeries: Yes (BRACHY THERAPY) Gallbladder Respiratory: Yes COPD Cardiac: No Neurological: No Reproductive Disorders: No Sexually Transmitted Disease: No HIV/AIDS: No Gastrointestinal: Yes (HX POLYPS) Gastroesophageal Reflux, Polyps Musculoskeletal: Yes Arthritis Endocrine: No Loss of Vision: Bilateral Hearing Impairment: Hard of Hearing Cancer: Yes Prostate What Type of Treatment Did You: Surgical Intervention Psychosocial: No Integumentary: No Blood Disorders: No Adverse Reaction/Blood Tranf: No Family Medical History No Pertinent Family Hx Physical Exam Vital Signs - First Documented 04/06/20 07:21 Temp 36.6 Pulse 84 Resp 20 B/P (MAP) 146/70 (95) Pulse Ox 95 Capillary Refill : Less Than 3 Seconds Height: 5'8.00" Weight: 223lbs. 3.0oz. 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, no motor/sensory deficits, alert, normal mood/affect, oriented x 3 Skin: normal color, warm/dry Progress/Results/Core Measures Suspected Sepsis Recent Fever Within 48 Hours: No Infection Criteria Present: None New/Unexplained Altered Menta: No Sepsis Screen: No Definite Risk SIRS Temperature: Pulse: 84 Respiratory Rate: 20 Laboratory Tests 04/06/20 07:37: White Blood Count 9.0 Blood Pressure 146 /70 Mean: 95 Laboratory Tests 04/06/20 07:37: Creatinine 0.96, Platelet Count 566H, Total Bilirubin 0.5 Results/Orders Lab Results Laboratory Tests Test 04/06/20 07:37 Range/Units White Blood Count 9.0 4.3-11.0 10^3/uL Red Blood Count 5.30 4.35-5.85 10^6/uL Hemoglobin 15.2 13.3-17.7 G/DL Hematocrit 45 40-54 % Mean Corpuscular Volume 85 80-99 FL Mean Corpuscular Hemoglobin 29 25-34 PG Mean Corpuscular Hemoglobin Concent 34 32-36 G/DL Red Cell Distribution Width 14.7 H 10.0-14.5 % Platelet Count 566 H 130-400 10^3/uL Mean Platelet Volume 9.7 7.4-10.4 FL Neutrophils (%) (Auto) 53 42-75 % Lymphocytes (%) (Auto) 21 12-44 % Monocytes (%) (Auto) 8 0-12 % Eosinophils (%) (Auto) 17 H 0-10 % Basophils (%) (Auto) 1 0-10 % Neutrophils # (Auto) 4.8 1.8-7.8 X 10^3 Lymphocytes # (Auto) 1.9 1.0-4.0 X 10^3 Monocytes # (Auto) 0.8 0.0-1.0 X 10^3 Eosinophils # (Auto) 1.5 H 0.0-0.3 10^3/uL Basophils # (Auto) 0.1 0.0-0.1 10^3/uL Neutrophils % (Manual) 54 % Lymphocytes % (Manual) 19 % Monocytes % (Manual) 11 % Eosinophils % (Manual) 16 % Basophils % (Manual) 0 % Band Neutrophils 0 % Blood Morphology Comment NORMAL Sodium Level 139 135-145 MMOL/L Potassium Level 4.2 3.6-5.0 MMOL/L Chloride Level 107 98-107 MMOL/L Carbon Dioxide Level 22 21-32 MMOL/L Anion Gap 10 5-14 MMOL/L Blood Urea Nitrogen 16 7-18 MG/DL Creatinine 0.96 0.60-1.30 MG/DL Estimat Glomerular Filtration Rate > 60 BUN/Creatinine Ratio 17 Glucose Level 140 H 70-105 MG/DL Calcium Level 8.5 8.5-10.1 MG/DL Corrected Calcium 8.6 8.5-10.1 MG/DL Total Bilirubin 0.5 0.1-1.0 MG/DL Aspartate Amino Transf (AST/SGOT) 30 5-34 U/L Alanine Aminotransferase (ALT/SGPT) 24 0-55 U/L Alkaline Phosphatase 66 40-136 U/L C-Reactive Protein High Sensitivity 0.20 0.00-0.50 MG/DL Total Protein 6.4 6.4-8.2 GM/DL Albumin 3.9 3.2-4.5 GM/DL My Orders Orders - SHARDA MARIANO MD Albuterol Inhaler (Ventolin Hfa) (04/06/20 08:00) Cbc With Automated Diff (04/06/20 07:53) Comprehensive Metabolic Panel (04/06/20 07:53) Hs C Reactive Protein (04/06/20 07:53) Chest 1 View, Ap/Pa Only (04/06/20 07:53) Manual Differential (04/06/20 07:37) Methylprednisolone Sod Succ (Solu-Medrol (04/06/20 09:15) Ed Iv/Invasive Line Start (04/06/20 13:52) Medications Given in ED Current Medications Medications Dose Ordered Sig/Geri Route Start Time Stop Time Status Last Admin Dose Admin Methylprednisolone Sodium Succinate 125 mg ONCE ONCE IVP 04/06/20 09:15 04/06/20 09:16 DC 04/06/20 09:33 125 MG Vital Signs/I&O 04/06/20 04/06/20 07:21 09:39 Temp 36.6 Pulse 84 83 Resp 20 16 B/P (MAP) 146/70 (95) 164/79 Pulse Ox 95 94 Capillary Refill : Less Than 3 Seconds 2 Blood Pressure Mean: 95 Progress Note : Progress Note Patient was provided a pro-air inhaler with a spacer. He inhaled 4 puffs which improved his breathing significantly. Workup showed no major abnormalities. Solu-Medrol was administered and prednisone was prescribed. Diagnostic Imaging Diagonstic Imaging: Xray Plain Films/CT/US/NM/MRI: chest Comments Chest x-ray viewed by me and report reviewed. See report below: NAME: AISHA TUCKER [facility] REC#: [id number] PT STATUS: REG ER : 1940 PHYSICIAN: SHARDA MARIANO MD ADMIT DATE: 04/06/20/ER Draft Date of Exam:04/06/20 CHEST 1 VIEW, AP/PA ONLY INDICATION: Productive cough and increasing shortness of air with exertion. Time of exam 8:12 AM Correlation is made with prior chest from 04/18/2019. Heart size is stable. Lungs appear to be clear of acute infiltrates. The pulmonary vascularity is normal. No effusion or pneumothorax is detected. IMPRESSION: No acute cardiopulmonary process is detected. Dictated on workstation # [id number] Dict: 04/06/2024 Trans: 04/06/20 0827 [facility] [id number] Interpreted by: JONATHAN ELLISON MD Departure Impression Primary Impression: COPD exacerbation Disposition: HOME, SELF-CARE Condition: Improved Departure-Patient Inst. Decision time for Depature: 09:15 Referrals: BK HERNANDEZ DO (PCP/Family) Primary Care Physician Patient Instructions: Chronic Obstructive Pulmonary Disease (COPD), Including Emphysema Add. Discharge Instructions: Start your prednisone steroids this evening and complete the entire course. Call your primary care doctor for follow-up. Use your inhaler 2-4 puffs every 4 hours as needed for shortness of breath and wheezing. Use the inhaler with a spacer. Also take an allergy medication such as Claritin (loratadine) or Zyrtec (cetirizine) daily throughout allergy season. Return to care if you have worsening symptoms. All discharge instructions reviewed with patient and/or family. Voiced understanding. Scripts Prednisone (Prednisone) 20 Mg Tab 40 MG PO DAILY, #8 TAB 0 Refills Prov: SHARDA MARIANO MD 04/06/20 Copy Copies To 1: BK HERNANDEZ JOSHUA T MD Apr 06, 2020 09:12
[2020-04-06] MEDS ORDERED: methylPREDNISolone 125 MG (Solu-MEDROL) VIAL IVP ONE (09:15)
[2020-04-06] MEDS ORDERED: PRD20T PO (09:30)
[2020-04-06 09:39] VITALS: BP 164/79
== END 2020-04-06 09:39 | disposition home or self-care (01) ==
LOC: EDUNIT# 07:00 → ER 07:02
DX: J44.1 Chronic obstructive pulmonary disease with (acute) exacerbation (principal); K21.9 Gastro-esophageal reflux disease without esophagitis; Z87.891 Personal history of nicotine dependence; Z80.42 Family history of malignant neoplasm of prostate
CPT/HCPCS: 36415; 71045; 80053; 85007; 85027; 86141

== ENCOUNTER → 2020-06-08 | Outpatient (CLI) | payer MEDICARE ==
[~2020-06-08] MED LIST changes: +PRD20T PO; +RT-ALBUTEROL SULF 2.5 MG/3 ML PRE-MIX VIAL INH ONE
--- NOTE | 2020-06-08 10:25 | Diagnostic Imaging Report ---
PROCEDURE: CT chest without contrast. TECHNIQUE: Multiple contiguous axial images were obtained through the chest without the use of intravenous contrast. Auto Exposure Controls were utilized during the CT exam to meet ALARA standards for radiation dose reduction. INDICATION: Cough. Shortness of air. History of prostate cancer. COMPARISON: 06/02/2019 FINDINGS: Evaluation of lung parrish demonstrates several small micronodular densities bilaterally. Reference micronodule is identified within the posterior lateral base of the right lower lobe and measures 5 to 6 mm. This is stable compared to 6 mm on exam dated 03/29/2019. No new suspicious pulmonary nodule or mass is identified. There is minimal atelectasis associated with the minor fissure on the right. No focal consolidation, large effusion, nor pneumothorax is seen. Cardiomediastinal structures show normal heart size. There is no large pericardial effusion. There is mild scattered calcified aortic and coronary atherosclerosis. Borderline paratracheal lymph node is identified interposed between the azygos vein and trachea. It measures 1.3 x 1 cm. This is increased in size compared to 0.8 x 1 cm on exam dated 07/14/2017. No suspicious hilar or axillary adenopathy is identified. Osseous structures show age-related degenerative changes. No lytic or blastic bony lesions are seen. Included portions of the upper abdomen are unremarkable. IMPRESSION: 1. Several small pulmonary micronodules. Again, largest reference nodule in the right base is stable compared to 03/29/2019. 2. Mild interval increase in slightly enlarged mediastinal lymph node of uncertain significance or etiology. May want to consider follow-up to ensure stability. Dictated by: Dictated on workstation # [id number]
== END ==
LOC: RT 07:48
PROVIDERS: ATTEND Family Medicine
DX: R05 Cough (principal); R06.02 Shortness of breath; R91.8 Other nonspecific abnormal finding of lung field; Z85.46 Personal history of malignant neoplasm of prostate
CPT/HCPCS: 71250; 94060; 94726; 94729

== ENCOUNTER → 2020-10-09 | Outpatient (CLI) | payer MEDICARE ==
[~2020-10-09] MED LIST changes: -PANT40TA3 PO; +PANT40TA52 PO; -RT-ALBUTEROL SULF 2.5 MG/3 ML PRE-MIX VIAL INH ONE
== END ==
LOC: LAB 19:57
PROVIDERS: ATTEND Nurse Practitioner Family
DX: U07.1 COVID-19 (principal)
CPT/HCPCS: 87635

== ENCOUNTER → 2020-10-10 | Outpatient (CLI) | payer MEDICARE ==
[~2020-10-10] VITALS: Ht 175.3 cm; Wt 93.2 kg
[~2020-10-10] MED LIST changes: +BAMLANIVIMAB 700 MG in NS 200 ML IV ONE; +EPINEPHrine INJECTION 1 MG/ML AMP IM PRN; +diphenhydrAMINE 50 MG/ML INJ (BENADRYL) IV PRN
[2020-10-10 13:17] VITALS: BP 139/60
[2020-10-10 13:51] VITALS: BP 139/60
--- NOTE | 2020-10-10 14:01 | NUR ---
Pt stated he is doing fine and is not having any allergic reactions at this time.
[2020-10-10 14:46] VITALS: BP 154/57
[2020-10-10 15:50] VITALS: BP 106/63
== END ==
LOC: INFUSION 13:09
PROVIDERS: ATTEND Nurse Practitioner Family
DX: U07.1 COVID-19 (principal)

== ENCOUNTER 2020-10-22 13:17 | Emergency (ER) | payer MEDICARE ==
[~2020-10-22] VITALS: Ht 175 cm; Wt 93.2 kg
[~2020-10-22 13:17] MED LIST changes: -BAMLANIVIMAB 700 MG in NS 200 ML IV ONE; -EPINEPHrine INJECTION 1 MG/ML AMP IM PRN; -diphenhydrAMINE 50 MG/ML INJ (BENADRYL) IV PRN
[2020-10-22] MEDS ORDERED: LACTATED RINGERS 1,000 ML IV ONE (13:41)
[2020-10-22] MEDS ORDERED: LACTATED RINGERS 1,000 ML IV STA (13:47)
[2020-10-22 14:11] LABS: BASOPHILS % (AUTO) 0 % (0-10); EOSINOPHILS # (AUTO) 0.1 10^3/uL (0.0-0.3); EOSINOPHILS % (AUTO) 1 % (0-10); HEMATOCRIT 41 % (40-54); HEMOGLOBIN 13.9 g/dL (13.3-17.7); LYMPHOCYTES # (AUTO) 1.6 10^3/uL (1.0-4.0); LYMPHOCYTES % (AUTO) 15 % (12-44); MEAN CORPUSCULAR HEMOGLOBIN 28 pg (25-34); MEAN CORPUSCULAR HGB CONC 34 g/dL (32-36); MEAN CORPUSCULAR VOLUME 85 fL (80-99); MEAN PLATELET VOLUME 8.7 fL (9.0-12.2); MONOCYTES # (AUTO) 1.6 10^3/uL (0.0-1.0); MONOCYTES % (AUTO) 16 % (0-12); NEUTROPHILS % (AUTO) 67 % (42-75); PLATELET COUNT 626 10^3/uL (130-400); WHITE BLOOD COUNT 10.4 10^3/uL (4.3-11.0)
--- NOTE | 2020-10-22 14:18 | ED Respiratory ---
General Chief Complaint: Respiratory Problems Stated Complaint: COVID Nursing Triage Note: C/O SOA. reports had diarrhea x 3 weeks Source: patient Exam Limitations: no limitations History of Present Illness Date Seen by Provider: Oct 22, 2020 Time Seen by Provider: 13:34 Initial Comments Here with report of cough and shortness of air as well as diarrhea x3 weeks. He is just recovered from COVID-19 infection. He did receive monoclonal antibody infusion for treatment for this. He actually did quite well afterwards but over the last 2 to 3 days he has had some increasing cough and shortness of breath. States that the diarrhea has continued for the entire time although he just has a few loose stools in the mornings now and maybe 1 in the evening. He has been able to eat and drink. States that he is likely a bit dehydrated. Has talked with his doctor about blurring problems with his eyes and is to get MRI this week. Denies headache or blurred vision currently. Denies chest pain or vomiting. Timing/Duration: getting worse, other (2 to 3 days) Severity: mild, moderate Prior Episodes/Possible Cause: occasional episodes Modifying Factors: Worse With Coughing; Improves With Rest Associated Symptoms: cough; No fever/chills, No muscle aches; nasal congestion, shortness of breath Allergies and Home Medications Allergies Coded Allergies: No Known Drug Allergies (Unverified , 11/03/17) Home Medications Hydrocodone Bit/Acetaminophen 1 Each Tablet, 1 EACH PO Q4H Prescribed by: KEV VAZQUEZ on 11/06/17 0937 Meloxicam 15 Mg Tablet, 15 MG PO DAILY, (Reported) Pantoprazole Sodium 40 Mg Tablet.dr, 40 MG PO DAILY, (Reported) Prednisone 20 Mg Tab, 40 MG PO DAILY Prescribed by: SHARDA CHAUDHARY on 04/06/20 0930 Patient Home Medication List Home Medication List Reviewed: Yes Review of Systems Review of Systems Constitutional: see HPI; No chills, No fever; weakness EENTM: nose congestion; No throat pain Respiratory: cough, short of breath Cardiovascular: No chest pain, No edema, No palpitations Gastrointestinal: diarrhea; No nausea, No vomiting Genitourinary: no symptoms reported Musculoskeletal: no symptoms reported Skin: no symptoms reported Psychiatric/Neurological: See HPI; Denies Headache Hematologic/Lymphatic: No Symptoms Reported All Other Systems Reviewed Negative Unless Noted: Yes Past Qpcgsbo-Jjeazt-Zsdpds Hx Past Med/Social Hx: Reviewed Nursing Past Med/Soc Hx Patient Social History Alcohol Use: Denies Use Recreational Drug Use: No Smoking Status: Former Smoker Former Smoker, Quit: Nov 03, 1968 Recent Foreign Travel: No Contact w/Someone Who Travel: No Recent Infectious Disease Expo: No Recent Hopitalizations: No Seasonal Allergies Seasonal Allergies: No Past Medical History Surgeries: Yes (BRACHY THERAPY) Gallbladder Respiratory: Yes COPD Cardiac: No Neurological: No Reproductive Disorders: No Sexually Transmitted Disease: No HIV/AIDS: No Gastrointestinal: Yes (HX POLYPS) Gastroesophageal Reflux, Polyps Musculoskeletal: Yes Arthritis Endocrine: No Loss of Vision: Bilateral Hearing Impairment: Hard of Hearing Cancer: Yes Prostate What Type of Treatment Did You: Surgical Intervention Psychosocial: No Integumentary: No Blood Disorders: No Adverse Reaction/Blood Tranf: No Family Medical History Reviewed Nursing Family Hx No Pertinent Family Hx Physical Exam Vital Signs - First Documented 10/22/20 13:39 Temp 37.0 Pulse 81 Resp 16 B/P (MAP) 132/88 (103) Pulse Ox 94 O2 Delivery Room Air Capillary Refill : Less Than 3 Seconds Height: 5'8.00" Weight: 223lbs. 3.0oz. 101.665104kj; 30.00 BMI Method:Stated General Appearance: WD/WN, no apparent distress HEENT: PERRL/EOMI, pharynx normal, other (Moderate cerumen to the left canal) Neck: full range of motion, supple Respiratory: lungs clear, normal breath sounds Cardiovascular: regular rate, rhythm, no murmur Gastrointestinal: non tender, soft Extremities: non-tender, normal inspection Neurologic/Psychiatric: alert, oriented x 3 Skin: normal color, warm/dry Progress/Results/Core Measures Suspected Sepsis Recent Fever Within 48 Hours: No Infection Criteria Present: None New/Unexplained Altered Menta: No Sepsis Screen: No Definite Risk SIRS Temperature: Pulse: 81 Respiratory Rate: 16 Laboratory Tests 10/22/20 13:50: White Blood Count 10.4 Blood Pressure 132 /88 Mean: 103 Laboratory Tests 10/22/20 13:50: Creatinine 0.99, Platelet Count 626H, Total Bilirubin 0.5 Results/Orders Lab Results Laboratory Tests Test 10/22/20 13:50 Range/Units White Blood Count 10.4 4.3-11.0 10^3/uL Red Blood Count 4.90 4.30-5.52 10^6/uL Hemoglobin 13.9 13.3-17.7 g/dL Hematocrit 41 40-54 % Mean Corpuscular Volume 85 80-99 fL Mean Corpuscular Hemoglobin 28 25-34 pg Mean Corpuscular Hemoglobin Concent 34 32-36 g/dL Red Cell Distribution Width 14.6 H 10.0-14.5 % Platelet Count 626 H 130-400 10^3/uL Mean Platelet Volume 8.7 L 9.0-12.2 fL Immature Granulocyte % (Auto) 1 % Neutrophils (%) (Auto) 67 42-75 % Lymphocytes (%) (Auto) 15 12-44 % Monocytes (%) (Auto) 16 H 0-12 % Eosinophils (%) (Auto) 1 0-10 % Basophils (%) (Auto) 0 0-10 % Neutrophils # (Auto) 7.0 1.8-7.8 10^3/uL Lymphocytes # (Auto) 1.6 1.0-4.0 10^3/uL Monocytes # (Auto) 1.6 H 0.0-1.0 10^3/uL Eosinophils # (Auto) 0.1 0.0-0.3 10^3/uL Basophils # (Auto) 0.0 0.0-0.1 10^3/uL Immature Granulocyte # (Auto) 0.1 0.0-0.1 10^3/uL D-Dimer 0.48 0.00-0.49 UG/ML Sodium Level 135 135-145 MMOL/L Potassium Level 3.9 3.6-5.0 MMOL/L Chloride Level 102 98-107 MMOL/L Carbon Dioxide Level 23 21-32 MMOL/L Anion Gap 10 5-14 MMOL/L Blood Urea Nitrogen 18 7-18 MG/DL Creatinine 0.99 0.60-1.30 MG/DL Estimat Glomerular Filtration Rate > 60 BUN/Creatinine Ratio 18 Glucose Level 115 H 70-105 MG/DL Calcium Level 8.3 L 8.5-10.1 MG/DL Corrected Calcium 8.7 8.5-10.1 MG/DL Magnesium Level 2.0 1.6-2.4 MG/DL Total Bilirubin 0.5 0.1-1.0 MG/DL Aspartate Amino Transf (AST/SGOT) 30 5-34 U/L Alanine Aminotransferase (ALT/SGPT) 37 0-55 U/L Alkaline Phosphatase 69 40-136 U/L C-Reactive Protein High Sensitivity 2.68 H 0.00-0.50 MG/DL Total Protein 5.8 L 6.4-8.2 GM/DL Albumin 3.5 3.2-4.5 GM/DL My Orders Orders - MELINDA OLGUIN MD Lactated Ringers (Lr 1000 Ml Iv Solution (10/22/20 13:41) Cbc With Automated Diff (10/22/20 13:47) Comprehensive Metabolic Panel (10/22/20 13:47) Hs C Reactive Protein (10/22/20 13:47) Procalcitonin (Pct) (10/22/20 13:47) Lactated Ringers (Lr 1000 Ml Iv Solution (10/22/20 13:47) Ed Iv/Invasive Line Start (10/22/20 13:47) Chest 1 View, Ap/Pa Only (10/22/20 13:47) Fibrin Degradation Products (10/22/20 13:47) Magnesium (10/22/20 13:47) Vital Signs/I&O 10/22/20 13:39 Temp 37.0 Pulse 81 Resp 16 B/P (MAP) 132/88 (103) Pulse Ox 94 O2 Delivery Room Air Capillary Refill : Less Than 3 Seconds Blood Pressure Mean: 103 Progress Note : Progress Note Seen and evaluated. IV, labs, LR 1 L bolus and chest x-ray ordered. Monitor patient. 1530: Overall doing okay. Labs reviewed as well as chest x-ray. He does have questionable infiltrate in the right lower lobe which is where he has some chronic lung disease. This is the same area that we note he typically will have pneumonia from previous history. Given that and the recent infection, we will go ahead and treat with cefdinir and steroids as previous. This is worked previously as well. I will send a copy of the chart to Dr. Fuller. Patient is to get scheduled for MRI this week and there is post to call him tomorrow and he will follow-up for that as well. Discharged home with return precautions. Patient verbalized understanding of instructions and agreement with plan. Departure Impression Primary Impression: Right lower lobe pneumonia Qualified Codes: J18.9 - Pneumonia, unspecified organism Additional Impression: Diarrhea Qualified Codes: R19.7 - Diarrhea, unspecified Disposition: HOME, SELF-CARE Condition: Stable Departure-Patient Inst. Decision time for Depature: 15:33 Referrals: BK HERNANDEZ DO (PCP/Family) Primary Care Physician Patient Instructions: Pneumonia, Adult (DC), Diarrhea in Adolescents and Adults Add. Discharge Instructions: All discharge instructions reviewed with patient and/or family. Voiced understanding. Follow-up with your doctor in a few days for recheck. Return for worse pain, weakness, breathing problems, vision or balance problems or other concerns as needed. Drink plenty of fluids and get some rest. Eat a light diet over the next several days and then advance as tolerated. Continue probiotic tablets per package directions. Start the prednisone prescription tomorrow morning. Start the antibiotics tonight. Scripts Prednisone (Prednisone) 20 Mg Tab 40 MG PO DAILY, #10 TAB 0 Refills Prov: MELINDA OGLUIN MD 10/22/20 Cefdinir (Cefdinir) 300 Mg Capsule 300 MG PO BID, #20 CAP 0 Refills Prov: MELINDA OLGUIN MD 10/22/20 Copy Copies To 1: BK HERNANDEZ TIMOTHY D MD Oct 22, 2020 14:17
--- NOTE | 2020-10-22 14:21 | Diagnostic Imaging Report ---
EXAMINATION: Chest radiograph, portable AP view. DATE: 10/22/2020 2:02 PM INDICATION: 80-year-old male, shortness of breath. The patient is COVID positive. COMPARISON: April 06, 2020. FINDINGS: Heart size and mediastinal contours are unchanged. There is no identified pneumothorax. There is no large pleural effusion. There are streaky opacities in the right lower lobe which are new. Lung volumes are somewhat low. IMPRESSION: 1. New streaky opacities in the right lower lobe which may relate to infiltrate and/or atelectasis. 2. Lung volumes are somewhat low. Report was faxed to [facility] by hernesto at 2:21pm. Dictated by: Dictated on workstation # [id number]
[2020-10-22 14:45] LABS: ALBUMIN 3.5 GM/DL (3.2-4.5); CHLORIDE 102 MMOL/L (98-107); POTASSIUM 3.9 MMOL/L (3.6-5.0); SODIUM 135 MMOL/L (135-145)
[2020-10-22 14:46] LABS: CALCIUM 8.3 MG/DL (8.5-10.1)
[2020-10-22 14:47] LABS: GLUCOSE 115 MG/DL (70-105); TOTAL PROTEIN 5.8 GM/DL (6.4-8.2)
[2020-10-22 14:48] LABS: CARBON DIOXIDE 23 MMOL/L (21-32)
[2020-10-22 14:49] LABS: BILIRUBIN,TOTAL 0.5 MG/DL (0.1-1.0)
[2020-10-22 14:51] LABS: ALKALINE PHOSPHATASE 69 U/L (40-136); CREATININE SERUM 0.99 MG/DL (0.60-1.30); GFR ESTIMATED > 60
[2020-10-22 14:52] LABS: BUN/CREATININE RATIO 18
[2020-10-22 14:54] LABS: ALANINE AMINOTRANSFERASE 37 U/L (0-55)
[2020-10-22] MEDS ORDERED: CEFD300C3 PO (15:34)
[2020-10-22] MEDS ORDERED: PRD20T PO (15:34)
[2020-10-22 15:49] VITALS: BP 132/88
== END 2020-10-22 15:49 | disposition home or self-care (01) ==
LOC: EDUNIT# 13:17 → ER 13:18
DX: J18.1 Lobar pneumonia, unspecified organism (principal); R19.7 Diarrhea, unspecified; J44.9 Chronic obstructive pulmonary disease, unspecified; K21.9 Gastro-esophageal reflux disease without esophagitis; Z85.46 Personal history of malignant neoplasm of prostate; Z87.891 Personal history of nicotine dependence; Z79.52 Long term (current) use of systemic steroids
CPT/HCPCS: 36415; 71045; 80053; 83735; 84145; 85025; 85379; 86141

== ENCOUNTER → 2020-10-31 | Outpatient (CLI) | payer MEDICARE ==
[~2020-10-31] MED LIST changes: +CEFD300C3 PO
--- NOTE | 2020-10-31 14:31 | Diagnostic Imaging Report ---
EXAMINATION: CT head without contrast. TECHNIQUE: Multiple contiguous axial images were obtained through the brain without the use of intravenous contrast. All CT scans use one or more of the following dose optimizing techniques: automated exposure control, MA and/or KvP adjustment based on a patient size and exam type, or iterative reconstruction. HISTORY: Bilateral AMAUROSIS. COMPARISON: 12/13/2015. FINDINGS: No large acute territorial ischemia, mass, or hemorrhage. No midline shift or mass effect. The ventricles, cortical sulci, and basilar cisterns are patent and unremarkable. The orbits are normal. Paranasal sinuses are normal. Mastoid air cells are clear. No soft tissue abnormality is seen. No osseus lesions or fractures are seen. IMPRESSION: 1. No large acute territorial ischemia, mass, or hemorrhage. If symptoms persist, consider MRI of the brain to further evaluate. Dictated by: Dictated on workstation # [id number]
--- NOTE | 2020-10-31 15:15 | Diagnostic Imaging Report ---
PROCEDURE: US carotid duplex bilateral. TECHNIQUE: Multiple Real-time grayscale images were obtained over the carotid arteries in various projections, bilaterally. Additional spectral analysis and color Doppler duplex images were also obtained. INDICATION: Amaurosis fugax. FINDINGS: Mild plaquing in the distal common carotid arteries and carotid bulbs is noted. The velocities are normal bilaterally. No velocity elevation or stenosis is detected. IMPRESSION: No evidence of a hemodynamically significant stenosis. Parameters based on the consensus panel Lazo-Scale and Doppler ultrasound criteria published August 2003, Radiology, Volume 229. DOPPLER (peak systolic velocity M/S Right Left CCA 0.94 1.02 ICA Proximal 0.58 0.58 ICA Mid 0.47 0.91 ICA Distal 0.66 0.96 RATIO 0.7 0.9 ECA 1.12 1.10 VERT 0.60 0.64 Dictated by: Dictated on workstation # [id number]
== END ==
LOC: RAD 13:00
PROVIDERS: ATTEND Family Medicine
DX: G45.3 Amaurosis fugax (principal)
CPT/HCPCS: 70450; 93880

== ENCOUNTER → 2020-11-10 | Outpatient (CLI) | payer MEDICARE ==
--- NOTE | 2020-11-10 09:36 | Diagnostic Imaging Report ---
PROCEDURE: MR imaging of the brain without contrast. TECHNIQUE: Multiplanar, multisequence MR imaging of the brain was performed without contrast. INDICATION: Amaurosis bilateral COMPARISON: There are no prior MRI examinations available for comparison. The CT head exam performed on 10/31/2020 failed to show any sign of an acute intracranial abnormality or of a mass lesion. On the diffusion series of this study there is no abnormal signal arising from the brain to suggest an area of acute ischemia. There is no mass, shift of the midline or hemorrhage noted either. The ventricles are not abnormally dilated. There are several small areas of increased signal in the periventricular white matter bilaterally on the FLAIR series. These are nonspecific but may be related to encephalomalacia from microvascular ischemia. There is also cortical atrophy. The degree of atrophy is consistent with the patient's age. The sella is not enlarged and the expected carotid flow voids are evident bilaterally. The left globe is partially obscured by artifact. In reviewing the CT head exam there was a minute metallic foreign body in the soft tissues along the superior aspect of the left orbit. WHEN THIS ARTIFACT WAS IDENTIFIED our technologist consulted the patient regarding any discomfort. He denied any problems and consequently the exam was continued. The right orbit is unremarkable. The sinuses are generally clear. The 7th and 8th nerve complexes show no sign of an acute abnormality. IMPRESSION: 1. There is no evidence for an acute intracranial abnormality. In particular, there is no abnormal signal arising from the diffusion series that would indicate an area of acute ischemia. 2. There are senescent changes including cortical atrophy and periventricular encephalomalacia. 3. There is a minute metallic foreign body in the soft tissues along the superior margin of the left orbit. Dictated by: Dictated on workstation # [id number]
== END ==
LOC: RAD 08:00
PROVIDERS: ATTEND Family Medicine
DX: G45.3 Amaurosis fugax (principal); G93.89 Other specified disorders of brain; Z18.89 Other specified retained foreign body fragments
CPT/HCPCS: 70551

== ENCOUNTER → 2020-12-29 | Outpatient (CLI) | payer MEDICARE ==
[~2020-12-29] MED LIST changes: +CATHETER FLUSH 10 ML SYR IV PRN; +HOLD METFORMIN - RECEIVED CONTRAST 20 ML VIAL IV SCH; +IOHEXOL 350 MG/ML 100 ML (OMNIPAQUE 350) VIAL IV ONE; +NS 100 ML (IVPB) BAG IV ONE
--- NOTE | 2020-12-29 11:52 | Diagnostic Imaging Report ---
EXAMINATION: CT Chest with intravenous contrast. TECHNIQUE: Multiple contiguous axial images were obtained through the chest after the uneventful administration of intravenous contrast. All CT scans use one or more of the following dose optimizing techniques: automated exposure control, MA and/or KvP adjustment based on a patient size and exam type, or iterative reconstruction. HISTORY: COPD, prior COVID-19. COMPARISON: 06/08/2020. FINDINGS: There is no edema or pneumonia. No pleural effusion. No pneumothorax. Stable 3 mm nodule is present in the right lower lobe. There is mild atelectasis in the lung bases. There is no axillary or supraclavicular lymphadenopathy. There is no mediastinal lymphadenopathy. Heart size is normal. There are mild coronary artery calcifications. No pericardial effusion. Aorta is normal in caliber. Limited views of the upper abdomen show changes of cholecystectomy. There are no suspicious osseous lesions. IMPRESSION: 1. No acute abnormality in the chest. Dictated by: Dictated on workstation # [id number]
== END ==
LOC: RAD 08:51
PROVIDERS: ATTEND Nurse Practitioner Family
DX: J44.9 Chronic obstructive pulmonary disease, unspecified (principal); Z86.16 Personal history of COVID-19
CPT/HCPCS: 71260

== ENCOUNTER → 2020-12-29 | Outpatient (CLI) | payer MEDICARE | LOC: CARD 10:30 | PROVIDERS: ATTEND Family Medicine | DX: I51.7 Cardiomegaly (principal); I34.0 Nonrheumatic mitral (valve) insufficiency; G45.9 Transient cerebral ischemic attack, unspecified | CPT/HCPCS: 93306 ==

== ENCOUNTER 2023-07-09 15:21 | Observation (INO) | payer MEDICARE ==
[~2023-07-09] VITALS: Ht 175.3 cm; Wt 83.4 kg
[~2023-07-09 15:21] MED LIST changes: -CATHETER FLUSH 10 ML SYR IV PRN; -HOLD METFORMIN - RECEIVED CONTRAST 20 ML VIAL IV SCH; -IOHEXOL 350 MG/ML 100 ML (OMNIPAQUE 350) VIAL IV ONE; -NS 100 ML (IVPB) BAG IV ONE
[2023-07-09] MEDS ORDERED: GLUCAGON EMERGENCY 1 MG/KIT IV STA ×2 (15:27→16:07)
[2023-07-09] MEDS ORDERED: HYDR500C2 (15:31)
--- NOTE | 2023-07-09 15:45 | ED General ---
General Chief Complaint: Foreign Body Stated Complaint: FOREIGN BODY IN THROAT Nursing Triage Note: ARRIVED VIA AMB FROM HOME. STATES AT APPX 1330 HE WAS EATING PORK STEAK AND FEELS LIKE IT IS STUCK IN THROAT/UPPER ABD. PT STATES HE CAN'T SWALLOW WATER WITHOUT VOMITING. Source of Information: Patient History of Present Illness Date Seen by Provider: Jul 09, 2023 Time Seen by Provider: 15:24 Initial Comments 83-year-old male presenting with complaints of difficulty swallowing. He states that around 130 he was eating a pork steak for lunch and feels like he got stuck in his chest. He is not able to swallow water without vomiting it back up. He has had a small amount of mashed potatoes, but has not had the pork steak,. He has tried to make himself vomit but has not been able to pass anything. Since he continues to have difficulty swallowing and after period of time of swallowing his own spit it comes back up as well he finally came to the emergency department. He states this is happened 1 other time but at that time he was able to vomit and get the steak to pass. He denies having significant problems with reflux. He has not had an EGD done before but states he has had ENT with Dr. Jhaveri look at the upper part of his throat and airway. But that was done a long time ago. Timing/Duration: 1-3 Hours Severity: Moderate Modifying Factors: worse with Eating Associated Systoms: No Chest Pain, No Cough, No Diaphoresis, No Fever/Chills, No Headaches, No Loss of Appetite, No Malaise, No Nausea/Vomiting, No Rash, No Seizure, No Shortness of Air, No Syncope, No Weakness Allergies and Home Medications Allergies Coded Allergies: No Known Drug Allergies (Unverified , 11/03/17) Patient Home Medication List Home Medication List Reviewed: Yes Hydroxyurea (Hydroxyurea) 500 Mg Capsule, (Reported) Entered as Reported by: TING GALAN on 07/09/23 1531 Last Action: New Order Pantoprazole Sodium (Pantoprazole Sodium) 40 Mg Tablet., 40 MG PO DAILY, (Reported) Entered as Reported by: RENARD MONTERROSO on 11/03/17 1545 Pantoprazole Sodium (Pantoprazole Sodium) 40 Mg Tablet., 40 MG PO DAILY Prescribed by: ZURI CANNON on 07/09/23 1602 Pantoprazole Sodium (Protonix) 40 Mg Tablet.dr, 40 MG PO DAILY Prescribed by: RUSSELL SORTO on 07/09/23 180 Sucralfate (Carafate) 1 Gram Tablet, 1 GM PO QID Prescribed by: RUSSELL SORTO on 07/09/23 1806 Discontinued Medications Cefdinir (Cefdinir) 300 Mg Capsule, 300 MG PO BID Discontinued Reason: No Longer Taking Prescribed by: MELINDA OLGUIN on 10/22/20 1534 Last Action: Discontinued Hydrocodone Bit/Acetaminophen (Lortab 5 Mg Tablet) 1 Each Tablet, 1 EACH PO Q4H Discontinued Reason: No Longer Taking Prescribed by: KEV VAZQUEZ on 11/06/17 0937 Last Action: Discontinued Meloxicam (Meloxicam) 15 Mg Tablet, 15 MG PO DAILY, (Reported) Discontinued Reason: No Longer Taking Entered as Reported by: RENARD MONTERROSO on 11/03/17 1545 Last Action: Discontinued Prednisone (Prednisone) 20 Mg Tab, 40 MG PO DAILY Discontinued Reason: No Longer Taking Prescribed by: SHARDA CHAUDHARY on 04/06/20 0930 Last Action: Discontinued Prednisone (Prednisone) 20 Mg Tab, 40 MG PO DAILY Discontinued Reason: No Longer Taking Prescribed by: MELINDA OLGUIN on 10/22/201533 Last Action: Discontinued Review of Systems Review of Systems Constitutional: No chills, No fever EENTM: no symptoms reported Respiratory: no symptoms reported Cardiovascular: no symptoms reported Gastrointestinal: see HPI Genitourinary: no symptoms reported Musculoskeletal: no symptoms reported Skin: no symptoms reported Psychiatric/Neurological: No Symptoms Reported Hematologic/Lymphatic: No Symptoms Reported Past Fcvcmbk-Qubwgm-Vmgbxq Hx Patient Social History Tobacco type used: Cigarettes Smoking Status: Former Smoker Substance use?: No Alcohol Use?: Yes Alcohol Frequency: Once in a while Seasonal Allergies Seasonal Allergies: No Past Medical History Surgery/Hospitalization HX: Esophageal food bolus Surgeries: Yes (BRACHY THERAPY) Gallbladder Respiratory: Yes COPD Cardiac: No Neurological: No Reproductive Disorders: No Sexually Transmitted Disease: No HIV/AIDS: No Gastrointestinal: Yes (HX POLYPS) Gastroesophageal Reflux, Polyps Musculoskeletal: Yes Arthritis Endocrine: No Loss of Vision: Bilateral Hearing Impairment: Hard of Hearing Cancer: Yes Prostate What Type of Treatment Did You: Surgical Intervention Psychosocial: No Integumentary: No Blood Disorders: No Adverse Reaction/Blood Tranf: No Family Medical History No Pertinent Family Hx Physical Exam Vital Signs Vital Signs - First Documented 07/09/23 15:21 Temp 36.1 Pulse 52 Resp 16 B/P (MAP) 125/83 (97) Pulse Ox 98 O2 Delivery Room Air Capillary Refill : Less Than 3 Seconds Height, Weight, BMI Height: 5'8.00" Weight: 223lbs. 3.0oz. 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 Norm as Tested Skin: Normal Color, Warm/Dry Progress/Results/Core Measures Suspected Sepsis SIRS Temperature: Pulse: 52 Respiratory Rate: 16 Blood Pressure 125 /83 Mean: 97 Results/Orders My Orders Orders - ZURI CANNON MD Ed Iv/Invasive Line Start (07/09/23 15:27) Glucagon Emergency Kit (Glucagon Emergen (07/09/23 15:27) Glucagon Emergency Kit (Glucagon Emergen (07/09/23 16:07) Pantoprazole Injection (Pantoprazole Inj (07/09/23 16:07) Ed Admission (Communication) (07/09/23 16:10) Vital Signs/I&O 07/09/23 07/09/23 15:21 16:54 Temp 36.1 Pulse 52 55 Resp 16 16 B/P (MAP) 125/83 (97) 142/65 Pulse Ox 98 97 O2 Delivery Room Air Room Air Capillary Refill : Less Than 3 Seconds Blood Pressure Mean: 97 Progress Note #1: Progress Note Differential diagnosis includes GERD, esophageal spasms, esophageal food bolus, foreign body esophagus. Will obtain peripheral IV access and try dose of glucagon 1 mg IV to see if it would help to relax his esophagus and get the food bolus to pass. If this is still not helping will check with on-call surgeon Dr. SORTO. Progress Note #2: Time: 16:02 Progress Note D/w Dr. Sorto, pets salesperson surgeon, about the patient. Reviewed his presentation and complication with having pork steak stuck in his esophagus. If it passes give him PPI for home and have him call clinic to get appointment and schedule scope within next 2 weeks. Liquid or soft diet for 24 to 48 hours to help esophagus heal. 1612 Patient did vomit water and saliva but still not had the steak pass or come up. D/w Dr. Sorto again and he recommends observation admit and give PPI at a BID dosing. Anti-emetics to help with nausea. Lorazepam 0.5 mg IV q 6 hour prn anxiety. IVF for hydration. Keep NPO. Departure Communication (Admissions) Time/Spoke to Admitting Phy: 16:12 d/w Dr. Sorto, pets salesperson surgeon. I reviewed with him the patient history and having steak stuck in his esophagus. Unable to pass water or saliva. Failed Glucagon attempts. He advised to have the patient be admitted as observation admit and get PPI bid dosing, nausea medicine prn and ativan 0.5 mg IV prn. Impression Primary Impression: Food impaction of esophagus Qualified Codes: T18.128A - Food in esophagus causing other injury, initial encounter Disposition: 30 STILL A PATIENT Condition: Stable Admissions Decision to Admit Reason: Admit from ER (General) Decision to Admit/Date: Jul 09, 2023 Time/Decision to Admit Time: 16:12 Departure-Patient Inst. Referrals: RUSSELL SORTO MD, JACQUELINE S DO (PCP/Family) Primary Care Physician Patient Instructions: Esophageal Stricture (DC), Esophagoscopy (DC) Add. Discharge Instructions: Make sure you are chewing your food well and taking smaller bites to help prevent this from happening again. Consider following a soft or liquid diet for next 24 to 48 hours to let your esophagus heal from having the steak stuck in it today. Take acid reducing medicine daily to help with healing of your stomach and esophagus. Call the surgery clinic tomorrow to set up appointment within the next 2 weeks to be seen and schedule a scope to have the surgeon look at the lining of your esophagus and stomach. You might need to have the esophagus stretched or they may find an ulcer that needs treatment. All discharge instructions reviewed with patient and/or family. Voiced understanding. Scripts Sucralfate (Carafate) 1 Gram Tablet 1 GM PO QID, #120 TAB Prov: RUSSELL SORTO MD 07/09/23 Pantoprazole Sodium (Protonix) 40 Mg Tablet.dr 40 MG PO DAILY, #90 TAB Prov: RUSSELL SORTO MD 07/09/23 Pantoprazole Sodium (Pantoprazole Sodium) 40 Mg Tablet.dr 40 MG PO DAILY for Esophageal stricture for 30 Days, #30 TAB 0 Refills Prov: ZURI CANNON MD 07/09/23 ZURI CANNON MD Jul 09, 2023 15:45
[2023-07-09] MEDS ORDERED: PANT40TA52 PO (16:02)
[2023-07-09] MEDS ORDERED: PANTOPRAZOLE INJECTION 40 MG VIAL IV STA (16:07)
[2023-07-09 17:52] VITALS: BP 168/78
[2023-07-09] MEDS ORDERED: fentaNYL INJECTION 100 MCG/2 ML VIAL IVP PRN (18:00)
[2023-07-09] MEDS ORDERED: LACTATED RINGERS 1,000 ML 1,000 ML IV SCH (18:00)
[2023-07-09] MEDS ORDERED: METOCLOPRAMIDE INJ 10 MG/2 ML IV PRN (18:00)
[2023-07-09] MEDS ORDERED: ONDANSETRON INJECTION 4 MG/2 ML (SDV) IV PRN (18:00)
[2023-07-09] MEDS ORDERED: ACETAMINOPHEN 325 MG TABLET PO PRN (18:00)
--- NOTE | 2023-07-09 18:05 | Progress Note-Pre Operative ---
Pre-Operative Progress Note Date of Available H&P: Jul 09, 2023 Date H&P Reviewed: Jul 09, 2023 Time H&P Reviewed: 18:00 History & Physical: No changes noted Pre-Operative Diagnosis: dysphagia, GERD, esophageal foreign body RUSSELL SÁNCHEZ MD Jul 09, 2023 18:05
[2023-07-09] MEDS ORDERED: PANT40TA2 PO (18:06)
[2023-07-09] MEDS ORDERED: SUCR1TAB36 PO (18:06)
--- NOTE | 2023-07-09 18:07 | Discharge Inst-Surgical ---
D/C Lap Instructions-KIDO New, Converted, or Re-Newed RX: RX on Chart Follow Up 6 weeks Activity as tolerated High Fiber Diet 25g or more per day Avoid Alcohol, Caffeine, Spicy [place] and Acid foods. Drink 64 fluid oz or more of fluids per day. Symptoms to Report: Fever over 101 degree F, Nausea/Vomiting If any problems/questions: Contact your physician or go to Emergency Room RUSSELL SÁNCHEZ MD Jul 09, 2023 18:07
--- NOTE | 2023-07-09 18:41 | HISTORY AND PHYSICAL ---
DATE OF SERVICE: 07/09/2023 ATTENDING PRIMARY CARE PHYSICIAN: Yuliya Laureano DO HISTORY OF PRESENT ILLNESS: The patient is an 83-year-old male who presented to [facility] with difficulty swallowing. He states that for lunch, he had a port steak and after taking in a food bolus, he felt a substernal pressure sensation, and after that, he was unable to eat anymore as well as unable to drink any fluids. He states that he tried to regurgitate or throw up, however, he was unable to. Since presenting to the Emergency Department, he did have an episode of emesis of undigested food. He states that he still had a pressure sensation; however, his symptoms did ease up and he was able to swallow his saliva. Upon further questioning, he reports that he has had some milder symptoms before in the past, likely consistent with distal esophageal stricture as well as a possible hiatal hernia or a combination of both. He does not report any hematemesis, no coffee-ground emesis, and is currently on Protonix. PAST MEDICAL HISTORY: Gastroesophageal reflux disease, COPD, degenerative joint disease. PAST SURGICAL HISTORY: Laparoscopic cholecystectomy. ALLERGIES: No known drug allergies. MEDICATIONS: Hydroxyurea 500 mg daily, Protonix 40 mg daily. SOCIAL HISTORY: Previous smoke 40 pack years, social alcohol. FAMILY HISTORY: Noncontributory. VITAL SIGNS: Blood pressure 125/83, temperature 36.1, pulse 52, respirations 16, pulse ox 98% on room air. REVIEW OF SYSTEMS: A well-nourished male in no acute distress. He does have some substernal pressure sensation, however, has not had any regurgitation or episodes of nausea and vomiting since being admitted. It also seems that he is able to swallow his saliva better at this point. No known hematemesis, no coffee-ground emesis. History of constipation, no red blood per rectum, no dark tarry stools. No fever, chills, no recent inadvertent weight loss. All other review of systems negative. PHYSICAL EXAMINATION: CHEST: Distant breath sounds bilaterally with scattered wheezes and rhonchi. HEART: Regular. No murmurs. EXTREMITIES: No lower extremity edema. Negative Homans sign. HEENT: No scleral icterus. No cervical lymphadenopathy. ABDOMEN: Soft, nondistended. There is mild discomfort in the epigastric region upon deep palpation. No hernias. No peritoneal signs. SKIN: Warm, dry. ASSESSMENT AND PLAN: An 83-year-old male with dysphagia and history of gastroesophageal reflux disease, likely indicating a distal esophageal stricture or hiatal hernia or combination of both. He also may have a retained esophageal foreign body and we will proceed with an EGD as well as possible removal of esophageal foreign body and esophageal dilatation if a stricture is identified. We will also proceed with biopsies as appropriate. Job ID: [id number] DocumentID: [id number] Dictated Date: 07/09/2023 18:02:46 Grad Intern Date: 07/09/2023 18:39:00 Dictated By: RUSSELL SÁNCHEZ MD
[2023-07-09 19:11] VITALS: BP 151/78
[2023-07-09] MEDS ORDERED: LIDOCAINE JELLY 2% 6 ML SYRINGE ONE (19:26)
[2023-07-09] MEDS ORDERED: proPOfol INJECTION 200 MG/20 ML VIAL IV ONE (19:37)
[2023-07-09] MEDS ORDERED: MIDAZOLAM INJ 2 MG/2 ML VIAL ONE (19:40)
[2023-07-09 20:15] VITALS: BP 149/69
--- NOTE | 2023-07-09 20:28 | Progress Note-Post Operative ---
Post-Operative Progess Note Surgeon (s)/Reporting Lead (s) Surgeon RUSSELL SÁNCHEZ MD Reporting Lead: none Pre-Operative Diagnosis dysphagia, GERD, esophageal foreign body Post-Operative Diagnosis reflux esophagitis(grade C), distal esophageal stricture, small HH(2.5cm), moderate gastritis, no dist obstructions. Procedure & Operative Findings Date of Procedure 07/09/23 Procedure Performed/Findings EGD with bx and balloon dilatation. Anesthesia Type mac Estimated Blood Loss Estimated blood loss (mL): minimal Specimens/Packing Specimens Removed ge jxn, antrum RUSSELL SÁNCHEZ MD Jul 09, 2023 20:28
[2023-07-09] MEDS ORDERED: LACTATED RINGERS 1,000 ML 1,000 ML IV STA (20:53)
[2023-07-09] MEDS ORDERED: HURRICAINE EXT TUBE (BENZOCAINE) XX PRN (21:00)
[2023-07-09] MEDS ORDERED: LIDOCAINE JELLY 2% 6 ML SYRINGE MM PRN (21:00)
[2023-07-09] MEDS ORDERED: PANTOPRAZOLE INJECTION 40 MG VIAL IV SCH (21:00)
[2023-07-09 21:10] VITALS: BP 167/71
--- NOTE | 2023-07-10 03:43 | OPERATIVE REPORT ---
DATE OF SERVICE: 07/09/2023 ATTENDING PRIMARY CARE PHYSICIAN: Yuliya Laureano DO PREOPERATIVE DIAGNOSES: Dysphagia, gastroesophageal reflux disease, esophageal foreign body. POSTOPERATIVE DIAGNOSES: Reflux esophagitis, [place] grade C with a distal esophageal stricture, food bolus had reduced into the stomach. Small hiatal hernia, 2.5 cm in size, moderate gastritis. No distal obstructions. PROCEDURE: EGD with biopsy and balloon dilatation. SURGEON: Russell Sánchez MD ANESTHESIA: Monitored anesthesia care. ESTIMATED BLOOD LOSS: Minimal. FINDINGS: Reflux esophagitis, [place] grade C with a distal esophageal stricture, food bolus had reduced into the stomach. Small hiatal hernia, 2.5 cm in size, moderate gastritis. No distal obstructions. DISPOSITION: The patient tolerated the procedure well. INDICATIONS: The patient is an 83-year-old male who was eating a pork sandwich at around 1:00 p.m. and states that after one food bolus, he felt a substernal pressure sensation and he tried to drink liquids after this; however, this worsen the pressure sensation. Since that time, he has had difficulty swallowing saliva. He presented to [facility] department where he did have an episode of regurgitation and states that he felt better; however, he continued to have issues with dysphagia. He was admitted, started on IV fluids as well as Protonix and given a dose of glucagon. He stated that he continued to have issues with difficulty swallowing and has been spitting up his own saliva. He reports that he has had a similar episode approximately 1 year ago, which reduced on its own. He also reports having issues with reflux and acid indigestion for several years now. DESCRIPTION OF PROCEDURE: The patient was brought to the endoscopy suite and laid in the left lateral decubitus position. After adequate IV pain and sedative medications and monitored anesthesia care, the mouthpiece was applied. The endoscope was placed in the mouth, visualized the pharynx and hypopharyngeal region. Vocal cords, epiglottis and vallecula identified and appeared to be normal. The endoscope was then gently intubated into the esophageal opening and esophagus insufflated. The endoscope was then advanced into the first, second and third portions of esophagus, at the level of the GE junction, a reflux esophagitis, [place] grade C identified. There was also a distal esophageal stricture. There was no food bolus within the distal esophagus. A biopsy was taken of the GE junction with forceps with visualization of good hemostasis. The endoscope was then advanced into the stomach where the food bolus was identified in the stomach. The endoscope was then retroflexed, visualizing a small hiatal hernia approximately 2.5 cm in size. There was a moderate severity gastritis. No formal ulcerations, polyps or any neoplasms. A biopsy was taken of the stomach, antrum to rule out H. pylori with visualization of good hemostasis. The endoscope was then advanced through the pylorus into the first and second portion of the duodenum, which appeared normal with no distal obstruction. The balloon was then placed in the stomach and pulled back to the area of the stricture. We then proceeded with slow graded dilatation from 1, 2, 3 and then eventually 4 atmospheres of pressure with moderate resistance with 60 seconds in between level. Once at 4 atmospheres of pressure, we felt moderate resistance or approximately 19 mm in luminal diameter and left this in place for 120 seconds. The balloon was then desufflated and removed with visualization of good hemostasis as well as no mucosal tears. The endoscope was then slowly withdrawn while taking a second look and suctioning of residual air with no additional findings. The patient tolerated the procedure well. We will recommend the necessary lifestyle and dietary accommodation including small and more frequent meals, avoidance of eating at night as well as head elevation while lying supine. He also needs to avoid caffeinated beverages, spicy, greasy and acidic foods. We will also start him on Protonix 40 mg daily as well as Carafate 1 gram q.i.d. for the next 2 weeks, then on a p.r.n. basis. We will have him follow up in the office in 6 weeks as well to schedule a repeat dilatation to a goal of approximately 20 mm, so he does not have any recurrent episodes of dysphagia or stuck esophageal food boluses within the distal esophagus. Job ID: [id number] DocumentID: [id number] Dictated Date: 07/09/2023 20:15:39 Mechanical Engineering Intern Date: 07/10/2023 03:42:00 Dictated By: RUSSELL SÁNCHEZ MD
== END 2023-07-09 21:10 | disposition home or self-care (01) ==
LOC: EDUNIT# 15:21 → ER FS 15:23 → 4TH 17:35
PROVIDERS: ADMIT Surgery; ATTEND Surgery
DX: K22.2 Esophageal obstruction (principal); T18.128A Food in esophagus causing other injury, initial encounter; K21.00 Gastro-esophageal reflux disease with esophagitis, without bleeding; K44.9 Diaphragmatic hernia without obstruction or gangrene; K29.70 Gastritis, unspecified, without bleeding; K31.89 Other diseases of stomach and duodenum; Z87.891 Personal history of nicotine dependence
CPT/HCPCS: 87081; 96361